=== PATIENT | female | born 1965 | race Caucasian/White ===

== ENCOUNTER 2017-10-15 22:07 | Inpatient (IN) | payer BC, OTHER ==
[~2017-10-15] VITALS: Ht 170.2 cm; Wt 89.4 kg
[~2017-10-15 22:07] MED LIST: ACET-1256 PO; ALBU1AER9 INH; CYAN500T13 PO; EFFSR150 PO; FEXO1TAB49 PO; MULT-506 PO; MULT-842 PO; NYSCR30 EXT; OMEP20CA9 PO; ONDA-63 PO; PSYL55.43 PO; RANI150T3 PO
[2017-10-15] MEDS ORDERED: ONDANSETRON INJ 2 MG/ML 2 ML VIAL IV STA (22:59)
[2017-10-15] MEDS ORDERED: SODIUM CHLORIDE 0.9% 1000ML 1,000 ML IV STA (22:59)
[2017-10-15] MEDS ORDERED: MoRPHine SULFATE 10 MG/ML CARP/VIAL IV STA (22:59)
[2017-10-15] MEDS ORDERED: TRAM-10 PO (23:04)
[2017-10-15] MEDS ORDERED: PSYL0.524 (23:04)
[2017-10-15] MEDS ORDERED: QUET1TAB30 PO (23:04)
[2017-10-15 23:15] LABS: BASO % 0.3 %; BASO ABS # 0.03 K/uL (0-0.2); EOS % 0.7 %; EOS ABS # 0.08 K/uL (0-0.5); HEMATOCRIT 28.3 % (37-47); HEMOGLOBIN 8.3 g/dL (12.0-16.0); IG# 0.02 K/uL (0.00-0.02); LYMPH % 9.4 %; LYMPH ABS # 1.06 K/uL (1.2-3.4); MEAN CELL VOLUME 68.7 fL (80-100); MEAN CORPUSCULAR HEMOGLOBIN 20.1 pg (25-34); MEAN CORPUSCULAR HGB CONC 29.3 g/dl (32-36); MEAN PLATELET VOLUME 10.2 fL (7.4-10.4); MONO ABS # 0.34 K/uL (0.11-0.59); NEUT % 86.4 %; NEUT ABS # 9.79 K/uL (1.4-6.5); PLATELET COUNT 404 K/uL (130-400); RED CELL DISTRIBUTION WIDTH SD 45.8 fL (36.4-46.3); WHITE BLOOD COUNT 11.32 K/uL (4.8-10.8)
[2017-10-15] MEDS ORDERED: OPTIRAY 320 IV PRN (23:15)
[2017-10-15 23:24] LABS: ISTAT CREATININE 0.7 mg/dl (0.6-1.3); ISTAT IONIZED CALCIUM 1.18 mmol/l (1.12-1.32); ISTAT POTASSIUM 3.9 mEq/L (3.3-5.0)
[2017-10-15 23:33] LABS: ALBUMIN 3.4 gm/dl (3.4-5.0); ALT/SGPT 21 U/L (12-78); BLOOD UREA NITROGEN 12 mg/dl (7-18); CALCIUM 8.9 mg/dl (8.5-10.1); CARBON DIOXIDE 29 mmol/L (21-32); CREATININE 0.66 mg/dl (0.60-1.20); GLUCOSE 117 mg/dl (70-99); LIPASE 103 U/L (73-393); POTASSIUM 3.9 mmol/L (3.5-5.1); SODIUM 138 mmol/L (136-145)
[2017-10-15 23:38] LABS: ALKALINE PHOSPHATASE 74 U/L (45-117); AST/SGOT 11 U/L (15-37); TOTAL PROTEIN 6.9 gm/dl (6.4-8.2)
[2017-10-16] VITALS (13 sets, daily range): BP systolic 112–136; BP diastolic 62–82; PULSE 71–83; TEMP 36.5–36.9; O2SAT 92–96; Ht 170.2 cm; Wt 89.4 kg
[2017-10-16] MEDS ORDERED: CEFTRIAXONE SOD INJ 1 GM ADDVIAL IV STA (00:48)
[2017-10-16] MEDS ORDERED: MoRPHine SULFATE 4 MG/ML 1 ML CARP\\VIAL IV STA (01:01)
--- NOTE | 2017-10-16 01:42 | EMERGENCY ROOM VISIT NOTE ---
History Report prepared by Vince: Hazel Banuelos Under the Supervision of: Dr. Drake Allan M.D. First contact with patient: 22:24 Chief Complaint: GI ASSESSMENT Stated Complaint: SEVERE ABD PAIN,VOMITING,POSSIBLE BOWEL OBSTRUCTIO History of Present Illness The patient is a 52 year old white female with a past medical history of partial SBO, hysterectomy, laparoscopy for endometriosis, hypertension, depression, GERD, asthma who presents to the ED with a cc of persistent severe abdominal pain beginning 3.5 hours ago. She describes the pain as an ache. Positive nausea, vomiting, constipation, burning in chest from vomiting. Negative cough, fever, chills, urinary symptoms. Last bowel movement was earlier today and consisted of small stools. Last SBO was in 2016 and resolved with bowel rest. She denies any recent travel, antibiotic use, falls, or sick contacts. She denies any alcohol or tobacco use. She has her appendix. Source of History: patient Onset: 3.5 hours ago Position: abdomen Symptom Intensity: severe Quality: ache Timing: other (persistent) Associated Symptoms: + chest pain, + nausea, + vomiting, No fevers, No chills, No cough, No urinary symptoms Note: Pt reports constipation. Review of Systems See HPI for pertinent positives and negatives. A total of ten systems were reviewed and were otherwise negative. Past Medical & Surgical Medical Problems: (1) Arthritis of right knee (2) Asthma, Unspecified (3) Asthma, Unspecified (4) Depression (5) Depression (6) Depressive Disorder Nec (7) diverticulosis (8) Diverticulosis Colon (W/O Ment Of Hemorrhage) (9) Esophageal Reflux (10) GERD (gastroesophageal reflux disease) (11) GERD (gastroesophageal reflux disease) (12) H/O small bowel obstruction (13) HTN (hypertension) (14) HTN (hypertension) (15) Hypertension (16) SBO (small bowel obstruction) (17) Small bowel obstruction (18) Small bowel obstruction Surgical Problems: (1) H/O colonoscopy (2) H/O knee surgery (3) H/O: hysterectomy (4) History of esophagogastroduodenoscopy (EGD) (5) S/P surgery on nasal septum (6) S/P DELMY (total abdominal hysterectomy) (7) S/P DELMY-BSO (8) Total knee replacement status Family History Cancer Essential hypertension Heart disease Kidney disease Lung disease Social History Smoking Status: Former Smoker Alcohol Use: occasionally Drug Use: none Marital Status: in relationship Housing Status: lives with significant other Occupation Status: employed Current/Historical Medications Scheduled Cyanocobalamin (Vitamin B12 500MCG), 500 MCG PO DAILY Multiple Minerals W/ Vitamins (Rashaun Mag Zinc +D3), 1 TAB PO DAILY Multivitamin (Multivitamin), 1 TAB PO QAM Omeprazole (Prilosec), 20 MG PO QAM Quetiapine Fumarate (Seroquel), 1 TAB PO HS Ranitidine Hcl (Zantac), 300 MG PO HS Venlafaxine Hcl (Effexor Extended Rel), 150 MG PO DAILY Scheduled PRN Acetaminophen (Tylenol), 1,000 MG PO Q8 PRN for Pain Albuterol Sulfate (Proair Hfa), 2 PUFFS INH QID PRN for Asthma Symptoms Fexofenadine Hcl (Ayde Allergy), 1 TAB PO QAM PRN for Seasonal Allergies Ondansetron (Ondansetron HCl), 8 MG PO UD PRN for Nausea Psyllium (Metamucil), 1 DOSE QAM PRN for Tramadol (Ultram), 50 MG PO PRN UD PRN for Pain Allergies Coded Allergies: Naproxen (Verified Allergy, Severe, ANAPHYLAXIS- THROAT SWELLING, motrin OK, 10/15/17) 03/03/16: Spoke with Edu Daniel PA-C: ok to use celebrex/toradol Diflunisal (Unverified Allergy, Unknown, per PCP records, 10/15/17) Fexofenadine (Unverified Adverse Reaction, Mild, HYPERTENSION, 10/15/17) Pseudoephedrine (Unverified Adverse Reaction, Mild, HYPERTENSION, 10/15/17) Meperidine (Unverified Adverse Reaction, Unknown, HYPOTENSION, 10/15/17) Physical Exam Vital Signs Date Time Temp Pulse Resp B/P (MAP) Pulse Ox O2 Delivery O2 Flow Rate FiO2 10/16/17 01:01 84 13 128/78 95 Room Air 10/16/17 00:00 82 15 139/74 96 Room Air 10/15/17 23:19 79 10/15/17 22:14 36.9 87 22 127/80 97 Room Air Physical Exam GENERAL: Awake, alert, well-appearing, NAD. Pt holding bag of vomit. HENT: Normocephalic, atraumatic. EYES: Normal conjunctiva. Sclera non-icteric. NECK: Supple. No nuchal rigidity. FROM. RESPIRATORY: CTAB, no rhonchi, wheezing, crackles CARDIAC: RRR, no MRG ABDOMEN: Soft, ND, BS+. Epigastric and LUQ TTP. Suprapubic and RLQ TTP. MSK: No chest wall TTP, no LE edema. No CVA TTP. NEURO: GCS 15, CN 2-12 intact, moves all 4s on command SKIN: No rash or jaundice noted. Medical Decision & Procedures ER Provider Diagnostic Interpretation: X-ray: Per my interpretation, radiologist review. Radiology results as stated below per my review and [facility] radiologist interpretation: Chest X-ray: Trachea midline. Questionable mild cardiomegaly. Costophrenic angles well demarcated. No obvious pneumothorax, consolidation, or pleural effusion. Gaseous bubble below the left hemidiaphragm. KUB: Stool evident. Bony elements intact. No obvious obstruction. CT Abdomen & Pelvis With Contrast: Comparison 08/26/2016 There is again dilated small bowel leading to a focal transition point at the distal small bowel with adjacent fecalized intraluminal material and small amount of interloop and mesenteric fluid, edema consistent with developing small bowel obstruction No free air Normal caliber appendix without secondary signs Small amount of pelvic free fluid Abdominal solid organs and gallbladder appear within limits Status post hysterectomy again noted Laboratory Results 10/15/17 23:00 Red Blood Count 4.12, Mean Corpuscular Volume 68.7, Mean Corpuscular Hemoglobin 20.1, Mean Corpuscular Hemoglobin Concent 29.3, Mean Platelet Volume 10.2, Neutrophils (%) (Auto) 86.4, Lymphocytes (%) (Auto) 9.4, Monocytes (%) (Auto) 3.0, Eosinophils (%) (Auto) 0.7, Basophils (%) (Auto) 0.3, Neutrophils # (Auto) 9.79, Lymphocytes # (Auto) 1.06, Monocytes # (Auto) 0.34, Eosinophils # (Auto) 0.08, Basophils # (Auto) 0.03 10/15/17 23:00 Test 10/15/17 23:00 10/15/17 23:12 10/15/17 23:20 White Blood Count 11.32 K/uL (4.8-10.8) Red Blood Count 4.12 M/uL (4.2-5.4) Hemoglobin 8.3 g/dL (12.0-16.0) Hematocrit 28.3 % (37-47) Mean Corpuscular Volume 68.7 fL (80-100) Mean Corpuscular Hemoglobin 20.1 pg (25-34) Mean Corpuscular Hemoglobin Concent 29.3 g/dl (32-36) Platelet Count 404 K/uL (130-400) Mean Platelet Volume 10.2 fL (7.4-10.4) Neutrophils (%) (Auto) 86.4 % Lymphocytes (%) (Auto) 9.4 % Monocytes (%) (Auto) 3.0 % Eosinophils (%) (Auto) 0.7 % Basophils (%) (Auto) 0.3 % Neutrophils # (Auto) 9.79 K/uL (1.4-6.5) Lymphocytes # (Auto) 1.06 K/uL (1.2-3.4) Monocytes # (Auto) 0.34 K/uL (0.11-0.59) Eosinophils # (Auto) 0.08 K/uL (0-0.5) Basophils # (Auto) 0.03 K/uL (0-0.2) RDW Standard Deviation 45.8 fL (36.4-46.3) RDW Coefficient of Variation 18.0 % (11.5-14.5) Immature Granulocyte % (Auto) 0.2 % Immature Granulocyte # (Auto) 0.02 K/uL (0.00-0.02) Large Platelets 1+ Hypochromasia PRESENT Microcytosis PRESENT Est Creatinine Clear Calc Drug Dose 117.1 ml/min Estimated GFR () 119.4 Estimated GFR (Non- 103.0 BUN/Creatinine Ratio 17.5 (10-20) Calcium Level 8.9 mg/dl (8.5-10.1) Magnesium Level 2.2 mg/dl (1.8-2.4) Total Bilirubin 0.3 mg/dl (0.2-1) Direct Bilirubin < 0.1 mg/dl (0-0.2) Aspartate Amino Transf (AST/SGOT) 11 U/L (15-37) Alanine Aminotransferase (ALT/SGPT) 21 U/L (12-78) Alkaline Phosphatase 74 U/L (45-117) Troponin I < 0.015 ng/ml (0-0.045) Total Protein 6.9 gm/dl (6.4-8.2) Albumin 3.4 gm/dl (3.4-5.0) Lipase 103 U/L (73-393) Bedside Hemoglobin 9.5 g/dl (12.0-16.0) Bedside Hematocrit 28 % (37-47) Bedside Sodium 139 mEq/L (135-144) Bedside Potassium 3.9 mEq/L (3.3-5.0) Bedside Chloride 99 mEq/L (101-112) Bedside Total CO2 30 mEq/l (24-31) Anion Gap 15.0 mmol/L (16-25) Bedside Blood Urea Nitrogen 11 mg/dl (7-18) Bedside Creatinine 0.7 mg/dl (0.6-1.3) Bedside Glucose (other) 121 mg/dl (70-99) Bedside Ionized Calcium (Vielka) 1.18 mmol/l (1.12-1.32) Urine Color YELLOW Urine Appearance CLOUDY (CLEAR) Urine pH 8.5 (4.5-7.5) Urine Specific [place] 1.023 (1.000-1.030) Urine Protein NEG (NEG) Urine Glucose (UA) NEG (NEG) Urine Ketones TRACE (NEG) Urine Occult Blood NEG (NEG) Urine Nitrite NEG (NEG) Urine Bilirubin NEG (NEG) Urine Urobilinogen NEG (NEG) Urine Leukocyte Esterase SMALL (NEG) Urine WBC (Auto) 10-30 /hpf (0-5) Urine RBC (Auto) 0-4 /hpf (0-4) Urine Hyaline Casts (Auto) 1-5 /lpf (0-5) Urine Epithelial Cells (Auto) >30 /lpf (0-5) Urine Bacteria (Auto) 1+ (NEG) Laboratory results reviewed by me Medications Administered Medications (Trade) Dose Ordered Sig/Cora Route Start Time Stop Time Status Last Admin Dose Admin Sodium Chloride 1,000 ml @ 999 mls/hr Q1H1M STAT IV 10/15/17 22:59 10/15/17 23:59 DC 10/15/17 00:12 999 MLS/HR Ondansetron HCl (Zofran Inj) 4 mg NOW STAT IV 10/15/17 22:59 10/15/17 23:02 DC 10/15/17 23:37 4 MG Morphine Sulfate (MoRPHine SULFATE INJ) 8 mg NOW STAT IV 10/15/17 22:59 10/15/17 23:02 DC 10/15/17 23:37 8 MG Ceftriaxone Sodium (Rocephin Inj) 1 gm NOW STAT IV 10/16/17 00:48 10/16/17 00:49 DC 10/16/17 01:05 1 GM Morphine Sulfate (MoRPHine SULFATE INJ) 4 mg NOW STAT IV 10/16/17 01:01 10/16/17 01:02 DC 10/16/17 01:08 4 MG ECG Indication: chest pain Rate (beats per minute): 74 Rhythm: normal sinus Findings: other (normal intervals, normal axis, no STS changes or TWI) Change: Patient's electrocardiogram interpreted by me. ED Course 2247: The patient was evaluated in room C4. A complete history and physical exam was performed. 0059: Upon reexamination, the patient was still having some pain. I discussed the test results and treatment plan with her. The patient will be evaluated for further management. 0140: I discussed the patient's case [facility] The patient will be evaluated for further treatment and disposition. Medical Decision The patient is a 52 year old white female with a past medical history of partial SBO, hysterectomy, laparoscopy for endometriosis, hypertension, depression, GERD, asthma who presents to the ED with a cc of persistent severe abdominal pain beginning 3.5 hours ago. Differential diagnosis: Etiologies such as appendicitis, diverticulitis, PUD, biliary pathology, UTI, pancreatitis, obstruction, mesenteric ischemia, aortic pathology, infections, inflammatory bowel disease, renal colic, as well as others were entertained. Patient was seen and evaluated the bedside. Patient does have a prior history of partial SBO and the patient states that she has had some severe abdominal pain. Patient did have a bowel movement earlier today. Patient did have blood work completed along with a CT of the abdomen pelvis. Patient's blood work was fairly unremarkable. Of note the patient does have some anemia which is microcytic. This is compared to a hemoglobin obtained approximately [address] of the abdomen pelvis did show a developing SBO with transition point at the distal small bowel. Patient did have an NG tube that was ordered. I did speak with the medicine service who agreed to further evaluate and treat the patient. Medication Reconcilliation Current Medication List: was personally reviewed by me Blood Pressure Screening Patient's blood pressure: Normal blood pressure Blood pressure disposition: Did not require urgent referral Consults Time Called: 013 Consulting Physician: Dr. Marquez [facility] hospitalist Returned Call: 0140 Discussed the patient's case. The patient will be evaluated for further treatment and disposition. Impression Primary Impression: SBO (small bowel obstruction) Additional Impression: Anemia Scribe Attestation The scribe's documentation has been prepared under my direction and personally reviewed by me in its entirety. I confirm that the note above accurately reflects all work, treatment, procedures, and medical decision making performed by me. Departure Information Dispostion Being Evaluated By Hospitalist Referrals Tomy Carlos M.D. (PCP) Patient Instructions My [facility] Problem Qualifiers Additional Impression: Anemia Anemia type: unspecified type Qualified Codes: D64.9 - Anemia, unspecified
[2017-10-16] MEDS ORDERED: BISACODYL 10 MG SUPP PR STA (02:24)
[2017-10-16] MEDS ORDERED: MoRPHine SULFATE 4 MG/ML 1 ML CARP\\VIAL IV PRN (02:30)
[2017-10-16] MEDS ORDERED: TRAMADOL HCL 50 MG TAB PO PRN (02:30)
[2017-10-16] MEDS ORDERED: LORAZEPAM 2 MG/ML 1 ML VIAL IV PRN (02:30)
[2017-10-16] MEDS ORDERED: PROCHLORPERAZINE INJ 5 MG in SYRINGE 4 ML IV PRN (02:30)
[2017-10-16] MEDS ORDERED: ACETAMINOPHEN 325 MG TAB PO PRN (02:30)
[2017-10-16] MEDS ORDERED: POLYETHYLENE (MIRALAX) 17 GM PACK PO PRN (02:30)
[2017-10-16 02:56] LABS: RETIC COUNT % 1.4 % (0.5-2.0)
--- NOTE | 2017-10-16 03:22 | HISTORY & PHYSICAL EXAMINATION ---
DATE OF ADMISSION: 10/15/2017 CHIEF COMPLAINT: Abdominal pain. HISTORY OF PRESENT ILLNESS: History obtained from patient and records. Medical history significant for HTN, recurrent bowel obstruction, mood disorder, chronic anemia baseline hemoglobin 10, GERD, intermittent tobacco abuse Recent confinement last August 2016 for partial bowel obstruction resolved with conservative management. One day history of generalized abdominal discomfort, nausea, vomiting, constipated more than usual. Patient brought by friend to Emergency Room. NG tube placed in the ER. Patient's reflux worsening, increased abdominal distention. Denies black/bloody emesis/melena/hematochezia. Denies dysuria. Patient received IV ceftriaxone at the ER for possible UTI. MEDICAL HISTORY: As above. In 2016, EGD and colonoscopy were normal. Small bowel study recommended for complete workup. SURGERIES: She has had total abdominal hysterectomy, bilateral salpingo-oophorectomy, knee replacement, cataract surgery. HOME MEDICATIONS: Include Prilosec, Zofran, psyllium, Seroquel, Zantac, Ultram, Effexor, ProAir, Tylenol, vitamin B12, Ayde, multivitamins. ALLERGIES: MEPERIDINE, NAPROXEN, FEXOFENADINE. FAMILY HISTORY: Heart disease, hypertension. PERSONAL AND SOCIAL HISTORY: Intermittent tobacco abuse. No chronic intake of alcoholic beverages. [employer] employee. REVIEW OF SYSTEMS: As per HPI. All 10 systems reviewed. All other ROS negative. PHYSICAL EXAMINATION: VITAL SIGNS: Blood pressure was noted to be 130/80, pulse rate 87, RR 15, temperature 36.9, sats 96 on room air. GENERAL: Noted to be comfortable, obese, no respiratory distress. SKIN: Pallor. Warm. HEENT: Pale palpebral conjunctiva. No ptosis. Dry buccal mucosa. NECK: Supple, short. CHEST: Clear to auscultation. No chest wall tenderness. ABDOMEN: Some distention. No exquisite tenderness. Healed incisional scars. RECTAL: Intact sphincter, yellow stool, heme negative. EXTREMITIES: Minimal LE edema. No gross deformities. No tenderness. NEUROLOGIC: Coherent. No gross focality. LABORATORY DATA: Hemoglobin was 8.3, hematocrit 28.3, white cell count 11.32, platelets 404. Sodium 138, potassium 3.9, chloride 102, CO2 29, BUN 12, creatinine 0.66, glucose 117. CT abdomen and pelvis initial read showed recurrent moderate grade small bowel obstruction with transition point within the right mid abdomen, mesenteric fluid normal caliber appendix, status post hysterectomy, small amount of pelvic free fluid. Gallbladder within normal limits. UA WBC est , epithelial cells, trace ketones, hyaline casts ASSESSMENT: 1. Recurrent small bowel obstruction. 2. Acute on chronic anemia Hemoglobin drop from baseline history of iron deficiency anemia on outpatient workup. No evidence of occult gastrointestinal bleed on exam Patient not symptomatic. 3. Hypertension, stable. 4. Intermittent tobacco abuse. 5. Mood disorder, stable. 6. Asymptomatic pyuria, contaminated specimen Patient not septic. PLAN: GMF analgesia, antiemetics, bowel rest, NGT decompression, laxatives Surgery consult RE recurrent bowel obstruction. Complete anemia workup. Iron supplement on discharge. Follow urine cultures, hold off on additional antibiotics for now. Patient counseled on stopping smoking. DVT prophylaxis, Lovenox subQ. Full code. MTDD
[2017-10-16 03:23] LABS: CALCIUM 8.3 mg/dl (8.5-10.1); CREATININE 0.62 mg/dl (0.60-1.20); POTASSIUM 4.1 mmol/L (3.5-5.1)
[2017-10-16] MEDS ORDERED: PANTOprazole INJ 40 MG in SYRINGE 0 ML IV ONE (03:30)
[2017-10-16] MEDS: NSS + 20MEQ KCL 1000ML 1,000 ML IV SCH ×2 (03:54→20:46)
[2017-10-16] MEDS ORDERED: LORAZEPAM INJ 0.5 MG in SYRINGE 0.75 ML IV PRN (04:00)
--- NOTE | 2017-10-16 05:15 | Medical Consult ---
Consultation Date of Consultation: Oct 16, 2017. Attending Physician: Elder Thomas MD Reason for Consultation: bowel obstruction History of Present Illness pt adm with N/V, abd pain- CT shows dilated small bowel c/w sbo. Recurrent problem- last here Aug 26- w/ same- worse on scan. resolved quickly. H/o Hysterectomy and BSO. Has NG in place- slightly improved Past Medical/Surgical History Medical Problems: (1) Asthma, Unspecified Status: Chronic (2) Depression Status: Chronic (3) Depressive Disorder Nec Status: Chronic (4) diverticulosis Status: Chronic (5) Diverticulosis Colon (W/O Ment Of Hemorrhage) Status: Chronic (6) Esophageal Reflux Status: Chronic (7) GERD (gastroesophageal reflux disease) Status: Chronic (8) H/O small bowel obstruction Status: Chronic (9) HTN (hypertension) Status: Chronic (10) Hypertension Status: Chronic Family History Cancer Essential hypertension Heart disease Kidney disease Lung disease Social History Smoking Status: Former Smoker Drug Use: none Marital Status: in relationship Housing Status: lives with significant other Occupation Status: employed Allergies Coded Allergies: Naproxen (Verified Allergy, Severe, ANAPHYLAXIS- THROAT SWELLING, motrin OK, 10/15/17) 03/03/16: Spoke with Edu Daniel PA-C: ok to use celebrex/toradol Diflunisal (Unverified Allergy, Unknown, per PCP records, 10/15/17) Fexofenadine (Unverified Adverse Reaction, Mild, HYPERTENSION, 10/15/17) Pseudoephedrine (Unverified Adverse Reaction, Mild, HYPERTENSION, 10/15/17) Meperidine (Unverified Adverse Reaction, Unknown, HYPOTENSION, 10/15/17) Current Inpatient Medications Current Inpatient Medications Medications (Trade) Dose Ordered Sig/Cora Route Start Time Stop Time Status Last Admin Dose Admin Ioversol (Optiray 320) 100 ml UD PRN IV 10/15/17 23:15 10/19/17 23:14 Enoxaparin Sodium (Lovenox Inj) 40 mg Q24H SQ 10/16/17 02:30 11/15/17 02:29 UNV Acetaminophen (Tylenol Tab) 650 mg Q4H PRN PO 10/16/17 02:30 11/15/17 02:29 Tramadol HCl (Ultram Tab) not relieved ... Q6H PRN PO 10/16/17 02:30 11/15/17 02:29 Prochlorperazine Edisylate 5 mg/ Syringe 5 ml @ 5 mls/min Q6H PRN IV 10/16/17 02:30 11/15/17 02:29 Lorazepam (Ativan Inj) 0.5 mg Q4H PRN IV 10/16/17 02:30 11/15/17 02:29 Morphine Sulfate (MoRPHine SULFATE INJ) 4 mg Q4H PRN IV 10/16/17 02:30 10/30/17 02:29 Cyanocobalamin (Vitamin B-12 Tab) 500 mcg DAILY PO 10/16/17 09:00 11/15/17 08:59 Multivitamins (Multivitamin Tab) 1 tab QAM PO 10/16/17 09:00 11/15/17 08:59 Ranitidine HCl (zANTac TAB) 300 mg HS PO 10/16/17 21:00 11/15/17 20:59 Venlafaxine HCl (effeXOR EXTENDED REL CAP) 150 mg DAILY PO 10/16/17 09:00 11/15/17 08:59 Quetiapine Fumarate (seroQUEL TAB) 25 mg HS PO 10/16/17 21:00 11/15/17 20:59 Pantoprazole Sodium (Protonix Tab) 40 mg QAM PO 10/17/17 09:00 11/16/17 08:59 Senna/Docusate Sodium (Senokot S Tab) 1 tab BID PO 10/16/17 09:00 11/15/17 08:59 Polyethylene (Miralax Powder Packet) 17 gm DAILY PRN PO 10/16/17 02:30 11/15/17 02:29 Potassium Chloride/Sodium Chloride 1,000 ml @ 75 mls/hr [id number] IV 10/16/17 03:30 11/15/17 03:29 10/16/17 03:54 75 MLS/HR Lorazepam 0.5 mg/ Syringe 1 ml @ 1 mls/min Q4H PRN IV 10/16/17 04:00 11/15/17 03:59 Review of Systems Constitutional: No fever, No chills Respiratory: No cough, No sputum, No shortness of breath Cardiovascular: No chest pain Abdomen: + pain, + nausea, + vomiting Genitourinary - Female: No dysuria Integumentary: No rash Physical Exam Date Time Temp Pulse Resp B/P (MAP) Pulse Ox O2 Delivery O2 Flow Rate FiO2 10/16/17 03:12 36.7 82 16 115/72 (86) 95 Room Air 10/16/17 03:00 95 Room Air 10/16/17 02:42 78 16 111/73 94 10/16/17 01:01 84 13 128/78 95 Room Air 10/16/17 00:00 82 15 139/74 96 Room Air 10/15/17 23:19 79 10/15/17 22:14 36.9 87 22 127/80 97 Room Air General Appearance: no apparent distress Head: atraumatic Neck: supple Respiratory/Chest: no respiratory distress Cardiovascular: regular rate, rhythm Abdomen/GI: + distended (mild distention, some decreased bowel sounds, mild tenderness) Extremities/Musculoskelatal: no pedal edema Neurologic/Psych: alert Skin: no rash Laboratory Results Last 24 Hours Test 10/15/17 23:00 10/15/17 23:12 10/15/17 23:20 10/16/17 02:39 White Blood Count 11.32 K/uL Red Blood Count 4.12 M/uL Hemoglobin 8.3 g/dL Hematocrit 28.3 % Mean Corpuscular Volume 68.7 fL Mean Corpuscular Hemoglobin 20.1 pg Mean Corpuscular Hemoglobin Concent 29.3 g/dl Platelet Count 404 K/uL Mean Platelet Volume 10.2 fL Neutrophils (%) (Auto) 86.4 % Lymphocytes (%) (Auto) 9.4 % Monocytes (%) (Auto) 3.0 % Eosinophils (%) (Auto) 0.7 % Basophils (%) (Auto) 0.3 % Neutrophils # (Auto) 9.79 K/uL Lymphocytes # (Auto) 1.06 K/uL Monocytes # (Auto) 0.34 K/uL Eosinophils # (Auto) 0.08 K/uL Basophils # (Auto) 0.03 K/uL RDW Standard Deviation 45.8 fL RDW Coefficient of Variation 18.0 % Immature Granulocyte % (Auto) 0.2 % Immature Granulocyte # (Auto) 0.02 K/uL Large Platelets 1+ Hypochromasia PRESENT Microcytosis PRESENT Sodium Level 138 mmol/L 140 mmol/L Potassium Level 3.9 mmol/L 4.1 mmol/L Chloride Level 102 mmol/L 105 mmol/L Carbon Dioxide Level 29 mmol/L 31 mmol/L Anion Gap 7.0 mmol/L 15.0 mmol/L 4.0 mmol/L Blood Urea Nitrogen 12 mg/dl 10 mg/dl Creatinine 0.66 mg/dl 0.62 mg/dl Est Creatinine Clear Calc Drug Dose 117.1 ml/min 124.6 ml/min Estimated GFR () 119.4 121.9 Estimated GFR (Non- 103.0 105.1 BUN/Creatinine Ratio 17.5 15.6 Random Glucose 117 mg/dl 111 mg/dl Calcium Level 8.9 mg/dl 8.3 mg/dl Magnesium Level 2.2 mg/dl Total Bilirubin 0.3 mg/dl Direct Bilirubin < 0.1 mg/dl Aspartate Amino Transf (AST/SGOT) 11 U/L Alanine Aminotransferase (ALT/SGPT) 21 U/L Alkaline Phosphatase 74 U/L Troponin I < 0.015 ng/ml Total Protein 6.9 gm/dl Albumin 3.4 gm/dl Lipase 103 U/L Bedside Hemoglobin 9.5 g/dl Bedside Hematocrit 28 % Bedside Sodium 139 mEq/L Bedside Potassium 3.9 mEq/L Bedside Chloride 99 mEq/L Bedside Total CO2 30 mEq/l Bedside Blood Urea Nitrogen 11 mg/dl Bedside Creatinine 0.7 mg/dl Bedside Glucose (other) 121 mg/dl Bedside Ionized Calcium (Vielka) 1.18 mmol/l Urine Color YELLOW Urine Appearance CLOUDY Urine pH 8.5 Urine Specific [place] 1.023 Urine Protein NEG Urine Glucose (UA) NEG Urine Ketones TRACE Urine Occult Blood NEG Urine Nitrite NEG Urine Bilirubin NEG Urine Urobilinogen NEG Urine Leukocyte Esterase SMALL Urine WBC (Auto) 10-30 /hpf Urine RBC (Auto) 0-4 /hpf Urine Hyaline Casts (Auto) 1-5 /lpf Urine Epithelial Cells (Auto) >30 /lpf Urine Bacteria (Auto) 1+ Absolute Reticulocyte Count 0.05 10^6/uL Percent Reticulocyte Count 1.4 % Iron Level 11 mcg/dl Total Iron Binding Capacity 400 mcg/dl Transferrin 308 mg/dl Transferrin % Saturation 3 % Ferritin 2.3 ng/ml Vitamin B12 Level 829 pg/mL Folate 20.85 ng/mL Test 10/16/17 04:44 Assessment & Plan 10/16/17- Pt with recurrent partial SBO - likely adhesions in pelvis from prior surgery- DELMY/BSO. Nonoperative care for now- I briefly discussed possible recurrence and potential need for exploration, lysis of adhesions. Ice only and NG for now.
[2017-10-16 07:17] LABS: BASO % 0.3 %; BASO ABS # 0.03 K/uL (0-0.2); EOS % 0.9 %; EOS ABS # 0.08 K/uL (0-0.5); HEMATOCRIT 25.2 % (37-47); HEMOGLOBIN 7.4 g/dL (12.0-16.0); IG# 0.01 K/uL (0.00-0.02); LYMPH % 13.7 %; LYMPH ABS # 1.25 K/uL (1.2-3.4); MEAN CELL VOLUME 69.2 fL (80-100); MEAN CORPUSCULAR HEMOGLOBIN 20.3 pg (25-34); MEAN CORPUSCULAR HGB CONC 29.4 g/dl (32-36); MEAN PLATELET VOLUME 10.1 fL (7.4-10.4); MONO % 5.7 %; MONO ABS # 0.52 K/uL (0.11-0.59); NEUT % 79.3 %; NEUT ABS # 7.22 K/uL (1.4-6.5); PLATELET COUNT 339 K/uL (130-400); RED CELL DISTRIBUTION WIDTH CV 18.3 % (11.5-14.5); RED CELL DISTRIBUTION WIDTH SD 46.5 fL (36.4-46.3); WHITE BLOOD COUNT 9.11 K/uL (4.8-10.8)
[2017-10-16] MEDS: CYANOCOBALAMIN 500 MCG TAB (VIT B-12) PO SCH (07:37)
[2017-10-16] MEDS: VENLAFAXINE HCL XR 150 MG CAPXR PO SCH (07:37)
[2017-10-16] MEDS: MULTIVITAMIN TAB PO SCH (07:37)
--- NOTE | 2017-10-16 08:30 | DIAGNOSTIC IMAGING REPORT ---
PA CHEST RADIOGRAPH AND UPRIGHT AND SUPINE AP RADIOGRAPHS OF THE ABDOMEN CLINICAL HISTORY: Abdominal pain and vomiting. COMPARISON STUDY: CT of the abdomen and pelvis August 26, 2016 and KUB August 27, 2016. FINDINGS: Lung volumes are normal. No pneumothorax or pleural effusion is noted. Cardiomediastinal silhouette is stable. There is no evidence for pulmonary edema. There is no free air. Mild small bowel dilatation is noted with multiple air-fluid levels within the small bowel on upright projections. IMPRESSION: 1. No free air. 2. Mild small bowel dilatation with several small bowel air-fluid levels which raises the possibility of a small bowel obstruction. Electronically signed by: Leonidas Leon M.D. 10/16/2017 8:28 AM Dictated Date/Time: 10/16/2017 8:25 AM
--- NOTE | 2017-10-16 08:35 | DIAGNOSTIC IMAGING REPORT ---
CT OF THE ABDOMEN AND PELVIS WITH CONTRAST CLINICAL HISTORY: Abdominal pain, nausea and vomiting. History of small bowel obstruction. COMPARISON STUDY: CT of the abdomen and pelvis August 26, 2016 and abdominal series October 15, 2017. TECHNIQUE: Following IV administration of 93 mL of Optiray-320, axial images of the abdomen and pelvis were obtained from the lung bases to the proximal femurs. Images were reviewed in the axial, sagittal, and coronal planes. IV contrast was administered without complication. A dose lowering technique was utilized adhering to the principles of ALARA. CT DOSE: 623.47 mGy.cm FINDINGS: The liver, spleen, adrenal glands, kidneys and pancreas are unremarkable. There is no hydronephrosis. There is no biliary or pancreatic ductal dilatation. No pneumatosis, free air or portal venous gas is present. The appendix is normal. The mid small bowel is moderately dilated and fluid-filled, measuring up to 3.6 cm in caliber. Small bowel feces sign is noted within the right lower quadrant. Caliber change within the right mid abdomen is noted. Distal small bowel is decompressed. This represents a small bowel obstruction. A small amount of fluid within the pelvis is noted. There is mild mesenteric infiltration and mild interlobular fluid related to the obstruction. No abdominal or pelvic lymphadenopathy is present. No suspicious osseous lesions are present. IMPRESSION: Findings consistent with a recurrent moderate grade small bowel obstruction with transition point within the right mid abdomen, as described above. Small amount of associated fluid. No pneumatosis, free air or portal venous gas. Electronically signed by: Leonidas Leon M.D. 10/16/2017 8:34 AM Dictated Date/Time: 10/16/2017 8:29 AM
[2017-10-16] MEDS ORDERED: DOCUSATE SODIUM/SENNA 50/8.6MG TAB PO SCH (09:00)
[2017-10-16] MEDS ORDERED: NURSING VERBAL MED ORDER ONE ×2 (10:00→17:00)
[2017-10-16] MEDS ORDERED: ENOXAPARIN 40 MG/0.4 ML SYR SQ SCH (10:00)
[2017-10-16] MEDS ORDERED: FUROSEMIDE INJ 20 MG in SYRINGE 0 ML IV ONE (12:00)
[2017-10-16] MEDS ORDERED: MoRPHine SULFATE 2 MG/ML CARP IV PRN (15:45)
--- NOTE | 2017-10-16 18:57 | Progress Note ---
Internal Med Progress Note Date of Service: Oct 16, 2017. Provider Documentation: SUBJECTIVE: resting comfortably afebrile denies abdominal pain or nausea not moving bowels denies any recent blood in stool or black stools OBJECTIVE: Vital Signs-as noted below Exam: General-alert and oriented. Not in distress ENT-Normal hearing Neck-no neck masses Lungs-cta b/l no wheezing or crackles Heart-S1 and S2 heard regular rate and rhythm, no murmurs Abdomen-soft bowel sounds absent mild tenderness no distension Extremities-no edema no erythema Neuro-alert and awake moves extremities Lab data as noted below. ASSESSMENT & PLAN: 1. Recurrent small bowel obstruction. bob ng tube npo, iv fluids, iv pain meds and antiemetics prn surgery on board will monitor. 2. Acute on chronic anemia Hemoglobin drop from baseline history of iron deficiency anemia on outpatient workup. No evidence of occult gastrointestinal bleed on exam hb 7.4 today will transfuse two units of prbc iron low will check stool Hemoccult close monitor 3. Hypertension, stable. 4. Intermittent tobacco abuse. 5. Mood disorder, stable.home meds 6. Asymptomatic pyuria, contaminated specimen Patient not septic. DVT PROPHYLAXIS Lovenox DISPOSITION to be determined Vital Signs: Date Time Temp Pulse Resp B/P (MAP) Pulse Ox O2 Delivery O2 Flow Rate FiO2 10/16/17 17:07 36.8 71 17 126/82 94 10/16/17 17:07 36.8 71 17 126/82 (97) 94 Room Air 10/16/17 16:10 36.7 76 18 131/63 92 10/16/17 15:15 36.5 72 16 130/81 93 10/16/17 15:15 36.5 72 16 130/81 (97) 93 Room Air 10/16/17 15:15 Room Air 10/16/17 14:39 36.7 76 18 121/76 94 10/16/17 14:00 36.8 77 18 116/74 94 10/16/17 13:29 36.8 79 18 112/70 96 10/16/17 13:00 36.7 71 16 117/72 95 10/16/17 12:44 36.5 75 17 117/62 95 10/16/17 12:29 36.9 80 18 116/73 93 10/16/17 07:45 Room Air 10/16/17 07:30 36.8 83 16 116/75 (89) 92 Room Air 10/16/17 03:12 36.7 82 16 115/72 (86) 95 Room Air 10/16/17 03:00 95 Room Air 10/16/17 02:42 78 16 111/73 94 10/16/17 01:01 84 13 128/78 95 Room Air 10/16/17 00:00 82 15 139/74 96 Room Air 10/15/17 23:19 79 10/15/17 22:14 36.9 87 22 127/80 97 Room Air Lab Results: Results Past 24 Hours Test 10/15/17 23:00 10/15/17 23:12 10/15/17 23:20 10/16/17 02:39 Range/Units White Blood Count 11.32 4.8-10.8 K/uL Red Blood Count 4.12 4.2-5.4 M/uL Hemoglobin 8.3 12.0-16.0 g/dL Hematocrit 28.3 37-47 % Mean Corpuscular Volume 68.7 80-100 fL Mean Corpuscular Hemoglobin 20.1 25-34 pg Mean Corpuscular Hemoglobin Concent 29.3 32-36 g/dl Platelet Count 404 130-400 K/uL Mean Platelet Volume 10.2 7.4-10.4 fL Neutrophils (%) (Auto) 86.4 % Lymphocytes (%) (Auto) 9.4 % Monocytes (%) (Auto) 3.0 % Eosinophils (%) (Auto) 0.7 % Basophils (%) (Auto) 0.3 % Neutrophils # (Auto) 9.79 1.4-6.5 K/uL Lymphocytes # (Auto) 1.06 1.2-3.4 K/uL Monocytes # (Auto) 0.34 0.11-0.59 K/uL Eosinophils # (Auto) 0.08 0-0.5 K/uL Basophils # (Auto) 0.03 0-0.2 K/uL RDW Standard Deviation 45.8 36.4-46.3 fL RDW Coefficient of Variation 18.0 11.5-14.5 % Immature Granulocyte % (Auto) 0.2 % Immature Granulocyte # (Auto) 0.02 0.00-0.02 K/uL Large Platelets 1+ Hypochromasia PRESENT Microcytosis PRESENT Sodium Level 138 140 136-145 mmol/L Potassium Level 3.9 4.1 3.5-5.1 mmol/L Chloride Level 102 105 98-107 mmol/L Carbon Dioxide Level 29 31 21-32 mmol/L Anion Gap 7.0 15.0 4.0 3-11 mmol/L Blood Urea Nitrogen 12 10 7-18 mg/dl Creatinine 0.66 0.62 0.60-1.20 mg/dl Est Creatinine Clear Calc Drug Dose 117.1 124.6 ml/min Estimated GFR () 119.4 121.9 Estimated GFR (Non- 103.0 105.1 BUN/Creatinine Ratio 17.5 15.6 10-20 Random Glucose 117 111 70-99 mg/dl Calcium Level 8.9 8.3 8.5-10.1 mg/dl Magnesium Level 2.2 1.8-2.4 mg/dl Total Bilirubin 0.3 0.2-1 mg/dl Direct Bilirubin < 0.1 0-0.2 mg/dl Aspartate Amino Transf (AST/SGOT) 11 15-37 U/L Alanine Aminotransferase (ALT/SGPT) 21 12-78 U/L Alkaline Phosphatase 74 45-117 U/L Troponin I < 0.015 0-0.045 ng/ml Total Protein 6.9 6.4-8.2 gm/dl Albumin 3.4 3.4-5.0 gm/dl Lipase 103 73-393 U/L Bedside Hemoglobin 9.5 12.0-16.0 g/dl Bedside Hematocrit 28 37-47 % Bedside Sodium 139 135-144 mEq/L Bedside Potassium 3.9 3.3-5.0 mEq/L Bedside Chloride 99 101-112 mEq/L Bedside Total CO2 30 24-31 mEq/l Bedside Blood Urea Nitrogen 11 7-18 mg/dl Bedside Creatinine 0.7 0.6-1.3 mg/dl Bedside Glucose (other) 121 70-99 mg/dl Bedside Ionized Calcium ([place]) 1.18 1.12-1.32 mmol/l Urine Color YELLOW Urine Appearance CLOUDY CLEAR Urine pH 8.5 4.5-7.5 Urine Specific [place] 1.023 1.000-1.030 Urine Protein NEG NEG Urine Glucose (UA) NEG NEG Urine Ketones TRACE NEG Urine Occult Blood NEG NEG Urine Nitrite NEG NEG Urine Bilirubin NEG NEG Urine Urobilinogen NEG NEG Urine Leukocyte Esterase SMALL NEG Urine WBC (Auto) 10-30 0-5 /hpf Urine RBC (Auto) 0-4 0-4 /hpf Urine Hyaline Casts (Auto) 1-5 0-5 /lpf Urine Epithelial Cells (Auto) >30 0-5 /lpf Urine Bacteria (Auto) 1+ NEG Absolute Reticulocyte Count 0.05 0.02-0.10 10^6/uL Percent Reticulocyte Count 1.4 0.5-2.0 % Iron Level 11 35-150 mcg/dl Total Iron Binding Capacity 400 250-450 mcg/dl Transferrin 308 200-360 mg/dl Transferrin % Saturation 3 15-50 % Ferritin 2.3 8.0-388.0 ng/ml Vitamin B12 Level 829 211-911 pg/mL Folate 20.85 >5.38 ng/mL Test 10/16/17 06:36 Range/Units White Blood Count 9.11 4.8-10.8 K/uL Red Blood Count 3.64 4.2-5.4 M/uL Hemoglobin 7.4 12.0-16.0 g/dL Hematocrit 25.2 37-47 % Mean Corpuscular Volume 69.2 80-100 fL Mean Corpuscular Hemoglobin 20.3 25-34 pg Mean Corpuscular Hemoglobin Concent 29.4 32-36 g/dl Platelet Count 339 130-400 K/uL Mean Platelet Volume 10.1 7.4-10.4 fL Neutrophils (%) (Auto) 79.3 % Lymphocytes (%) (Auto) 13.7 % Monocytes (%) (Auto) 5.7 % Eosinophils (%) (Auto) 0.9 % Basophils (%) (Auto) 0.3 % Neutrophils # (Auto) 7.22 1.4-6.5 K/uL Lymphocytes # (Auto) 1.25 1.2-3.4 K/uL Monocytes # (Auto) 0.52 0.11-0.59 K/uL Eosinophils # (Auto) 0.08 0-0.5 K/uL Basophils # (Auto) 0.03 0-0.2 K/uL RDW Standard Deviation 46.5 36.4-46.3 fL RDW Coefficient of Variation 18.3 11.5-14.5 % Immature Granulocyte % (Auto) 0.1 % Immature Granulocyte # (Auto) 0.01 0.00-0.02 K/uL Hypochromasia PRESENT Microcytosis PRESENT Prothrombin Time 10.0 9.0-12.0 SECONDS Prothromb Time International Ratio 1.0 0.9-1.1 Phosphorus Level 4.0 2.5-4.9 mg/dl Magnesium Level 2.0 1.8-2.4 mg/dl Microbiology Results 10/15/17 Urine Culture, Received Pending
[2017-10-16] MEDS: ENOXAPARIN 40 MG/0.4 ML SYR SQ SCH (19:00)
[2017-10-16] MEDS: QUETIAPINE FUMARATE 25 MG TAB PO SCH (20:45)
[2017-10-16] MEDS: RANITIDINE HCL 150 MG TAB PO SCH (20:46)
[2017-10-16] MEDS: SENNA 8.8 MG/5 ML UDP PO SCH (20:52)
--- NOTE | 2017-10-17 06:21 | Surgery Progress Note ---
Surgery Progress Note Date of Service Oct 17, 2017. Subjective no acute chgs- no bm, minimal flatus NG - less output- 5cc overnight Objective Vital Signs: Date Time Temp Pulse Resp B/P (MAP) Pulse Ox O2 Delivery O2 Flow Rate FiO2 10/16/17 23:39 Room Air 10/16/17 22:54 36.6 75 16 136/77 (96) 93 Room Air 10/16/17 17:07 36.8 71 17 126/82 94 10/16/17 17:07 36.8 71 17 126/82 (97) 94 Room Air 10/16/17 16:10 36.7 76 18 131/63 92 10/16/17 15:15 36.5 72 16 130/81 93 10/16/17 15:15 36.5 72 16 130/81 (97) 93 Room Air 10/16/17 15:15 Room Air 10/16/17 14:39 36.7 76 18 121/76 94 10/16/17 14:00 36.8 77 18 116/74 94 10/16/17 13:29 36.8 79 18 112/70 96 10/16/17 13:00 36.7 71 16 117/72 95 10/16/17 12:44 36.5 75 17 117/62 95 10/16/17 12:29 36.9 80 18 116/73 93 10/16/17 07:45 Room Air 10/16/17 07:30 36.8 83 16 116/75 (89) 92 Room Air General Appearance: no apparent distress Respiratory/Chest: no respiratory distress Abdomen: soft (rené distended, decreased bowel sounds) Laboratory Results: Results Past 24 Hours Test 10/16/17 06:36 10/17/17 04:44 10/17/17 05:11 Range/Units White Blood Count 9.11 4.8-10.8 K/uL Red Blood Count 3.64 4.2-5.4 M/uL Hemoglobin 7.4 12.0-16.0 g/dL Hematocrit 25.2 37-47 % Mean Corpuscular Volume 69.2 80-100 fL Mean Corpuscular Hemoglobin 20.3 25-34 pg Mean Corpuscular Hemoglobin Concent 29.4 32-36 g/dl Platelet Count 339 130-400 K/uL Mean Platelet Volume 10.1 7.4-10.4 fL Neutrophils (%) (Auto) 79.3 % Lymphocytes (%) (Auto) 13.7 % Monocytes (%) (Auto) 5.7 % Eosinophils (%) (Auto) 0.9 % Basophils (%) (Auto) 0.3 % Neutrophils # (Auto) 7.22 1.4-6.5 K/uL Lymphocytes # (Auto) 1.25 1.2-3.4 K/uL Monocytes # (Auto) 0.52 0.11-0.59 K/uL Eosinophils # (Auto) 0.08 0-0.5 K/uL Basophils # (Auto) 0.03 0-0.2 K/uL RDW Standard Deviation 46.5 36.4-46.3 fL RDW Coefficient of Variation 18.3 11.5-14.5 % Immature Granulocyte % (Auto) 0.1 % Immature Granulocyte # (Auto) 0.01 0.00-0.02 K/uL Hypochromasia PRESENT Microcytosis PRESENT Prothrombin Time 10.0 9.0-12.0 SECONDS Prothromb Time International Ratio 1.0 0.9-1.1 Phosphorus Level 4.0 2.5-4.9 mg/dl Magnesium Level 2.0 1.8-2.4 mg/dl Assessment & Plan 10/17/17- Still some concern for adhesions causing recurrent obstruction. will order CT w/ contrast via NG and assess transit through bowel. May need lysis of adhesions 24-48 hrs depending on progress
[2017-10-17] MEDS ORDERED: OPTIRAY 320 IV PRN (06:30)
[2017-10-17 06:51] LABS: BASO % 0.5 %; BASO ABS # 0.03 K/uL (0-0.2); EOS % 3.4 %; EOS ABS # 0.19 K/uL (0-0.5); HEMATOCRIT 30.8 % (37-47); HEMOGLOBIN 9.5 g/dL (12.0-16.0); IG# 0.01 K/uL (0.00-0.02); LYMPH % 25.3 %; LYMPH ABS # 1.42 K/uL (1.2-3.4); MEAN CELL VOLUME 72.5 fL (80-100); MEAN CORPUSCULAR HEMOGLOBIN 22.4 pg (25-34); MEAN CORPUSCULAR HGB CONC 30.8 g/dl (32-36); MEAN PLATELET VOLUME 10.2 fL (7.4-10.4); MONO % 7.7 %; MONO ABS # 0.43 K/uL (0.11-0.59); NEUT % 62.9 %; NEUT ABS # 3.54 K/uL (1.4-6.5); PLATELET COUNT 309 K/uL (130-400); RED CELL DISTRIBUTION WIDTH CV 19.6 % (11.5-14.5); RED CELL DISTRIBUTION WIDTH SD 51.6 fL (36.4-46.3); WHITE BLOOD COUNT 5.62 K/uL (4.8-10.8)
[2017-10-17 07:05] VITALS: BP 133/81; PULSE 78; TEMP 36.9; O2SAT 93
[2017-10-17 07:24] LABS: CALCIUM 8.1 mg/dl (8.5-10.1); CREATININE 0.6 mg/dl (0.60-1.20); POTASSIUM 3.7 mmol/L (3.5-5.1)
[2017-10-17 07:26] LABS: PHOSPHORUS 3.4 mg/dl (2.5-4.9)
[2017-10-17] MEDS: CYANOCOBALAMIN 500 MCG TAB (VIT B-12) PO SCH (10:04)
[2017-10-17] MEDS: MULTIVITAMIN TAB PO SCH (10:04)
[2017-10-17] MEDS: PANTOprazole SOD 40 MG TAB PO SCH (10:05)
[2017-10-17] MEDS: VENLAFAXINE HCL XR 150 MG CAPXR PO SCH (10:05)
[2017-10-17] MEDS: SENNA 8.8 MG/5 ML UDP PO SCH ×2 (10:05→20:51)
--- NOTE | 2017-10-17 10:13 | DIAGNOSTIC IMAGING REPORT ---
ABD/PELVIS IV AND ORAL CONT CLINICAL HISTORY: 52 years-old Female presenting with sbo- assess transit of contrast, contrast via NG, abdominal pain, vomiting, mild constipation. TECHNIQUE: Multidetector CT of the abdomen and pelvis was performed after the administration of oral and intravenous contrast. IV contrast: 93 mL of Optiray 320. A dose lowering technique was used consistent with the principles of ALARA (as low as reasonably achievable). COMPARISON: 10/16/2017. CT DOSE (mGy.cm): The estimated cumulative dose is 689.29 mGy.cm. FINDINGS: [employer] topogram: Unremarkable. Lung bases: Minimal basilar opacities, likely atelectasis. Multichamber enlargement of the heart. No pericardial or pleural effusion. Liver: Normal morphology. Subcentimeter hypodensity in the left hepatic lobe indeterminate but likely hepatic cyst or hamartoma. Patent hepatic vasculature. Biliary: No intrahepatic or extrahepatic biliary ductal dilatation. Normal gallbladder. Pancreas: Normal. Spleen: Normal. Adrenal glands: Normal. Kidneys and ureters: Normal. No hydronephrosis. Bladder: Incompletely evaluated secondary to underdistention. Pelvic organs: Uterus surgically absent. Normal ovaries. Bowel: Oral contrast has transited to the rectum. No complete bowel obstruction. The appendix is normal. Small bowel is nondistended on the current exam. The persistent site of transition suspected on prior exam is again noted in the right mid abdomen (series 3 image 255). At this site, there is persistent small bowel wall thickening measures 6 mm. No perienteric fat stranding. A nasogastric tube terminates in the body of the stomach. Peritoneal cavity: Trace free fluid in the pelvis. Lymph nodes: Multiple prominent lymph nodes in the small bowel mesentery, which are chronic. These do not meet CT size criteria for pathologic enlargement. Vasculature: Aorta and IVC patent and normal in caliber. Abdominal wall: Normal. Musculoskeletal: Normal. IMPRESSION: 1. No current CT evidence of a partial or complete small bowel obstruction. The site of prior transition point evident on most recent CT performed the previous day is again noted with small bowel wall thickening. This is chronic and without evidence of surrounding inflammatory change. Differential considerations for this site of stenosis include fibrous stenotic stricture in the setting of inflammatory bowel disease or post radiation change. Correlate with the patient's history. 2. Chronic prominent small bowel mesenteric lymph nodes, which may be reactive. 3. Appropriately positioned nasogastric tube. Electronically signed by: Koby Dover M.D. 10/17/2017 10:12 AM Dictated Date/Time: 10/17/2017 10:03 AM
[2017-10-17] MEDS: NSS + 20MEQ KCL 1000ML 1,000 ML IV SCH ×2 (10:55→20:55)
[2017-10-17] MEDS ORDERED: MINERAL OIL 30 ML UDC PO ONE (11:15)
[2017-10-17 15:13] VITALS: BP 137/82; PULSE 78; TEMP 36.7; O2SAT 93
--- NOTE | 2017-10-17 16:12 | Progress Note ---
Internal Med Progress Note Date of Service: Oct 17, 2017. Provider Documentation: SUBJECTIVE: ambulating in [address] moved bowels off of ng tube tolerated diet afebrile no pain or nausea OBJECTIVE: Vital Signs-as noted below Exam: General-alert and oriented. Not in distress ENT-Normal hearing Neck-no neck masses Lungs-cta b/l no wheezing or crackles Heart-S1 and S2 heard regular rate and rhythm, no murmurs Abdomen-soft bowel sounds sluggish no tenderness no distension Extremities-no edema no erythema Neuro-alert and awake moves extremities Lab data as noted below. ASSESSMENT & PLAN: 1. Recurrent small bowel obstruction. bob ng tube npo, iv fluids, iv pain meds and antiemetics prn surgery on board moved bowels repeat ct scan o sbo but showed stenosis in small bowel-needs f/u tolerating full liquid diet -to advance as tolerated 2. Acute on chronic anemia Hemoglobin drop from baseline history of iron deficiency anemia on outpatient workup. No evidence of occult gastrointestinal bleed on exam hb 7.4 10/16/17 will transfuse two units of prbc iron low stool Hemoccult negative hb 9.5 today will give iv venofer needs close f/u with pcp 3. Hypertension, stable. 4. Intermittent tobacco abuse. 5. Mood disorder, stable.home meds 6. Asymptomatic pyuria, contaminated specimen Patient not septic. DVT PROPHYLAXIS Lovenox DISPOSITION possible d/c in am Vital Signs: Date Time Temp Pulse Resp B/P (MAP) Pulse Ox O2 Delivery O2 Flow Rate FiO2 10/17/17 15:13 36.7 78 16 137/82 (100) 93 Room Air 10/17/17 07:30 Room Air 10/17/17 07:05 36.9 78 16 133/81 (98) 93 Room Air 10/16/17 23:39 Room Air 10/16/17 22:54 36.6 75 16 136/77 (96) 93 Room Air 10/16/17 17:07 36.8 71 17 126/82 94 10/16/17 17:07 36.8 71 17 126/82 (97) 94 Room Air 10/16/17 16:10 36.7 76 18 131/63 92 Lab Results: Results Past 24 Hours Test 10/17/17 06:36 10/17/17 09:15 Range/Units White Blood Count 5.62 4.8-10.8 K/uL Red Blood Count 4.25 4.2-5.4 M/uL Hemoglobin 9.5 12.0-16.0 g/dL Hematocrit 30.8 37-47 % Mean Corpuscular Volume 72.5 80-100 fL Mean Corpuscular Hemoglobin 22.4 25-34 pg Mean Corpuscular Hemoglobin Concent 30.8 32-36 g/dl Platelet Count 309 130-400 K/uL Mean Platelet Volume 10.2 7.4-10.4 fL Neutrophils (%) (Auto) 62.9 % Lymphocytes (%) (Auto) 25.3 % Monocytes (%) (Auto) 7.7 % Eosinophils (%) (Auto) 3.4 % Basophils (%) (Auto) 0.5 % Neutrophils # (Auto) 3.54 1.4-6.5 K/uL Lymphocytes # (Auto) 1.42 1.2-3.4 K/uL Monocytes # (Auto) 0.43 0.11-0.59 K/uL Eosinophils # (Auto) 0.19 0-0.5 K/uL Basophils # (Auto) 0.03 0-0.2 K/uL RDW Standard Deviation 51.6 36.4-46.3 fL RDW Coefficient of Variation 19.6 11.5-14.5 % Immature Granulocyte % (Auto) 0.2 % Immature Granulocyte # (Auto) 0.01 0.00-0.02 K/uL Large Platelets 1+ Anisocytosis PRESENT Tear Drop Cells 1+ Sodium Level 141 136-145 mmol/L Potassium Level 3.7 3.5-5.1 mmol/L Chloride Level 106 98-107 mmol/L Carbon Dioxide Level 29 21-32 mmol/L Anion Gap 6.0 3-11 mmol/L Blood Urea Nitrogen 9 7-18 mg/dl Creatinine 0.60 0.60-1.20 mg/dl Est Creatinine Clear Calc Drug Dose 128.8 ml/min Estimated GFR () 123.2 Estimated GFR (Non- 106.3 BUN/Creatinine Ratio 14.3 10-20 Random Glucose 79 70-99 mg/dl Calcium Level 8.1 8.5-10.1 mg/dl Phosphorus Level 3.4 2.5-4.9 mg/dl Magnesium Level 2.0 1.8-2.4 mg/dl Stool Occult Blood NEGATIVE NEGATIVE
[2017-10-17] MEDS: ENOXAPARIN 40 MG/0.4 ML SYR SQ SCH (17:27)
[2017-10-17] MEDS ORDERED: IRON SUCROSE INJ 100 MG in SODIUM CHLORIDE 0.9% 100ML 100 ML IV ONE (17:30)
[2017-10-17] MEDS: RANITIDINE HCL 150 MG TAB PO SCH (20:52)
[2017-10-17] MEDS: QUETIAPINE FUMARATE 25 MG TAB PO SCH (20:52)
[2017-10-17 23:01] VITALS: BP 151/82; PULSE 62; TEMP 36.7; O2SAT 93
[2017-10-18 06:10] LABS: BASO % 0.5 %; BASO ABS # 0.03 K/uL (0-0.2); EOS % 4.2 %; EOS ABS # 0.26 K/uL (0-0.5); HEMOGLOBIN 9.9 g/dL (12.0-16.0); IG# 0.01 K/uL (0.00-0.02); LYMPH % 23.9 %; LYMPH ABS # 1.47 K/uL (1.2-3.4); MEAN CELL VOLUME 71.7 fL (80-100); MEAN CORPUSCULAR HEMOGLOBIN 22.2 pg (25-34); MEAN CORPUSCULAR HGB CONC 30.9 g/dl (32-36); MEAN PLATELET VOLUME 10.4 fL (7.4-10.4); MONO ABS # 0.49 K/uL (0.11-0.59); NEUT % 63.2 %; PLATELET COUNT 351 K/uL (130-400); RED CELL DISTRIBUTION WIDTH CV 20.1 % (11.5-14.5); WHITE BLOOD COUNT 6.16 K/uL (4.8-10.8)
--- NOTE | 2017-10-18 06:24 | Surgery Progress Note ---
Surgery Progress Note Date of Service Oct 18, 2017. Subjective she feels ok and wants to go home Objective Vital Signs: Date Time Temp Pulse Resp B/P (MAP) Pulse Ox O2 Delivery O2 Flow Rate FiO2 10/17/17 23:51 Room Air 10/17/17 23:01 36.7 62 16 151/82 (105) 93 Room Air 10/17/17 15:39 Room Air 10/17/17 15:13 36.7 78 16 137/82 (100) 93 Room Air 10/17/17 07:30 Room Air 10/17/17 07:05 36.9 78 16 133/81 (98) 93 Room Air General Appearance: no apparent distress Respiratory/Chest: no respiratory distress Abdomen: normal bowel sounds, soft Laboratory Results: Results Past 24 Hours Test 10/17/17 06:36 10/17/17 09:15 10/18/17 05:48 Range/Units White Blood Count 5.62 6.16 4.8-10.8 K/uL Red Blood Count 4.25 4.46 4.2-5.4 M/uL Hemoglobin 9.5 9.9 12.0-16.0 g/dL Hematocrit 30.8 32.0 37-47 % Mean Corpuscular Volume 72.5 71.7 80-100 fL Mean Corpuscular Hemoglobin 22.4 22.2 25-34 pg Mean Corpuscular Hemoglobin Concent 30.8 30.9 32-36 g/dl Platelet Count 309 351 130-400 K/uL Mean Platelet Volume 10.2 10.4 7.4-10.4 fL Neutrophils (%) (Auto) 62.9 63.2 % Lymphocytes (%) (Auto) 25.3 23.9 % Monocytes (%) (Auto) 7.7 8.0 % Eosinophils (%) (Auto) 3.4 4.2 % Basophils (%) (Auto) 0.5 0.5 % Neutrophils # (Auto) 3.54 3.90 1.4-6.5 K/uL Lymphocytes # (Auto) 1.42 1.47 1.2-3.4 K/uL Monocytes # (Auto) 0.43 0.49 0.11-0.59 K/uL Eosinophils # (Auto) 0.19 0.26 0-0.5 K/uL Basophils # (Auto) 0.03 0.03 0-0.2 K/uL RDW Standard Deviation 51.6 52.0 36.4-46.3 fL RDW Coefficient of Variation 19.6 20.1 11.5-14.5 % Immature Granulocyte % (Auto) 0.2 0.2 % Immature Granulocyte # (Auto) 0.01 0.01 0.00-0.02 K/uL Large Platelets 1+ Anisocytosis PRESENT Tear Drop Cells 1+ Sodium Level 141 136-145 mmol/L Potassium Level 3.7 3.5-5.1 mmol/L Chloride Level 106 98-107 mmol/L Carbon Dioxide Level 29 21-32 mmol/L Anion Gap 6.0 3-11 mmol/L Blood Urea Nitrogen 9 7-18 mg/dl Creatinine 0.60 0.60-1.20 mg/dl Est Creatinine Clear Calc Drug Dose 128.8 ml/min Estimated GFR () 123.2 Estimated GFR (Non- 106.3 BUN/Creatinine Ratio 14.3 10-20 Random Glucose 79 70-99 mg/dl Calcium Level 8.1 8.5-10.1 mg/dl Phosphorus Level 3.4 2.5-4.9 mg/dl Magnesium Level 2.0 1.8-2.4 mg/dl Stool Occult Blood NEGATIVE NEGATIVE Assessment & Plan 10/18/17- Contrast progressed quickly to colon on CT- tolerating full liquids will advance to low fiber- can d/c home from surgical stdpt , unless pain/nausea recur- discussed possible need for surgery in future she understands 10/17/17- Still some concern for adhesions causing recurrent obstruction. will order CT w/ contrast via NG and assess transit through bowel. May need lysis of adhesions 24-48 hrs depending on progress 10/17/17- Still some concern for adhesions causing recurrent obstruction. will order CT w/ contrast via NG and assess transit through bowel. May need lysis of adhesions 24-48 hrs depending on progress
[2017-10-18 08:20] VITALS: BP 132/86; PULSE 73; TEMP 36.5; O2SAT 94
[2017-10-18 08:32] VITALS: O2SAT 94
[2017-10-18] MEDS: SENNA 8.8 MG/5 ML UDP PO SCH (08:47)
[2017-10-18] MEDS: CYANOCOBALAMIN 500 MCG TAB (VIT B-12) PO SCH (08:48)
[2017-10-18] MEDS: PANTOprazole SOD 40 MG TAB PO SCH (08:48)
[2017-10-18] MEDS: MULTIVITAMIN TAB PO SCH (08:48)
[2017-10-18] MEDS: VENLAFAXINE HCL XR 150 MG CAPXR PO SCH (08:48)
[2017-10-18] MEDS ORDERED: SENNA 8.8 MG/5 ML UDP PO SCH (09:00)
[2017-10-18 15:13] VITALS: BP 150/88; PULSE 70; TEMP 36.3; O2SAT 92
[2017-10-18 16:12] VITALS: BP 150/88; PULSE 70; TEMP 36.3; O2SAT 92
[2017-10-18] MEDS ORDERED: FRRS300 PO (17:46)
--- NOTE | 2017-10-18 17:48 | Discharge Instructions ---
Discharge Instructions Date of Service Oct 18, 2017. Admission Reason for Admission: SBO Discharge Discharge Diagnosis / Problem: SBO, ANEMIA Discharge Goals Goal(s): Decrease discomfort, Improve function Activity Recommendations Activity Limitations: resume your previous activity . Instructions / Follow-Up Instructions / Follow-Up FOLLOWUP WITH FAMILY DOCTOR ON Oct AT 11AM. ANEMIA WORKUP PER FAMILY DOCTOR. FOLLOWUP WITH GI SCHEDULED.( STRICTURE OF BOWEL SEEN ON CT SCAN) Current Hospital Diet Patient's current hospital diet: Low Fiber Diet Discharge Diet Recommended Diet: Regular Diet (TO BE GENTLE WITH DIET FOR FEW DAYS) Pending Studies Studies pending at discharge: no Medical Emergencies . Who to Call and When: Medical Emergencies: If at any time you feel your situation is an emergency, please call 911 immediately. . Non-Emergent Contact Non-Emergency issues call your: Primary Care Provider . . "Provider Documentation" section prepared by Christophe Ken. . VTE Core Measure Inpt VTE Proph given/why not?: Enoxaparin (Lovenox)SQ
--- NOTE | 2017-10-18 19:12 | Progress Note ---
Internal Med Progress Note Date of Service: Oct 18, 2017. Provider Documentation: SUBJECTIVE: moved bowels today tolerating soft diet' afebrile' no nausea or abdominal pain ok for discharge OBJECTIVE: Vital Signs-as noted below Exam: General-alert and oriented. Not in distress ENT-Normal hearing Neck-no neck masses Lungs-cta b/l no wheezing or crackles Heart-S1 and S2 heard regular rate and rhythm, no murmurs Abdomen-soft bowel sounds present no tenderness no distension Extremities-no edema no erythema Neuro-alert and awake moves extremities Lab data as noted below. ASSESSMENT & PLAN: 1. Recurrent small bowel obstruction. bob ng tube npo, iv fluids, iv pain meds and antiemetics prn surgery on board moved bowels repeat ct scan o sbo but showed stenosis in small bowel-needs f/u tolerating full soft diet discharged home 2. Acute on chronic anemia Hemoglobin drop from baseline history of iron deficiency anemia on outpatient workup. No evidence of occult gastrointestinal bleed on exam hb 7.4 10/16/17 will transfuse two units of prbc iron low stool Hemoccult negative hb 9.9 today s/p one dose of iv venofer/ d/con iron pills needs close f/u with pcp 3. Hypertension, stable. 4. Intermittent tobacco abuse. 5. Mood disorder, stable.home meds 6. Asymptomatic pyuria, contaminated specimen Patient not septic. discharged home Vital Signs: Date Time Temp Pulse Resp B/P (MAP) Pulse Ox O2 Delivery O2 Flow Rate FiO2 10/18/17 16:12 36.3 70 19 92 Room Air 10/18/17 16:00 Room Air 10/18/17 15:13 36.3 70 19 150/88 (108) 92 Room Air 10/18/17 08:32 94 Room Air 10/18/17 08:20 36.5 73 18 132/86 (101) 94 Room Air 10/18/17 07:06 Room Air 10/17/17 23:51 Room Air 10/17/17 23:01 36.7 62 16 151/82 (105) 93 Room Air Lab Results: Results Past 24 Hours Test 10/18/17 05:48 Range/Units White Blood Count 6.16 4.8-10.8 K/uL Red Blood Count 4.46 4.2-5.4 M/uL Hemoglobin 9.9 12.0-16.0 g/dL Hematocrit 32.0 37-47 % Mean Corpuscular Volume 71.7 80-100 fL Mean Corpuscular Hemoglobin 22.2 25-34 pg Mean Corpuscular Hemoglobin Concent 30.9 32-36 g/dl Platelet Count 351 130-400 K/uL Mean Platelet Volume 10.4 7.4-10.4 fL Neutrophils (%) (Auto) 63.2 % Lymphocytes (%) (Auto) 23.9 % Monocytes (%) (Auto) 8.0 % Eosinophils (%) (Auto) 4.2 % Basophils (%) (Auto) 0.5 % Neutrophils # (Auto) 3.90 1.4-6.5 K/uL Lymphocytes # (Auto) 1.47 1.2-3.4 K/uL Monocytes # (Auto) 0.49 0.11-0.59 K/uL Eosinophils # (Auto) 0.26 0-0.5 K/uL Basophils # (Auto) 0.03 0-0.2 K/uL RDW Standard Deviation 52.0 36.4-46.3 fL RDW Coefficient of Variation 20.1 11.5-14.5 % Immature Granulocyte % (Auto) 0.2 % Immature Granulocyte # (Auto) 0.01 0.00-0.02 K/uL Large Platelets 1+ Hypochromasia PRESENT Anisocytosis PRESENT Microcytosis PRESENT
--- NOTE | 2017-10-18 19:47 | Discharge Summary ---
Discharge Summary Date of Service Oct 18, 2017. Discharge Summary Admission Date: Oct 16, 2017 at 02:18 Discharge Date: Oct 18, 2017 Discharge Disposition: Home Principal Diagnosis: SBO ANEMIA Secondary Diagnoses/Problems: for HTN, recurrent bowel obstruction, mood disorder, chronic anemia baseline hemoglobin 10, GERD, intermittent tobacco abuse Procedures: CT ABD/PELVIS OCT 15 2017: Findings consistent with a recurrent moderate grade small bowel obstruction with transition point within the right mid abdomen, as described above. Small amount of associated fluid. No pneumatosis, free air or portal venous gas. CT ABD/PELVIS 10/17/17: 1. No current CT evidence of a partial or complete small bowel obstruction. The site of prior transition point evident on most recent CT performed the previous day is again noted with small bowel wall thickening. This is chronic and without evidence of surrounding inflammatory change. Differential considerations for this site of stenosis include fibrous stenotic stricture in the setting of inflammatory bowel disease or post radiation change. Correlate with the patient's history. 2. Chronic prominent small bowel mesenteric lymph nodes, which may be reactive. 3. Appropriately positioned nasogastric tube. Consultations: SURGERY Medication Reconciliation New Medications: Ferrous Sulfate (Ferrous Sulfate) 325 Mg Tab 325 MG PO BID, #60 2 Refills Continued Medications: Acetaminophen (Tylenol) 500 Mg Tab 1000 MG PO Q8 PRN for Pain, TAB Albuterol Sulfate (Proair Hfa) 108 Mcg/ Aer 2 PUFFS INH QID PRN for Asthma Symptoms Cyanocobalamin (Vitamin B12 500MCG) 500 Mcg Tab 500 MCG PO DAILY, TAB Fexofenadine Hcl (Ayde Allergy) 180 Mg Tab 1 TAB PO QAM PRN for Seasonal Allergies, TAB Multiple Minerals W/ Vitamins (Rashaun Mag Zinc +D3) 1 Tab Tab 1 TAB PO DAILY Multivitamin (Multivitamin) Tab 1 TAB PO QAM Omeprazole (Prilosec) 20 Mg Cap 20 MG PO QAM Ondansetron (Ondansetron HCl) 8 Mg Tab 8 MG PO UD PRN for Nausea Psyllium (Metamucil) 0.52 Gm Cap 1 DOSE QAM PRN for Quetiapine Fumarate (Seroquel) Unknown Strength Tab 1 TAB PO HS, TAB Ranitidine Hcl (Zantac) 150 Mg Tab 300 MG PO HS, TAB Tramadol (Ultram) 50 Mg Tab 50 MG PO PRN UD PRN for Pain, TAB Venlafaxine Hcl (Effexor Extended Rel) 150 Mg Capcr 150 MG PO DAILY Admission Information HPI (per Admitting provider): History obtained from patient and records. Medical history significant for HTN, recurrent bowel obstruction, mood disorder, chronic anemia baseline hemoglobin 10, GERD, intermittent tobacco abuse Recent confinement last August 2016 for partial bowel obstruction resolved with conservative management. One day history of generalized abdominal discomfort, nausea, vomiting, constipated more than usual. Patient brought by friend to Emergency Room. NG tube placed in the ER. Patient's reflux worsening, increased abdominal distention. Denies black/bloody emesis/melena/hematochezia. Denies dysuria. Patient received IV ceftriaxone at the ER for possible UTI. Physical Exam (per Admitting): VITAL SIGNS: Blood pressure was noted to be 130/80, pulse rate 87, RR 15, temperature 36.9, sats 96 on room air. GENERAL: Noted to be comfortable, obese, no respiratory distress. SKIN: Pallor. Warm. HEENT: Pale palpebral conjunctiva. No ptosis. Dry buccal mucosa. NECK: Supple, short. CHEST: Clear to auscultation. No chest wall tenderness. ABDOMEN: Some distention. No exquisite tenderness. Healed incisional scars. RECTAL: Intact sphincter, yellow stool, heme negative. EXTREMITIES: Minimal LE edema. No gross deformities. No tenderness. NEUROLOGIC: Coherent. No gross focality. Hospital Course 1. Recurrent small bowel obstruction. bob ng tube npo, iv fluids, iv pain meds and antiemetics prn surgery on board moved bowels repeat ct scan o sbo but showed stenosis in small bowel-needs f/u tolerating full soft diet discharged home 2. Acute on chronic anemia Hemoglobin drop from baseline history of iron deficiency anemia on outpatient workup. No evidence of occult gastrointestinal bleed on exam hb 7.4 10/16/17 will transfuse two units of prbc iron low stool Hemoccult negative hb 9.9 today s/p one dose of iv venofer/ d/con iron pills needs close f/u with pcp 3. Hypertension, stable. 4. Intermittent tobacco abuse. 5. Mood disorder, stable.home meds 6. Asymptomatic pyuria, contaminated specimen Patient not septic. discharged home Total time spent on discharge = 35MINUTES This includes examination of the patient, discharge planning, medication reconciliation, and communication with other providers. Discharge Instructions Please take this sheet to every appointment for the next month Discharge Instructions Date of Service Oct 18, 2017. Admission Reason for Admission: SBO Discharge Discharge Diagnosis / Problem: SBO, ANEMIA Discharge Goals Goal(s): Decrease discomfort, Improve function Activity Recommendations Activity Limitations: resume your previous activity . Instructions / Follow-Up Instructions / Follow-Up FOLLOWUP WITH FAMILY DOCTOR ON Oct AT 11AM. ANEMIA WORKUP PER FAMILY DOCTOR. FOLLOWUP WITH GI SCHEDULED.( STRICTURE OF BOWEL SEEN ON CT SCAN) Current Hospital Diet Patient's current hospital diet: Low Fiber Diet Discharge Diet Recommended Diet: Regular Diet (TO BE GENTLE WITH DIET FOR FEW DAYS) Pending Studies Studies pending at discharge: no Medical Emergencies . Who to Call and When: Medical Emergencies: If at any time you feel your situation is an emergency, please call 911 immediately. . Non-Emergent Contact Non-Emergency issues call your: Primary Care Provider . . "Provider Documentation" section prepared by Christophe Ken. . VTE Core Measure Inpt VTE Proph given/why not?: Enoxaparin (Lovenox)SQ
== END 2017-10-18 18:36 | disposition home or self-care (01) | DRG 390 ==
LOC: C.EDB 22:10 → C.MSN 10-16 02:18 → ENRESERV 10-16 02:30
PROVIDERS: ADMIT Internal Medicine; ATTEND Internal Medicine
DX: K56.51 Intestinal adhesions [bands], with partial obstruction (principal); D50.9 Iron deficiency anemia, unspecified; R82.8 Abnormal findings on cytological and histological examination of urine; I10 Essential (primary) hypertension; J45.909 Unspecified asthma, uncomplicated; K21.9 Gastro-esophageal reflux disease without esophagitis; F32.9 Major depressive disorder, single episode, unspecified; F17.200 Nicotine dependence, unspecified, uncomplicated; Z51.81 Encounter for therapeutic drug level monitoring; Z79.899 Other long term (current) drug therapy; Z98.890 Other specified postprocedural states; Z87.19 Personal history of other diseases of the digestive system; Z90.710 Acquired absence of both cervix and uterus; Z87.42 Personal history of other diseases of the female genital tract; Z82.49 Family history of ischemic heart disease and other diseases of the circulatory system

== ENCOUNTER → 2017-10-25 | Outpatient (CLI) | payer OTHER ==
[~2017-10-25] MED LIST changes: +FRRS300 PO; -NYSCR30 EXT; +PSYL0.524; -PSYL55.43 PO; +QUET1TAB30 PO; +TRAM-10 PO
--- NOTE | 2017-10-25 13:06 | DIAGNOSTIC IMAGING REPORT ---
L-SPINE MIN 4 VIEWS ROUTINE CLINICAL HISTORY: 52 years-old Female presenting with SI PAIN/SD FALL. TECHNIQUE: Frontal, bilateral oblique, lateral, and coned in lateral views lumbar spine were obtained. COMPARISON: CT of abdomen pelvis from 10/17/2017. FINDINGS: Sacroiliac joints congruent. Trace levocurvature of the lumbar spine. Sacralization of the L5 transverse processes. No pars defect. No radiographic evidence of compression deformity or subluxation. Mild osseous neural foraminal narrowing at L4-5 and L5-S1 may be present secondary to facet arthropathy. Minimal osteophytosis noted at several of the lumbar levels. Vertebral bodies maintain normal height and alignment. Intervertebral disc spaces preserved. Moderate stool burden throughout the colon. IMPRESSION: 1. No radiographic evidence of acute osseous injury of the lumbar spine. 2. Grossly normal sacroiliac joints. 3. Mild degenerative changes in the lower lumbar spine. 4. Transitional lumbosacral anatomy of L5, which can be variably be a source of back pain. 5. Constipation. Electronically signed by: Koby Dover M.D. 10/25/2017 1:04 PM Dictated Date/Time: 10/25/2017 1:02 PM
--- NOTE | 2017-10-25 13:13 | DIAGNOSTIC IMAGING REPORT ---
RIGHT KNEE 3 VIEWS HISTORY: R KNEE PAIN AFTER FALL COMPARISON: None. FINDINGS: There is no fracture or dislocation. Soft tissues are unremarkable. There is a right total knee arthroplasty. The hardware appears intact. No knee effusion. IMPRESSION: No fractures. Electronically signed by: Ezra Urbina M.D. 10/25/2017 1:11 PM Dictated Date/Time: 10/25/2017 1:09 PM
== END | disposition home or self-care (01) ==
LOC: C.RAD1850 12:39
PROVIDERS: ATTEND Nurse Practitioner Adult Health
DX: M53.3 Sacrococcygeal disorders, not elsewhere classified (principal); M25.561 Pain in right knee; W19.XXXA Unspecified fall, initial encounter; R93.7 Abnormal findings on diagnostic imaging of other parts of musculoskeletal system; K59.00 Constipation, unspecified

== ENCOUNTER 2018-11-13 20:46 | Inpatient (IN) ==
[2018-11-13] MEDS ORDERED: DEXAMETHASONE SOD PHOSPHATE 10 MG in SYRINGE 0 ML IV STA (21:09)
[2018-11-13] MEDS ORDERED: guaiFENesin 600 MG TABCR PO STA (21:09)
[2018-11-13] MEDS ORDERED: ALBUT/IPRATROP 3MG/0.5MG NEB 3 ML VIAL NEB ONE (21:09)
[2018-11-13] MEDS ORDERED: KETOROLAC TROMETHAMINE 15 MG/ML VIAL IV STA (21:09)
[2018-11-13] MEDS ORDERED: SODIUM CHLORIDE 0.65% NA SOLN 45 ML (OCEAN) ONE (21:09)
[2018-11-13] MEDS ORDERED: ACETAMINOPHEN 500 MG TAB PO STA (21:09)
[2018-11-13] MEDS ORDERED: SODIUM CHLORIDE 0.9% 1000ML 2,000 ML IV SCH (21:15)
[2018-11-13] MEDS ORDERED: DEXAMETHASONE SOD INJ 4 MG/ML VIAL ONE (21:29)
[2018-11-13 21:38] LABS: Basophils # (auto) 0.02 K/uL (0-0.2); Basophils % (auto) 0.3 %; Eosinophils # (auto) 0.11 K/uL (0-0.5); Eosinophils % (auto) 1.6 %; Hematocrit (blood only) 31.6 % (37-47); Immature Granulocytes # (auto) 0.01 K/uL (0.00-0.02); Immature Granulocytes % (auto) 0.1 %; Lymphocytes # (auto) 0.91 K/uL (1.2-3.4); Lymphocytes % (auto) 13.4 %; Mean Corpuscular Hgb Conc 31.6 g/dL (32-36); Mean Corpuscular Volume 75.2 fL (80-100); Mean Platelet Volume 10.7 fL (7.4-10.4); Monocytes # (auto) 0.41 K/uL (0.11-0.59); Neutrophils # (auto) 5.32 K/uL (1.4-6.5); Neutrophils % (auto) 78.6 %; Platelet Count 268 K/uL (130-400); RDW Coefficient of Variation 17.5 % (11.5-14.5); RDW Standard Deviation 48.2 fL (36.4-46.3); White Blood Count 6.78 K/uL (4.8-10.8)
--- NOTE | 2018-11-13 21:47 | XRay Report ---
XR chest 1V portable HISTORY: 53 years-old Female Chest Pain acute atypical chest pain COMPARISON: Acute abdominal series radiographs 10/15/2017 TECHNIQUE: Portable AP view of the chest FINDINGS: Cardiomediastinal and hilar silhouettes are unchanged. No pneumothorax, pleural effusion or overt pul monary edema. Bones of the chest appear grossly intact. IMPRESSION: No acute process. The above report was generated using voice recognition software. It may contain grammatical, syntax o r spelling errors. Electronically signed by: Mo Walden M.D. 11/13/2018 9:46 PM
[2018-11-13 21:55] LABS: Alanine Aminotransferase 18 U/L (12-78); Aspartate Aminotransferase 11 U/L (15-37); BUN Creatinine Ratio 11.2 (10-20); Blood Urea Nitrogen 7 mg/dl (7-18); Calcium 8.1 mg/dl (8.5-10.1); Carbon Dioxide 26 mmol/L (21-32); Chloride 104 mmol/L (98-107); Creatinine Clr Calc Pharmacy 127.2 ml/min; Est GFR (Non-African American) 106.1; Glucose 101 mg/dl (70-99); Potassium 3.7 mmol/L (3.5-5.1); Sodium 138 mmol/L (136-145)
[2018-11-13 22:00] LABS: Alkaline Phosphatase 84 U/L (45-117); Bilirubin,Total 0.2 mg/dl (0.2-1); Globulin 3.1 gm/dl (2.5-4.0); Total Protein 6.1 gm/dl (6.4-8.2); Troponin I < 0.015 ng/ml (0-0.045)
[2018-11-13 23:11] LABS: Influenza A virus by PCR Neg for Influ A (Neg); Influenza B virus by PCR Neg for Influ B (Neg)
--- NOTE | 2018-11-14 01:39 | Emergency Department Note ---
Entered by Janessa Brown acting as a scribe for Case Perez MD History of Present Illness General Chief complaint: Cough Stated complaint: HEAD HURTS FROM COUGHING,WHEEZY Time Seen by Provider: 11/13/18 21:01 Source: patient Mode of arrival: ambulatory History of Present Illness Onset (ago): week(s) 1 Location: chest Pain Consistency: + intermittent Maximum Pain Intensity: 8 Quality: + other (cough) Associated symptoms: + denies other symptoms (diarrhea, urinary symptoms), + fever/chills, + headaches and + other (congestion); no nausea/vomiting and no shortness of breath The patient is a 53 year old female who presents to the Emergency Room with complaints of intermittent cough for 1 week. The patient rates her discomfort an 8/10 in severity. She also complains of headache, congestion, fevers, and wheezing. She states she received the flu shot this year. The patient notes she went to a walk-in clinic 2 days ago and suggested it may be viral. She denies any shortness of breath, nausea, vomiting, diarrhea, or urinary symptoms. She reports she has a history of asthma and uses inhalers. She notes she has been taking mucinex, christina seltzer cough and cold, flonase, and ibuprofen 800mg. Home Medications Home Medications Medication Instructions Recorded Confirmed Type albuterol sulfate [ProAir HFA] 2 puff INHALATION QID 11/13/18 11/13/18 History aspirin-sod bicarb-citric acid 1 tab PO UD 11/13/18 11/13/18 History [Christina-Magnolia Original] cyanocobalamin (vitamin B-12) 1,000 mcg PO QAM 11/13/18 11/13/18 History [Vitamin B-12] ferrous sulfate 325 mg PO QAM 11/13/18 11/13/18 History fexofenadine [Ayde Allergy] 180 mg PO QAM PRN 11/13/18 11/13/18 History fluticasone [Flonase Allergy 2 spray INTRANASAL DAILY 11/13/18 11/13/18 History Relief] guaifenesin [Mucinex] 600 mg PO UD 11/13/18 11/13/18 History ibuprofen 800 mg PO QID PRN 11/13/18 11/13/18 History multivitamin with minerals 1 tab PO QAM 11/13/18 11/13/18 History [Multiple Vitamin-Minerals] omeprazole 20 mg PO QAM 11/13/18 11/13/18 History ondansetron 8 mg PO UD PRN 11/13/18 11/13/18 History psyllium husk [Metamucil] 1 dose PO DAILY PRN 11/13/18 11/13/18 History quetiapine 25 mg PO HS 11/13/18 11/13/18 History ranitidine HCl 300 mg PO HS PRN 11/13/18 11/13/18 History tramadol 50 mg PO Q6H PRN 11/13/18 11/13/18 History venlafaxine 150 mg PO QAM 11/13/18 11/13/18 History losartan 25 mg PO DAILY 11/14/18 11/14/18 History Allergies Allergy/AdvReac Type Severity Reaction Status Date / Time naproxen Allergy Severe ANAPHYLAXIS- Verified 11/13/18 21:15 THROAT SWELLING, motrin OK diflunisal Allergy Unknown per PCP Unverified 11/13/18 21:15 records fexofenadine AdvReac Mild HYPERTENSIO Unverified 11/13/18 21:15 N pseudoephedrine AdvReac Mild HYPERTENSIO Unverified 11/13/18 21:15 N meperidine AdvReac Unknown HYPOTENSION Unverified 11/13/18 21:15 Past Med/Surg History Medical History Asthma (Chronic) GERD (gastroesophageal reflux disease) (Chronic) Anxiety (Chronic) Depression (Chronic) Hypertension (Chronic) Diverticulosis of colon, acquired (Chronic) History of small bowel obstruction (Chronic) admissions 2012, 2016, 2018; attributed to adhesions Uterine leiomyoma (Chronic) Surgical History History of total knee arthroplasty (Chronic) right knee Family History Mother Breast cancer Coronary artery disease Crohn's disease Hypertension Father Diabetes mellitus Bladder cancer Aunt Breast cancer Social History Preferred Language: Irish Communication Ability: Effective Panel Gluer Required: No Beliefs That Will Affect Care: None Current Living Situation: Alone Feels Safe at Home: Yes Safety Concerns: Feels Safe At This Time Smoking Status: Never smoker Hx Alcohol Use: Yes Hx Substance Use: No Review of Systems See HPI for pertinent positives & negatives. and A total of 10 systems reviewed and were otherwise negative Physical Exam Vital Signs Vital Signs - 24 hr 11/14/18 03:57 11/14/18 06:57 11/14/18 07:00 Temperature 36.9 C 37 C Temperature Source Oral Oral Pulse Rate Pulse Rate [Finger] 94 H 84 92 H Pulse Rhythm [Finger] Regular Pulse Strength [Finger] Normal Respiratory Rate 16 16 18 Respiratory Effort / Characteristics Non-Labored Non-Labored Spontaneous Respiratory Depth Normal Respiratory Pattern Regular Blood Pressure [Right Arm] 134/74 124/78 Blood Pressure Mean [Right Arm] 94 93 Blood Pressure Position [Right Arm] Lying Lying Pulse Oximetry 94 92 88 L Oxygen Delivery Method Nasal Cannula Room Air Oxygen Flow Rate 2 11/14/18 08:00 11/14/18 09:17 11/14/18 10:31 Temperature Temperature Source Pulse Rate Pulse Rate [Finger] 97 H Pulse Rhythm [Finger] Pulse Strength [Finger] Respiratory Rate Respiratory Effort / Characteristics Non-Labored Spontaneous Respiratory Depth Normal Respiratory Pattern Blood Pressure [Right Arm] 150/83 H Blood Pressure Mean [Right Arm] 105 Blood Pressure Position [Right Arm] Pulse Oximetry 93 91 Oxygen Delivery Method Room Air Room Air Room Air Oxygen Flow Rate 11/14/18 11:25 11/14/18 11:27 11/14/18 14:57 Temperature 37.3 C Temperature Source Oral Pulse Rate Pulse Rate [Finger] 101 H 96 H 99 H Pulse Rhythm [Finger] Pulse Strength [Finger] Respiratory Rate 18 18 18 Respiratory Effort / Characteristics Non-Labored Spontaneous Non-Labored Spontaneous Respiratory Depth Respiratory Pattern Blood Pressure [Right Arm] 158/96 H Blood Pressure Mean [Right Arm] 116 Blood Pressure Position [Right Arm] Lying Pulse Oximetry 96 95 90 Oxygen Delivery Method Room Air Room Air Oxygen Flow Rate 11/14/18 19:33 11/14/18 20:12 11/14/18 20:20 Temperature 37.1 C Temperature Source Oral Pulse Rate Pulse Rate [Finger] 99 H 96 H Pulse Rhythm [Finger] Pulse Strength [Finger] Respiratory Rate 18 18 Respiratory Effort / Characteristics Non-Labored Spontaneous Non-Labored Spontaneous Respiratory Depth Normal Respiratory Pattern Regular Blood Pressure [Right Arm] 152/91 H Blood Pressure Mean [Right Arm] 111 Blood Pressure Position [Right Arm] Lying Pulse Oximetry 95 96 Oxygen Delivery Method Room Air Room Air Room Air Oxygen Flow Rate 11/14/18 22:51 11/15/18 00:58 Temperature 37.2 C Temperature Source Oral Pulse Rate 97 H Pulse Rate [Finger] 96 H Pulse Rhythm [Finger] Pulse Strength [Finger] Respiratory Rate 20 Respiratory Effort / Characteristics Respiratory Depth Respiratory Pattern Blood Pressure [Right Arm] 148/83 H Blood Pressure Mean [Right Arm] 104 Blood Pressure Position [Right Arm] Lying Pulse Oximetry 95 Oxygen Delivery Method Room Air Oxygen Flow Rate GENERAL: Awake, alert, uncomfortable, in no distress HENT: Normocephalic, atraumatic. Oropharynx with dry mucous membranes and other dorsey unremarkable. EYES: Normal conjunctiva. Sclera non-icteric. NECK: Supple. No nuchal rigidity. FROM. No JVD. RESPIRATORY: Scattered wheeze and rhonchi. CARDIAC: Tachycardic, regular rhythm. Extremities warm and well perfused. Pulses equal. ABDOMEN: Soft, non-distended. No tenderness to palpation. No rebound or guarding. No masses. RECTAL: Deferred. MUSCULOSKELETAL: Chest examination reveals no tenderness. The back is symmetrical on inspection without obvious abnormality. There is no CVA ten derness to palpation. No joint edema. LOWER EXTREMITIES: Calves are equal size bilaterally and non-tender. No edema. No discoloration. NEURO: Normal sensorium. No sensory or motor deficits noted. SKIN: No rash or jaundice noted. Course 2102: Past medical records reviewed. The patient was evaluated in room A2, and a complete history and physical examination were performed. 0150: I reviewed the patient's case with Dr. Soto, [facility] Hospitalist. He will evaluate the patient for further management and care. Administered Medications Enoxaparin Sodium (Lovenox) 40 mg SQ HS BORIS Stop: 12/14/18 20:59 Last Admin: 11/14/18 21:33 Dose: 40 mg Documented by: [id number] Fluticasone Propionate (Flonase) 2 sprays NA DAILY BORIS Stop: 12/14/18 08:59 Last Admin: 11/14/18 07:59 Dose: 2 sprays Documented by: [id number] Levofloxacin/Dextrose (Levaquin/D5w) 750 mg in 150 mls @ 100 mls/hr IV Q24H BORIS Stop: 11/21/18 02:14 Last Admin: 11/15/18 02:02 Dose: 100 mls/hr Documented by: [id number] Infusion: 11/14/18 04:05 Dose: 0 mls/hr Documented by: [id number] Admin: 11/14/18 02:27 Dose: 100 mls/hr Documented by: [id number] Methylprednisolone 20 mg/ (Syringe) 0.32 mls @ 1.5 mls/min IV Q8H BORIS Stop: 12/14/18 05:59 Last Admin: 11/14/18 21:33 Dose: 1.5 mls/min Documented by: [id number] Admin: 11/14/18 13:49 Dose: 1.5 mls/min Documented by: [id number] Admin: 11/14/18 06:36 Dose: 1.5 mls/min Documented by: [id number] Losartan Potassium (Cozaar) 25 mg PO DAILY BORIS Stop: 12/14/18 09:59 Last Admin: 11/14/18 10:31 Dose: 25 mg Documented by: [id number] Pantoprazole Sodium (Protonix) 40 mg PO QAM BORIS Stop: 12/14/18 08:59 Last Admin: 11/14/18 07:58 Dose: 40 mg Documented by: [id number] Quetiapine Fumarate (Seroquel) 25 mg PO HS [facility] Stop: 12/14/18 20:59 Last Admin: 11/14/18 21:33 Dose: 25 mg Documented by: [id number] Tramadol HCl (Ultram) 50 mg PO Q6H PRN PRN Reason: Pain Stop: 12/14/18 04:07 Last Admin: 11/14/18 09:36 Dose: 50 mg Documented by: [id number] Venlafaxine HCl (Effexor Extended Release) 150 mg PO QAM BORIS Stop: 12/14/18 08:59 Last Admin: 11/14/18 07:58 Dose: 150 mg Documented by: [id number] Discontinued Medications Acetaminophen (Tylenol) 1,000 mg PO NOW STA Stop: 11/13/18 21:10 Last Admin: 11/13/18 21:33 Dose: 1,000 mg Documented by: [id number] Albuterol (Duoneb) 12 ml NEB ONE ONE Stop: 11/13/18 21:10 Last Admin: 11/13/18 21:48 Dose: 12 ml Documented by: [id number] Albuterol (Duoneb) 3 ml NEB QIDR BORIS Stop: 12/14/18 07:59 Last Admin: 11/14/18 20:11 Dose: 3 ml Documented by: [id number] Admin: 11/14/18 14:57 Dose: 3 ml Documented by: [id number] Admin: 11/14/18 11:22 Dose: 3 ml Documented by: [id number] Admin: 11/14/18 06:58 Dose: 3 ml Documented by: [id number] Dexamethasone (Decadron) Confirm Administered Dose 4 mg .ROUTE .STK-MED ONE Stop: 11/13/18 21:30 Last Admin: 11/13/18 21:40 Dose: Not Given Documented by: [id number] Guaifenesin (Mucinex) 600 mg PO NOW STA Stop: 11/13/18 21:10 Last Admin: 11/13/18 21:33 Dose: 600 mg Documented by: [id number] Dexamethasone Sodium Phosphate (10 mg/ Syringe) 2.5 mls @ 1 mls/min IV NOW STA Stop: 11/13/18 21:11 Last Admin: 11/13/18 21:40 Dose: 1 mls/min Documented by: [id number] Sodium Chloride (Nss 1000ml) 2,000 mls @ 999 mls/hr IV .Q2H1M [facility] Stop: 11/13/18 23:15 Last Infusion: 11/13/18 23:37 Dose: 0 mls/hr Documented by: [id number] Admin: 11/13/18 21:34 Dose: 999 mls/hr Documented by: [id number] Ketorolac Tromethamine (Toradol) 15 mg IV NOW STA Stop: 11/13/18 21:10 Last Admin: 11/13/18 21:33 Dose: 15 mg Documented by: [id number] Sodium Chloride ([place] Nasal) 2 sprays NA NOW ONE Stop: 11/13/18 21:10 Last Admin: 11/13/18 21:33 Dose: 2 sprays Documented by: [id number] Medical Decision Making Differential Diagnosis Etiologies such as viral syndrome, otitis, pharyngitis, pneumonia, influenza, meningitis, urinary tract infection, sepsis, bacteremia, as well as others were entertained. Medical Records Attestation: I reviewed the patient's medical records. Home Medications Current Medication List: was personally reviewed by me Laboratory Data Attestation: I reviewed the patient's lab results. Result diagrams: 11/13/18 21:25 11/14/18 21:36 Lab Results 11/13/18 11/13/18 11/13/18 Range/Units 21:25 21:25 21:37 WBC 6.78 (4.8-10.8) K/uL RBC 4.20 (4.2-5.4) M/uL Hgb 10.0 L (12.0-16.0) g/dL Hct 31.6 L (37-47) % MCV 75.2 L (80-100) fL MCH 23.8 L (25-34) pg MCHC 31.6 L (32-36) g/dL RDW Std Deviation 48.2 H (36.4-46.3) fL RDW Coeff of Willy 17.5 H (11.5-14.5) % Plt Count 268 (130-400) K/uL MPV 10.7 H (7.4-10.4) fL Immature Gran % (Auto) 0.1 % Neut % (Auto) 78.6 % Lymph % (Auto) 13.4 % [place] % (Auto) 6.0 % Eos % (Auto) 1.6 % Baso % (Auto) 0.3 % Immature Gran # (Auto) 0.01 (0.00-0.02) K/uL Neut # (Auto) 5.32 (1.4-6.5) K/uL Lymph # (Auto) 0.91 L (1.2-3.4) K/uL [place] # (Auto) 0.41 (0.11-0.59) K/uL Eos # (Auto) 0.11 (0-0.5) K/uL Baso # (Auto) 0.02 (0-0.2) K/uL PT (9.0-12.0) Seconds INR (0.9-1.1) Sodium 138 (136-145) mmol/L Potassium 3.7 (3.5-5.1) mmol/L Chloride 104 (98-107) mmol/L Carbon Dioxide 26 (21-32) mmol/L Anion Gap 9.0 (3-11) BUN 7 (7-18) mg/dl Creatinine 0.59 L (0.6-1.2) mg/dl Est Cr Clr Drug Dosing 127.2 ml/min Est GFR ( Amer) 123.0 Est GFR (Non-Af Amer) 106.1 BUN/Creatinine Ratio 11.2 (10-20) Glucose 101 H (70-99) mg/dl Calcium 8.1 L (8.5-10.1) mg/dl Magnesium (1.8-2.4) mg/dl Total Bilirubin 0.2 (0.2-1) mg/dl AST 11 L (15-37) U/L ALT 18 (12-78) U/L Alkaline Phosphatase 84 (45-117) U/L Troponin I < 0.015 (0-0.045) ng/ml Total Protein 6.1 L (6.4-8.2) gm/dl Albumin 3.0 L (3.4-5.0) gm/dl Globulin 3.1 (2.5-4.0) gm/dl Albumin/Globulin Ratio 1.0 (0.9-2) Lipase 107 (73-393) U/L Influenza Type A (PCR) Neg for Influ A (Neg) Influenza Type B (PCR) Neg for Influ B (Neg) 11/14/18 11/14/18 11/14/18 Range/Units 07:02 10:09 21:36 WBC (4.8-10.8) K/uL RBC (4.2-5.4) M/uL Hgb (12.0-16.0) g/dL Hct (37-47) % MCV (80-100) fL MCH (25-34) pg MCHC (32-36) g/dL RDW Std Deviation (36.4-46.3) fL RDW Coeff of Willy (11.5-14.5) % Plt Count (130-400) K/uL MPV (7.4-10.4) fL Immature Gran % (Auto) % Neut % (Auto) % Lymph % (Auto) % [place] % (Auto) % Eos % (Auto) % Baso % (Auto) % Immature Gran # (Auto) (0.00-0.02) K/uL Neut # (Auto) (1.4-6.5) K/uL Lymph # (Auto) (1.2-3.4) K/uL [place] # (Auto) (0.11-0.59) K/uL Eos # (Auto) (0-0.5) K/uL Baso # (Auto) (0-0.2) K/uL PT 10.2 (9.0-12.0) Seconds INR 1.0 (0.9-1.1) Sodium 140 (136-145) mmol/L Potassium 4.1 3.7 (3.5-5.1) mmol/L Chloride 108 H (98-107) mmol/L Carbon Dioxide 24 (21-32) mmol/L Anion Gap 8.0 (3-11) BUN 8 (7-18) mg/dl Creatinine 0.53 L (0.6-1.2) mg/dl Est Cr Clr Drug Dosing 141.9 ml/min Est GFR ( Amer) 127.4 Est GFR (Non-Af Amer) 109.9 BUN/Creatinine Ratio 14.2 (10-20) Glucose 133 H (70-99) mg/dl Calcium 8.1 L (8.5-10.1) mg/dl Magnesium 2.0 (1.8-2.4) mg/dl Total Bilirubin (0.2-1) mg/dl AST (15-37) U/L ALT (12-78) U/L Alkaline Phosphatase (45-117) U/L Troponin I (0-0.045) ng/ml Total Protein (6.4-8.2) gm/dl Albumin (3.4-5.0) gm/dl Globulin (2.5-4.0) gm/dl Albumin/Globulin Ratio (0.9-2) Lipase (73-393) U/L Influenza Type A (PCR) (Neg) Influenza Type B (PCR) (Neg) Imaging Data Radiologist's Impression: Radiology results as stated below per my review and the radiologist's interpretation: XR chest 1V portable HISTORY: 53 years-old Female Chest Pain acute atypical chest pain COMPARISON: Acute abdominal series radiographs 10/15/2017 TECHNIQUE: Portable AP view of the chest FINDINGS: Cardiomediastinal and hilar silhouettes are unchanged. No pneumothorax, pleural effusion or overt pulmonary edema. Bones of the chest appear grossly intact. IMPRESSION: No acute process. The above report was generated using voice recognition software. It may contain grammatical, syntax or spelling errors. Electronically signed by: Mo Walden M.D. 11/13/2018 9:46 PM ECG Data Attestation: I personally reviewed and interpreted this ECG as follows: Indication: chest pain Rate (beats per minute): 78 Rhythm: normal sinus Findings: + other (normal axis, nonspecific T wave abnormality); no acute ischemic change Blood Pressure Blood Pressure Findings: Elevated blood pressure Blood Pressure Disposition: further management by hospitalist IZAIAH Miller The patient is a pleasant 53-year-old woman with a past medical history of asthma, hypertension who presents emergency department with cough and congestion over the past week per hpi. On arrival the patient is uncomfortable but no acute distress, afebrile with stable vital signs. The patient appears clinicall y dry. She has diffuse wheezes and rhonchi on exam. EKG with nonspecific T wave abnormalities but otherwise no acute ischemia. Portable chest x-ray negative for pneumonia. WBC within normal limits. H/H 10/31.6 similar to prior values. Chemistry without acidosis. Troponin negative. Influenza A negative. Patient was treated with continuous DuoNeb, dexamethasone, IV fluid hydration with subsequent clinical improvement. However, the patient did develop an oxygen requirement in would desaturate to 86% on room air when ambulating. Thus, given the patient's hypoxia in the setting of asthma/bronchitis reasonable to admit the patient for further management. Lateral chest x-ray possible b asilar retrocardiac infiltrate. Blood cultures ordered and will initiate treatement with Levaquin. Case d/w Dr. Soto, [facility] hospitalist, who will evaluate the patient for admission. Impression & Plan Hypoxia, Pneumonia Discharge Plan Visit Data *Final* Discharge Date/Time: 11/14/18 03:18 Chief Complaint: Cough Stated Complaint: HEAD HURTS FROM COUGHING,WHEEZY ED Provider: Case Perez Discharge Problem: Hypoxia, Pneumonia Patient Disposition: Admitted As Inpatient Discharge Instructions Interventions: ED Discharge Assessment Last Done: 11/14/18 03:18 Discharge Problem: Pneumonia Qualifiers: Pneumonia type: due to unspecified organism Laterality: left Lung location: lower lobe of lung Qualified Code(s): J18.1 - Lobar pneumonia, unspecified organism The scribe's documentation has been prepared under my direction and personally reviewed by me in its entirety. I confirm that the note above accurately reflects all work, treatment, procedures, and medical decision making performed by me.
[2018-11-14] MEDS: LEVOFLOXACIN/D5W 750 MG/150 ML BAG IV SCH (02:27)
--- NOTE | 2018-11-14 03:05 | History & Physical Report ---
Date of Service November 14, 2018 Assessment & Plan (1) Exacerbation of asthma: Exacerbation of asthma, due to pneumonia, associated with mild hypoxia. 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 Manage with levofloxacin, methylprednisolone, nebs. Follow peak flow rates. (2) Pneumonia: 2-view chest films demonstrate LLL infiltrate. Rx with levofloxacin. Check follow-up EKG to check for QT prolongation due to combination of levofloxacin + quetiapine. Should have follow-up chest x-ray in 4-6 weeks to ensure clearing of infiltrate. (3) Hypertension: Was prescribed losartan which she apparently is not taking at this time. Follow BP's. (4) GERD (gastroesophageal reflux disease): Continue PPI. (5) DVT prophylaxis: Low risk for VTE per IMPROVE risk assessment model, but at somewhat increased risk due to pneumonia. SQ enoxaparin. Ambulate. (6) Discharge planning issues: Anticipated discharge to home. Family Medicine follow-up with Dr. Carlos. History of Present Illness Chief Complaint: cough and SOB Primary Care Provider: KAREN PCP 53 YO female followed by Dr. Carlos. History of asthma, hypertension, and other problems. Noted irritation of her throat about 5 days prior to admission. A couple days later she developed a cough and some mild wheezing. Seen in clinic 2 days prior to admission and was felt to have a viral illness. Over the weekend she experienced worsening cough, productive of yellow-green sputum, worsening wheezing and SOB, fever, and chills. She tried Mucinex, AlkaSeltzer, Flonase, and ibuprofen without benefit. Came to ED for evaluation. Noted to be hypoxic. Received continuous neb, O2, IV steroids, but still bronchospastic and dyspneic. Allergies Allergy/AdvReac Type Severity Reaction Status Date / Time naproxen Allergy Severe ANAPHYLAXIS- Verified 11/13/18 21:15 THROAT SWELLING, motrin OK diflunisal Allergy Unknown per PCP Unverified 11/13/18 21:15 records fexofenadine AdvReac Mild HYPERTENSIO Unverified 11/13/18 21:15 N pseudoephedrine AdvReac Mild HYPERTENSIO Unverified 11/13/18 21:15 N meperidine AdvReac Unknown HYPOTENSION Unverified 11/13/18 21:15 Home Medications Home Medications Medication Instructions Recorded Confirmed Type albuterol sulfate [ProAir HFA] 2 puff INHALATION QID 11/13/18 11/13/18 History aspirin-sod bicarb-citric acid 1 tab PO UD 11/13/18 11/13/18 History [Ernestine-Sonia Original] cyanocobalamin (vitamin B-12) 1,000 mcg PO QAM 11/13/18 11/13/18 History [Vitamin B-12] ferrous sulfate 325 mg PO QAM 11/13/18 11/13/18 History fexofenadine [Ayde Allergy] 180 mg PO QAM PRN 11/13/18 11/13/18 History fluticasone [Flonase Allergy 2 spray INTRANASAL DAILY 11/13/18 11/13/18 History Relief] guaifenesin [Mucinex] 600 mg PO UD 11/13/18 11/13/18 History ibuprofen 800 mg PO QID PRN 11/13/18 11/13/18 History multivitamin with minerals 1 tab PO QAM 11/13/18 11/13/18 History [Multiple Vitamin-Minerals] omeprazole 20 mg PO QAM 11/13/18 11/13/18 History ondansetron 8 mg PO UD PRN 11/13/18 11/13/18 History psyllium husk [Metamucil] 1 dose PO DAILY PRN 11/13/18 11/13/18 History quetiapine 25 mg PO HS 11/13/18 11/13/18 History ranitidine HCl 300 mg PO HS PRN 11/13/18 11/13/18 History tramadol 50 mg PO Q6H PRN 11/13/18 11/13/18 History venlafaxine 150 mg PO QAM 11/13/18 11/13/18 History Past Med/Surg History Medical History Asthma (Chronic) GERD (gastroesophageal reflux disease) (Chronic) Anxiety (Chronic) Depression (Chronic) Hypertension (Chronic) Diverticulosis of colon, acquired (Chronic) History of small bowel obstruction (Chronic) admissions 2012, 2016, 2018; attributed to adhesions Uterine leiomyoma (Chronic) Surgical History History of total knee arthroplasty (Chronic) right knee Social History Preferred Language: Fijian Communication Ability: Effective Business Architect Required: No Beliefs That Will Affect Care: None Current Living Situation: Alone Feels Safe at Home: Yes Safety Concerns: Feels Safe At This Time Smoking Status: Never smoker Hx Alcohol Use: Yes Hx Substance Use: No Review of Systems Constitutional: + weight gain (few pounds); no fever and no weight loss Eyes: no diplopia and no worsening vision Ear, Nose, Mouth, Throat: as per Subjective / HPI Respiratory: as per Subjective / HPI Cardiovascular: no chest pain, no palpitations and no edema Gastrointestinal: no nausea, no vomiting, no constipation, no diarrhea/loose stools, no blood in stools and no melena Genitourinary (Female): no dysuria and no hematuria Musculoskeletal: + joint pain and + myalgia Integumentary: no rash and no new lesions Neurologic: + headache(s) (with coughing) Endocrine: no polydipsia and no polyuria Hematologic / Lymphatic: + lymphadenopathy (? cervical); no easy bleeding and no easy bruising Physical Exam Vital Signs (Past 24 Hours): Last Vital Signs Temp 37.7 C H 11/13/18 20:52 Pulse 84 11/14/18 02:27 Resp 18 11/14/18 02:27 BP 137/81 11/14/18 02:27 Pulse Ox 93 11/14/18 02:27 Constitutional: WD/WN, vitals as above no acute distress Eyes: PERRL, conjunctivae normal, anicteric sclerae ENMT: external ear and nose normal, oropharynx normal Neck: trachea midline, no thyromegaly Respiratory: able to speak in complete sentences; no respiratory distress Auscultation: + wheezes (moderate, diffuse) Cardiovascular: Rate/Rhythm: regular rate Heart Sounds: no gallop, no murmur and no cardiac rub Vessels: no JVD Extremities: normal capillary refill; no calf tenderness and no edema Gastrointestinal (Abdomen): normal bowel sounds, soft, nontender, no hepatosplenomegaly Musculoskeletal: Head/Neck/Chest: neck supple Extremities: strength 5/5 throughout; no cyanosis and no clubbing Skin: no rashes, warm and dry Neurologic: PERRL, EOMI no facial palsy no dysarthria or aphasia patellar DTR's 2/2 bilat Psychiatric: Orientation: alert and oriented x 3 Affect: euthymic affect Lymphatic: no cervical lymphadenopathy Results & Data Laboratory Results Laboratory Results - last 24 hr 11/13/18 11/13/18 11/13/18 21:25 21:25 21:37 WBC 6.78 RBC 4.20 Hgb 10.0 L Hct 31.6 L MCV 75.2 L MCH 23.8 L MCHC 31.6 L RDW Std Deviation 48.2 H RDW Coeff of Willy 17.5 H Plt Count 268 MPV 10.7 H Immature Gran % (Auto) 0.1 Neut % (Auto) 78.6 Lymph % (Auto) 13.4 Brown % (Auto) 6.0 Eos % (Auto) 1.6 Baso % (Auto) 0.3 Immature Gran # (Auto) 0.01 Neut # (Auto) 5.32 Lymph # (Auto) 0.91 L Brown # (Auto) 0.41 Eos # (Auto) 0.11 Baso # (Auto) 0.02 Sodium 138 Potassium 3.7 Chloride 104 Carbon Dioxide 26 Anion Gap 9.0 BUN 7 Creatinine 0.59 L Est Cr Clr Drug Dosing 127.2 Est GFR ( Amer) 123.0 Est GFR (Non-Af Amer) 106.1 BUN/Creatinine Ratio 11.2 Glucose 101 H Calcium 8.1 L Total Bilirubin 0.2 AST 11 L ALT 18 Alkaline Phosphatase 84 Troponin I < 0.015 Total Protein 6.1 L Albumin 3.0 L Globulin 3.1 Albumin/Globulin Ratio 1.0 Lipase 107 Influenza Type A (PCR) Neg for Influ A Influenza Type B (PCR) Neg for Influ B 11/14/18 07:02 WBC RBC Hgb Hct MCV MCH MCHC RDW Std Deviation RDW Coeff of Willy Plt Count MPV Immature Gran % (Auto) Neut % (Auto) Lymph % (Auto) Brown % (Auto) Eos % (Auto) Baso % (Auto) Immature Gran # (Auto) Neut # (Auto) Lymph # (Auto) Brown # (Auto) Eos # (Auto) Baso # (Auto) Sodium 140 Potassium 4.1 Chloride 108 H Carbon Dioxide 24 Anion Gap 8.0 BUN 8 Creatinine 0.53 L Est Cr Clr Drug Dosing 141.9 Est GFR ( Amer) 127.4 Est GFR (Non-Af Amer) 109.9 BUN/Creatinine Ratio 14.2 Glucose 133 H Calcium 8.1 L Total Bilirubin AST ALT Alkaline Phosphatase Troponin I Total Protein Albumin Globulin Albumin/Globulin Ratio Lipase Influenza Type A (PCR) Influenza Type B (PCR) Diagnostic Findings PORTABLE CHEST X-RAY No apparent infiltrates. CHEST X-RAY PA & LATL Infiltrate left base. ECG Additional Comments: EKG performed at 21:24 on 11/13/18 reviewed and demonstrated NSR 80 / min, T-wave flattening and biphasic T-waves in lateral leads. Code Status & VTE Plan Code Status full code VTE Prophylaxis Plan VTE Prophylaxis will be ordered: Yes (1) Pneumonia Laterality: left Lung location: lower lobe of lung Pneumonia type: due to unspecified organism Qualified Code(s): J18.1 - Lobar pneumonia, unspecified organism
[2018-11-14] MEDS ORDERED: TRAMADOL HCL 50 MG TABLET PO PRN (04:08)
[2018-11-14] MEDS: methylPREDNISolone 20 MG in SYRINGE 0 ML IV SCH ×3 (06:36→21:33)
[2018-11-14] MEDS: ALBUT/IPRATROP 3MG/0.5MG NEB 3 ML VIAL NEB SCH ×4 (06:58→20:11)
--- NOTE | 2018-11-14 07:05 | XRay Report ---
TWO VIEW CHEST CLINICAL HISTORY: Hypoxia. FINDINGS: PA and lateral chest radiographs are compared to study dated 11/13/2018. The cardiomediastina l silhouette is unremarkable. There is patchy airspace consolidation at the left lung base. No pleura l effusion or pneumothorax is seen. The bony thorax appears intact. IMPRESSION: There is patchy airspace consolidation at the left lung base. Correlate clinically for ev idence of pneumonia. Radiographic follow-up to resolution is recommended. Electronically signed by: Aashish Owen M.D. 11/14/2018 7:03 AM
[2018-11-14 07:57] LABS: BUN Creatinine Ratio 14.2 (10-20); Calcium 8.1 mg/dl (8.5-10.1); Creatinine Clr Calc Pharmacy 141.9 ml/min; Est GFR (African American) 127.4; Est GFR (Non-African American) 109.9; Potassium 4.1 mmol/L (3.5-5.1)
[2018-11-14] MEDS: VENLAFAXINE HCL XR 150 MG CAPXR PO SCH (07:58)
[2018-11-14] MEDS: PANTOprazole 40 MG TAB PO SCH (07:58)
[2018-11-14] MEDS: FLUTICASONE PROPIONATE NA SPR 16 GM BTL SCH (07:59)
[2018-11-14] MEDS: LOSARTAN POTASSIUM 25 MG TAB PO SCH (10:31)
[2018-11-14 10:38] LABS: Prothrombin Time 10.2 Seconds (9.0-12.0)
--- NOTE | 2018-11-14 17:18 | Hospitalist Progress Note ---
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 CXR showed Left lower lung infiltrate Continue solumedrol and neb treatment Continue guiafensin prn Clinically improves (2) Pneumonia: CXR showed left lower Lung infiltrate. Continue levofloxacin. Will monitor EKG while on Levaquin due to QT prolongation since pt is on quetiapine. Will need repeat chest x-ray in 4-6 weeks to ensure clearing of infiltrate. Follow up blood cx (3) Hypertension: BP elevated Recently starting on Losartan, but has not been taking it. Will restart on losartan 25mg continue monitor BP (4) GERD (gastroesophageal reflux disease): Continue PPI. (5) DVT prophylaxis: SQ enoxaparin. Ambulate. (6) Discharge planning issues: Family Medicine follow-up with Dr. Carlos. Possible discharge on tomorrow Subjective Pt was seen examined Sitting at the edge on the bed with no distress Pt said that she feels much better She has been walking in the hallway Denies any chest pain, palpitation, dizziness and SOB Physical Exam Vital Signs (Past 24 Hours): Last Vital Signs Temp 37.3 C 11/14/18 11:27 Pulse 99 H 11/14/18 14:57 Resp 18 11/14/18 14:57 BP 158/96 H 11/14/18 11:27 Pulse Ox 90 11/14/18 14:57 Physical Exam: General- No acute distress Head- atraumatic Eyes- PERRL, EOMI, ENT- oropharynx clear Neck- supple, no JVD Lungs- +wheezing Heart- regular rhythm; no murmur Abdomen- normal bowel sounds, soft, nontender Extremities- no calf tenderness Neuro- alert, oriented x 3; PERRL, EOMI; no facial palsy; no dysarthria Skin- warm & dry (1) Pneumonia Laterality: left Lung location: lower lobe of lung Pneumonia type: due to unspecified organism Qualified Code(s): J18.1 - Lobar pneumonia, unspecified organism
[2018-11-14] MEDS ORDERED: guaiFENesin 200 MG TAB PO PRN (17:29)
[2018-11-14] MEDS ORDERED: guaiFENesin 200 MG TAB PO SCH (17:30)
[2018-11-14] MEDS ORDERED: QUETIAPINE FUMARATE 25 MG TABLET PO SCH (21:00)
[2018-11-14] MEDS ORDERED: ENOXAPARIN INJ 40 MG/0.4 ML SYR SQ SCH (21:00)
[2018-11-14] MEDS ORDERED: LEVALBUTEROL HCL 0.63 MG/3 ML NEB NEB PRN (21:19)
[2018-11-14 22:22] LABS: Potassium 3.7 mmol/L (3.5-5.1)
[2018-11-15] MEDS: LEVOFLOXACIN/D5W 750 MG/150 ML BAG IV SCH (02:02)
[2018-11-15] MEDS: methylPREDNISolone 20 MG in SYRINGE 0 ML IV SCH ×2 (05:51→14:00)
[2018-11-15] MEDS: VENLAFAXINE HCL XR 150 MG CAPXR PO SCH (07:45)
[2018-11-15] MEDS: LOSARTAN POTASSIUM 25 MG TAB PO SCH (07:45)
[2018-11-15] MEDS: PANTOprazole 40 MG TAB PO SCH (07:46)
[2018-11-15] MEDS: FLUTICASONE PROPIONATE NA SPR 16 GM BTL SCH (07:46)
--- NOTE | 2018-11-15 10:45 | Hospitalist Progress Note ---
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 CXR showed Left lower lung infiltrate On solumedrol and neb treatment Will discharge on prednisone short taper course Continue guaifenesin prn Continue levaquin Clinically improves (2) Pneumonia: CXR showed left lower Lung infiltrate. Continue levofloxacin to complete course No arrhythmia on tele monitor EKG showed no QTC prolongation while on Levaquin and quetiapine. Will need repeat chest x-ray in 4-6 weeks to ensure clearing of infiltrate. Blood cx no growth so far (3) Hypertension: BP stable Continue losartan 25mg continue monitor BP (4) GERD (gastroesophageal reflux disease): Continue PPI. (5) DVT prophylaxis: SQ enoxaparin. Ambulate. (6) Discharge planning issues: Family Medicine follow-up with Dr. Carlos. Discharge home today Follow up with Dr. Carlos on 11/21@ 3PM Subjective Pt was seen and examined Lying in bed with no distress Pt said that she feels fine She has been walking in the hallway with no distress Reviewed tele monitor showed no arrhythmia Denies any chest pain, palpitation, dizziness and SOB Physical Exam Vital Signs (Past 24 Hours): Last Vital Signs Temp 37 C 11/15/18 07:29 Pulse 77 11/15/18 08:00 Resp 16 11/15/18 07:29 BP 139/79 11/15/18 07:29 Pulse Ox 94 11/15/18 07:29 Physical Exam: General- No acute distress Head- atraumatic Eyes- PERRL, EOMI, ENT- oropharynx clear Neck- supple, no JVD Lungs- no wheezing Heart- regular rhythm; no murmur Abdomen- normal bowel sounds, soft, nontender Extremities- no calf tenderness Neuro- alert, oriented x 3; PERRL, EOMI; no facial palsy; no dysarthria Skin- warm & dry (1) Pneumonia Laterality: left Lung location: lower lobe of lung Pneumonia type: due to unspecified organism Qualified Code(s): J18.1 - Lobar pneumonia, unspecified organism
[2018-11-15 15:26] VITALS: PULSE 79; TEMP 98.2; O2SAT 94
[2018-11-15 17:35] VITALS: BP 135/83
--- NOTE | 2018-11-16 09:27 | Discharge Summary ---
Date of Service November 22, 2018 Admission HPI Per Admitting Provider 53 YO female followed by Dr. Carlos. History of asthma, hypertension, and other problems. Noted irritation of her throat about 5 days prior to admission. A couple days later she developed a cough and some mild wheezing. Seen in clinic 2 days prior to admission and was felt to have a viral illness. Over the weekend she experienced worsening cough, productive of yellow-green sputum, worsening wheezing and SOB, fever, and chills. She tried Mucinex, AlkaSeltzer, Flonase, and ibuprofen without benefit. Came to ED for evaluation. Noted to be hypoxic. Received continuous neb, O2, IV steroids, but still bronchospastic and dyspneic. Discharge Data Consultations 11/14/18 01:33 ED Decision to Admit Stat
--- NOTE | 2018-11-17 01:32 | Discharge Summary ---
Date of Service November 15, 2018 Admission HPI Per Admitting Provider 53 YO female followed by Dr. Carlos. History of asthma, hypertension, and other problems. Noted irritation of her throat about 5 days prior to admission. A couple days later she developed a cough and some mild wheezing. Seen in clinic 2 days prior to admission and was felt to have a viral illness. Over the weekend she experienced worsening cough, productive of yellow-green sputum, worsening wheezing and SOB, fever, and chills. She tried Mucinex, AlkaSeltzer, Flonase, and ibuprofen without benefit. Came to ED for evaluation. Noted to be hypoxic. Received continuous neb, O2, IV steroids, but still bronchospastic and dyspneic. Admission Exam Per Admitting Provider Constitutional: WD/WN, vitals as above no acute distress Eyes: PERRL, conjunctivae normal, anicteric sclerae ENMT: external ear and nose normal, oropharynx normal Neck: trachea midline, no thyromegaly Respiratory: able to speak in complete sentences; no respiratory distress Auscultation: + wheezes (moderate, diffuse) Cardiovascular: Rate/Rhythm: regular rate Heart Sounds: no gallop, no murmur and no cardiac rub Vessels: no JVD Extremities: normal capillary refill; no calf tenderness and no edema Gastrointestinal normal bowel sounds, soft, nontender, no hepatosplenomegaly Musculoskeletal: Head/Neck/Chest: neck supple Extremities: strength 5/5 throughout; no cyanosis and no clubbing Skin: no rashes, warm and dry Neurologic: PERRL, EOMI no facial palsy no dysarthria or aphasia patellar DTR's 2/2 bilat Psychiatric: Orientation: alert and oriented x 3 Affect: euthymic affect Lymphatic: no cervical lymphadenopathy Principal Diagnosis Exacerbation of asthma Pneumonia Hypertension Discharge Exam General- No acute distress Head- atraumatic Eyes- PERRL, EOMI, ENT- oropharynx clear Neck- supple, no JVD Lungs- no wheezing Heart- regular rhythm; no murmur Abdomen- normal bowel sounds, soft, nontender Extremities- no calf tenderness Neuro- alert, oriented x 3; PERRL, EOMI; no facial palsy; no dysarthria Skin- warm & dry Discharge Data Allergies Allergy/AdvReac Type Severity Reaction Status Date / Time naproxen Allergy Severe ANAPHYLAXIS- Verified 11/13/18 21:15 THROAT SWELLING, motrin OK diflunisal Allergy Unknown per PCP Unverified 11/13/18 21:15 records fexofenadine AdvReac Mild HYPERTENSIO Unverified 11/13/18 21:15 N pseudoephedrine AdvReac Mild HYPERTENSIO Unverified 11/13/18 21:15 N meperidine AdvReac Unknown HYPOTENSION Unverified 11/13/18 21:15 Consultations 11/14/18 01:33 ED Decision to Admit Stat Ordered Studies TWO VIEW CHEST CLINICAL HISTORY: Hypoxia. FINDINGS: PA and lateral chest radiographs are compared to study dated 11/13/2018. The cardiomediastinal silhouette is unremarkable. There is patchy airspace con solidation at the left lung base. No pleural effusion or pneumothorax is seen. The bony thorax appears intact. IMPRESSION: There is patchy airspace consolidation at the left lung base. Correlate clinically for evidence of pneumonia. Radiographic follow-up to resolution is recommended. Electronically signed by: Aashish Owen M.D. 11/14/2018 7:03 AM Dictated: 11/14/18702 Transcribed: 11/14/18702 XR chest 1V portable HISTORY: 53 years-old Female Chest Pain acute atypical chest pain COMPARISON: Acute abdominal series radiographs 10/15/2017 TECHNIQUE: Portable AP view of the chest FINDINGS: Cardiomediastinal and hilar silhouettes are unchanged. No pneumothorax, pleural effusion or overt pulmonary edema. Bones of the chest appear grossly intact. IMPRESSION: No acute process. The above report was generated using voice recognition software. It may contain grammatical, syntax or spelling errors. Electronically signed by: Mo Walden M.D. 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 CXR showed Left lower lung infiltrate On solumedrol and neb treatment Will discharge on prednisone short taper course Continue guaifenesin prn Continue levaquin Clinically improves (2) Pneumonia: CXR showed left lower Lung infiltrate. Continue levofloxacin to complete course No arrhythmia on tele monitor EKG showed no QTC prolongation while on Levaquin and quetiapine. Will need repeat chest x-ray in 4-6 weeks to ensure clearing of infiltrate. Blood cx no growth so far (3) Hypertension: BP stable Continue losartan 25mg continue monitor BP (4) GERD (gastroesophageal reflux disease): Continue PPI. (5) DVT prophylaxis: SQ enoxaparin. Ambulate. (6) Discharge planning issues: Family Medicine follow-up with Dr. Carlos. Discharge home today Follow up with Dr. Carlos on 11/21@ 3PM Total Time Total Time Spent Total Time Spent (In Minutes): 35 minutes Total Time Includes: Examination of the Patient, Discharge Planning, Medication Reconciliation, Communication With Other Providers and Other Discharge Plan Discharge Items Patient Disposition: Home - Self-Care Reason For Visit: EXACERBATION ASTHMA,PNEUMONIA Discharge Diagnosis: Exacerbation of asthma Pneumonia Hypertension Discharge Goals: Decrease discomfort, Improve disease control, Improve function and Improve nutritional status Activity: Resume your previous activity Activity Comment: as tolerated Non-emergency contact: Primary Care Provider Call non-emergency contact if: your temperature is above 101 Follow-up/Referrals: Tomy Carlos MD [Primary Care Provider] - Diet: Low Sodium (2gm) Addtl Provider Instructions: Follow up with Dr. Carlos on 11/21@ 3PM Complete the course of antibiotic with Levaquin Complete the slow taper course of prednisone Prescriptions: New levofloxacin [Levaquin] 750 mg tablet 750 mg PO DAILY 5 Days Qty: 5 RF: 0 prednisone 20 mg tablet 20 mg PO UD Qty: 10 RF: 0 Continued cyanocobalamin (vitamin B-12) [Vitamin B-12] 1,000 mcg Tablet Extended Release 1,000 mcg PO QAM RF: 0 ibuprofen 200 mg Tablet 800 mg PO QID PRN (Reason: Pain) RF: 0 albuterol sulfate [ProAir HFA] 90 mcg/actuation Hfa Aerosol Inhaler 2 puff INHALATION QID RF: 0 ferrous sulfate 325 mg (65 mg iron) Tablet,Delayed Release (Dr/Ec) 325 mg PO QAM RF: 0 quetiapine 25 mg Tablet 25 mg PO HS RF: 0 fexofenadine [Ayde Allergy] 180 mg Tablet 180 mg PO QAM PRN (Reason: Allergy Symptoms) RF: 0 ondansetron 8 mg Tablet,Disintegrating 8 mg PO UD PRN (Reason: Nausea And Vomiting) RF: 0 multivitamin with minerals [Multiple Vitamin-Minerals] Tablet 1 tab PO QAM RF: 0 omeprazole 20 mg Tablet,Delayed Release (Dr/Ec) 20 mg PO QAM RF: 0 Metamucil 3.4 gram/5.4 gram Powder 1 dose PO DAILY PRN (Reason: Constipation) RF: 0 ranitidine HCl 300 mg Tablet 300 mg PO HS PRN (Reason: Acid Reflux) RF: 0 tramadol 50 mg Tablet 50 mg PO Q6H PRN (Reason: Pain) RF: 0 fluticasone [Flonase Allergy Relief] 50 mcg/actuation Sandwich,Suspension 2 spray INTRANASAL DAILY RF: 0 Ernestine-Hayti Original 325-1,916-1,000 mg Tablet, Effervescent 1 tab PO UD RF: 0 venlafaxine 150 mg Tablet Extended Release 24hr 150 mg PO QAM RF: 0 guaifenesin [Mucinex] 600 mg Tablet Extended Release 12hr 600 mg PO UD RF: 0 losartan 25 mg tablet 25 mg PO DAILY RF: 0 Stand-Alone Forms: [facility] Discharge Orders: Discharge Order (Routine); Ordered 11/15/18 Ordered By: Odessa Avina Admission Data Admit Date/Time: 11/14/18 03:03 Attending Provider: Odessa Avina Admit Provider: Hema Soto Primary Care Provider: Tomy Carlos Other Providers: Hema Soto Service: Telemetry Medical Other Interventions: Discharge Summary Assessment (RN) Last Done: 11/15/18 17:33 DC Date/Time DO NOT enter until pt leaves facility: 11/15/18 18:02
== END 2018-11-15 18:02 | disposition home or self-care (01) | DRG 202 ==
LOC: ED 20:46 → 2W 11-14 03:03
DX: Z82.49 Family history of ischemic heart disease and other diseases of the circulatory system; J18.9 Pneumonia, unspecified organism; I10 Essential (primary) hypertension; Z88.8 Allergy status to other drugs, medicaments and biological substances; Z80.3 Family history of malignant neoplasm of breast; J45.901 Unspecified asthma with (acute) exacerbation; R09.02 Hypoxemia; Z79.82 Long term (current) use of aspirin; Z83.3 Family history of diabetes mellitus; K21.9 Gastro-esophageal reflux disease without esophagitis; Z88.6 Allergy status to analgesic agent; D50.9 Iron deficiency anemia, unspecified

== ENCOUNTER 2018-11-28 04:00 | Inpatient (IN) ==
[2018-11-28] MEDS ORDERED: HYDROmorphone INJ 1 MG/ML SYRINGE IV STA (04:17)
[2018-11-28 05:00] LABS: Basophils # (auto) 0.03 K/uL (0-0.2); Basophils % (auto) 0.2 %; Eosinophils # (auto) 0.11 K/uL (0-0.5); Eosinophils % (auto) 0.6 %; Hematocrit (blood only) 33.9 % (37-47); Hemoglobin 10.9 g/dL (12.0-16.0); Immature Granulocytes # (auto) 0.04 K/uL (0.00-0.02); Immature Granulocytes % (auto) 0.2 %; Lymphocytes # (auto) 1.39 K/uL (1.2-3.4); Lymphocytes % (auto) 7.6 %; Mean Corpuscular Hgb Conc 32.2 g/dL (32-36); Mean Corpuscular Volume 74.2 fL (80-100); Mean Platelet Volume 10.6 fL (7.4-10.4); Monocytes # (auto) 0.73 K/uL (0.11-0.59); Neutrophils # (auto) 16.05 K/uL (1.4-6.5); Neutrophils % (auto) 87.4 %; Platelet Count 515 K/uL (130-400); RDW Coefficient of Variation 17.9 % (11.5-14.5); Red Blood Count 4.57 M/uL (4.2-5.4); White Blood Count 18.35 K/uL (4.8-10.8)
[2018-11-28 05:17] LABS: Albumin Level 3.2 gm/dl (3.4-5.0); BUN Creatinine Ratio 17.2 (10-20); Creatinine Clr Calc Pharmacy 101.4 ml/min; Est GFR (African American) 108.7; Est GFR (Non-African American) 93.8; Potassium 4.1 mmol/L (3.5-5.1)
[2018-11-28 05:19] LABS: Bilirubin,Total 0.3 mg/dl (0.2-1); Globulin 3.3 gm/dl (2.5-4.0); Total Protein 6.5 gm/dl (6.4-8.2)
[2018-11-28] MEDS ORDERED: SODIUM CHLORIDE 0.9% 1000ML 1,000 ML IV SCH (05:45)
[2018-11-28] MEDS ORDERED: HYDROmorphone INJ 0.5 MG/0.5 ML SYR IV PRN (06:56)
[2018-11-28] MEDS ORDERED: ACETAMINOPHEN 325 MG TAB PO PRN (06:56)
[2018-11-28] MEDS ORDERED: ALBUTEROL HFA 8 GM INHALER INH PRN (06:56)
[2018-11-28] MEDS ORDERED: ONDANSETRON INJ 2 MG/ML 2 ML VIAL IV PRN (06:56)
[2018-11-28] MEDS ORDERED: FEXOFENADINE HCL 180 MG TAB PO PRN (06:56)
--- NOTE | 2018-11-28 07:12 | XRay Report ---
PA CHEST RADIOGRAPH AND UPRIGHT AND SUPINE AP RADIOGRAPHS OF THE ABDOMEN CLINICAL HISTORY: Nausea and vomiting. Evaluate for small bowel obstruction. COMPARISON STUDY: Chest radiograph November 14, 2018. CT of the abdomen and pelvis October 17, 2017. FINDINGS: Lung volumes are normal. Lungs are clear. There is no pneumothorax or pleural effusion. Mi ld cardiomegaly is unchanged. There is no evidence for pulmonary edema. There is no free air. Multipl e small bowel air-fluid levels are noted on upright projection. A loop of mildly dilated small bowel within left lower quadrant is noted. This measures 2.2 cm in caliber. IMPRESSION: 1. No free air. Loop of mildly dilated small bowel within the left lower quadrant. A partial small sheldon wel obstruction cannot be excluded. 2. No acute cardiopulmonary findings. Electronically signed by: Leonidas Leon M.D. 11/28/2018 7:10 AM
--- NOTE | 2018-11-28 07:28 | Emergency Department Note ---
Entered by Reji Lynch acting as a scribe for History of Present Illness General Chief complaint: Abdominal Pain Time Seen by Provider: 11/28/18 04:02 Source: patient History of Present Illness Provider complaint: Abdominal pain Onset (ago): day(s) (1929 yesterday) Location: abdomen Pain Consistency: + other (worsening) Quality: + other ("labor pains") Relieved By: + none Associated symptoms: + denies other symptoms (leg cramping, leg swelling), + nausea/vomiting and + other (feeling like she was going to pass out); no rash Treatments prior to arrival: NSAID (Ibuprofen), heat therapy and other (Zofran) The patient is a 53 year old female who presents to the Emergency Room with complaints of abdominal pain that has been gradually worsening since yesterday around 1929. The patient states that she ate dinner around 1500 yesterday and developed a slight pain around 1929. The patient notes that around 0 last night, she developed severe pains similar to labor pains. She reports that around 2329 she began throwing up and states that the last time she threw up was about a half hour before the ambulance showed up and reports that it was very dark in color. She states she then felt like she was going to pass out. The patient notes that she took Zofran as well as Ibuprofen for her symptoms, but st ates that neither provided her with any relief. She also states she used a heating pad which did not help either. She admits to a history of bowel obstructions and notes that her most recent one was in October of 2016. She states that her last bowel movement was around 2030 yesterday. She denies any leg cramping, leg swelling, or rashes. The patient reports a past abdominal surgical history of a laparoscopy and a hysterectomy. Home Medications Home Medications Medication Instructions Recorded Confirmed Type Metamucil 1 dose PO DAILY PRN 11/13/18 11/28/18 History albuterol sulfate [ProAir HFA] 2 puff INHALATION QID PRN 11/13/18 11/28/18 History cyanocobalamin (vitamin B-12) 1,000 mcg PO QAM 11/13/18 11/28/18 History [Vitamin B-12] ferrous sulfate 325 mg PO QAM 11/13/18 11/28/18 History fexofenadine [Ayde Allergy] 180 mg PO QAM PRN 11/13/18 11/28/18 History fluticasone [Flonase Allergy 2 spray INTRANASAL DAILY 11/13/18 11/28/18 History Relief] ibuprofen 800 mg PO QID PRN 11/13/18 11/28/18 History multivitamin with minerals 1 tab PO QAM 11/13/18 11/28/18 History [Multiple Vitamin-Minerals] omeprazole 20 mg PO QAM 11/13/18 11/28/18 History ondansetron 8 mg PO UD PRN 11/13/18 11/28/18 History quetiapine 25 mg PO HS 11/13/18 11/28/18 History tramadol 50 mg PO Q6H PRN 11/13/18 11/28/18 History venlafaxine 150 mg PO QAM 11/13/18 11/28/18 History losartan 25 mg PO DAILY 11/14/18 11/28/18 History ranitidine HCl 300 mg PO HS PRN 11/28/18 11/28/18 History Allergies Allergy/AdvReac Type Severity Reaction Status Date / Time naproxen Allergy Severe ANAPHYLAXIS- Verified 11/28/18 04:50 THROAT SWELLING, motrin OK diflunisal Allergy Unknown per PCP Unverified 11/28/18 04:50 records fexofenadine AdvReac Mild HYPERTENSIO Unverified 11/28/18 04:50 N pseudoephedrine AdvReac Mild HYPERTENSIO Unverified 11/28/18 04:50 N meperidine AdvReac Unknown HYPOTENSION Unverified 11/28/18 04:50 Past Med/Surg History Medical History Asthma (Chronic) GERD (gastroesophageal reflux disease) (Chronic) Anxiety (Chronic) Depression (Chronic) Hypertension (Chronic) Diverticulosis of colon, acquired (Chronic) History of small bowel obstruction (Chronic) admissions 2012, 2016, 2018; attributed to adhesions Uterine leiomyoma (Chronic) Surgical History H/O laparoscopy History of total knee arthroplasty (Chronic) right knee Family History Mother Breast cancer Coronary heart disease Crohn's disease Hypertension Father Diabetes Bladder cancer Aunt Breast cancer Social History Preferred Language: Chilean Beliefs That Will Affect Care: None Current Living Situation: Alone Feels Safe at Home: Yes Smoking Status: Never smoker Hx Alcohol Use: Yes Hx Substance Use: No Review of Systems See HPI for pertinent positives & negatives. and A total of 10 systems reviewed and were otherwise negative Physical Exam Vital Signs Vital Signs - 24 hr 11/28/18 03:45 11/28/18 04:18 11/28/18 05:14 Temperature 37 C Temperature Source Oral Sepsis Recent Fever Within 48 Hours No Sepsis Action Taken by Nursing No Action Required Pulse Rate 92 H 80 Pulse Rate [Left Apical] Pulse Rate from SpO2 Sensor 80 Respiratory Rate 20 7 L Respiratory Depth Respiratory Pattern Blood Pressure 129/71 134/65 Blood Pressure [Right Arm] Blood Pressure Mean 90 88 Blood Pressure Mean [Right Arm] Blood Pressure Position Sitting Blood Pressure Position [Right Arm] Pulse Oximetry 94 97 90 Oxygen Delivery Method Room Air Room Air Oxygen Flow Rate 11/28/18 05:17 11/28/18 05:19 11/28/18 05:20 Temperature Temperature Source Sepsis Recent Fever Within 48 Hours Sepsis Action Taken by Nursing Pulse Rate 82 Pulse Rate [Left Apical] Pulse Rate from SpO2 Sensor 82 Respiratory Rate 12 Respiratory Depth Respiratory Pattern Blood Pressure Blood Pressure [Right Arm] Blood Pressure Mean Blood Pressure Mean [Right Arm] Blood Pressure Position Blood Pressure Position [Right Arm] Pulse Oximetry 89 L 85 L 96 Oxygen Delivery Method Room Air Nasal Cannula Oxygen Flow Rate 2 11/28/18 05:21 11/28/18 05:30 11/28/18 06:00 Temperature Temperature Source Sepsis Recent Fever Within 48 Hours Sepsis Action Taken by Nursing Pulse Rate 82 88 Pulse Rate [Left Apical] 83 Pulse Rate from SpO2 Sensor 83 87 Respiratory Rate 20 15 21 Respiratory Depth Normal Respiratory Pattern Regular Blood Pressure Blood Pressure [Right Arm] 134/65 Blood Pressure Mean Blood Pressure Mean [Right Arm] 88 Blood Pressure Position Blood Pressure Position [Right Arm] Lying Pulse Oximetry 97 96 96 Oxygen Delivery Method Nasal Cannula Oxygen Flow Rate 2 11/28/18 06:30 Temperature Temperature Source Sepsis Recent Fever Within 48 Hours Sepsis Action Taken by Nursing Pulse Rate 78 Pulse Rate [Left Apical] Pulse Rate from SpO2 Sensor 77 Respiratory Rate 15 Respiratory Depth Respiratory Pattern Blood Pressure 134/87 Blood Pressure [Right Arm] Blood Pressure Mean 102 Blood Pressure Mean [Right Arm] Blood Pressure Position Blood Pressure Position [Right Arm] Pulse Oximetry 95 Oxygen Delivery Method Oxygen Flow Rate HEENT: Head - normocephalic and atraumatic Pupils are equal, round, and reactive to light. Extraocular eye muscles are intact, and sclera are anicteric. Nose - moist nasal mucosa without discharge. Mouth - moist buccal mucosa. Oropharynx is nonerythematous and there is no tonsillar exudate or edema noted. Neck: Supple; no JVD, nuchal rigidity, cervical lymphadenopathy, or auscultated bruits. Heart: Regular rate and rhythm. There is a normal S1 and S2 with no murmurs, clicks, or gallops appreciated. Lungs: Clear to auscultation bilaterally with no wheezes, rales, or rhonchi. Abdomen: Abdomen distended with tenderness to palpation of left umbilicus and lower left quadrant. Absent bowel sounds. There are no palpable pulsatile masses or hepatosplenomegaly. There is no guarding, rigidity, or rebound noted. Extremities: No evidence of cyanosis, clubbing, or edema. There are easily palpable peripheral pulses. Skin: warm and dry with good turgor and no rashes. Course 0409: Past medical records reviewed. The patient was evaluated in room C7, and a complete history and physical examination were performed. An IV lock was initiated and labs were drawn as above. The patient was given 1 mg of IV Dilaudid for pain. The patient will go for an obstruction series. 0539: I discussed the test results with the patient. She will have an NG tube placed. The patient was given 1000 mL of IV fluids at 125 mL/hr. I reviewed the patient's [facility] will evaluate the patient for further management. Consultations Consultation [facility] Time: 05:39 Administered Medications Discontinued Medications Hydromorphone HCl (Dilaudid) 1 mg IV NOW STA Stop: 11/28/18 04:18 Last Admin: 11/28/18 04:44 Dose: 1 mg Documented by: [id number] Sodium Chloride (Nss 1000ml) 1,000 mls @ 125 mls/hr IV .Q8H BORIS Stop: 12/28/18 05:44 Last Admin: 11/28/18 06:42 Dose: 125 mls/hr Documented by: [id number] Medical Decision Making Differential Diagnosis The patient is a 53 year old female who presents to the Emergency Room with complaints of abdominal pain that has been gradually worsening since yesterday around 1930. Differential diagnosis includes small bowel obstruction, diverticulitis, colitis, and food borne illness. Medical Records Attestation: I reviewed the patient's medical records. Home Medications Current Medication List: was personally reviewed by me Laboratory Data Attestation: I reviewed the patient's lab results. Result diagrams: 11/28/18 04:45 11/28/18 04:45 Lab Results 11/28/18 11/28/18 Range/Units 04:45 04:45 WBC 18.35 H (4.8-10.8) K/uL RBC 4.57 (4.2-5.4) M/uL Hgb 10.9 L (12.0-16.0) g/dL Hct 33.9 L (37-47) % MCV 74.2 L (80-100) fL MCH 23.9 L (25-34) pg MCHC 32.2 (32-36) g/dL RDW Std Deviation 48.0 H (36.4-46.3) fL RDW Coeff of Willy 17.9 H (11.5-14.5) % Plt Count 515 H (130-400) K/uL MPV 10.6 H (7.4-10.4) fL Immature Gran % (Auto) 0.2 % Neut % (Auto) 87.4 % Lymph % (Auto) 7.6 % Rush % (Auto) 4.0 % Eos % (Auto) 0.6 % Baso % (Auto) 0.2 % Immature Gran # (Auto) 0.04 H (0.00-0.02) K/uL Neut # (Auto) 16.05 H (1.4-6.5) K/uL Lymph # (Auto) 1.39 (1.2-3.4) K/uL Rush # (Auto) 0.73 H (0.11-0.59) K/uL Eos # (Auto) 0.11 (0-0.5) K/uL Baso # (Auto) 0.03 (0-0.2) K/uL Sodium 141 (136-145) mmol/L Potassium 4.1 (3.5-5.1) mmol/L Chloride 106 (98-107) mmol/L Carbon Dioxide 26 (21-32) mmol/L Anion Gap 9.0 (3-11) BUN 13 (7-18) mg/dl Creatinine 0.74 (0.6-1.2) mg/dl Est Cr Clr Drug Dosing 101.4 ml/min Est GFR ( Amer) 108.7 Est GFR (Non-Af Amer) 93.8 BUN/Creatinine Ratio 17.2 (10-20) Glucose 115 H (70-99) mg/dl Calcium 9.0 (8.5-10.1) mg/dl Total Bilirubin 0.3 (0.2-1) mg/dl AST 18 (15-37) U/L ALT 22 (12-78) U/L Alkaline Phosphatase 76 (45-117) U/L Total Protein 6.5 (6.4-8.2) gm/dl Albumin 3.2 L (3.4-5.0) gm/dl Globulin 3.3 (2.5-4.0) gm/dl Albumin/Globulin Ratio 1.0 (0.9-2) Lipase 91 (73-393) U/L Imaging Data Attestation: I personally reviewed and interpreted this imaging study as follows: My Impression: Chest/Abdomen X-ray: Obstruction series: Multiple air filled levels that are concerning for small bowel obstruction. Blood Pressure Blood Pressure Findings: Normal blood pressure Blood Pressure Disposition: did not require urgent referral MDM Narrative The patient is a 53 year old female who presents to the Emergency Room with complaints of abdominal pain that has been gradually worsening since yesterday around 1930. The patient has since developed vomiting. The patient has a history of previous small bowel obstructions secondary to adhesions. In the past, these small bowel obstructions have resolved with bowel rest and IV fluids. Today, radiographics studies prove the patient does have another small bowel obstruction. IV fluids were started and the patient was kept n.p.o. An NG tube was placed. I discussed the case with the [facility] Hospitalist and they will evaluate for further management. Impression & Plan SBO (small bowel obstruction) Discharge Plan Visit Data Chief Complaint: Abdominal Pain ED Provider: Jie Joyce Discharge Problem: SBO (small bowel obstruction) Patient Disposition: Admitted As Inpatient Discharge Instructions Interventions: ED Discharge Assessment Last Done: 11/28/18 06:35 The scribe's documentation has been prepared under my direction and personally reviewed by me in its entirety. I confirm that the note above accurately reflects all work, treatment, procedures, and medical decision making performed by me.
--- NOTE | 2018-11-28 08:12 | Surgery Consultation ---
Date of Consultation November 28, 2018 Assessment & Plan (1) Partial small bowel obstruction: Patient has mildly dilated small bowel with a history of nausea and vomiting with crampy abdominal pain. She could have a partial obstruction from adhesions but is more likely this is a mild ileus and possible Gastroenteritis. We will leave the NG tube for now encourage ambulation continue her IV hydration. We may consider CT, scan contrast via the NG tube in 24-48 hours pending on progress. We will check her electrolytes and correct as needed. History of Present Illness Reason for Consultation: Partial small bowel obstruction Attending Physician: Shama Salcedo DO History of Present Illness Patient is a 53-year-old female presenting the emergency room with lower sharonda pain Crampy in nature intermittent similar to labor pains. She then had nausea and vomiting Zofran did not help. She underwent evaluation in the emergency room with a CAT scan Showing mildly dilated small bowel with possible partial small bowel obstruction. She was recently in the hospital with what appeared to be left lower lobe pneumonia And was treated with steroids and antibiotics. Her chest x-ray has improved. He has a history of hysterectomy and laparoscopic procedures. Allergies Allergy/AdvReac Type Severity Reaction Status Date / Time naproxen Allergy Severe ANAPHYLAXIS- Verified 11/28/18 04:50 THROAT SWELLING, motrin OK diflunisal Allergy Unknown per PCP Unverified 11/28/18 04:50 records fexofenadine AdvReac Mild HYPERTENSIO Unverified 11/28/18 04:50 N pseudoephedrine AdvReac Mild HYPERTENSIO Unverified 11/28/18 04:50 N meperidine AdvReac Unknown HYPOTENSION Unverified 11/28/18 04:50 Home Medications Home Medications Medication Instructions Recorded Confirmed Type Metamucil 1 dose PO DAILY PRN 11/13/18 11/28/18 History albuterol sulfate [ProAir HFA] 2 puff INHALATION QID PRN 11/13/18 11/28/18 History cyanocobalamin (vitamin B-12) 1,000 mcg PO QAM 11/13/18 11/28/18 History [Vitamin B-12] ferrous sulfate 325 mg PO QAM 11/13/18 11/28/18 History fexofenadine [Ayde Allergy] 180 mg PO QAM PRN 11/13/18 11/28/18 History fluticasone propionate [Flonase 2 spray INTRANASAL DAILY 11/13/18 11/28/18 History Allergy Relief] ibuprofen 800 mg PO QID PRN 11/13/18 11/28/18 History multivitamin with minerals 1 tab PO QAM 11/13/18 11/28/18 History [Multiple Vitamin-Minerals] omeprazole 20 mg PO QAM 11/13/18 11/28/18 History ondansetron 8 mg PO UD PRN 11/13/18 11/28/18 History quetiapine 25 mg PO HS 11/13/18 11/28/18 History tramadol 50 mg PO Q6H PRN 11/13/18 11/28/18 History venlafaxine 150 mg PO QAM 11/13/18 11/28/18 History losartan 25 mg PO DAILY 11/14/18 11/28/18 History ranitidine HCl 300 mg PO HS PRN 11/28/18 11/28/18 History Patient History Medical History Asthma (Chronic) GERD (gastroesophageal reflux disease) (Chronic) Anxiety (Chronic) Depression (Chronic) Hypertension (Chronic) Diverticulosis of colon, acquired (Chronic) History of small bowel obstruction (Chronic) admissions 2012, 2016, 2018; attributed to adhesions Uterine leiomyoma (Chronic) Surgical History H/O laparoscopy History of total knee arthroplasty (Chronic) right knee Family History Mother Breast cancer Coronary heart disease Crohn's disease Hypertension Father Diabetes Bladder cancer Aunt Breast cancer Social History Preferred Language: Pashto Beliefs That Will Affect Care: None Current Living Situation: Alone Feels Safe at Home: Yes Smoking Status: Never smoker Hx Alcohol Use: Yes Hx Substance Use: No Review of Systems Please see HPI for positive review of systems He has no fever Physical Exam Vital Signs (Past 24 Hours): Last Vital Signs Temp 37 C 11/28/18 03:45 Pulse 78 11/28/18 06:30 Resp 15 11/28/18 06:30 BP 134/87 11/28/18 06:30 Pulse Ox 95 11/28/18 06:30 Currently patient is awake and alert sclera are anicteric her head is atraumatic Neck is supple skin shows no rashes she is breathing comfortably with no respiratory distress Heart shows regular rate and rhythm her abdomen is soft with minimal tenderness She has some decreased bowel sounds. Her extremities are warm and well perfused
--- NOTE | 2018-11-28 08:38 | History and Physical Report ---
DATE OF ADMISSION: 11/28/2018 CHIEF COMPLAINT: Abdominal pain. HISTORY OF PRESENT ILLNESS: This is a 53-year-old female with past medical history significant for hypertension, GERD, depression, history of HSV-1 infection, presents with abdominal pain. The patient was recently in the hospital for pneumonia. She finished the antibiotic course. She still has some cough with yellowish phlegm. Last night, after dinner around 8:30, she has started to have abdominal pain in the lower abdomen, initially started mild, then it progressively got worse associated with several episodes of nausea and vomiting. She has tried to put her heating pad and took ibuprofen, but it did not help,continued to have pain and nausea and vomiting which prompted her to come to the ER. In the ER, imaging studies showed small-bowel obstructions. The patient states she had small bowel obstruction in the past, last time was 1 year ago. Currently, with the pain medications and antiemetics, symptoms are under control, did move her bowel last night around 8:30, since then she is not moving any gas. She had some short of breath and headaches when she had this abdominal pain that is improved now. Denies any blurred vision. No earache, no runny nose, no sore throat, no difficulty swallowing. Otherwise, her appetite was okay. Currently, no chest pain or shortness of breath. Normal bladder movements. No hematuria. No increased frequency or burning micturition. She has no blood in the stools or black stools. No swelling lower extremity, no rash. Currently, resting comfortable and hemodynamically stable. ALLERGIES: ALEVE, DOLOBID, MEPERIDINE, PSEUDOEPHEDRINE. PAST MEDICAL HISTORY: As mentioned above. PAST SURGICAL HISTORY: Right total knee arthroplasty, colonoscopy, EGDs, left knee arthrotomy, partial hysterectomy, repair of nasal septum. MEDICATIONS: The patient is on Effexor XR 150 mg p.o. daily, albuterol 2 puffs 4 times daily, Ayde 180 mg p.o. daily, losartan 25 mg p.o. daily, omeprazole 20 mg p.o. daily, Seroquel 25 mg p.o. at bedtime, Zantac 150 mg p.o. b.i.d., Zofran 8 mg p.r.n., tramadol 50 mg p.o. q. 6 hours p.r.n., vitamin B12 1000 mcg p.o. daily, multivitamins 1 tablet p.o. daily. FAMILY HISTORY: Significant for mother who has hypertension, heart disease, Crohn's disorder, breast cancer. Aunt has breast cancer. SOCIAL HISTORY: . No smoking, alcohol socially. No drug use. REVIEW OF SYMPTOMS: As per HPI. Rest of review of systems is negative. PHYSICAL EXAMINATION: GENERAL: The patient is of moderate build, not in acute distress. VITAL SIGNS: Temperature 37, pulse 83, respiratory rate 20, blood pressure 134/65, oxygen 97% on 2 liters. HEENT: No pallor, no icterus. Pupils equal, round, and reactive. NECK: No JVD, no neck masses, no carotid bruits. CARDIOVASCULAR: S1, S2 heard. Regular rate and rhythm, no murmur, no gallop. RESPIRATORY SYSTEM: Normal AP diameter. No accessory muscle use. No wheezing, no crackles. ABDOMEN: Soft, bowel sounds very sluggish, tender in the hypogastric region, mild guarding, no rigidity, no distention. CENTRAL NERVOUS SYSTEM: Cranial nerves II-XII grossly intact. Nonfocal. EXTREMITIES: No edema, no erythema. LABORATORY DATA: WBC 8.35, hemoglobin 10.9, hematocrit 33.9, platelets 515. Sodium 141, potassium 4.1, chloride 106, bicarbonate 26, BUN 13, creatinine 0.7, serum glucose 105, calcium 9, total bilirubin 0.3, AST 18, ALT 22, alkaline phosphatase 76, lipase 91. Chest and abdominal x-ray, small bowel obstruction. Await for the official report. ASSESSMENT AND PLAN: This is a 53-year-old female who presents with abdominal pain and found to have small-bowel obstruction. 1. Small-bowel obstruction. Abdominal pain.Nausea and vomiting., We will follow on official report of imaging studies. History of small-bowel obstruction in the past. Currently symptoms under control with the pain medication and antiemetic. We will keep her n.p.o., IV fluids, IV antiemetics, IV pain medication p.r.n. If the symptoms get worse, we will place her on NG tube. Consult surgery and monitor on the medical floor. 2. History of gastroesophageal reflux disease. We will place on IV Protonix. 3. History of depression. Continue her Effexor and Seroquel. 4. History of hypertension. Continue Cozaar. 5. Anemia.Hb 10.9. At baseline.EGD and colonoscopy in 2016 unremarkable.will follow stool hemeoccult and iron studies. followup with pcp. 6. Deep vein thrombosis prophylaxis, SCDs for now. 7. Disposition: Admit to medical floor. Expect discharge home and follow with her family doctor. Level 1 full code. MTDD
[2018-11-28] MEDS: D5W AND NSS 1,000 ML IV SCH ×2 (08:54→15:43)
[2018-11-28] MEDS: FLUTICASONE PROPIONATE NA SPR 16 GM BTL SCH (08:55)
[2018-11-28] MEDS ORDERED: FERROUS SULFATE 325 MG TAB PO SCH (09:00)
[2018-11-28] MEDS: LOSARTAN POTASSIUM 25 MG TAB PO SCH (09:29)
[2018-11-28] MEDS: VENLAFAXINE HCL XR 150 MG CAPXR PO SCH (09:30)
[2018-11-28] MEDS: PANTOprazole 40 MG in SYRINGE 0 ML IV SCH (10:34)
--- NOTE | 2018-11-28 18:06 | Hospitalist Progress Note ---
Date of Service November 28, 2018 Assessment & Plan (1) Partial small bowel obstruction: NG tube was placed overnight with greenish fluid in suction canister. Denies abdominal pain. Continue supportive care with NG tube to suction and IV fluids while n.p.o. Appreciate surgery Luke. (2) Depression: Current p.o. meds are held. Will await NG tube removal or clamping before reordering. (3) DVT prophylaxis: SCD/ambulation Full code Dispo-DC to home in 1-2 days. Will need to advance diet and ensure patient is feeling well prior to discharging [facility] Patient required NG tube overnight to suction. Suction is revealing greenish biliary fluid. Bowel sounds are present and she denies any abdominal pain. Physical Exam Vital Signs (Past 24 Hours): Last Vital Signs Temp 36.9 C 11/28/18 08:02 Pulse 77 11/28/18 08:02 Resp 18 11/28/18 08:02 BP 132/86 11/28/18 08:02 Pulse Ox 97 11/28/18 08:02 CONSTITUTIONAL: WNWD, vitals as above, generally well-appearing, NGT in place EYES: normal conjuctivae, no scleral icterus ENT: MMM RESPIRATORY: clear to auscultation bilaterally, no crackles, rales or wheezes, normal respiratory effort CARDIOVASCULAR: regular rate and rhythm, S1 and 2 heard without murmurs, gallops or rubs, no JVD, no peripheral edema GASTROINTESTINAL: ++bowel sounds, soft, nontender, nondistended MUSCULOSKELETAL: strength 5/5 throughout, head is normocephalic and atraumatic SKIN: warm and dry NEUROLOGIC: CN 2-12 grossly intact, no sensory deficit, normal cognition,no gross focal deficits. PSYCHIATRIC: alert cooperative and oriented to person, place and time. LYMPHATIC: no LAD Results & Data Laboratory Results Short CBC 11/28/18 Range/Units 04:45 WBC 18.35 H (4.8-10.8) K/uL Hgb 10.9 L (12.0-16.0) g/dL Hct 33.9 L (37-47) % Plt Count 515 H (130-400) K/uL BMP 11/28/18 04:45 Sodium 141 Potassium 4.1 Chloride 106 Carbon Dioxide 26 BUN 13 Creatinine 0.74 Glucose 115 H Calcium 9.0 Liver Function 11/28/18 Range/Units 04:45 Total Bilirubin 0.3 (0.2-1) mg/dl AST 18 (15-37) U/L ALT 22 (12-78) U/L Alkaline Phosphatase 76 (45-117) U/L Albumin 3.2 L (3.4-5.0) gm/dl Medications Administered Current Inpatient Medications Albuterol (Ventolin Hfa) 2 puffs INH QID PRN PRN Reason: Shortness Of Breath Or Wheezin Stop: 12/28/18 06:55 Ferrous Sulfate (Feosol) 325 mg PO QAM BORIS Stop: 12/28/18 08:59 Fexofenadine HCl (Ayde) 180 mg PO QAM PRN PRN Reason: ALLERGIES Stop: 12/28/18 06:55 Fluticasone Propionate (Flonase) 2 sprays NA DAILY BORIS Stop: 12/28/18 08:59 Last Admin: 11/28/18 08:55 Dose: Not Given Documented by: Hydromorphone HCl (Dilaudid) 0.5 mg IV Q4H PRN PRN Reason: Pain Stop: 12/12/18 06:55 Last Admin: 11/28/18 14:33 Dose: 0.5 mg Documented by: Dextrose/Sodium Chloride (D5w And Nss) 1,000 mls @ 125 mls/hr IV .Q8H BORIS Stop: 12/28/18 06:55 Last Admin: 11/28/18 15:43 Dose: 125 mls/hr Documented by: Pantoprazole Sodium 40 mg/ (Syringe) 10 mls @ 5 mls/min IV DAILY@1100 BORIS Stop: 12/28/18 10:59 Last Admin: 11/28/18 10:34 Dose: 5 mls/min Documented by: Acetaminophen (Ofirmev) 65 mls @ 200 mls/hr IV Q8H PRN PRN Reason: pain or fever Stop: 12/28/18 17:14 Lorazepam (Ativan) 0.5 mg in 1 mls @ 0.5 mls/min IV TID PRN PRN Reason: severe anxiety Stop: 12/28/18 17:13 Losartan Potassium (Cozaar) 25 mg PO DAILY BORIS Stop: 12/28/18 08:59 Last Admin: 11/28/18 09:29 Dose: 25 mg Documented by: Ondansetron HCl (Zofran) 4 mg IV Q6H PRN PRN Reason: Nausea Stop: 12/28/18 06:55 Quetiapine Fumarate (Seroquel) 25 mg PO [facility] Stop: 12/28/18 20:59 Venlafaxine HCl (Effexor Extended Release) [facility] Stop: 12/28/18 08:59 Last Admin: 11/28/18 09:30 Dose: 150 mg Documented by:
[2018-11-28] MEDS: ACETAMINOPHEN 65 ML IV PRN (20:58)
[2018-11-28] MEDS: LORazepam 0.5 MG/1 ML VIAL IV PRN (22:37)
[2018-11-29 05:57] LABS: Basophils # (auto) 0.02 K/uL (0-0.2); Basophils % (auto) 0.4 %; Eosinophils # (auto) 0.13 K/uL (0-0.5); Eosinophils % (auto) 2.5 %; Hematocrit (blood only) 30.3 % (37-47); Hemoglobin 9.3 g/dL (12.0-16.0); Immature Granulocytes # (auto) 0.01 K/uL (0.00-0.02); Immature Granulocytes % (auto) 0.2 %; Lymphocytes # (auto) 1.49 K/uL (1.2-3.4); Mean Corpuscular Hgb Conc 30.7 g/dL (32-36); Mean Corpuscular Volume 75.8 fL (80-100); Monocytes # (auto) 0.29 K/uL (0.11-0.59); Monocytes % (auto) 5.6 %; Neutrophils % (auto) 62.3 %; Platelet Count 395 K/uL (130-400); RDW Coefficient of Variation 18.3 % (11.5-14.5); RDW Standard Deviation 50.1 fL (36.4-46.3); White Blood Count 5.14 K/uL (4.8-10.8)
--- NOTE | 2018-11-29 06:13 | Progress Note ---
Date of Service November 29, 2018 Assessment & Plan (1) Partial small bowel obstruction: will check CT w/ contrast via NG- assess transit through sm bowel If no signif obstruction- will d/c NG and adv diet Subjective feels better- had 650 from NG last shift Physical Exam Vital Signs (Past 24 Hours): Last Vital Signs Temp 36.9 C 11/29/18 00:00 Pulse 85 11/29/18 00:00 Resp 16 11/29/18 00:00 BP 130/76 11/29/18 00:00 Pulse Ox 91 11/29/18 00:00 abd- min distention , some decreased bowel sounds
[2018-11-29 06:28] LABS: BUN Creatinine Ratio 10.1 (10-20); Calcium 7.7 mg/dl (8.5-10.1); Creatinine Clr Calc Pharmacy 122.1 ml/min; Est GFR (African American) 121.7; Phosphorus 3.2 mg/dl (2.5-4.9); Potassium 3.7 mmol/L (3.5-5.1)
[2018-11-29] MEDS: D5W AND NSS 1,000 ML IV SCH ×4 (06:34→22:36)
[2018-11-29] MEDS: FLUTICASONE PROPIONATE NA SPR 16 GM BTL SCH (06:59)
[2018-11-29] MEDS ORDERED: IOVERSOL 100ml IV PRN (08:21)
--- NOTE | 2018-11-29 09:46 | CT Scan Report ---
ABDOMEN AND PELVIS CT WITH IV AND ORAL CONTRAST CT DOSE: 707.08 mGy.cm HISTORY: Follow-up study in a patient with history of prior small bowel obstruction assess small bow el transit TECHNIQUE: Multiaxial CT images of the abdomen and pelvis were performed following the use of intrave nous and oral contrast. A dose lowering technique was utilized adhering to the principles of ALARA. COMPARISON STUDY: CT abdomen and pelvis 10/17/2017. FINDINGS: Linear subsegmental pleural-based and groundglass consolidative opacities of the lung bases suggest b ibasilar atelectasis/scarring. No pneumatosis or pneumoperitoneum. Imaged inferior cardiac chambers a ppear unremarkable. The gallbladder, spleen, pancreas and adrenal glands appear unremarkable. There is a 6 mm hypodense l esion about the lateral left hepatic lobe, indeterminate however suggestive of a probable cyst. The l iver is otherwise unremarkable. No intrahepatic biliary ductal dilation. Kidneys and ureters appear u nremarkable. The urinary bladder is mostly decompressed with mild wall thickening. Prior hysterectomy . No adnexal mass lesions. Nonspecific trace free pelvic fluid. Aorta and IVC are unremarkable. Mild calcified plaque about the origin of the proximal major branches of the aorta. IVC is unremarkable. T here is no adenopathy. Enteric tube is noted, distal tip terminating within the distal gastric lumen. There is mild circumfe rential wall thickening about the distal esophagus with small sliding-type hiatal hernia. Enteric con trast progresses through the small and large bowel into the rectum. Mild colonic diverticulosis witho ut acute diverticulitis. The appendix appears normal within the abdominal right lower quadrant. Multi ple loops of small bowel demonstrate circumferential wall thickening measuring up to approximate 7 mm . Additionally, mild perienteric inflammatory stranding is also noted with scattered mildly prominent mesenteric lymph nodes. Additionally, several loops of small bowel are mildly dilated measuring up t o 3.2 cm. Scattered focal areas of luminal narrowing are noted throughout the ileum suggestive of per istalsing bowel versus small bowel strictures, notably image 359 series 3. No sinus tracts or fistula s identified. Tiny fat filled periumbilical hernia. Bones appear to be intact. Multilevel facet arthr osis with spondylitic spurring. IMPRESSION: 1. No small bowel obstruction. 2. Distal tip of enteric tube terminates about the distal gastric lumen. Small sliding-type hiatal he rnia is noted in addition to mild nonspecific wall thickening about the distal esophagus. 3. Multiple loops of mildly dilated small bowel are noted about the lower abdomen and pelvis along wi th moderate multifocal small bowel thickening with mild perienteric inflammation and adjacent likely reactive prominent mesenteric lymph nodes. Findings have mildly progressed from 10/17/2017 suggestive o f a nonspecific enteritis. Correlate clinically to exclude inflammatory bowel disease. 4. Trace free pelvic fluid, likely reactive. Electronically signed by: Mo Walden M.D. 11/29/2018 9:45 AM
--- NOTE | 2018-11-29 10:45 | Hospitalist Progress Note ---
Date of Service November 29, 2018 Assessment & Plan (1) Partial small bowel obstruction: She is doing well after gastric output via suction in the amount of 1300 cc yesterday and overnight. Minimal output this morning after 7 AM. General surgery is on board and ordered a CT scan of the abdomen pelvis which is pending. Will defer to surgery for further management of the tube, and advancement of diet. I would expect she would have the NG tube out no later than today. (2) Depression: Current p.o. meds are held. Will await NG tube removal or clamping before reordering. (3) DVT prophylaxis: SCD/ambulation Full code Dispo-DC to home in 1-2 days. Will need to advance diet and ensure patient is feeling well prior to discharging Shama Salcedo DO [facility] Hospitalist Subjective Patient is doing well today Reports improvement, states she is hungry this morning, had bowel movement overnight that was loose Denies any abdominal pain. Denies nausea. Physical Exam Vital Signs (Past 24 Hours): Last Vital Signs Temp 36.9 C 11/29/18 07:24 Pulse 81 11/29/18 07:24 Resp 20 11/29/18 07:24 BP 136/84 11/29/18 07:24 Pulse Ox 93 11/29/18 07:24 CONSTITUTIONAL: WNWD, vitals as above, generally well-appearing, NGT in place EYES: normal conjuctivae, no scleral icterus ENT: MMM RESPIRATORY: clear to auscultation bilaterally, no crackles, rales or wheezes, normal respiratory effort CARDIOVASCULAR: regular rate and rhythm, S1 and 2 heard without murmurs, gallops or rubs, no JVD, no peripheral edema GASTROINTESTINAL: hypoactive bowel sounds, soft, nontender, nondistended MUSCULOSKELETAL: strength 5/5 throughout, head is normocephalic and atraumatic SKIN: warm and dry NEUROLOGIC: CN 2-12 grossly intact, no sensory deficit, normal cognition,no gross focal deficits. PSYCHIATRIC: alert cooperative and oriented to person, place and time. LYMPHATIC: no LAD Results & Data Laboratory Results Short CBC 11/29/18 Range/Units 05:35 WBC 5.14 (4.8-10.8) K/uL Hgb 9.3 L (12.0-16.0) g/dL Hct 30.3 L (37-47) % Plt Count 395 (130-400) K/uL BMP 11/29/18 05:35 Sodium 143 Potassium 3.7 Chloride 109 H Carbon Dioxide 30 BUN 6 L D Creatinine 0.61 Glucose 116 H Calcium 7.7 L Medications Administered Current Inpatient Medications Albuterol (Ventolin Hfa) 2 puffs INH QID PRN PRN Reason: Shortness Of Breath Or Wheezin Stop: 12/28/18 06:55 Ferrous Sulfate (Feosol) 325 mg PO QAM BORIS Stop: 12/28/18 08:59 Fexofenadine HCl (Ayde) 180 mg PO QAM PRN PRN Reason: ALLERGIES Stop: 12/28/18 06:55 Fluticasone Propionate (Flonase) 2 sprays NA DAILY BORIS Stop: 12/28/18 08:59 Last Admin: 11/29/18 06:59 Dose: Not Given Documented by: Hydromorphone HCl (Dilaudid) 0.5 mg IV Q4H PRN PRN Reason: Pain Stop: 12/12/18 06:55 Last Admin: 11/28/18 14:33 Dose: 0.5 mg Documented by: Dextrose/Sodium Chloride (D5w And Nss) 1,000 mls @ 125 mls/hr IV .Q8H BORIS Stop: 12/28/18 06:55 Last Admin: 11/29/18 06:34 Dose: 125 mls/hr Documented by: Pantoprazole Sodium 40 mg/ (Syringe) 10 mls @ 5 mls/min IV DAILY@1100 BORIS Stop: 12/28/18 10:59 Last Admin: 11/28/18 10:34 Dose: 5 mls/min Documented by: Acetaminophen (Ofirmev) 65 mls @ 200 mls/hr IV Q8H PRN PRN Reason: pain or fever Stop: 12/28/18 17:14 Last Infusion: 11/28/18 21:58 Dose: Infused Documented by: Lorazepam (Ativan) 0.5 mg in 1 mls @ 0.5 mls/min IV TID PRN PRN Reason: severe anxiety Stop: 12/28/18 17:13 Last Admin: 11/28/18 22:37 Dose: 0.5 mls/min Documented by: Ioversol (Optiray 320 100ml) 93 ml IV ONCE PRN PRN Reason: Interaction Checking Stop: 12/03/18 08:20 Last Admin: 11/29/18 08:22 Dose: 93 ml Documented by: Losartan Potassium (Cozaar) 25 mg PO DAILY [facility] Stop: 12/28/18 08:59 Last Admin: 11/28/18 09:29 Dose: 25 mg Documented by: Ondansetron HCl (Zofran) 4 mg IV Q6H PRN PRN Reason: Nausea Stop: 12/28/18 06:55 Quetiapine Fumarate (Seroquel) 25 mg PO HS [facility] Stop: 12/28/18 20:59 Venlafaxine HCl (Effexor Extended Release) 150 mg PO QAM [facility] Stop: 12/28/18 08:59 Last Admin: 11/28/18 09:30 Dose: 150 mg Documented by:
[2018-11-29] MEDS: ACETAMINOPHEN 65 ML IV PRN (10:49)
[2018-11-29] MEDS: PANTOprazole 40 MG in SYRINGE 0 ML IV SCH (10:53)
--- NOTE | 2018-11-29 11:00 | Gastrointestinal Consultation ---
Date of Consultation November 29, 2018 Assessment & Plan (1) Partial small bowel obstruction: 53 year old female with recent admission for pneumonia clinically improving who presented through the ED for abd pain, nausea and vomiting - CT imaging w/ multiple loops of mildly dilated small bowel are noted about the lower abdomen and pelvis along with moderate multifocal small bowel thickening with mild perienteric inflammation. 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 No overt change in baseline bowel function and denies black/bloody stools/emesis. Has chronic OTTO w/ negative GI workup in 2016, maternal history of crohn's disease - Anti emetics PRN - Would avoid narcotic analgesia - Can have Bentyl 10 mg TID PRN pain - Ok for trial of clear liquids - Would recommend MR enterography prior to discharge to better evaluate the small bowel if able to tolerate contrast material - Will need OP EGD/Colonoscopy w/ biopsies - Would defer evaluation w/ VCE until enteropgrahy and EGD/Colon are completed - If VCE would be arrange, she will need patency capsule prior Thank you for allowing us to participate in the care of this patient. Please call with any acute changes, questions or concerns. Please see addendum below with additional recommendation from my supervising physician. Present on Admission?: Yes Supervising Physician Co-Signing Physician Notes Attending attestation I have seen, examined this patient, and agree with the findings and above by our mid-level provider ERLINDA Hernandez. -Chronic recurrent SBO's without diagnosis of a gi etiology. -Followed and had multiple endoscopies ruling out Crohn's -hx supports relatively acute onset in nature, making chronic inflammatory process a bit less likely -MRE when safe (maybe tomorrow) -Outpt EGD/Colonoscopy with Dr. Reyes History of Present Illness Reason for Consultation: enteritis Requesting Physician: Matias Attending Physician: Shama Salcedo DO History of Present Illness 53 year old female w/ HTN, GERD, depression, recurrent SBO, chronic OTTO and recent admission for pneumonia on ABX who presented to the ED w/ change in bowel habits, severe abd pain nausea/vomiting. Pt was seen and evaluated, chart reviwed. Imaging on admission consistent w/ partial SBO and general surgery was consulted. NG was placed to intermittent suction w/ moderate amount of green/brown output. She notes today she has been moving her bowels without abd pain and NG was removed. Presently tolerating trial of clear liquids. Denies any change in baseline bowel function. No chronic diarrhea. No chronic abd pain. No black or bloody stools. she has had numerous admission for partial SBO thought secondary to adhesive disease. No fever, chills, CP, SOB. Colonoscopy 2008: diverticulosis, torturous colon, no evidence of endometriosis or partial obstruction. Colonoscopy 2012: diverticulosis, normal TI EGD 2016: Normal esophagus. Normal stomach. Normal examined duodenum and proximal jejunum. Biopsied. Colonoscopy 2016: The examined portion of the ileum was normal.The entire examined colon is normal on direct and retroflexion views.No specimens collected. CT 2019: No small bowel obstruction. Distal tip of enteric tube terminates about the distal gastric lumen. Small sliding-type hiatal hernia is noted in addition to mild nonspecific wall thickening about the distal esophagus. Multiple loops of mildly dilated small bowel are noted about the lower abdomen and pelvis along with moderate multifocal small bowel thickening with mild perienteric inflammation and adjacent likely reactive prominent mesenteric lymph nodes. Findings have mildly progressed from 10/17/2017 suggestive of a nonspecific enteritis. Correlate clinically to exclude inflammatory bowel disease. Trace free pelvic fluid, likely reactive. MRE 2013: No evidence of bowel obstruction. No suspicious masses identified. Normal peristalsis noted. No abnormal mucosal thickening or enhancement. Family history of IBD: mother w/ crohns Allergies Allergy/AdvReac Type Severity Reaction Status Date / Time naproxen Allergy Severe ANAPHYLAXIS- Verified 11/28/18 04:50 THROAT SWELLING, motrin [place] diflunisal Allergy Unknown per PCP Unverified 11/28/18 04:50 records fexofenadine AdvReac Mild HYPERTENSIO Unverified 11/28/18 04:50 N pseudoephedrine AdvReac Mild HYPERTENSIO Unverified 11/28/18 04:50 N meperidine AdvReac Unknown HYPOTENSION Unverified 11/28/18 04:50 Home Medications Home Medications Medication Instructions Recorded Confirmed Type Metamucil 1 dose PO DAILY PRN 11/13/18 11/28/18 History albuterol sulfate [ProAir HFA] 2 puff INHALATION QID PRN 11/13/18 11/28/18 History cyanocobalamin (vitamin B-12) 1,000 mcg PO QAM 11/13/18 11/28/18 History [Vitamin B-12] ferrous sulfate 325 mg PO QAM 11/13/18 11/28/18 History fexofenadine [Ayde Allergy] 180 mg PO QAM PRN 11/13/18 11/28/18 History fluticasone propionate [Flonase 2 spray INTRANASAL DAILY 11/13/18 11/28/18 History Allergy Relief] ibuprofen 800 mg PO QID PRN 11/13/18 11/28/18 History multivitamin with minerals 1 tab PO QAM 11/13/18 11/28/18 History [Multiple Vitamin-Minerals] omeprazole 20 mg PO QAM 11/13/18 11/28/18 History ondansetron 8 mg PO UD PRN 11/13/18 11/28/18 History quetiapine 25 mg PO HS 11/13/18 11/28/18 History tramadol 50 mg PO Q6H PRN 11/13/18 11/28/18 History venlafaxine 150 mg PO QAM 11/13/18 11/28/18 History losartan 25 mg PO DAILY 11/14/18 11/28/18 History ranitidine HCl 300 mg PO HS PRN 11/28/18 11/28/18 History Patient History Medical History Asthma (Chronic) GERD (gastroesophageal reflux disease) (Chronic) Anxiety (Chronic) Depression (Chronic) Hypertension (Chronic) Diverticulosis of colon, acquired (Chronic) History of small bowel obstruction (Chronic) admissions 2012, 2016, 2018; attributed to adhesions Uterine leiomyoma (Chronic) Surgical History H/O laparoscopy History of total knee arthroplasty (Chronic) right knee Family History Mother Breast cancer Coronary heart disease Crohn's disease Hypertension Father Diabetes Bladder cancer Aunt Breast cancer Social History Communication Ability: Effective Beliefs That Will Affect Care: None marital status: Single Current Living Situation: Alone Other Information That Helps Us Care for You: No Feels Safe at Home: Yes Smoking Status: Never smoker Hx Alcohol Use: No Hx Substance Use: No Review of Systems Constitutional: no fever, no body aches, no weakness and no weight gain Respiratory: no cough, no dyspnea, no dyspnea on exertion and no wheezing Cardiovascular: no chest pain, no palpitations, no syncope and no edema Gastrointestinal: no abdominal pain, no early satiety, no nausea, no vomiting, no coffee ground emesis, no hematemesis, no pain with swallowing, no excessive flatulence, no change in bowel habits, no constipation, no diarrhea/loose stools, no blood in stools and no melena Physical Exam Vital Signs (Past 24 Hours): Last Vital Signs Temp 36.9 C 11/29/18 07:24 Pulse 81 11/29/18 07:24 Resp 20 11/29/18 07:24 BP 136/84 11/29/18 07:24 Pulse Ox 93 11/29/18 07:24 Constitutional: well developed, well nourished, cooperative and comfortable; no acute distress Respiratory: normal respiratory effort, lungs clear to auscultation Cardiovascular: Rate/Rhythm: regular rate and regular rhythm Heart Sounds: no click and no cardiac rub Gastrointestinal (Abdomen): Inspection/Auscultation: normal bowel sounds; abdomen not distended Percussion/Palpation: abdomen soft; no guarding, abdo men not rigid, no hernia, no abdominal mass and no ascites Skin: no rashes, warm and dry Results & Data Laboratory Results 11/29/18 11/29/18 Range/Units 05:35 05:35 WBC 5.14 (4.8-10.8) K/uL RBC 4.00 L (4.2-5.4) M/uL Hgb 9.3 L (12.0-16.0) g/dL Hct 30.3 L (37-47) % MCV 75.8 L (80-100) fL MCH 23.3 L (25-34) pg MCHC 30.7 L (32-36) g/dL RDW Std Deviation 50.1 H (36.4-46.3) fL RDW Coeff of Willy 18.3 H (11.5-14.5) % Plt Count 395 (130-400) K/uL MPV 10.0 (7.4-10.4) fL Immature Gran % (Auto) 0.2 % Neut % (Auto) 62.3 % Lymph % (Auto) 29.0 % [place] % (Auto) 5.6 % Eos % (Auto) 2.5 % Baso % (Auto) 0.4 % Immature Gran # (Auto) 0.01 (0.00-0.02) K/uL Neut # (Auto) 3.20 (1.4-6.5) K/uL Lymph # (Auto) 1.49 (1.2-3.4) K/uL [place] # (Auto) 0.29 (0.11-0.59) K/uL Eos # (Auto) 0.13 (0-0.5) K/uL Baso # (Auto) 0.02 (0-0.2) K/uL Sodium 143 (136-145) mmol/L Potassium 3.7 (3.5-5.1) mmol/L Chloride 109 H (98-107) mmol/L Carbon Dioxide 30 (21-32) mmol/L Anion Gap 4.0 (3-11) BUN 6 L D (7-18) mg/dl Creatinine 0.61 (0.6-1.2) mg/dl Est Cr Clr Drug Dosing 122.1 ml/min Est GFR ( Amer) 121.7 Est GFR (Non-Af Amer) 105.0 BUN/Creatinine Ratio 10.1 (10-20) Glucose 116 H (70-99) mg/dl Calcium 7.7 L (8.5-10.1) mg/dl Phosphorus 3.2 (2.5-4.9) mg/dl Magnesium 2.0 (1.8-2.4) mg/dl
[2018-11-29] MEDS: LOSARTAN POTASSIUM 25 MG TAB PO SCH (12:29)
[2018-11-29] MEDS: VENLAFAXINE HCL XR 150 MG CAPXR PO SCH (12:29)
[2018-11-29] MEDS ORDERED: HydrALAZINE HCL 20 MG/ML VIAL IV STA (16:33)
[2018-11-29] MEDS ORDERED: BUTALBITAL/ACETAMIN/CAFFEINE TAB PO STA (16:33)
[2018-11-29] MEDS: QUETIAPINE FUMARATE 25 MG TABLET PO SCH (20:57)
[2018-11-29] MEDS: LORazepam 0.5 MG/1 ML VIAL IV PRN ×2 (22:24→22:30)
[2018-11-30] MEDS: D5W AND NSS 1,000 ML IV SCH ×2 (06:05→13:51)
[2018-11-30] MEDS: VENLAFAXINE HCL XR 150 MG CAPXR PO SCH (08:28)
[2018-11-30] MEDS: LOSARTAN POTASSIUM 25 MG TAB PO SCH (08:28)
[2018-11-30] MEDS: FLUTICASONE PROPIONATE NA SPR 16 GM BTL SCH (08:29)
[2018-11-30 08:41] LABS: Appearance Urine Clear (Clear); Bacteria Urine Automated Negative (Negative); Bilirubin Urine Negative (Negative); Blood Urine Negative (Negative); Cast Urine Automated 0 /lpf (0-5); Color Urine Yellow; Epithelial Cell Urine Auto >30 /lpf (0-5); Glucose Urine UA Negative (Negative); Ketones Urine 1+ (Negative); Leukocyte Esterase Urine Negative (Negative); Nitrite Urine Negative (Negative); RBC Urine Automated 0-4 /hpf (0-4); Specific Gravity Urine 1.024 (1.000-1.030); Urobilinogen Urine Negative (Negative); pH Urine >= 9.0 (4.5-7.5)
[2018-11-30 09:35] LABS: Protein Urine Negative (Negative)
--- NOTE | 2018-11-30 09:41 | Gastroenterology Progress Note ---
Date of Service November 30, 2018 Assessment & Plan (1) Partial small bowel obstruction: 53 year old female with recent admission for pneumonia clinically improving who presented through the ED for abd pain, nausea and vomiting - CT imaging w/ multiple loops of mildly dilated small bowel are noted about the lower abdomen and pelvis along with moderate multifocal small bowel thickening with mild perienteric inflammation. 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 No overt change in baseline bowel function and denies black/bloody stools/emesis. Has chronic OTTO w/ negative GI workup in 2016, maternal history of crohn's disease. This AM she is feeling well w/ resolution of symptoms - she now does report that she had three BMs 11/29/18 that were mixed with BRB. - Stool culture - Stool for c.diff - MRE - Anti emetics PRN - Would avoid narcotic analgesia - Can have Bentyl 10 mg TID PRN pain - Will need OP endoscopic evaluation - Would defer evaluation w/ VCE until MRE and endoscopy are completed - If VCE would be arrange, she will need patency capsule prior Thank you for allowing us to participate in the care of this patient. Please call with any acute changes, questions or concerns. Please see addendum below with additional recommendation from my supervising physician. Supervising Physician Co-Signing Physician Notes Attending attestation I have seen, examined this patient, and agree with the findings and above by our mid-level provider ERLINDA Hernandez. -Patient doing very well, reviewed all images very carefully from a number of years, appears that has multifocal changes in in small bowel and concern for occult IBD. -Will likely warrant endoscopies, however concerned that may need enteroscopy with balloon assisted device not available here, will see results of MRI. However, will await enterography results. -Tolerating diet -Doing well Subjective Pt was seen and evlauated, chart reviewed. No complaints this AM. Notes yesterday she did continue to move her bowels. She did now report three episodes of BRB mixed with stool yesterday. Last BM was yesterday. No black stools. Abd pain resolved. No nausea, vomiting. No fever, chills, CP, SOB Colonoscopy 2008: diverticulosis, torturous colon, no evidence of endometriosis or partial obstruction. Colonoscopy 2013: diverticulosis, normal TI EGD 2016: Normal esophagus. Normal stomach. Normal examined duodenum and proximal jejunum. Biopsied. Colonoscopy 2016: The examined portion of the ileum was normal.The entire examined colon is normal on direct and retroflexion views.No specimens collected. CT 2019: No small bowel obstruction. Distal tip of enteric tube terminates about the distal gastric lumen. Small sliding-type hiatal hernia is noted in addition to mild nonspecific wall thickening about the distal esophagus. Multiple loops of mildly dilated small bowel are noted about the lower abdomen and pelvis along with moderate multifocal small bowel thickening with mild perienteric inflammation and adjacent likely reactive prominent mesenteric lymph nodes. Findings have mildly progressed from 10/17/2017 suggestive of a nonspecific enteritis. Correlate clinically to exclude inflammatory bowel disease. Trace free pelvic fluid, likely reactive. MRE 2013: No evidence of bowel obstruction. No suspicious masses identified. Normal peristalsis noted. No abnormal mucosal thickening or enhancement. Family history of IBD: mother w/ crohns Constitutional: no fever, no chills, no fatigue and no anorexia Respiratory: no cough, no dyspnea, no snoring and no wheezing Cardiovascular: no chest pain, no radiating jaw, neck or arm pain, no dyspnea on exertion and no palpitations Gastrointestinal: + blood in stools (had BRB x 3 yesterday); no abdominal pain, no bloating, no early satiety, no heartburn, no nausea, no vomiting, no coffee ground emesis, no hematemesis, no cramping, no change in bowel habits, no change in stools, no diarrhea/loose stools, no fecal incontinence and no melena Physical Exam Vital Signs (Past 24 Hours): Last Vital Signs Temp 36.5 C 11/30/18 07:55 Pulse 60 11/30/18 07:55 Resp 12 11/30/18 07:55 BP 132/82 11/30/18 07:55 Pulse Ox 94 11/30/18 07:55 Constitutional: well developed, well nourished, cooperative and comfortable; no acute distress Respiratory: normal respiratory effort, lungs clear to auscultation Cardiovascular: Rate/Rhythm: regular rate and regular rhythm Heart Sounds: no click and no cardiac rub Gastrointestinal (Abdomen): Inspection/Auscultation: normal bowel sounds; abdomen not distended Percussion/Palpation: abdomen soft; no guarding, abdomen not rigid, no hernia, no abdominal mass and no ascites Skin: no rashes, warm and dry Results & Data Laboratory Results 11/30/18 11/29/18 Range/Units 08:00 13:50 Urine Color Yellow Urine Appearance Clear (Clear) Urine pH >= 9.0 H (4.5-7.5) Ur Specific [place] 1.024 (1.000-1.030) Urine Protein Negative (Negative) Urine Glucose (UA) Negative (Negative) Urine Ketones 1+ H (Negative) Urine Blood Negative (Negative) Urine Nitrite Negative (Negative) Urine Bilirubin Negative (Negative) Urine Urobilinogen Negative (Negative) Ur Leukocyte Esterase Negative (Negative) Urine WBC (Auto) 1-5 (0-5) /hpf Urine RBC (Auto) 0-4 (0-4) /hpf U Hyaline Cast (Auto) 0 (0-5) /lpf U Epithel Cells (Auto) >30 H (0-5) /lpf Urine Bacteria (Auto) Negative (Negative) Stool Occult Bld Scrn Positive H (Negative)
[2018-11-30] MEDS: PANTOprazole 40 MG TAB PO SCH (10:26)
--- NOTE | 2018-11-30 11:58 | Progress Note ---
Date of Service November 30, 2018 Assessment & Plan (1) Partial small bowel obstruction: does not appear to need surgical intervention at this point Norberto Kwan and Alma are covering if pt here past today Subjective tolerating diet and wants to go home later GI team ordered MRE and to follow as outpt Physical Exam Vital Signs (Past 24 Hours): Last Vital Signs Temp 36.5 C 11/30/18 07:55 Pulse 60 11/30/18 07:55 Resp 12 11/30/18 07:55 BP 132/82 11/30/18 07:55 Pulse Ox 94 11/30/18 07:55 no acute changes- normal affect
[2018-11-30] MEDS ORDERED: GLUCAGON FOR INJ 1 MG VIAL SQ SCH (12:15)
[2018-11-30] MEDS ORDERED: GADOBUTROL 65ML VIAL IV PRN (15:46)
--- NOTE | 2018-11-30 16:27 | Magnetic Resonance Report ---
Study: MRI abdomen/MRI enterography HISTORY: Small bowel obstruction. FINDINGS: Signal characteristics of liver spleen and pancreas are unremarkable. There is a 5 mm cyst of the left hepatic lobe. The biliary ductal system shows no evidence for distention. There is a small hiatal hernia. The appearance of the stomach is unremarkable. The duodenal sweep is unremarkable. Small bowel is remarkable for moderate distention of the mid to distal small bowel. The terminal ileu m is within normal limits. There are several short segments of the mid small bowel demonstrating comp onents of annular narrowing. This may also simply be related to wall thickening. There are scattered traces of mild infiltrative change surrounding the loops of small bowel. A well-d efined mass is not appreciated. Colonic pattern is nonobstructive. Bladder is midline. There is no significant abdominal or pelvic ad enopathy. IMPRESSION: 1. Mild/moderate distention of components of the mid to distal small bowel with associated somewhat a nnular segmental regions of wall edematous change or thickening. 2. Possibility of segmental scarring on a postoperative basis and/or a small bowel inflammatory proce ss must be considered. 3. Study is otherwise negative. Electronically signed by: Almas Go M.D. 11/30/2018 4:25 PM
--- NOTE | 2018-11-30 18:38 | Hospitalist Progress Note ---
Date of Service November 30, 2018 Assessment & Plan (1) Partial small bowel obstruction: resolved NG D/ronna Diet advanced tolerating well appreciate input from surgery no surgical intervention needed, no prior history of surgery, GI evaluation appreciated, MRI of abdomen Entergraphy done, shows mild thickening of small bowel, plan for discharge home with outpatient capsule endoscopy (2) Depression: cont Out pt meds (3) DVT prophylaxis: SCD/ambulation Full code DISPOSITION : possible discharge home in AM 12/01/18 Subjective Does not have any nausea vomiting, abdominal pain has resolved, able to ambulate, wants to see if she is going to be able to discharge home soon Physical Exam Vital Signs (Past 24 Hours): Last Vital Signs Temp 36.9 C 11/30/18 15:39 Pulse 80 11/30/18 18:27 Resp 16 11/30/18 15:39 BP 159/98 H 11/30/18 18:27 Pulse Ox 96 11/30/18 15:39 Physical Exam: GENERAL: No sign of distress, HEENT: Sclera nonicteric, pink-purple bilateral equal reactive to light extraocular muscle intact Normal oral mucosa, neck: No JVD, no thyromegaly, trachea midline Lungs: Clear to auscultate, no wheeze or rales Cardiovascular: Regular S1 and S2, no murmur or gallop, no JVD, no lower extremity edema Abdomen: Soft, nontender, bowel sounds active, no hepatosplenomegaly Extremities: No rash or deformity, normal joint, Neuro: No focal neurological deficit, no dysarthria, no facial droop Psych: Alert awake oriented x3: Euthymic Skin: No rash LYMPH NODES: No cervical lymphadenopathy
[2018-11-30] MEDS: QUETIAPINE FUMARATE 25 MG TABLET PO SCH (20:26)
[2018-11-30] MEDS: LORazepam 0.5 MG/1 ML VIAL IV PRN (21:57)
[2018-12-01] MEDS: VENLAFAXINE HCL XR 150 MG CAPXR PO SCH (08:27)
[2018-12-01] MEDS: LOSARTAN POTASSIUM 25 MG TAB PO SCH (08:27)
[2018-12-01] MEDS: PANTOprazole 40 MG TAB PO SCH (08:27)
[2018-12-01] MEDS: FLUTICASONE PROPIONATE NA SPR 16 GM BTL SCH (08:27)
--- NOTE | 2018-12-01 09:14 | Surgery Progress Note ---
Date of Service December 01, 2018 Assessment & Plan (1) Partial small bowel obstruction: Pt seen and examined with Dr. Marquez. Pt doing well, moving her bowels, passing flatus, tolerating diet. Pt states that she does have a history of postprandial RUQ pain- will order gb ultrasound. Pending results of ultrasound pt may be ok for discharge later today per primary team. Patient to follow-up as outpatient with GI. Subjective Patient resting comfortably in bed- no new concerns overnight. Physical Exam Vital Signs (Past 24 Hours): Last Vital Signs Temp 36.9 C 12/01/18 07:28 Pulse 78 12/01/18 07:28 Resp 12 12/01/18 07:28 BP 132/82 12/01/18 07:28 Pulse Ox 93 12/01/18 07:28 Gastrointestinal (Abdomen): Percussion/Palpation: abdomen soft; abdomen nontender
--- NOTE | 2018-12-01 09:57 | Gastroenterology Progress Note ---
Date of Service December 01, 2018 Assessment & Plan (1) Partial small bowel obstruction: 53 year old female with recent admission for pneumonia clinically improving who presented through the ED for abd pain, nausea and vomiting - CT imaging w/ multiple loops of mildly dilated small bowel are noted about the lower abdomen and pelvis along with moderate multifocal small bowel thickening with mild perienteric inflammation. 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 No overt change in baseline bowel function and denies black/bloody stools/emesis. Has chronic OTTO w/ negative GI workup in 2016, maternal history of crohn's disease. MRE w/ mild/moderate distention of components of the mid to distal small bowel with associated somewhat annular segmental regions of wall edematous change or thickening. Possibility of segmental scarring on a postoperative basis and/or a small bowel inflammatory process must be considered. - Low fiber diet - Stool culture pending - Stool for c.diff negative - Anti emetics PRN - Would avoid narcotic analgesia - Can have Bentyl 10 mg TID PRN pain - Will need OP endoscopic evaluation - Will discuss with attending, ?balloon or push endo Thank you for allowing us to participate in the care of this patient. Please call with any acute changes, questions or concerns. Please see addendum below with additional recommendation from my supervising physician. Supervising Physician Co-Signing Physician Notes Attending attestation I have seen, examined this patient, and agree with the findings and above by our mid-level provider ERLINDA Hernandez. -Doing well eating tolerating diet going home today. Arranging for outpatient enteroscopy with the device for further delineation and clarification of possible IBD. Subjective Pt was seen and evaluated, chart reviewed. No complaints this AM. No longer has rectal bleeding. Is moving bowels. Brown. No black stools. No abd pain. No nausea, vomiting. tolerated low fiber diet. No fever, chills, CP, SOB Colonoscopy 2008: diverticulosis, torturous colon, no evidence of endometriosis or partial obstruction. Colonoscopy 2012: diverticulosis, normal TI EGD 2016: Normal esophagus. Normal stomach. Normal examined duodenum and proximal jejunum. Biopsied. Colonoscopy 2015: The examined portion of the ileum was normal.The entire examined colon is normal on direct and retroflexion views.No specimens collected. MRE 2019: Mild/moderate distention of components of the mid to distal small bowel with associated somewhat annular segmental regions of wall edematous change or thickening. Possibility of segmental scarring on a postoperative basis and/or a small bowel inflammatory process must be considered. Study is otherwise negative. CT 2019: No small bowel obstruction. Distal tip of enteric tube terminates about the distal gastric lumen. Small sliding-type hiatal hernia is noted in addition to mild nonspecific wall thickening about the distal esophagus. Multiple loops of mildly dilated small bowel are noted about the lower abdomen and pelvis along with moderate multifocal small bowel thickening with mild perienteric inflammation and adjacent likely reactive prominent mesenteric lymph nodes. Findings have mildly progressed from 10/17/2017 suggestive of a nonspecific enteritis. Correlate clinically to exclude inflammatory bowel disease. Trace free pelvic fluid, likely reactive. MRE 2012: No evidence of bowel obstruction. No suspicious masses identified. Normal peristalsis noted. No abnormal mucosal thickening or enhancement. Family history of IBD: mother w/ crohns Gastrointestinal: + blood in stools (had BRB x 3 yesterday); no abdominal pain, no bloating, no early satiety, no heartburn, no nausea, no vomiting, no coffee ground emesis, no hematemesis, no cramping, no change in bowel habits, no change in stools, no diarrhea/loose stools, no fecal incontinence and no melena Physical Exam Vital Signs (Past 24 Hours): Last Vital Signs Temp 36.9 C 12/01/18 07:28 Pulse 78 12/01/18 07:28 Resp 12 12/01/18 07:28 BP 132/82 12/01/18 07:28 Pulse Ox 93 12/01/18 07:28 Constitutional: well developed, well nourished, cooperative and comfortable; no acute distress Respiratory: normal respiratory effort, lungs clear to auscultation Cardiovascular: Rate/Rhythm: regular rate and regular rhythm Heart Sounds: no click and no cardiac rub Gastrointestinal (Abdomen): Inspection/Auscultation: normal bowel sounds; abdomen not distended Percussion/Palpation: abdomen soft; no guarding, abdomen not rigid, no hernia, no abdominal mass and no ascites Skin: no rashes, warm and dry
--- NOTE | 2018-12-01 12:35 | Ultrasound Report ---
US gallbladder HISTORY: 53 years-old Female postprandial pain acute right upper quadrant abdominal pain COMPARISON: CT abdomen and pelvis 11/29/2018 TECHNIQUE: Multiple real-time sonographic images of the abdominal right upper quadrant were obtained assessing grayscale appearance and color flow FINDINGS: Visualized pancreas appears unremarkable. Liver is unremarkable without evidence of cirrhosis or intr ahepatic biliary ductal dilation. Gallbladder is unremarkable without wall thickening, cholelithiasis or pericholecystic fluid. Common bile duct is normal, 4 mm. Imaged right kidney is unremarkable without hydronephrosis. IMPRESSION: Unremarkable right upper quadrant abdominal ultrasound. The above report was generated using voice recognition software. It may contain grammatical, syntax o r spelling errors. Electronically signed by: Mo Walden M.D. 12/01/2018 12:33 PM
[2018-12-01 14:58] VITALS: TEMP 98.6; O2SAT 94
[2018-12-01 16:03] VITALS: BP 132/82; PULSE 60
--- NOTE | 2018-12-01 16:19 | Discharge Summary ---
Date of Service December 01, 2018 Admission HPI Per Admitting Provider cc: Christophe Ken MD~ DICTATED BY: Christophe Ken MD DATE OF ADMISSION: 11/28/2018 CHIEF COMPLAINT: Abdominal pain. HISTORY OF PRESENT ILLNESS: This is a 53-year-old female with past medical history significant for hypertension, GERD, depression, history of HSV-1 infection, presents with abdominal pain. The patient was recently in the hospital for pneumonia. She finished the antibiotic course. She still has some cough with yellowish phlegm. Last night, after dinner around 8:30, she has started to have abdominal pain in the lower abdomen, initially started mild, then it progressively got worse associated with several episodes of nausea and vomiting. She has tried to put her heating pad and took ibuprofen, but it did not help,continued to have pain and nausea and vomiting which prompted her to come to the ER. In the ER, imaging studies showed small-bowel obstructions. The patient states she had small bowel obstruction in the past, last time was 1 year ago. Currently, with the pain medications and antiemetics, symptoms are under control, did move her bowel last night around 8:30, since then she is not moving any gas. She had some short of breath and headaches when she had this abdominal pain that is improved now. Denies any blurred vision. No earache, no runny nose, no sore throat, no difficulty swallowing. Otherwise, her appetite was okay. Currently, no chest pain or shortness of breath. Normal bladder movements. No hematuria. No increased frequency or burning micturition. She has no blood in the stools or black stools. No swelling lower extremity, no rash. Currently, resting comfortable and hemodynamically stable. Principal Diagnosis SMALL BOWEL OBSTRUCTION -RESOLVED Discharge Exam GENERAL: No sign of distress, HEENT: Sclera nonicteric, pink-purple bilateral equal reactive to light extraocular muscle intact Normal oral mucosa, neck: No JVD, no thyromegaly, trachea midline Lungs: Clear to auscultate, no wheeze or rales Cardiovascular: Regular S1 and S2, no murmur or gallop, no JVD, no lower extremity edema Abdomen: Soft, nontender, bowel sounds active, no hepatosplenomegaly Extremities: No rash or deformity, normal joint, Neuro: No focal neurological deficit, no dysarthria, no facial droop Psych: Alert awake oriented x3: Euthymic Skin: No rash LYMPH NODES: No cervical lymphadenopathy Discharge Data Allergies Allergy/AdvReac Type Severity Reaction Status Date / Time naproxen Allergy Severe ANAPHYLAXIS- Verified 11/28/18 04:50 THROAT SWELLING, motrin [place] diflunisal Allergy Unknown per PCP Unverified 11/28/18 04:50 records fexofenadine AdvReac Mild HYPERTENSIO Unverified 11/28/18 04:50 N pseudoephedrine AdvReac Mild HYPERTENSIO Unverified 11/28/18 04:50 N meperidine AdvReac Unknown HYPOTENSION Unverified 11/28/18 04:50 Consultations 11/28/18 07:09 ED Decision to Admit Stat 11/28/18 08:00 Consult General Surgery Routine 11/29/18 10:27 Consult Gastroenterology Routine Ordered Studies 11/29/18 06:09 CT abd pelvis oral and IV con Urgent 11/30/18 09:41 MR enterography wo/w con Routine 12/01/18 08:31 US gallbladder Routine Hospital Course (1) Partial small bowel obstruction: resolved NG D/ronna Diet advanced tolerating well appreciate input from surgery no surgical intervention needed, no prior history of surgery, GI evaluation appreciated, MRI of abdomen Entergraphy done, shows mild thickening of small bowel, plan for discharge home with outpatient capsule endoscopy liver USG no gall bladder pathology stable to be discharged home today (2) Depression: cont Out pt meds (3) DVT prophylaxis: SCD/ambulation Full code DISPOSITION : discharge home today Total Time Total Time Spent Total Time Spent (In Minutes): 40 m ins Total Time Includes: Examination of the Patient, Discharge Planning and Medication Reconciliation Discharge Plan Discharge Items Patient Disposition: Home - Self-Care Reason For Visit: ABDOMINAL PAIN Discharge Diagnosis: SMALL BOWEL OBSTRUCTION -RESOLVED Discharge Goals: Decrease discomfort Activity: Resume your previous activity Non-emergency contact: Primary Care Provider Call non-emergency contact if: you have any medication questions Follow-up/Referrals: Vijay Holcomb [Physician] - (in 2-3 weeks , office will call with appointment ) Tomy Carlos MD [Primary Care Provider] - 12/05/18 10:30 am Diet: Low Fiber Addtl Provider Instructions: follow up with gastroenterology in clinic Prescriptions: New dicyclomine 10 mg capsule 10 mg PO TID PRN (Reason: muscle spasm) Qty: 60 RF: 0 Continued cyanocobalamin (vitamin B-12) [Vitamin B-12] 1,000 mcg Tablet Extended Release 1,000 mcg PO QAM RF: 0 ibuprofen 200 mg Tablet 800 mg PO QID PRN (Reason: Pain) RF: 0 albuterol sulfate [ProAir HFA] 90 mcg/actuation Hfa Aerosol Inhaler 2 puff INHALATION QID PRN (Reason: Shortness Of Breath Or Wheezing) RF: 0 ferrous sulfate 325 mg (65 mg iron) Tablet,Delayed Release (Dr/Ec) 325 mg PO QAM RF: 0 quetiapine 25 mg Tablet 25 mg PO HS RF: 0 fexofenadine [Ayde Allergy] 180 mg Tablet 180 mg PO QAM PRN (Reason: Allergy Symptoms) RF: 0 ondansetron 8 mg Tablet,Disintegrating 8 mg PO UD PRN (Reason: Nausea And Vomiting) RF: 0 multivitamin with minerals [Multiple Vitamin-Minerals] Tablet 1 tab PO QAM RF: 0 omeprazole 20 mg Tablet,Delayed Release (Dr/Ec) 20 mg PO QAM RF: 0 Metamucil 3.4 gram/5.4 gram Powder 1 dose PO DAILY PRN (Reason: Constipation) RF: 0 tramadol 50 mg Tablet 50 mg PO Q6H PRN (Reason: Pain) RF: 0 fluticasone propionate [Flonase Allergy Relief] 50 mcg/actuation [place],Suspension 2 spray INTRANASAL DAILY RF: 0 venlafaxine 150 mg Tablet Extended Release 24hr 150 mg PO QAM RF: 0 losartan 25 mg tablet 25 mg PO DAILY RF: 0 ranitidine HCl 150 mg tablet 300 mg PO HS PRN (Reason: Heartburn) RF: 0 Stand-Alone Forms: Work/School Release (Inpt) Discharge Orders: Discharge Order (Routine); Ordered 12/01/18 Ordered By: Cinthia Pop Admission Data Admit Date/Time: 11/28/18 06:07 Attending Provider: Cinthia Pop Admit Provider: Christophe Ken Primary Care Provider: Tomy Carlos Other Providers: Christophe Ken ; Almas Farr ; Rosa Henriquez ; Jazmín Carney ; Chuck Broderick ; Mario Hurtado ; Sisi Chamberlain ; Phill Cornejo ; Malcolm Thomas ; Ivette Flower ; Cesar Lamar ; Ani Lee ; Jordy Bishop Jr ; Gaby Wan ; Candice Steven ; Raheel Woods ; Jerry Michael ; Yessenia Harrington ; Vijay Holcomb ; Saleem Chamberlain ; Angy Hart ; Amy Bazan ; Adithya Reyes ; Jovi Soliman ; Anette Asencio ; Keila Molina ; Lucero Brewer ; Candice Bridges ; Dimas Gonzalez ; Shama Salcedo Service: Surgical Services Other Interventions: Discharge Summary Assessment (RN) Last Done: 12/01/18 16:00 DC Date/Time DO NOT enter until pt leaves facility: 12/01/18 16:51
== END 2018-12-01 16:51 | disposition home or self-care (01) | DRG 390 ==
LOC: ED 04:00 → 3N 06:07 → SUATTDRO 06:07 → 3N 06:35

== ENCOUNTER 2019-02-15 00:52 | Inpatient (IN) ==
--- OUTSIDE RECORDS SUMMARY | 2019-02-15 00:57 | External Medical Summary | Continuity of Care Document ---
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 , M.D. 30 Tablet Bottle Refills: 0 Multi-Vitamin TABS; TAKE 1 TABLET DAILY. , M.D. Refills: 0 Vitamin B 12 100 MCG Oral Lozenge; TAKE 1,000 MCG BY MOUTH Frankie MURPHY M.D. Refills: 0 traMADol HCl - 50 MG Oral Tablet; TAKE 1 TABLET EVERY 6 HOURS NEEDED FOR PAIN. , M.D. Refills: 0 Ondansetron 8 MG Oral Tablet Disintegrating; TAKE 8MG BY GELA NT NEEDED , M.D. Refills: 0 Ybf-Fjh-Roby 333-133-5 MG TABS; TAKE 1 TABLET DAILY. , M.D. Refills: 0 Fexofenadine HCl - 180 MG Oral Tablet; TAKE 1 TABLET DAILY. , M.D. Refills: 0 Albuterol AERS; INHALE 2 PUFFS 4 TIMES DAILY. M.DLenin Refills: 0 QUEtiapine Fumarate 25 MG Oral Tablet; TAKE 1 TABLET AT BEDT CLOTILDE. ChristinaDLenin Refills: 0 Venlafaxine HCl ER 150 MG Oral Tablet Ex tended Release 24 Hour; TAKE 1 CAP BY MOUTH DAILY. DO NOT CUT, CRUSH, OR CHEW , M.DLenin Refills: 0 Amoxicillin 500 MG Oral Capsule; TAKE 4 CAPSULES 1 ELÍAS R PRIOR TO APPOINTMENT. M.DLenin Refills: 0 raNITIdine HCl - 150 MG Oral Tablet; TAKE 1 TABLET TWICE JASKARAN LY. , M.D. Refills: 0 Omeprazole 20 MG Oral Capsule Delayed Re lease; TAKE 1 CAPSULE DAILY EVERY MORNING BEFORE BREAKFAST. , M.DLenin Refills: 0 Procedures History of Total Knee Arthroplasty Statu s: Completed History of Colonoscopy (Fiberoptic) Stat us: Completed History of esophagogastroduodenoscopy St atus: Completed History of knee arthrotomy Status: Compl eted History of history of prior surgery Stat us: Completed History of nasal septoplasty Status: Com pleted Immunizations Immunizations not documented Family History aunt Family history of malignant neoplasm of breast (V16.3) (Z80. 3) Status: Active Mother Family history of Crohn's disease (V18.59) (Z83.79) Status: Active Family history of cardiac disorder (V17.49) (Z82.49) Status: Active Family history of hypertension (V17.49) (Z82.49) Status: Act dave Social History - Smoking Status Former smoker Plan of Treatment Planned Observations Planned Goals not documented Results No Known Results Results not documented Encounters Appointment; Jordy Yeung M.D. 01-Feb-2018 14:10 Encounter Diagnosis: Problem not documented
[2019-02-15] MEDS ORDERED: SODIUM CHLORIDE 0.9% 1000ML 1,000 ML IV ONE (01:22)
[2019-02-15] MEDS ORDERED: ONDANSETRON INJ 2 MG/ML 2 ML VIAL IV STA (01:22)
[2019-02-15] MEDS ORDERED: HYDROmorphone INJ 1 MG/ML SYRINGE IV STA (01:26)
[2019-02-15 01:57] LABS: Basophils # (auto) 0.03 K/uL (0-0.2); Basophils % (auto) 0.3 %; Eosinophils # (auto) 0.02 K/uL (0-0.5); Eosinophils % (auto) 0.2 %; Hematocrit (blood only) 36.9 % (37-47); Hemoglobin 12.1 g/dL (12.0-16.0); Immature Granulocytes # (auto) 0.01 K/uL (0.00-0.02); Immature Granulocytes % (auto) 0.1 %; Lymphocytes # (auto) 0.82 K/uL (1.2-3.4); Lymphocytes % (auto) 7.3 %; Mean Corpuscular Hgb Conc 32.8 g/dL (32-36); Mean Corpuscular Volume 76.9 fL (80-100); Mean Platelet Volume 10.5 fL (7.4-10.4); Monocytes % (auto) 3.6 %; Neutrophils # (auto) 9.88 K/uL (1.4-6.5); Neutrophils % (auto) 88.5 %; Platelet Count 381 K/uL (130-400); RDW Coefficient of Variation 19.7 % (11.5-14.5); RDW Standard Deviation 56.1 fL (36.4-46.3); White Blood Count 11.16 K/uL (4.8-10.8)
[2019-02-15 02:14] LABS: Albumin Level 3.7 gm/dl (3.4-5.0); BUN Creatinine Ratio 18.5 (10-20); Creatinine Clr Calc Pharmacy 120.1 ml/min; Est GFR (African American) 122.3; Est GFR (Non-African American) 105.5; Potassium 3.9 mmol/L (3.5-5.1)
[2019-02-15 02:16] LABS: Albumin Globulin Ratio 1.2 (0.9-2); Bilirubin,Total 0.3 mg/dl (0.2-1); Globulin 3.2 gm/dl (2.5-4.0); Total Protein 6.9 gm/dl (6.4-8.2)
[2019-02-15 02:20] LABS: Appearance Urine Clear (Clear); Bacteria Urine Automated Negative (Negative); Bilirubin Urine Negative (Negative); Blood Urine Negative (Negative); Color Urine Yellow; Epithelial Cell Urine Auto >30 /lpf (0-5); Glucose Urine UA Negative (Negative); Leukocyte Esterase Urine Trace (Negative); Nitrite Urine Negative (Negative); Protein Urine Negative (Negative); RBC Urine Automated 0-4 /hpf (0-4); Specific Gravity Urine 1.023 (1.000-1.030); Urobilinogen Urine Negative (Negative); pH Urine 8.5 (4.5-7.5)
[2019-02-15 02:25] LABS: Ketones Urine 3+ (Negative)
[2019-02-15] MEDS ORDERED: IOVERSOL 100ml IV PRN (02:59)
--- NOTE | 2019-02-15 04:05 | Emergency Department Note ---
History of Present Illness General Chief complaint: Abdominal Pain Stated complaint: SEVERE ABDOMINAL PAIN, PILL CAMEIRA Source: patient Mode of arrival: ambulatory Limitations: no limitations History of Present Illness Maximum Pain Intensity: 8 This patient is a 53-year-old female who presents to the emergency department complaining of abdominal pain and vomiting. The patient states that her symptoms began suddenly approximately 4 hours prior to arrival. She states that she developed multiple episodes of vomiting and severe abdominal pain throughout her abdomen. She reports she has a history of bowel obstructions and this feels similar. She states that she was seen at GI 2 days ago for a pill endoscopy. She states this was to evaluate for a source of her anemia and bowel obstructions. She denies any changes in bowel movements. She denies any fevers. Patient states that in the past, her bowel obstructions have resolved with the NG tube and she has never required surgery for an obstruction. She rates her discomfort a 9/10. She has had prior hysterectomy and laparoscopic surgeries for endometriosis. Home Medications Home Medications Medication Instructions Recorded Confirmed Type Metamucil 1 dose PO DAILY PRN 11/13/18 02/15/19 History albuterol sulfate [ProAir HFA] 2 puff INHALATION QID PRN 11/13/18 02/15/19 Hist ory cyanocobalamin (vitamin B-12) 1,000 mcg PO QAM 11/13/18 02/15/19 History [Vitamin B-12] ferrous sulfate 325 mg PO QAM 11/13/18 02/15/19 History fexofenadine [Ayde Allergy] 180 mg PO QAM PRN 11/13/18 02/15/19 History fluticasone propionate [Flonase 2 spray INTRANASAL DAILY 11/13/18 02/15/19 History Allergy Relief] ibuprofen 800 mg PO QID PRN 11/13/18 02/15/19 History multivitamin with minerals 1 tab PO QAM 11/13/18 02/15/19 History [Multiple Vitamin-Minerals] omeprazole 20 mg PO QAM 11/13/18 02/15/19 History ondansetron 8 mg PO UD PRN 11/13/18 02/15/19 History quetiapine 25 mg PO HS 11/13/18 02/15/19 History tramadol 50 mg PO Q6H PRN 11/13/18 02/15/19 History venlafaxine 150 mg PO QAM 11/13/18 02/15/19 History losartan 25 mg PO DAILY 11/14/18 02/15/19 History ranitidine HCl 300 mg PO HS PRN 11/28/18 02/15/19 History dicyclomine 10 mg PO TID PRN #60 cap 12/01/18 02/15/19 Rx Allergies Allergy/AdvReac Type Severity Reaction Status Date / Time naproxen Allergy Severe ANAPHYLAXIS- Verified 02/15/19 02:28 THROAT SWELLING, motrin OK diflunisal Allergy Unknown per PCP Unverified 02/15/19 02:28 records fexofenadine AdvReac Mild HYPERTENSIO Unverified 02/15/19 02:28 N pseudoephedrine AdvReac Mild HYPERTENSIO Unverified 02/15/19 02:28 N meperidine AdvReac Unknown HYPOTENSION Unverified 02/15/19 02:28 Past Med/Surg History Medical History Asthma (Chronic) GERD (gastroesophageal reflux disease) (Chronic) Anxiety (Chronic) Depression (Chronic) Hypertension (Chronic) Diverticulosis of colon, acquired (Chronic) History of small bowel obstruction (Chronic) admissions 2012, 2016, 2018; attributed to adhesions Uterine leiomyoma (Chronic) Surgical History History of total knee arthroplasty (Chronic) right knee H/O laparoscopy Family History Mother Breast cancer Coronary heart disease Crohn's disease Hypertension Father Diabetes Bladder cancer Aunt Breast cancer Social History Preferred Language: Montserratian Communication Ability: Effective Beliefs That Will Affect Care: None marital status: Single Current Living Situation: Alone Feels Safe at Home: Yes Smoking Status: Former smoker Hx Alcohol Use: No Hx Substance Use: No Review of Systems A total of 10 systems reviewed and were otherwise negative Physical Exam Vital Signs Vital Signs - 24 hr 02/15/19 00:54 02/15/19 02:10 02/15/19 03:00 Temperature 36.7 C Temperature Source Oral Sepsis Recent Fever Within 48 Hours No Sepsis Action Taken by Nursing No Action Required Pulse Rate 84 Pulse Rate [Right Finger] 75 75 Pulse Rhythm [Right Finger] Regular Regular Pulse Strength [Right Finger] Normal Normal Respiratory Rate 16 16 16 Respiratory Effort / Characteristics Non-Labored Spontaneous Non-Labored Non-Labored Respiratory Depth Normal Normal Normal Respiratory Pattern Regular Blood Pressure 142/91 H Blood Pressure [Right Arm] 159/72 H 134/66 Blood Pressure Mean 108 Blood Pressure Mean [Right Arm] 101 88 Blood Pressure Position [Right Arm] Lying Lying Pulse Oximetry 100 95 96 Oxygen Delivery Method Room Air Room Air Room Air 02/15/19 05:33 Temperature Temperature Source Sepsis Recent Fever Within 48 Hours Sepsis Action Taken by Nursing Pulse Rate Pulse Rate [Right Finger] 80 Pulse Rhythm [Right Finger] Regular Pulse Strength [Right Finger] Normal Respiratory Rate 14 Respiratory Effort / Characteristics Non-Labored Respiratory Depth Normal Respiratory Pattern Regular Blood Pressure Blood Pressure [Right Arm] 139/90 Blood Pressure Mean Blood Pressure Mean [Right Arm] 106 Blood Pressure Position [Right Arm] Lying Pulse Oximetry 95 Oxygen Delivery Method Room Air VITALS: Vitals are noted on the nurse's note and reviewed by myself. Vital signs stable. GENERAL: This is a 53-year-old female, in no acute distress, nondiaphoretic, w ell-developed well-nourished. SKIN: The skin was without rashes. EARS: External auditory canals clear, tympanic membranes pearly carrillo without erythema or effusion bilaterally. EYES: Pupils equal round and reactive to light and accommodation. MOUTH: Mucous membranes moist. NECK: Supple without nuchal rigidity. No lymphadenopathy. HEART: Regular rate and rhythm without murmurs gallops or rubs. LUNGS: Clear to auscultation bilaterally without wheezes, rales or rhonchi. ABDOMEN: Hypoactive bowel sounds throughout. Moderate tenderness to palpation throughout the abdomen. No guarding or rebound tenderness. NEURO: Patient was alert and oriented to person place and time. Course Consultations Consultation #1: Dr. Chamberlain - general surgery Dr. Chamberlain recommended admitting the patient to medicine with surgical consultation. Consultation #2: Dr. Ken - [facility] hospitalist Dr. Ken was consulted for admission. Administered Medications Ioversol (Optiray 320 100ml) 100 ml IV ONCE PRN PRN Reason: Interaction Checking Stop: 02/19/19 02:58 Last Admin: 02/15/19 02:59 Dose: 93 ml Documented by: [id number] Discontinued Medications Hydromorphone HCl (Dilaudid) 1 mg IV NOW STA Stop: 02/15/19 01:27 Last Admin: 02/15/19 02:07 Dose: 1 mg Documented by: [id number] Hydromorphone HCl (Dilaudid) 0.5 mg IV NOW STA Stop: 02/15/19 05:25 Last Admin: 02/15/19 05:32 Dose: 0.5 mg Documented by: [id number] Sodium Chloride (Nss 1000ml) 1,000 mls @ 999 mls/hr IV .Q1H1M ONE Stop: 02/15/19 02:22 Last Infusion: 02/15/19 03:28 Dose: 0 mls/hr Documented by: [id number] Admin: 02/15/19 02:07 Dose: 999 mls/hr Documented by: [id number] Ondansetron HCl (Zofran) 4 mg IV NOW STA Stop: 02/15/19 01:23 Last Admin: 02/15/19 02:07 Dose: 4 mg Documented by: [id number] Medical Decision Making Differential Diagnosis Differential diagnosis includes bowel obstruction, gastroenteritis, cholecystitis, gastritis, appendicitis, mesenteric ischemia, among others. Medical Records Attestation: I reviewed the patient's medical records. Home Medications Current Medication List: was personally reviewed by me Laboratory Data Attestation: I reviewed the patient's lab results. Result diagrams: 02/15/19 01:49 02/15/19 01:49 Lab Results 02/15/19 02/15/19 02/15/19 Range/Units 01:49 01:49 02:11 WBC 11.16 H (4.8-10.8) K/uL RBC 4.80 (4.2-5.4) M/uL Hgb 12.1 (12.0-16.0) g/dL Hct 36.9 L (37-47) % MCV 76.9 L (80-100) fL MCH 25.2 (25-34) pg MCHC 32.8 (32-36) g/dL RDW Std Deviation 56.1 H (36.4-46.3) fL RDW Coeff of Willy 19.7 H (11.5-14.5) % Plt Count 381 (130-400) K/uL MPV 10.5 H (7.4-10.4) fL Immature Gran % (Auto) 0.1 % Neut % (Auto) 88.5 % Lymph % (Auto) 7.3 % [place] % (Auto) 3.6 % Eos % (Auto) 0.2 % Baso % (Auto) 0.3 % Immature Gran # (Auto) 0.01 (0.00-0.02) K/uL Neut # (Auto) 9.88 H (1.4-6.5) K/uL Lymph # (Auto) 0.82 L (1.2-3.4) K/uL [place] # (Auto) 0.40 (0.11-0.59) K/uL Eos # (Auto) 0.02 (0-0.5) K/uL Baso # (Auto) 0.03 (0-0.2) K/uL Sodium 139 (136-145) mmol/L Potassium 3.9 (3.5-5.1) mmol/L Chloride 107 (98-107) mmol/L Carbon Dioxide 28 (21-32) mmol/L Anion Gap 4.0 (3-11) BUN 11 (7-18) mg/dl Creatinine 0.60 (0.6-1.2) mg/dl Est Cr Clr Drug Dosing 120.1 ml/min Est GFR ( Amer) 122.3 Est GFR (Non-Af Amer) 105.5 BUN/Creatinine Ratio 18.5 (10-20) Glucose 123 H (70-99) mg/dl Calcium 9.0 (8.5-10.1) mg/dl Total Bilirubin 0.3 (0.2-1) mg/dl AST 12 L (15-37) U/L ALT 23 (12-78) U/L Alkaline Phosphatase 81 (45-117) U/L Total Protein 6.9 (6.4-8.2) gm/dl Albumin 3.7 (3.4-5.0) gm/dl Globulin 3.2 (2.5-4.0) gm/dl Albumin/Globulin Ratio 1.2 (0.9-2) Lipase 67 L (73-393) U/L Urine Color Urine Appearance (Clear) Urine pH (4.5-7.5) Ur Specific [place] (1.000-1.030) Urine Protein (Negative) Urine Glucose (UA) (Negative) Urine Ketones (Negative) Urine Blood (Negative) Urine Nitrite (Negative) Urine Bilirubin (Negative) Urine Urobilinogen (Negative) Ur Leukocyte Esterase (Negative) Urine WBC (Auto) (0-5) /hpf Urine RBC (Auto) (0-4) /hpf U Hyaline Cast (Auto) (0-5) /lpf U Epithel Cells (Auto) (0-5) /lpf Urine Bacteria (Auto) (Negative) POC Ur Test NEG (NEG) 02/15/19 Range/Units 02:11 WBC (4.8-10.8) K/uL RBC (4.2-5.4) M/uL Hgb (12.0-16.0) g/dL Hct (37-47) % MCV (80-100) fL MCH (25-34) pg MCHC (32-36) g/dL RDW Std Deviation (36.4-46.3) fL RDW Coeff of Willy (11.5-14.5) % Plt Count (130-400) K/uL MPV (7.4-10.4) fL Immature Gran % (Auto) % Neut % (Auto) % Lymph % (Auto) % [place] % (Auto) % Eos % (Auto) % Baso % (Auto) % Immature Gran # (Auto) (0.00-0.02) K/uL Neut # (Auto) (1.4-6.5) K/uL Lymph # (Auto) (1.2-3.4) K/uL [place] # (Auto) (0.11-0.59) K/uL Eos # (Auto) (0-0.5) K/uL Baso # (Auto) (0-0.2) K/uL Sodium (136-145) mmol/L Potassium (3.5-5.1) mmol/L Chloride (98-107) mmol/L Carbon Dioxide (21-32) mmol/L Anion Gap (3-11) BUN (7-18) mg/dl Creatinine (0.6-1.2) mg/dl Est Cr Clr Drug Dosing ml/min Est GFR ( Amer) Est GFR (Non-Af Amer) BUN/Creatinine Ratio (10-20) Glucose (70-99) mg/dl Calcium (8.5-10.1) mg/dl Total Bilirubin (0.2-1) mg/dl AST (15-37) U/L ALT (12-78) U/L Alkaline Phosphatase (45-117) U/L Total Protein (6.4-8.2) gm/dl Albumin (3.4-5.0) gm/dl Globulin (2.5-4.0) gm/dl Albumin/Globulin Ratio (0.9-2) Lipase (73-393) U/L Urine Color Yellow Urine Appearance Clear (Clear) Urine pH 8.5 H (4.5-7.5) Ur Specific [place] 1.023 (1.000-1.030) Urine Protein Negative (Negative) Urine Glucose (UA) Negative (Negative) Urine Ketones 3+ H (Negative) Urine Blood Negative (Negative) Urine Nitrite Negative (Negative) Urine Bilirubin Negative (Negative) Urine Urobilinogen Negative (Negative) Ur Leukocyte Esterase Trace H (Negative) Urine WBC (Auto) 5-10 H (0-5) /hpf Urine RBC (Auto) 0-4 (0-4) /hpf U Hyaline Cast (Auto) 1-5 (0-5) /lpf U Epithel Cells (Auto) >30 H (0-5) /lpf Urine Bacteria (Auto) Negative (Negative) POC Ur Test (NEG) Imaging Data Attestation: I personally reviewed and interpreted this imaging study as follows: Radiologist's Impression: CT ABDOMEN & PELVIS With Contrast: Multiple loops of dilated small bowel in the left abdomen mainly jejunum with surrounding fat stranding and edema and fluid. There is an 11 x 23 mm metallic structure within the lumen of the distal small bowel consistent with a foreign body, possibly from small bowel capsule endoscopy. There is a transition point in the distal jejunum medially after the foreign body. This loop of bowel demonstrates circumferential wall thickening. Overall findings are concerning for acute small bowel obstruction. The cause could be due to inflammation in the distal small bowel. Small amount of free fluid in the pelvis. No abscess. No free air. Small hiatal hernia. Status post hysterectomy. No adnexal masses. Radiologist: Flor Hernandez MD Blood Pressure Blood Pressure Findings: Normal blood pressure Blood Pressure Disposition: did not require urgent referral MDM Narrative The patient is a 53-year-old female who presents today complaining of vomiting and abdominal pain. Labs revealed a mild leukocytosis, no concerning anemia or electrolyte abnormalities. Urinalysis was not suggestive of infection. CT of the abdomen/pelvis was performed and read by radiology and showed findings consistent with a small bowel obstruction. Patient's vital signs remained stable throughout her stay in the emergency department. She has had NG tubes in the past and has tolerated these well. NG tube was placed by nursing staff and patient tolerated this well. The case was discussed with the on-call general surgeon and the patient was admitted to the [facility] service for further evaluation and care. Impression & Plan Small bowel obstruction Discharge Plan Visit Data Chief Complaint: Abdominal Pain Stated Complaint: SEVERE ABDOMINAL PAIN, PILL CAMEIRA ED Provider: Jie Joyce ED Midlevel Provider: Jeanette Weber Discharge Problem: Small bowel obstruction Patient Disposition: Admitted As Inpatient Condition: Fair Forms Stand Alone Forms: Call Back Authorization, [facility] Prescriptions Prescriptions: No Action cyanocobalamin (vitamin B-12) [Vitamin B-12] 1,000 mcg Tablet Extended Release 1,000 mcg PO QAM RF: 0 ibuprofen 200 mg Tablet 800 mg PO QID PRN (Reason: Pain) RF: 0 albuterol sulfate [ProAir HFA] 90 mcg/actuation Hfa Aerosol Inhaler 2 puff INHALATION QID PRN (Reason: Shortness Of Breath Or Wheezing) RF: 0 ferrous sulfate 325 mg (65 mg iron) Tablet,Delayed Release (Dr/Ec) 325 mg PO QAM RF: 0 quetiapine 25 mg Tablet 25 mg PO HS RF: 0 fexofenadine [Ayde Allergy] 180 mg Tablet 180 mg PO QAM PRN (Reason: Allergy Symptoms) RF: 0 ondansetron 8 mg Tablet,Disintegrating 8 mg PO UD PRN (Reason: Nausea And Vomiting) RF: 0 multivitamin with minerals [Multiple Vitamin-Minerals] Tablet 1 tab PO QAM RF: 0 omeprazole 20 mg Tablet,Delayed Release (Dr/Ec) 20 mg PO QAM RF: 0 Metamucil 3.4 gram/5.4 gram Powder 1 dose PO DAILY PRN (Reason: Constipation) RF: 0 tramadol 50 mg Tablet 50 mg PO Q6H PRN (Reason: Pain) RF: 0 fluticasone propionate [Flonase Allergy Relief] 50 mcg/actuation [place],Suspension 2 spray INTRANASAL DAILY RF: 0 venlafaxine 150 mg Tablet Extended Release 24hr 150 mg PO QAM RF: 0 losartan 25 mg tablet 25 mg PO DAILY RF: 0 ranitidine HCl 150 mg tablet 300 mg PO HS PRN (Reason: Heartburn) RF: 0 dicyclomine 10 mg capsule 10 mg PO TID PRN (Reason: muscle spasm) Qty: 60 RF: 0 Referrals Referrals: Tomy Carlos MD [Primary Care Provider] -
[2019-02-15] MEDS ORDERED: HYDROmorphone INJ 0.5 MG/0.5 ML SYR IV STA (05:24)
[2019-02-15] MEDS ORDERED: TRAMADOL HCL 50 MG TABLET PO PRN (06:13)
[2019-02-15] MEDS ORDERED: ONDANSETRON INJ 2 MG/ML 2 ML VIAL IV PRN (06:13)
[2019-02-15] MEDS ORDERED: ACETAMINOPHEN 325 MG TAB PO PRN (06:13)
[2019-02-15] MEDS ORDERED: HYDROmorphone INJ 0.5 MG/0.5 ML SYR IV PRN (06:13)
[2019-02-15] MEDS ORDERED: FEXOFENADINE HCL 180 MG TAB PO PRN (06:13)
[2019-02-15] MEDS ORDERED: ALBUTEROL HFA 8 GM INHALER INH PRN (06:30)
[2019-02-15] MEDS: D5W AND NSS 1,000 ML IV SCH ×2 (06:41→15:03)
--- NOTE | 2019-02-15 08:32 | Surgery Consultation ---
Date of Consultation February 15, 2019 Assessment & Plan (1) Small bowel obstruction: Ms. Case is a 53 yo female who presents with a small bowel obstruction at the site of an endoscopy capsule. She was having this test to assess for the cause of anemia. In review of the CT scan there is bowel wall thickening at the site of obstruction, adjacent to the obstruction, as well as at other sites throughout the small bowel. I reviewed the video endoscopy results with Dr. Chamberlain with GI, who stated that images showed numerous ulcerations within the small intestine, and he felt this is often seen with Crohn's disease (though we do not have an official tissue diagnosis). I spoke with the GI team manager credit collections today and there was a discussion with her primary hand woodworking sander, Dr. Reyes, who also feels this is likely Crohn's. It is unlikely that this obstruction and passage of the capsule will resolve with conservative management. I discussed with GI who also agrees that treatment with steroids would not be effective within a short term period to allow resolution of the obstruction. In the setting of Crohn's it is optimal to avoid surgical intervention, and when necessary to perform as conservative procedure as possible due to the increased likelihood of needing future surgical intervention and repeat resections over time could potentially lead to short bowel syndrome. In addition, with the acute inflammation and multiple ulcerations in Ms. Case she is potentially at increased risk for anastomotic complications, though is not a contraindication to surgery. With this thought the question is raised as to the safety in the setting of an SBO and feasibility do to location of the capsule of this being removed endoscopically, which I would defer to GI. I thus discussed the case with Dr. Colbert, an advanced Endoscopist at [facility], who reviewed the images and the case, and feel that endoscopic retrieval could be attempted. This could not be completed at [facility] because there is not the necessary equipment available. I discussed the above with the patients, including the possibility of Crohn's disease, and options of surgery vs attempted endoscopic retrieval. Discussed that if retrieval is not possible she would likely need surgical intervention. Discussed risks, benefits, and alternatives of starting with endoscopy (though I explained that I would defer to GI for full discussion of risks and intricacies with the patient) vs starting with surgical intervention. Discussed the potential of avoiding a surgery, and the specific reasons this is beneficial in Crohn's patients, as well as a potential delay in surgical intervention if it is needed, and potential for perforation requiring surgery. Also discussed anticipated recovery time, though this is also variable. With an open operation I would anticipate a minimum of 2-4 weeks off work (which was one of the patient's concerns). Also discussed pain management. After thorough discussion she would like to proceed with attempted endoscopic retrieval. - Pt to be transferred to [facility] in [place] for attempted endoscopic retrieval. I have discussed the case with the advanced endoscopist, Dr. Colbert and as well as the colorectal surgeon, Dr. Bernal. Plan was also discussed and agreed upon amongst myself and hospitalist Dr. Peters. - Continue NGT to LIS - NPO - IVF - Recommend VTE chemoprophylaxis - Defer to GI for management of possible Crohn's disease - I will continue to follow and assist with management History of Present Illness Reason for Consultation: SBO Attending Physician: Kristel Peters History of Present Illness Ms. Case is a 53 yo female who presented with a small bowel obstruction. She has a PSHx significant for multiple (3-4) laparoscopic procedures for endometriosis and a hysterectomy in 2004. She has had multiple SBOs, all managed conservatively, since 2005, most recently in November 2018. In review of [facility] records, where she follows with GI: "The first episode was in [place] in 12/2006, followed by an episode at [facility] in 08/2008, followed by an ER visit for SBO in 01/2010 at [place], then followed by two brief hospitalizations at [facility] in 11/2012 and 01/2013." She also states that she has "episodes" at home where she follows a regimen of Miralax, a pill that "relaxes your abdomen" and liquids." These episodes start with abdominal pain then nausea and vomiting. She states these episodes occur infrequently. She is being worked up for anemia. Recently her stool has been very dark, but also takes an iron supplement. History as provided in the GI note states the following: "She had a colonoscopy by Dr. Padilla on 11/16/2008 that demonstrated diverticulosis. 02/03/13: MR enterography and colonoscopy ordered. 03/01/2013: MR enterography normal. 03/10/13: Colonoscopy with ileoscopy showed diverticulosis. 09/20/13: She has been asymptomatic since January 2013 with only occasional feeling of fullness that is controlled with Dulcolax. 10/23/14: She has one episode of transient abdominal pain and nausea that spontaneously resolved within 12 hours. She has intermittent heartburn. 07/2015: Hospitalized at [facility] with SBO for five days, required NG tube. 01/07/16: She has been asymptomatic since hospitalization. 04/09/16: Anemia: EGD with duodenal biopsy negative; Colonoscopy negative 05/2016: Hospitalized at [facility] with SBO 08/2016: Hospitalized at [facility] with SBO 01/05/17: Episodes of SBO had no precipitating events. She is presently asymptomatic. 10/2017: Hospitalized at [facility] with SBO; also found to have iron deficiency anemia (Hgb 7.4) with heme negative stool. She saw Dr. Yeung who is considering surgery. 01/04/18: No further attacks. She is taking iron. She is willing to consider surgery. 11/28/18: Hospitalized at [facility] with SBO; on MRI found to have annular narrowing in mid small intestine with dilated loops above, edema vs stricture. 01/04/19: Small bowel enteroscopy to jejunum negative. 01/05/19: She has mild abdominal discomfort since her enteroscopy." On Wednesday morning at 7:57 am she started her capsule endoscopy, which imaging completed at 3:57 pm. Around 4pm she started to "not feel right" and at 9pm she began experiencing severe pain and vomiting. She is not passing any flatus. She did follow instructions regarding NPO status followed by liquids, etc. CT scan reveals a small bowel obstruction at the capsule. Since her admission an NGT has been inserted and is hooked to suction. She currently has left/left lower abdominal pain. She has not passed any flatus. Family history is significant for a mother with Crohn's disease. Allergies Allergy/AdvReac Type Severity Reaction Status Date / Time naproxen Allergy Severe ANAPHYLAXIS- Verified 02/15/19 02:28 THROAT SWELLING, motrin OK diflunisal Allergy Unknown per PCP Unverified 02/15/19 02:28 records fexofenadine AdvReac Mild HYPERTENSIO Unverified 02/15/19 02:28 N pseudoephedrine AdvReac Mild HYPERTENSIO Unverified 02/15/19 02:28 N meperidine AdvReac Unknown HYPOTENSION Unverified 02/15/19 02:28 Home Medications Home Medications Medication Instructions Recorded Confirmed Type Metamucil 1 dose PO DAILY PRN 11/13/18 02/15/19 History albuterol sulfate [ProAir HFA] 2 puff INHALATION QID PRN 11/13/18 02/15/19 History cyanocobalamin (vitamin B-12) 1,000 mcg PO QAM 11/13/18 02/15/19 History [Vitamin B-12] ferrous sulfate 325 mg PO QAM 11/13/18 02/15/19 History fexofenadine [Ayde Allergy] 180 mg PO QAM PRN 11/13/18 02/15/19 History fluticasone propionate [Flonase 2 spray INTRANASAL DAILY 11/13/18 02/15/19 History Allergy Relief] ibuprofen 800 mg PO QID PRN 11/13/18 02/15/19 History multivitamin with minerals 1 tab PO QAM 11/13/18 02/15/19 History [Multiple Vitamin-Minerals] omeprazole 20 mg PO QAM 11/13/18 02/15/19 History ondansetron 8 mg PO UD PRN 11/13/18 02/15/19 History quetiapine 25 mg PO HS 11/13/18 02/15/19 History tramadol 50 mg PO Q6H PRN 11/13/18 02/15/19 History venlafaxine 150 mg PO QAM 11/13/18 02/15/19 History losartan 25 mg PO DAILY 11/14/18 02/15/19 History ranitidine HCl 300 mg PO HS PRN 11/28/18 02/15/19 History dicyclomine 10 mg PO TID PRN #60 cap 12/01/18 02/15/19 Rx Patient History Medical History Asthma (Chronic) GERD (gastroesophageal reflux disease) (Chronic) Anxiety (Chronic) Depression (Chronic) Hypertension (Chronic) Diverticulosis of colon, acquired (Chronic) History of small bowel obstruction (Chronic) admissions 2012, 2016, 2017; attributed to adhesions Uterine leiomyoma (Chronic) Surgical History History of total knee arthroplasty (Chronic) right knee H/O laparoscopy Family History Mother Breast cancer Coronary heart disease Crohn's disease Hypertension Father Diabetes Bladder cancer Aunt Breast cancer Social History Preferred Language: Lithuanian Communication Ability: Effective Contour Stitcher Required: No Beliefs That Will Affect Care: None marital status: Single Current Living Situation: Alone Other Information That Helps Us Care for You: No Feels Safe at Home: Yes Smoking Status: Former smoker Do You Dip or Chew Tobacco: No Second Hand Exposure: No Tobacco Cessation Education Requested by Patient: No Hx Alcohol Use: Yes (socially) Alcohol type: beer Hx Substance Use: No Review of Systems Constitutional: no fever, no chills and no sweats Respiratory: no cough and no dyspnea Cardiovascular: no chest pain and no dyspnea Gastrointestinal: See HPI Genitourinary: no dysuria and no urinary frequency Physical Exam Constitutional: well developed and well nourished; no acute distress Eyes: PERRL, conjunctivae normal, anicteric sclerae ENMT: external ear and nose normal, oropharynx normal NGT in place with dark bilious output Neck: normal visual inspection Respiratory: normal respiratory effort Cardiovascular: Rate/Rhythm: regular rate and regular rhythm Gastrointestinal (Abdomen): soft, nondistended, left and lower midline tenderness to palpation, no rebound or guarding Musculoskeletal: No edema Results & Data Vital Signs (Past 12 Hours) Vital Signs Temp Pulse Pulse Pulse Resp BP BP 02/15/19 07:51 36.8 C 78 16 140/82 02/15/19 06:25 36.7 C 85 20 143/85 H 02/15/19 05:47 76 16 139/90 02/15/19 05:33 80 14 139/90 02/15/19 03:00 75 16 134/66 02/15/19 02:10 75 16 159/72 H 02/15/19 00:54 36.7 C 84 16 142/91 H Pulse Ox 02/15/19 07:51 95 02/15/19 06:25 91 02/15/19 05:47 92 02/15/19 05:33 95 02/15/19 03:00 96 02/15/19 02:10 95 02/15/19 00:54 100 Laboratory Results 02/15/19 02/15/19 02/15/19 Range/Units 02:11 02:11 01:49 WBC (4.8-10.8) K/uL RBC (4.2-5.4) M/uL Hgb (12.0-16.0) g/dL Hct (37-47) % MCV (80-100) fL MCH (25-34) pg MCHC (32-36) g/dL RDW Std Deviation (36.4-46.3) fL RDW Coeff of Willy (11.5-14.5) % Plt Count (130-400) K/uL MPV (7.4-10.4) fL Immature Gran % (Auto) % Neut % (Auto) % Lymph % (Auto) % Titus % (Auto) % Eos % (Auto) % Baso % (Auto) % Immature Gran # (Auto) (0.00-0.02) K/uL Neut # (Auto) (1.4-6.5) K/uL Lymph # (Auto) (1.2-3.4) K/uL Titus # (Auto) (0.11-0.59) K/uL Eos # (Auto) (0-0.5) K/uL Baso # (Auto) (0-0.2) K/uL Sodium 139 (136-145) mmol/L Potassium 3.9 (3.5-5.1) mmol/L Chloride 107 (98-107) mmol/L Carbon Dioxide 28 (21-32) mmol/L Anion Gap 4.0 (3-11) BUN 11 (7-18) mg/dl Creatinine 0.60 (0.6-1.2) mg/dl Est Cr Clr Drug Dosing 120.1 ml/min Est GFR ( Amer) 122.3 Est GFR (Non-Af Amer) 105.5 BUN/Creatinine Ratio 18.5 (10-20) Glucose 123 H (70-99) mg/dl Calcium 9.0 (8.5-10.1) mg/dl Total Bilirubin 0.3 (0.2-1) mg/dl AST 12 L (15-37) U/L ALT 23 (12-78) U/L Alkaline Phosphatase 81 (45-117) U/L Total Protein 6.9 (6.4-8.2) gm/dl Albumin 3.7 (3.4-5.0) gm/dl Globulin 3.2 (2.5-4.0) gm/dl Albumin/Globulin Ratio 1.2 (0.9-2) Lipase 67 L (73-393) U/L Urine Color Yellow Urine Appearance Clear (Clear) Urine pH 8.5 H (4.5-7.5) Ur Specific [place] 1.023 (1.000-1.030) Urine Protein Negative (Negative) Urine Glucose (UA) Negative (Negative) Urine Ketones 3+ H (Negative) Urine Blood Negative (Negative) Urine Nitrite Negative (Negative) Urine Bilirubin Negative (Negative) Urine Urobilinogen Negative (Negative) Ur Leukocyte Esterase Trace H (Negative) Urine WBC (Auto) 5-10 H (0-5) /hpf Urine RBC (Auto) 0-4 (0-4) /hpf U Hyaline Cast (Auto) 1-5 (0-5) /lpf U Epithel Cells (Auto) >30 H (0-5) /lpf Urine Bacteria (Auto) Negative (Negative) POC Ur Test NEG (NEG) 02/15/19 Range/Units 01:49 WBC 11.16 H (4.8-10.8) K/uL RBC 4.80 (4.2-5.4) M/uL Hgb 12.1 (12.0-16.0) g/dL Hct 36.9 L (37-47) % MCV 76.9 L (80-100) fL MCH 25.2 (25-34) pg MCHC 32.8 (32-36) g/dL RDW Std Deviation 56.1 H (36.4-46.3) fL RDW Coeff of Willy 19.7 H (11.5-14.5) % Plt Count 381 (130-400) K/uL MPV 10.5 H (7.4-10.4) fL Immature Gran % (Auto) 0.1 % Neut % (Auto) 88.5 % Lymph % (Auto) 7.3 % Titus % (Auto) 3.6 % Eos % (Auto) 0.2 % Baso % (Auto) 0.3 % Immature Gran # (Auto) 0.01 (0.00-0.02) K/uL Neut # (Auto) 9.88 H (1.4-6.5) K/uL Lymph # (Auto) 0.82 L (1.2-3.4) K/uL Titus # (Auto) 0.40 (0.11-0.59) K/uL Eos # (Auto) 0.02 (0-0.5) K/uL Baso # (Auto) 0.03 (0-0.2) K/uL Sodium (136-145) mmol/L Potassium (3.5-5.1) mmol/L Chloride (98-107) mmol/L Carbon Dioxide (21-32) mmol/L Anion Gap (3-11) BUN (7-18) mg/dl Creatinine (0.6-1.2) mg/dl Est Cr Clr Drug Dosing ml/min Est GFR ( Amer) Est GFR (Non-Af Amer) BUN/Creatinine Ratio (10-20) Glucose (70-99) mg/dl Calcium (8.5-10.1) mg/dl Total Bilirubin (0.2-1) mg/dl AST (15-37) U/L ALT (12-78) U/L Alkaline Phosphatase (45-117) U/L Total Protein (6.4-8.2) gm/dl Albumin (3.4-5.0) gm/dl Globulin (2.5-4.0) gm/dl Albumin/Globulin Ratio (0.9-2) Lipase (73-393) U/L Urine Color Urine Appearance (Clear) Urine pH (4.5-7.5) Ur Specific [place] (1.000-1.030) Urine Protein (Negative) Urine Glucose (UA) (Negative) Urine Ketones (Negative) Urine Blood (Negative) Urine Nitrite (Negative) Urine Bilirubin (Negative) Urine Urobilinogen (Negative) Ur Leukocyte Esterase (Negative) Urine WBC (Auto) (0-5) /hpf Urine RBC (Auto) (0-4) /hpf U Hyaline Cast (Auto) (0-5) /lpf U Epithel Cells (Auto) (0-5) /lpf Urine Bacteria (Auto) (Negative) POC Ur Test (NEG) Diagnostic Findings (02/15/19) CT Abdomen/Pelvis: FINDINGS: Math Teacher topogram: Metallic foreign body projects over the mid abdomen. Lung bases: Top normal cardiac size. No pericardial or pleural effusion. Scattered dependent changes likely atelectasis. Liver: Normal morphology. A hypodensity along the fissure for the ligamentum teres likely perfusional variation or focal fat. Patent hepatic vasculature. Biliary: No intrahepatic or extrahepatic biliary ductal dilatation. Normal gallbladder. Pancreas: Normal. Spleen: Normal. Splenule noted. Adrenal glands: Normal. Kidneys and ureters: Normal. No hydronephrosis. Bladder: Incompletely evaluated secondary to underdistention. Pelvic organs: Uterus surgically absent. Normal ovaries. Bowel: Normal appendix. Dilated small bowel in the mid ileum. A metallic foreign body resembling a capsule endoscopy device is present within dilated small bowel. There is also feces noted at this site. Immediately downstream transition point with a less dilated caliber of small bowel with a mildly thick wall. The segment of mild wall thickening extends for 10 to 20 cm. The terminal ileum is normal appearing. Smooth transition at the upper stream portion of dilated bowel. Peritoneal cavity: Interloop fluid noted in the midabdomen associated with the dilated bowel. Mild mesenteric infiltration also noted at this site. Trace free fluid in the pelvis. No free intraperitoneal gas. No pneumatosis. Lymph nodes: No enlarged lymph nodes in the abdomen or pelvis. Vasculature: Aorta and IVC patent and normal in caliber. Abdominal wall: Normal. Musculoskeletal: Normal. IMPRESSION: 1. High-grade partial or complete bowel obstruction in the mid ileum, which is resulting in holdup of a capsule endoscopy unit. Extended length of 10 to 20 cm of mildly thick-walled small bowel at the site of the downstream transition point raises concern for an underlying inflammatory stenosis or fibrostenotic stricture. Surgical or gastroenterology consultation required. 2. The presence of interloop fluid and associated mesenteric edema raises concern for vascular congestive change in the dilated small bowel. No eulogio evidence of hypoenhancement or pneumatosis to raise concern for ischemia at this time.
[2019-02-15] MEDS ORDERED: FLUTICASONE PROPIONATE NA SPR 16 GM BTL SCH (09:00)
[2019-02-15] MEDS ORDERED: VENLAFAXINE HCL XR 150 MG CAPXR PO SCH (09:00)
[2019-02-15] MEDS ORDERED: FAMOTIDINE 20 MG in SYRINGE 3 ML IV SCH (09:00)
[2019-02-15] MEDS ORDERED: LOSARTAN POTASSIUM 25 MG TAB PO SCH (09:00)
--- NOTE | 2019-02-15 09:00 | CT Scan Report ---
CT abd pelvis IV con only CLINICAL HISTORY: 53 years-old Female presenting with vomiting, abd pain, hx sbo. TECHNIQUE: Multidetector CT of the abdomen and pelvis was performed after the administration of intra venous contrast. IV contrast: 93 mL of Optiray 320. One or more dose lowering techniques were used co nsistent with the principles of ALARA (as low as reasonably achievable), including automatic exposure control, mA or kV adjustment to individual patient size, and/or use of iterative reconstruction. COMPARISON: 11/29/2018. CT DOSE (mGy.cm): The estimated cumulative dose is 551.26 mGy.cm. 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 Lung bases: Top normal cardiac size. No pericardial or pleural effusion. Scattered dependent changes likely atelectasis. Liver: Normal morphology. A hypodensity along the fissure for the ligamentum teres likely perfusional variation or focal fat. Patent hepatic vasculature. Biliary: No intrahepatic or extrahepatic biliary ductal dilatation. Normal gallbladder. Pancreas: Normal. Spleen: Normal. Splenule noted. Adrenal glands: Normal. Kidneys and ureters: Normal. No hydronephrosis. Bladder: Incompletely evaluated secondary to underdistention. Pelvic organs: Uterus surgically absent. Normal ovaries. Bowel: Normal appendix. Dilated small bowel in the mid ileum. A metallic foreign body resembling a ca psule endoscopy device is present within dilated small bowel. There is also feces noted at this site. Immediately downstream transition point with a less dilated caliber of small bowel with a mildly thi ck wall. The segment of mild wall thickening extends for 10 to 20 cm. The terminal ileum is normal ap pearing. Smooth transition at the upper stream portion of dilated bowel. Peritoneal cavity: Interloop fluid noted in the midabdomen associated with the dilated bowel. Mild me senteric infiltration also noted at this site. Trace free fluid in the pelvis. No free intraperitonea l gas. No pneumatosis. Lymph nodes: No enlarged lymph nodes in the abdomen or pelvis. Vasculature: Aorta and IVC patent and normal in caliber. Abdominal wall: Normal. Musculoskeletal: Normal. IMPRESSION: 1. High-grade partial or complete bowel obstruction in the mid ileum, which is resulting in holdup o f a capsule endoscopy unit. Extended length of 10 to 20 cm of mildly thick-walled small bowel at the site of the downstream transition point raises concern for an underlying inflammatory stenosis or fib rostenotic stricture. Surgical or gastroenterology consultation required. 2. The presence of interloop fluid and associated mesenteric edema raises concern for vascular conge stive change in the dilated small bowel. No eulogio evidence of hypoenhancement or pneumatosis to raise concern for ischemia at this time. The report will be called/faxed according to standard departmental protocol for a critical finding. Electronically signed by: Koby Dover M.D. 02/15/2019 8:58 AM
--- NOTE | 2019-02-15 10:19 | History and Physical Report ---
DATE OF ADMISSION: 02/15/2019 CHIEF COMPLAINT: Abdominal pain. HISTORY OF PRESENT ILLNESS: This is a 53-year-old female with past medical history significant for hypertension, GERD, depression, history of HSV-1 infection, microcytic anemia, depression, presents with abdominal pain. The patient in November of this month was admitted for small-bowel obstruction. The patient has same symptoms, around 9:00 p.m., she started to have nausea and abdominal pain, severe in nature, several episodes of vomitus. She is on liquid diet because she swallowed capsule endoscopy on this Wednesday and the vomitus was all liquid, no blood in the vomitus and she has small bowel movement around 10:00 p.m., but after that, she is not even passing gas now. The pain improved after pain meds in ER, but says it is coming back.She is status post NG tube and draining yellowish-greenish fluid. Denies any headache, no blurred vision, no sore throat, no difficulty swallowing. Appetite is okay, otherwise no chest pain or shortness of breath. No swelling in the legs. No rash. ALLERGIES: NAPROXEN, ALEVE, DIFLUNISAL, MEPERIDINE, PSEUDOEPHEDRINE, FEXOFENADINE, PSEUDOEPHEDRINE. PAST MEDICAL HISTORY: As mentioned above. PAST SURGICAL HISTORY: Right total knee arthroplasty, colonoscopy, EGDs, left knee arthrotomy, partial hysterectomy, repair of nasal septum. MEDICATIONS: The patient is on Seroquel 50 mg p.o. at bedtime, Effexor XR 150 mg p.o. daily, losartan 25 mg p.o. daily, omeprazole 20 mg p.o. b.i.d., Bentyl 10 mg p.o. t.i.d. p.r.n., albuterol 2 puffs q.i.d., fexofenadine 180 mg p.o. daily, Zantac 150 mg p.o. b.i.d., calcium plus magnesium plus zinc 1 tablet daily, Zofran 8 mg p.o. t.i.d. p.r.n., tramadol 50 mg p.o. q. 6 hours p.r.n., vitamin B12 1000 mcg daily, multivitamins 1 tablet daily. FAMILY HISTORY: Significant for mother having gastro Crohn's disease, heart disorder, hypertension and breast cancer. Aunt has breast cancer. Father had bladder lesion. SOCIAL HISTORY: Lives alone. Former smoker. Alcohol social. No drug use. REVIEW OF SYMPTOMS: As per HPI. Rest of review of symptoms is negative. PHYSICAL EXAMINATION: GENERAL: The patient is of moderate build, not in acute distress. VITAL SIGNS: Temperature 36.7, pulse 74, respiratory rate 16, blood pressure 134/66, oxygen 96% on room air. HEENT: No pallor, no icterus. Pupils equal, round, and reactive to light. NECK: No JVD, no neck masses, no carotid bruits. CARDIOVASCULAR: S1, S2, regular rate and rhythm, no murmur, no gallop. RESPIRATORY SYSTEM: Normal AP diameter. No accessory muscle use. No wheezes, no crackles. ABDOMEN: Soft, bowel sounds absent. Diffuse tender. No distention. Guarding seen. CENTRAL NERVOUS SYSTEM: Cranial nerves II-XII grossly intact, nonfocal. EXTREMITIES: No edema, no erythema. LABORATORY DATA: WBC 11.1, hemoglobin 12.1, hematocrit 36.9, platelets 381. Sodium 137, potassium 3.9, chloride 107, bicarbonate 28, BUN 11, creatinine 0.6, serum glucose 123, calcium 9, total bilirubin 0.3, AST 12, ALT 23, alkaline phosphatase 81, lipase 67. Urinalysis, trace leukocyte esterase. Awaiting CT of abdomen and pelvis official report. ASSESSMENT AND PLAN: This is a 53-year-old female who with history of recurrent small-bowel obstruction and who recently swallowed video capsule endoscopy, presents with small bowel with nausea, vomiting and abdominal pain, found to have small-bowel obstruction. 1. Small-bowel obstruction, recurrent, treat conservatively with n.p.o., IV fluids, IV antiemetics. Continue NG tube. Surgical consult. Closely monitor in med/surg tele floor. We will wait for official CAT scan .we will also wait for capsule endoscopy etc. in general for GI tract. Await surgical input regarding this. 2. History of anemia and recurrent bowel obstruction. The patient is having video capsule endoscopy. Follow up with GI. 3. History of hypertension. Continue losartan. We will monitor the blood pressure. 4. History of depression and adjustment disorder. Continue Seroquel, Effexor XR. 5. Hypertension. Continue losartan. 6. Gastroesophageal reflux disease. We will place on IV Pepcid. 7. Deep venous thrombosis prophylaxis, SCDs for now. 8. Disposition: Close monitoring in the medical floor. Level 1 full code. MTDD
--- NOTE | 2019-02-15 11:48 | Gastrointestinal Consultation ---
Date of Consultation February 15, 2019 Assessment & Plan (1) Small bowel obstruction: 53 year old female with history of chronic anemia, recurrent SBO undergoing OP evaluation to rule out IBD w/ negative enteroscopy, ulceration noted on VC admitted w/ CT evidence of obstruction at mid ileum, retained VC at this site w/ about 10-20 cm of inflammatory changes to small bowel w/ downstream transition concerning for stenosis/stricture. She is resting comfortably in bed w/ NG to intermittent suction - general surgery following. Discussed her outpatient video capsule w/ Dr. Chamberlain as he read this study and these imaging are unable to be viewed at [facility]. Study was concerning for small bowel crohn's w/ skip lesions. I am hesitant to recommend to take patient straight to the OR given numerous prior surgeries, adhesive disease and now workup concerning for small bowel IBD, however if obstruction persists she may require surgical intervention. There was question regarding initiation of therapy for IBD - while workup is concerning for small bowel disease, significant benefit from therapy would take weeks/months and would not likely alter current clinical course. Retained video capsule - Will review imaging w/ attending and radiology - If able to obtain capsule w/ double balloon enteroscopy can consider transfer to a tertiary care center - If not will require surgical intervention SBO - Appreciate ongoing management by the primary service, general surgery - Maintenance IVF - Electrolyte management - NPO for bowel rest - NG to low intermittent suction - Analgesia PRN - Antiemetics PRN Thank you for allowing us to participate in the care of this patient. Please call with any acute changes, questions or concerns. Please see addendum below with additional recommendation from my supervising physician. Present on Admission?: Yes Supervising Physician Co-Signing Physician Notes I have seen and examined the patient with ERLINDA Cardona. Interesting case. Patient known to practive. has had recurrent problems with bowel obstructions which have resolve din past with conservative mgt. EGD and colonoscopy 2016 without any evidence of IBD. Had single balloon enteroscopy in the last few months - no evidence of IBD. Admitted after VCE which was ordered following last admission. Patency capsule passed. Now capsule lodged in the mid ileum and patient with clinical and radiographic evidence of high grade bowle obstruction. VCE read by reported as ulcers in the small bowel - ?underlying IBD vs other reason for ulcers. Admitted. Surgery already discussed directly with . Decision being made whether to take patient to the OR vs "transfer to tertiary care center for ?retrieval via double balloon enteroscopy." History of Present Illness Reason for Consultation: SBO, history of VCE Requesting Physician: Fran Attending Physician: Kristel Peters History of Present Illness 53 year old female w/ history of HTN, GERD, depression, recurrent SBO, chronic OTTO undergoing OP evaluation to rule out IBD who presents through the ED for evaluation of abrupt onset abdominal pain, nausea, vomiting constipation 02/14/19 around 8pm. ED work up revealed mild leukocytosis, stable anemia and normal PLT count. No evidence of ALVIN, LFT or lipase elevation. CT w/ evidence of obstruction at mid ileum, retained VC at this site w/ about 10-20 cm of inflammatory changes to small bowel w/ downstream transition concerning for stenosis/stricture. She was made NPO, NG to intermittent suction. This AM she notes mild improvement of her pain but overall unchanged and persistent. No black/bloody output. No BM. No gas. No fever, chills, CP, SOB. Surgery following. Colonoscopy 2008: diverticulosis, torturous colon, no evidence of endometriosis or partial obstruction. Colonoscopy 2012: diverticulosis, normal TI EGD 2016: Normal esophagus. Normal stomach. Normal examined duodenum and proximal jejunum. Biopsied. Colonoscopy 2015: The examined portion of the ileum was normal.The entire examined colon is normal on direct and retroflexion views.No specimens collected. Enteroscopy 2019: Normal esophagus. Normal stomach.Normal examined duodenum. The examined portion of the jejunum/ileum was normal. No specimens collected VCE 2019: numerous ulcerations within the small intestine, the capsule did not pass to the colon during the exam CT 2019: High-grade partial or complete bowel obstruction in the mid ileum, which is resulting in holdup of a capsule endoscopy unit. Extended length of 10 to 20 cm of mildly thick-walled small bowel at the site of the downstream transition point raises concern for an underlying inflammatory stenosis or fibrostenotic stricture. Surgical or gastroenterology consultation required. The presence of interloop fluid and associated mesenteric edema raises concern for vascular congestive change in the dilated small bowel. No eulogio evidence of hypoenhancement or pneumatosis to raise concern for ischemia at this time. MRE 2019: Mild/moderate distention of components of the mid to distal small bowel with associated somewhat annular segmental regions of wall edematous change or thickening. Possibility of segmental scarring on a postoperative basis and/or a small bowel inflammatory process must be considered. Study is otherwise negative. CT 2019: No small bowel obstruction. Distal tip of enteric tube terminates about the distal gastric lumen. Small sliding-type hiatal hernia is noted in addition to mild nonspecific wall thickening about the distal esophagus. Multiple loops of mildly dilated small bowel are noted about the lower abdomen and pelvis along with moderate multifocal small bowel thickening with mild perienteric inflammation and adjacent likely reactive prominent mesenteric lymph nodes. Findings have mildly progressed from 10/17/2017 suggestive of a nonspecific enteritis. Correlate clinically to exclude inflammatory bowel disease. Trace free pelvic fluid, likely reactive. MRE 2013: No evidence of bowel obstruction. No suspicious masses identified. No rmal peristalsis noted. No abnormal mucosal thickening or enhancement. Family history of IBD: mother w/ crohns Allergies Allergy/AdvReac Type Severity Reaction Status Date / Time naproxen Allergy Severe ANAPHYLAXIS- Verified 02/15/19 02:28 THROAT SWELLING, motrin OK diflunisal Allergy Unknown per PCP Unverified 02/15/19 02:28 records fexofenadine AdvReac Mild HYPERTENSIO Unverified 02/15/19 02:28 N pseudoephedrine AdvReac Mild HYPERTENSIO Unverified 02/15/19 02:28 N meperidine AdvReac Unknown HYPOTENSION Unverified 02/15/19 02:28 Home Medications Home Medications Medication Instructions Recorded Confirmed Type Metamucil 1 dose PO DAILY PRN 11/13/18 02/15/19 History albuterol sulfate [ProAir HFA] 2 puff INHALATION QID PRN 11/13/18 02/15/19 History cyanocobalamin (vitamin B-12) 1,000 mcg PO QAM 11/13/18 02/15/19 History [Vitamin B-12] ferrous sulfate 325 mg PO QAM 11/13/18 02/15/19 History fexofenadine [Ayde Allergy] 180 mg PO QAM PRN 11/13/18 02/15/19 History fluticasone propionate [Flonase 2 spray INTRANASAL DAILY 11/13/18 02/15/19 History Allergy Relief] ibuprofen 800 mg PO QID PRN 11/13/18 02/15/19 History multivitamin with minerals 1 tab PO QAM 11/13/18 02/15/19 History [Multiple Vitamin-Minerals] omeprazole 20 mg PO QAM 11/13/18 02/15/19 History ondansetron 8 mg PO UD PRN 11/13/18 02/15/19 History quetiapine 25 mg PO HS 11/13/18 02/15/19 History tramadol 50 mg PO Q6H PRN 11/13/18 02/15/19 History venlafaxine 150 mg PO QAM 11/13/18 02/15/19 History losartan 25 mg PO DAILY 11/14/18 02/15/19 History ranitidine HCl 300 mg PO HS PRN 11/28/18 02/15/19 History dicyclomine 10 mg PO TID PRN #60 cap 12/01/18 02/15/19 Rx Patient History Medical History Asthma (Chronic) GERD (gastroesophageal reflux disease) (Chronic) Anxiety (Chronic) Depression (Chronic) Hypertension (Chronic) Diverticulosis of colon, acquired (Chronic) History of small bowel obstruction (Chronic) admissions 2012, 2015, 2018; attributed to adhesions Uterine leiomyoma (Chronic) Surgical History History of total knee arthroplasty (Chronic) right knee H/O laparoscopy Family History Mother Breast cancer Coronary heart disease Crohn's disease Hypertension Father Diabetes Bladder cancer Aunt Breast cancer Social History Preferred Language: Bengali Communication Ability: Effective Grommet Worker Required: No Beliefs That Will Affect Care: None marital status: Single Current Living Situation: Alone Other Information That Helps Us Care for You: No Feels Safe at Home: Yes Smoking Status: Former smoker Do You Dip or Chew Tobacco: No Second Hand E xposure: No Tobacco Cessation Education Requested by Patient: No Hx Alcohol Use: Yes (socially) Alcohol type: beer Hx Substance Use: No Review of Systems Constitutional: no fever and no chills Respiratory: no cough and no dyspnea Cardiovascular: no chest pain and no dyspnea on exertion Gastrointestinal: + abdominal pain, + bloating, + nausea and + constipation; no belching, no early satiety, no heartburn, no vomiting (non since NG), no coffee ground emesis, no hematemesis, no blood in stools and no melena Physical Exam Constitutional: well developed and + ill appearing (NG in place to suction) Neck: trachea midline Respiratory: normal respiratory effort Auscultation: + diminished lung sounds Cardiovascular: Rate/Rhythm: regular rate and regular rhythm Gastrointestinal (Abdomen): Inspection/Auscultation: + abdomen distended (mild, soft distention) and + hypoactive bowel sounds Percussion/Palpation: + abdomen tender (generalized); no guarding, abdomen not rigid and no abdominal mass Skin: no rashes, warm and dry Results & Data Vital Signs (Past 12 Hours) Vital Signs Temp Pulse Pulse Pulse Resp BP BP 02/15/19 07:51 36.8 C 78 16 140/82 02/15/19 06:25 36.7 C 85 20 143/85 H 02/15/19 05:47 76 16 139/90 02/15/19 05:33 80 14 139/90 02/15/19 03:00 75 16 134/66 02/15/19 02:10 75 16 159/72 H 02/15/19 00:54 36.7 C 84 16 142/91 H Pulse Ox 02/15/19 07:51 95 02/15/19 06:25 91 02/15/19 05:47 92 02/15/19 05:33 95 02/15/19 03:00 96 02/15/19 02:10 95 02/15/19 00:54 100 Laboratory Results 02/15/19 02/15/19 02/15/19 Range/Units 02:11 02:11 01:49 WBC (4.8-10.8) K/uL RBC (4.2-5.4) M/uL Hgb (12.0-16.0) g/dL Hct (37-47) % MCV (80-100) fL MCH (25-34) pg MCHC (32-36) g/dL RDW Std Deviation (36.4-46.3) fL RDW Coeff of Willy (11.5-14.5) % Plt Count (130-400) K/uL MPV (7.4-10.4) fL Immature Gran % (Auto) % Neut % (Auto) % Lymph % (Auto) % Graham % (Auto) % Eos % (Auto) % Baso % (Auto) % Immature Gran # (Auto) (0.00-0.02) K/uL Neut # (Auto) (1.4-6.5) K/uL Lymph # (Auto) (1.2-3.4) K/uL Graham # (Auto) (0.11-0.59) K/uL Eos # (Auto) (0-0.5) K/uL Baso # (Auto) (0-0.2) K/uL Sodium 139 (136-145) mmol/L Potassium 3.9 (3.5-5.1) mmol/L Chloride 107 (98-107) mmol/L Carbon Dioxide 28 (21-32) mmol/L Anion Gap 4.0 (3-11) BUN 11 (7-18) mg/dl Creatinine 0.60 (0.6-1.2) mg/dl Est Cr Clr Drug Dosing 120.1 ml/min Est GFR ( Amer) 122.3 Est GFR (Non-Af Amer) 105.5 BUN/Creatinine Ratio 18.5 (10-20) Glucose 123 H (70-99) mg/dl Calcium 9.0 (8.5-10.1) mg/dl Total Bilirubin 0.3 (0.2-1) mg/dl AST 12 L (15-37) U/L ALT 23 (12-78) U/L Alkaline Phosphatase 81 (45-117) U/L Total Protein 6.9 (6.4-8.2) gm/dl Albumin 3.7 (3.4-5.0) gm/dl Globulin 3.2 (2.5-4.0) gm/dl Albumin/Globulin Ratio 1.2 (0.9-2) Lipase 67 L (73-393) U/L Urine Color Yellow Urine Appearance Clear (Clear) Urine pH 8.5 H (4.5-7.5) Ur Specific [place] 1.023 (1.000-1.030) Urine Protein Negative (Negative) Urine Glucose (UA) Negative (Negative) Urine Ketones 3+ H (Negative) Urine Blood Negative (Negative) Urine Nitrite Negative (Negative) Urine Bilirubin Negative (Negative) Urine Urobilinogen Negative (Negative) Ur Leukocyte Esterase Trace H (Negative) Urine WBC (Auto) 5-10 H (0-5) /hpf Urine RBC (Auto) 0-4 (0-4) /hpf U Hyaline Cast (Auto) 1-5 (0-5) /lpf U Epithel Cells (Auto) >30 H (0-5) /lpf Urine Bacteria (Auto) Negative (Negative) POC Ur Test NEG (NEG) 02/15/19 Range/Units 01:49 WBC 11.16 H (4.8-10.8) K/uL RBC 4.80 (4.2-5.4) M/uL Hgb 12.1 (12.0-16.0) g/dL Hct 36.9 L (37-47) % MCV 76.9 L (80-100) fL MCH 25.2 (25-34) pg MCHC 32.8 (32-36) g/dL RDW Std Deviation 56.1 H (36.4-46.3) fL RDW Coeff of Willy 19.7 H (11.5-14.5) % Plt Count 381 (130-400) K/uL MPV 10.5 H (7.4-10.4) fL Immature Gran % (Auto) 0.1 % Neut % (Auto) 88.5 % Lymph % (Auto) 7.3 % Graham % (Auto) 3.6 % Eos % (Auto) 0.2 % Baso % (Auto) 0.3 % Immature Gran # (Auto) 0.01 (0.00-0.02) K/uL Neut # (Auto) 9.88 H (1.4-6.5) K/uL Lymph # (Auto) 0.82 L (1.2-3.4) K/uL Graham # (Auto) 0.40 (0.11-0.59) K/uL Eos # (Auto) 0.02 (0-0.5) K/uL Baso # (Auto) 0.03 (0-0.2) K/uL Sodium (136-145) mmol/L Potassium (3.5-5.1) mmol/L Chloride (98-107) mmol/L Carbon Dioxide (21-32) mmol/L Anion Gap (3-11) BUN (7-18) mg/dl Creatinine (0.6-1.2) mg/dl Est Cr Clr Drug Dosing ml/min Est GFR ( Amer) Est GFR (Non-Af Amer) BUN/Creatinine Ratio (10-20) Glucose (70-99) mg/dl Calcium (8.5-10.1) mg/dl Total Bilirubin (0.2-1) mg/dl AST (15-37) U/L ALT (12-78) U/L Alkaline Phosphatase (45-117) U/L Total Protein (6.4-8.2) gm/dl Albumin (3.4-5.0) gm/dl Globulin (2.5-4.0) gm/dl Albumin/Globulin Ratio (0.9-2) Lipase (73-393) U/L Urine Color Urine Appearance (Clear) Urine pH (4.5-7.5) Ur Specific [place] (1.000-1.030) Urine Protein (Negative) Urine Glucose (UA) (Negative) Urine Ketones (Negative) Urine Blood (Negative) Urine Nitrite (Negative) Urine Bilirubin (Negative) Urine Urobilinogen (Negative) Ur Leukocyte Esterase (Negative) Urine WBC (Auto) (0-5) /hpf Urine RBC (Auto) (0-4) /hpf U Hyaline Cast (Auto) (0-5) /lpf U Epithel Cells (Auto) (0-5) /lpf Urine Bacteria (Auto) (Negative) POC Ur Test (NEG)
--- NOTE | 2019-02-15 13:15 | Hospitalist Progress Note ---
Date of Service February 15, 2019 Assessment & Plan (1) Small bowel obstruction: 53 year old female with history of chronic anemia, recurrent SBO undergoing OP evaluation to rule out IBD w/ negative enteroscopy, ulceration noted on VCE admitted with high-grade small bowel obstruction SMALL BOWEL OBSTRUCTION CT scan confirming obstruction at mid ileum, retained video capsule about 10 to 20 cm of inflammatory changes to small bowel with downstream transition concerning for stenosis/stricture. Video capsule endoscopy done outpatient (read by Dr Chamberlain) concerning for small bowel Crohn's with skip lesions -Discussed with Gen surgery who discussed with GI---> double-balloon enteroscopy versus surgery. If we go with double-balloon enteroscopy, we will have to transfer her to a tertiary care center. General surgery will discuss case with advanced endoscopists and colorectal surgery at [facility] -Continue with NG tube with intermittent suction -IV Fluids -IV Dilaudid 0.5 mg q 3 hours as needed for severe pain -Appreciate GI and general surgery inputs- awaiting for final plan PROBABLE CROHNS DISEASE Per Dr Chamberlain's reading of the video capsule study done outpatient Ulcers + and small bowel concerning for Crohn's disease with skip lesions. -WIll need follow up with GI outpatient ASTHMA No signs of exacerbation GERD -On ranitidine, omeprazole at home HTN Slightly elevated -Continue with losartan ANXIETY/DEPRESSION Continue with Venlafaxine 150 mg daily DVT PROPHYLAXIS SCDS/TEDS: Re: Anticipating need for surgery/Procedure DISPOSITION Medical mx in progress Subjective Patient has low intermittent suctioning NG tube. Lower abdominal pain has improved. No fever, chills Physical Exam Physical Exam: GENERAL- AAOX3, No acute distress HEENT- NG tube -intermittent suction LUNGS- Air entry bilaterally equal. No rales, rhonchi, crackles, wheezes heard. HEART- Regular rate and rhythm. No murmurs ABDOMEN- Soft, non tender, non distended, Bowel sounds heard. EXTREMITIES- Good peripheral pulses, no edema Results & Data Vital Signs (Past 12 Hours) Vital Signs Temp Pulse Pulse Pulse Resp BP BP 02/15/19 12:30 37.0 C 76 16 156/80 H 02/15/19 07:51 36.8 C 78 16 140/82 02/15/19 06:25 36.7 C 85 20 143/85 H 02/15/19 05:47 76 16 139/90 06/05/19 05:33 80 14 139/90 06/05/19 03:00 75 16 134/66 02/15/19 02:10 75 16 159/72 H Pulse Ox 02/15/19 12:30 93 02/15/19 07:51 95 02/15/19 06:25 91 02/15/19 05:47 92 02/15/19 05:33 95 02/15/19 03:00 96 02/15/19 02:10 95
[2019-02-15] MEDS: ACETAMINOPHEN 65 ML IV PRN ×2 (14:41→19:22)
--- NOTE | 2019-02-15 15:46 | Discharge Summary ---
Date of Service February 15, 2019 Admission HPI Per Admitting Provider HISTORY OF PRESENT ILLNESS: This is a 53-year-old female with past medical history significant for hypertension, GERD, depression, history of HSV-1 infection, microcytic anemia, depression, presents with abdominal pain. The patient in November of this month was admitted for small-bowel obstruction. The patient has same symptoms, around 9:00 p.m., she started to have nausea and abdominal pain, severe in nature, several episodes of vomitus. She is on liquid diet because she swallowed capsule endoscopy on this Wednesday and the vomitus was all liquid, no blood in the vomitus and she has small bowel movement around 10:00 p.m., but after that, she is not even passing gas now. The pain improved after pain meds in ER, but says it is coming back.She is status post NG tube and draining yellowish-greenish fluid. Denies any headache, no blurred vision, no sore throat, no difficulty swallowing. Appetite is okay, otherwise no chest pain or shortness of breath. No swelling in the legs. No rash. Principal Diagnosis 1. Small bowel obstruction at mid ileum 2. Probable Crohn's disease Secondary diagnoses on discharge 1. Asthma with no signs of exacerbation 2. GERD 3. Hypertension 4. Anxiety/depression Discharge Exam GENERAL- AAOX3, No acute distress; Anxious + HEENT- NG tube -intermittent suction + LUNGS- Air entry bilaterally equal. No rales, rhonchi, crackles, wheezes heard. HEART- Regular rate and rhythm. No murmurs ABDOMEN- Soft, non tender, non distended, Bowel sounds heard. EXTREMITIES- Good peripheral pulses, no edema Discharge Data Allergies Allergy/AdvReac Type Severity Reaction Status Date / Time naproxen Allergy Severe ANAPHYLAXIS- Verified 02/15/19 02:28 THROAT SWELLING, motrin OK diflunisal Allergy Unknown per PCP Unverified 02/15/19 02:28 records fexofenadine AdvReac Mild HYPERTENSIO Unverified 02/15/19 02:28 N pseudoephedrine AdvReac Mild HYPERTENSIO Unverified 02/15/19 02:28 N meperidine AdvReac Unknown HYPOTENSION Unverified 02/15/19 02:28 Consultations 02/15/19 03:33 ED Decision to Admit Stat 02/15/19 08:00 Consult General Surgery Routine 02/15/19 11:24 Consult Gastroenterology Routine Ordered Studies 02/15/19 01:23 CT abd pelvis IV con only Urgent Hospital Course (1) Small bowel obstruction: 53 year old female with history of chronic anemia, recurrent SBO undergoing OP evaluation to rule out IBD w/ negative enteroscopy, ulceration noted on VCE admitted with high-grade small bowel obstruction SMALL BOWEL OBSTRUCTION CT scan confirming obstruction at mid ileum, retained video capsule; about 10 to 20 cm of inflammatory changes to small bowel with downstream transition concerning for stenosis/stricture. Video capsule endoscopy done outpatient (read by Dr Chamberlain) concerning for small bowel Crohn's with skip lesions (no prior diagnosis) -Discussed with Gen surgery Dr Steven who discussed with GI/Advanced endoscopists (Dr Colbert)/ Levels rectal Surgery (Dr Bernal) at [facility] ---> Double-balloon enteroscopy versus surgery. We do not have facility for double balloon enteroscopy at [facility]. So will transfer him to [place] today. -NPO, NG tube with intermittent suction -IV Fluids -IV Dilaudid 0.5 mg q 3 hours as needed for severe pain, IV Tylenol PRN for pain -Appreciate GI and general surgery inputs. PROBABLE CROHNS DISEASE Per Dr Chamberlain's reading of the video capsule study done outpatient Ulcers + and small bowel concerning for Crohn's disease with skip lesions. -WIll need follow up with GI outpatient ASTHMA No signs of exacerbation GERD -On ranitidine, omeprazole at home HTN Slightly elevated -Continue with losartan ANXIETY/DEPRESSION Continue with Venlafaxine 150 mg daily DVT PROPHYLAXIS SCDS/TEDS: Re: Anticipating need for surgery/Procedure DISPOSITION Will transfer to [facility] for Double balloon Enteroscopy for retained video capsule causing SBO Dr Steven (Gen surgery) at [facility] has spoken to Dr Colbert (GI) and Levels rectal Surgery (Dr Bernal). Patient accepted by general surgery service- Dr Doroteo Blue to transfer to [facility] today Total Time Total Time Spent Total Time Spent (In Minutes): 50 minutes Discharge Plan Discharge Items Patient Disposition: Transfer Acute Care Hospital Reason For Visit: ABDOMINAL PAIN Discharge Diagnosis: Small bowel obstruction Condition: Fair Discharge Goals: Therapeutic intervention Activity: As commented below Activity Comment: Bedrest Non-emergency contact: Primary Care Provider Call non-emergency contact if: your symptoms worsen Follow-up/Referrals: Tomy Carlos MD [Primary Care Provider] - Diet: Nothing by mouth Addtl Provider Instructions: Transfer to [facility] Prescriptions: Continued cyanocobalamin (vitamin B-12) [Vitamin B-12] 1,000 mcg Tablet Extended Release 1,000 mcg PO QAM RF: 0 ibuprofen 200 mg Tablet 800 mg PO QID PRN (Reason: Pain) RF: 0 albuterol sulfate [ProAir HFA] 90 mcg/actuation Hfa Aerosol Inhaler 2 puff INHALATION QID PRN (Reason: Shortness Of Breath Or Wheezing) RF: 0 ferrous sulfate 325 mg (65 mg iron) Tablet,Delayed Release (Dr/Ec) 325 mg PO QAM RF: 0 quetiapine 25 mg Tablet 25 mg PO HS RF: 0 fexofenadine [Ayde Allergy] 180 mg Tablet 180 mg PO QAM PRN (Reason: Allergy Symptoms) RF: 0 ondansetron 8 mg Tablet,Disintegrating 8 mg PO UD PRN (Reason: Nausea And Vomiting) RF: 0 multivitamin with minerals [Multiple Vitamin-Minerals] Tablet 1 tab PO QAM RF: 0 omeprazole 20 mg Tablet,Delayed Release (Dr/Ec) 20 mg PO QAM RF: 0 Metamucil 3.4 gram/5.4 gram Powder 1 dose PO DAILY PRN (Reason: Constipation) RF: 0 tramadol 50 mg Tablet 50 mg PO Q6H PRN (Reason: Pain) RF: 0 fluticasone propionate [Flonase Allergy Relief] 50 mcg/actuation Arley,Suspension 2 spray INTRANASAL DAILY RF: 0 venlafaxine 150 mg Tablet Extended Release 24hr 150 mg PO QAM RF: 0 losartan 25 mg tablet 25 mg PO DAILY RF: 0 ranitidine HCl 150 mg tablet 300 mg PO HS PRN (Reason: Heartburn) RF: 0 dicyclomine 10 mg capsule 10 mg PO TID PRN (Reason: muscle spasm) Qty: 60 RF: 0 Stand-Alone Forms: Call Back Authorization, [facility] Discharge Orders: Discharge Order (Routine); Ordered 02/15/19 Ordered By: Kristel Peters Admission Data Admit Date/Time: 02/15/19 05:10 Attending Provider: Kristel Peters Admit Provider: Christophe Ken Primary Care Provider: Tomy Carlos Other Providers: Christophe Ken ; Almas Farr ; Rosa Henriquez ; Chuck Broderick ; Mario Hurtado ; Sisi Chamberlain ; Phill Cornejo ; Malcolm Thomas ; Ivette Flower ; Cesar Lamar ; Ani Lee ; Jordy Bishop Jr ; Gaby Wan ; Candice Steven ; Keila Molina Service: Surgical Services
[2019-02-15] MEDS ORDERED: QUETIAPINE FUMARATE 25 MG TABLET PO SCH (21:00)
== END 2019-02-15 19:59 | disposition short-term general hospital (02) | DRG 389 ==
LOC: ED 00:52 → 3W 05:10

== ENCOUNTER 2022-06-26 20:18 | Observation (INO) ==
[2022-06-26] MEDS ORDERED: ONDANSETRON INJ 2 MG/ML 2 ML VIAL IV STA (21:06)
[2022-06-26 21:48] LABS: Basophils # (auto) 0.05 K/uL (0-0.2); Basophils % (auto) 0.6 %; Eosinophils # (auto) 0.09 K/uL (0-0.50); Hematocrit (blood only) 37.5 % (34.1-44.9); Hemoglobin 12.6 g/dl (12.0-16.0); Immature Granulocytes # (auto) 0.03 K/uL (0.00-0.02); Immature Granulocytes % (auto) 0.3 %; Lymphocytes # (auto) 1.29 K/uL (1.2-3.4); Lymphocytes % (auto) 14.4 %; Mean Corpuscular Hemoglobin 29.2 pg (25.0-34.0); Mean Corpuscular Hgb Conc 33.6 g/dL (32.0-36.0); Mean Corpuscular Volume 86.8 fL (80.0-100.0); Mean Platelet Volume 11.5 fL (9.4-12.3); Monocytes # (auto) 0.55 K/uL (0.24-0.82); Monocytes % (auto) 6.1 %; Neutrophils # (auto) 6.95 K/uL (1.4-6.5); Neutrophils % (auto) 77.6 %; Platelet Count 327 K/uL (130-400); RDW Coefficient of Variation 14.3 % (11.5-14.5); RDW Standard Deviation 45.4 fL (36.4-46.3); Red Blood Count 4.32 M/uL (3.93-5.22); White Blood Count 8.96 K/ul (4.8-10.8)
[2022-06-26 21:56] LABS: Albumin Globulin Ratio 1.7 (0.9-2); Albumin Level 4.8 gm/dl (3.4-5.0); BUN Creatinine Ratio 27.9 (10-20); Bilirubin,Total 0.3 mg/dl (0.2-1.0); Creatinine Clr Calc Pharmacy 100.4 ml/min; Est GFR (African American) 114.9 ml/min; Est GFR (Non-African American) 99.2 ml/min; Globulin 2.9 gm/dl (2.5-4.0); Total Protein 7.7 gm/dl (6.0-8.3)
[2022-06-26] MEDS ORDERED: SODIUM CHLORIDE 0.9% 500 ML IV ONE (23:27)
[2022-06-26] MEDS ORDERED: HYDROmorphone INJ 1 MG/ML SYRINGE IV STA (23:27)
[2022-06-27] MEDS ORDERED: OPTIRAY 350 100ml IV ONE (00:05)
--- NOTE | 2022-06-27 00:23 | Emergency Department Note ---
Impression & Plan SBO (small bowel obstruction) Admit to the [facility] ED Provider Note NAME: JAMEY VAIL AGE: 56 SEX: F ARRIVES VIA: Walk-In INFORMANT: Patient and her family ED PROVIDER(S): Jie Joyce DO CHIEF COMPLAINT: Upper abdominal pain and vomiting PLAN: Disposition: Admit to the [facility] Condition: Stable MEDICAL DECISION MAKING: This is a 56-year-old female patient who has a history of Crohn's disease and previous small bowel obstructions who presents to the emergency department with a sudden onset of upper abdominal pain and multiple episodes of vomiting. Patient received IV fluids and was kept NPO. CT scan of the abdomen and pelvis showed evidence of a small bowel obstruction with an obvious transition point. An NG tube was placed. She received IV analgesia and IV antiemetics. [facility] will [facility] for further management. Triage Nursing notes reviewed and agree with them. Additional history obtained from the family is at the bedside Prior medical records reviewed Vital Signs: reviewed and unremarkable Differential diagnosis: Colitis, exacerbation of Crohn's disease, recurrent small bowel obstruction ER treatment provided: IV normal saline IV Zofran IV Dilaudid Diagnostics interpreted by me: Cardiac Monitoring: Normal sinus rhythm at a rate of 79 Laboratory studies: See below Imaging studies: As per stat rad CT abdomen pelvis with contrast: Bowel obstruction with transition point in the low mid abdomen/right lower quadrant near the suture anastomosis. Upstream small bowel fecal material and distention up to 3.5 cm. No pneumatosis, portal venous gas, or free air. Normal appendix. No abscess. Trace free fluid in the pelvis. No acute abnormality in the organs. HPI: 56/F arrives for evaluation of upper abdominal pain. Around 6 PM this evening, the patient was at work and developed some upper abdominal pain and periumbilical abdominal pain. She went home from work and tried to rest but the pain intensified and she developed vomiting. She states that she vomited eric roximately 20 times. She describes having a resection of her bowel for Crohn's disease in 2019 and has had obstructions before then and since then. ROS: See above HPI for pertinent positives & negatives. A total of 10 systems reviewed and were otherwise negative. PAST MEDICAL HISTORY:Crohn's disease; small bowel obstructions PAST SURGICAL HISTORY:See Below FAMILY HISTORY:See Below SOCIAL HISTORY:See Below HOME MEDICATIONS:See list ALLERGIES:See list VITALS:See Below PHYSICAL EXAMINATION: HEENT: Head - normocephalic and atraumatic Pupils are equal, round, and reactive to light. Extraocular eye muscles are intact, and sclera are anicteric. Nose - moist nasal mucosa without discharge. Mouth - moist buccal mucosa. Oropharynx is nonerythematous and there is no tonsillar exudate or edema noted. Neck: Supple; no cervical lymphadenopathy Heart: Regular rate and rhythm. There is a normal S1 and S2 with no murmurs, clicks, or gallops appreciated. Lungs: Clear to auscultation bilaterally with no wheezes, rales, or rhonchi. Abdomen: Soft, moderate tenderness to palpation in the epigastrium and periumbilical region, nondistended, with good bowel sounds. There are no palpable pulsatile masses or hepatosplenomegaly. There is no guarding, ri gidity, or rebound noted. Extremities: No evidence of cyanosis, clubbing, or edema. There are easily palpable peripheral pulses. Skin: warm and dry with good turgor and no rashes. ED COURSE: Times/Reassessments: 2315: The patient was evaluated in room B7. A complete history and physical was performed. Previous electronic medical records were reviewed. Nursing staff had initiated an IV lock and draw labs. They gave the patient IV Zofran. I ordered the patient have IV fluids and IV Dilaudid. She will go for CT scan of the abdomen and pelvis. I reviewed the results of the laboratory studies and CT scan with the patient. An NG tube will be placed. I discussed the case with the [facility] Hospitalist. Jie Joyce DO Past Med/Surg History Medical History (Updated 06/27/22 @ 19:11 by Jie Joyce DO) Anxiety Asthma Crohn disease Depression Diverticulosis of colon, acquired GERD (gastroesophageal reflux disease) History of small bowel obstruction admissions 2012, 2016, 2018; attributed to adhesions Hypertension Uterine leiomyoma Surgical History H/O laparoscopy History of total knee arthroplasty right knee Family History Mother Breast cancer Coronary heart disease Crohn's disease Hypertension Father Diabetes Bladder cancer Aunt Breast cancer Social History Smoking Status: Current some day smoker Second Hand Exposure: No; Do You Dip or Chew Tobacco: No; Tobacco Cessation Education Requested by Patient: No Hx Alcohol Use: Yes Alcohol type: other Hx Substance Use: No Preferred Language: Citizen Of [place] Communication Ability: Effective Observer [employer] Required: No Beliefs That Will Affect Care: None marital status: Single Current Living Situation: Alone Other Information That Helps Us Care for You: No Feels Safe at Home: No Is there a partner from a previous relationship who is making you feel unsafe now?: No Any Concerns about Your Family Situation: No Wo uld You Like to Speak to Someone About Your Situation: No Assistive Devices: None Allergies Allergies Allergy/AdvReac Type Severity Reaction Status Date / Time naproxen Allergy Severe ANAPHYLAXIS- Verified 02/15/19 02:28 THROAT SWELLING, motrin [place] diflunisal Allergy Unknown per PCP Verified 06/27/22 06:22 records fexofenadine AdvReac Mild HYPERTENSIO Verified 06/27/22 06:22 N pseudoephedrine AdvReac Mild HYPERTENSIO Verified 06/27/22 06:22 N meperidine AdvReac Unknown HYPOTENSION Verified 06/27/22 06:22 Home Meds Home Medications Medication Instructions Recorded Confirmed albuterol sulfate 90 mcg/actuation 2 puff inhalation QID PRN 11/13/18 06/27/22 aerosol inhaler (ProAir HFA) Shortness Of Breath Or Wheezing cyanocobalamin (vitamin B-12) 1,000 mcg PO QAM 11/13/18 06/27/22 1,000 mcg tablet,extended release (Vitamin B-12 ER) fexofenadine 180 mg tablet 180 mg PO QAM 11/13/18 06/27/22 (Ayde Allergy) multivitamin with minerals 1 tab PO QAM 11/13/18 06/27/22 (Multiple Vitamin-Minerals tablet) omeprazole 20 mg tablet,delayed 20 mg PO QAM 11/13/18 06/27/22 release quetiapine 25 mg tablet 25 - 50 mg PO HS 11/13/18 06/27/22 tramadol 50 mg tablet 50 mg PO Q6H PRN Pain 11/13/18 06/27/22 venlafaxine 150 mg tablet,extended 150 mg PO QAM 11/13/18 06/27/22 release 24 hr losartan 50 mg tablet 50 mg PO DAILY 06/27/22 06/27/22 Previous Rx's Medication Instructions Recorded dicyclomine 10 mg capsule 10 mg PO TID PRN muscle spasm #60 12/01/18 caps Results & Data (ED) Vital Signs Vital Signs - 24 hr 06/26/22 20:31 06/26/22 22:18 06/26/22 23:00 Temperature 36.8 C Temperature Source Temporal Artery Scan Pulse Rate 95 H Pulse Rate [Apical] 86 79 Pulse Rhythm Regular Pulse Rhythm [Apical] Regular Regular Pulse Strength Normal Pulse Strength [Apical] Respiratory Rate 20 16 16 Respiratory Effort / Characteristics Non-Labored Spontaneous Non-Labored Respiratory Depth Normal Normal Normal Respiratory Pattern Regular Blood Pressure 160/95 H Blood Pressure [Left Arm] 137/84 127/75 Blood Pressure Mean 116 Blood Pressure Mean [Left Arm] 101 92 Blood Pressure Position Sitting Pulse Oximetry 97 96 98 Oxygen Delivery Method Room Air Room Air Room Air Oxygen Flow Rate Sepsis Recent Fever Within 48 Hours No Sepsis New/Unexplained Change in Mental Status N/A Sepsis Action Taken by Nursing No Action Required 06/27/22 00:00 06/27/22 00:02 06/27/22 00:41 Temperature Temperature Source Pulse Rate 87 Pulse Rate [Apical] 86 Pulse Rhythm Pulse Rhythm [Apical] Regular Pulse Strength Pulse Strength [Apical] Normal Respiratory Rate 14 18 Respiratory Effort / Characteristics Non-Labored Respiratory Depth Normal Respiratory Pattern Blood Pressure 160/78 H 160/82 H Blood Pressure [Left Arm] Blood Pressure Mean 105 108 Blood Pressure Mean [Left Arm] Blood Pressure Position Pulse Oximetry 86 L 95 Oxygen Delivery Method Room Air Nasal Cannula Oxygen Flow Rate 1 Sepsis Recent Fever Within 48 Hours Sepsis New/Unexplained Change in Mental Status Sepsis Action Taken by Nursing 06/27/22 02:00 Temperature Temperature Source Pulse Rate Pulse Rate [Apical] 64 Pulse Rhythm Pulse Rhythm [Apical] Regular Pulse Strength Pulse Strength [Apical] Respiratory Rate 16 Respiratory Effort / Characteristics Respiratory Depth Normal Respiratory Pattern Blood Pressure Blood Pressure [Left Arm] 154/90 H Blood Pressure Mean Blood Pressure Mean [Left Arm] 111 Blood Pressure Position Pulse Oximetry 94 Oxygen Delivery Method Nasal Cannula Oxygen Flow Rate 1 Sepsis Recent Fever Within 48 Hours Sepsis New/Unexplained Change in Mental Status Sepsis Action Taken by Nursing Laboratory Data Result diagrams: 06/27/22 08:03 06/27/22 08:03 Lab Results 06/26/22 06/26/22 06/27/22 Range/Units 21:04 21:04 01:24 WBC 8.96 (4.8-10.8) K/ul RBC 4.32 (3.93-5.22) M/uL Hgb 12.6 (12.0-16.0) g/dl Hct 37.5 (34.1-44.9) % MCV 86.8 (80.0-100.0) fL MCH 29.2 (25.0-34.0) pg MCHC 33.6 (32.0-36.0) g/dL RDW Std Deviation 45.4 (36.4-46.3) fL RDW Coeff of Willy 14.3 (11.5-14.5) % Plt Count 327 (130-400) K/uL MPV 11.5 (9.4-12.3) fL Immature Gran % (Auto) 0.3 % Neut % (Auto) 77.6 % Lymph % (Auto) 14.4 % Cowley % (Auto) 6.1 % Eos % (Auto) 1.0 % Baso % (Auto) 0.6 % Neut # (Auto) 6.95 H (1.4-6.5) K/uL Lymph # (Auto) 1.29 (1.2-3.4) K/uL Cowley # (Auto) 0.55 (0.24-0.82) K/uL Eos # (Auto) 0.09 (0-0.50) K/uL Baso # (Auto) 0.05 (0-0.2) K/uL Immature Gran # (Auto) 0.03 H (0.00-0.02) K/uL Sodium 142 (136-145) mmol/L Potassium 4.0 (3.5-5.1) mmol/L Chloride 104 (98-107) mmol/L Carbon Dioxide 29 (21-32) mmol/L Anion Gap 9 (3-11) BUN 19 (6-23) mg/dl Creatinine 0.68 (0.6-1.2) mg/dl Est Cr Clr Drug Dosing 100.4 ml/min Est GFR ( Amer) 114.9 ml/min Est GFR (Non-Af Amer) 99.2 ml/min BUN/Creatinine Ratio 27.9 H (10-20) Glucose 101 H (70-99(Fasting)) mg/dl Calcium 10.0 (8.5-10.1) mg/dl Total Bilirubin 0.3 (0.2-1.0) mg/dl AST 13 (13-39) U/L ALT 12 (7-52) U/L Alkaline Phosphatase 88 (34-104) U/L Total Protein 7.7 (6.0-8.3) gm/dl Albumin 4.8 (3.4-5.0) gm/dl Globulin 2.9 (2.5-4.0) gm/dl Albumin/Globulin Ratio 1.7 (0.9-2) Lipase 11 (11-82) U/L SARS-CoV-2, RNA, NAAT NEGATIVE (NEGATIVE) Administered Medications Enoxaparin Sodium (Enoxaparin Inj 40 Mg/0.4 Ml Syr) 40 mg SQ Q24H BORIS Stop: 07/27/22 08:59 Last Admin: 06/27/22 09:03 Dose: 40 mg Documented By: [id number] Hydromorphone HCl (Hydromorphone Inj 0.5 Mg/0.5 Ml Syr) 0.5 mg IV Q3H PRN PRN Reason: Pain Stop: 07/11/22 06:01 Last Admin: 06/27/22 06:44 Dose: 0.5 mg Documented By: STEVE Dextrose/Sodium Chloride (D5w And 1/2nss) 1,000 mls @ 125 mls/hr IV .Q8H BORIS Stop: 07/27/22 06:01 Last Admin: 06/27/22 14:16 Dose: 125 mls/hr Documented By: Infusion: 06/27/22 14:11 Dose: 125 mls/hr Documented By: Admin: 06/27/22 06:11 Dose: 125 mls/hr Documented By: STEVE Famotidine 20 mg/ Syringe 5 mls @ 2.5 mls/min IV BID BORIS Stop: 07/27/22 08:59 Last Admin: 06/27/22 09:03 Dose: 2.5 mls/min Documented By: [id number] Losartan Potassium (Losartan Potassium 50 Mg Tab) 50 mg PO DAILY BORIS Stop: 07/27/22 08:59 Last Admin: 06/27/22 09:03 Dose: 50 mg Documented By: [id number] Venlafaxine HCl (Venlafaxine Hcl Xr 150 Mg Capxr) 150 mg PO QAM BORIS Stop: 07/27/22 08:59 Last Admin: 06/27/22 09:03 Dose: 150 mg Documented By: [id number] Discontinued Medications Hydromorphone HCl (Hydromorphone Inj 1 Mg/Ml Syringe) 1 mg IV NOW STA Stop: 06/26/22 23:28 Last Admin: 06/26/22 23:38 Dose: 1 mg Documented By: JAZMIN Hydromorphone HCl (Hydromorphone Inj 0.5 Mg/0.5 Ml Syr) 0.5 mg IV NOW STA Stop: 06/27/22 02:06 Last Admin: 06/27/22 02:29 Dose: 0.5 mg Documented By: JAZMIN Sodium Chloride (Nss) 500 mls @ 999 mls/hr IV .Q31M ONE Stop: 06/26/22 23:57 Last Infusion: 06/27/22 06:10 Dose: 0 mls/hr Documented By: Admin: 06/26/22 23:37 Dose: 999 mls/hr Documented By: JAZMIN Influenza Virus Vaccine Quadrival (Fluarix Quadrivalent 0.5 Ml Syr) 0.5 ml IM .ONCE ONE Stop: 06/27/22 06:02 Last Admin: 06/27/22 16:17 Dose: Not Given Documented By: [id number] Ioversol (Optiray 350 100ml) 87 ml IV ONCE ONE Stop: 06/27/22 00:06 Last Admin: 06/27/22 00:01 Dose: 87 ml Documented By: DG Ondansetron HCl (Ondansetron Inj 2 Mg/Ml 2 Ml Vial) 4 mg IV NOW STA Stop: 06/26/22 21:07 Last Admin: 06/26/22 21:09 Dose: 4 mg Documented By: ZELDA Imaging Data Radiologist's Impression: Abdomen/Pelvis CT 06/26/22 23:[address] WITH IV CONTRAST CT DOSE: 493.72 mGy.cm HISTORY: Diffuse abdominal pain. Nausea. eval for bowel obstruction TECHNIQUE: Multiaxial CT images of the abdomen and pelvis were performed following the use of intravenous contrast. A dose lowering technique was utilized adhering to the principles of ALARA. COMPARISON STUDY: Abdomen and pelvis CT 02/15/2019. FINDINGS: There are mild dependent changes seen at the lung bases. The heart remains mildly enlarged. No pneumoperitoneum. No pneumatosis. No fractures within the visualized osseous structures. The liver, gallbladder, spleen, adrena l glands, pancreas, and kidneys are unremarkable. No hydronephrosis. Normal caliber abdominal aorta. No retroperitoneal lymphadenopathy. The main portal vein is patent. The bladder is unremarkable. Small amount of pelvic free fluid. Multiple dilated and fluid-filled loops of proximal to mid small bowel with a local transition point within the right lower quadrant on image 339 consistent with a small bowel obstruction. The ileal loops distal to this transition point are decompressed. This transition point is approximately 7 cm proximal to the site of prior small bowel anastomosis. There is mild interloop fluid noted at the distended loops of small bowel. A few prominent mesenteric lymph nodes which may be reactive. The mesenteric vessels appear patent. Prior hysterectomy. Colonic diverticulosis. No evidence for acute diverticulitis. Normal appendix. IMPRESSION: 1. Small bowel obstruction with the transition point within the right lower quadrant a few centimeters proximal to the prior small bowel anastomosis. 2. Small amount of interloop fluid at the distended loops of small bowel and a small amount of pelvic free fluid which could represent vascular congestion. However, no pneumatosis at this time to suggest ischemia. 3. Colonic diverticulosis. No evidence for acute diverticulitis. 4. Normal appendix. ACT 112: Negative or not required by law. Electronically signed by: Ezra Urbina M.D. 06/27/2022 8:24 AM Discharge Plan Visit Data Chief Complaint: Abdominal Pain Stated Complaint: ABDOMINAL PAIN ED Provider: Jie Joyce Discharge Problem: SBO (small bowel obstruction) Patient Disposition: Admitted As Inpatient Discharge Instructions Interventions: ED Discharge Assessment Last Done: 06/27/22 05:38
[2022-06-27] MEDS ORDERED: HYDROmorphone INJ 0.5 MG/0.5 ML SYR IV STA (02:05)
--- NOTE | 2022-06-27 04:48 | History and Physical Report ---
DATE OF ADMISSION: 06/27/2022. CHIEF COMPLAINT: Abdominal pain. HISTORY OF PRESENT ILLNESS: This is a 56-year-old female with past medical history significant for hypertension, GERD, depression, history of HSV-1 infection, history of microcytic anemia, depression, history of Crohn's colitis, history of bowel obstructions in the past, GERD, who presents with abdominal pain. The patient says that she started to develop abdominal pain around 4:00 p.m. and had several episodes of vomiting. Pain is severe in the middle of the abdomen. No radiation. Feeling chills. Last bowel movement was yesterday. Normal bladder movements. She complains of some chest discomfort and attributes it from her vomiting. No shortness of breath, no headache, no blurred visions, no earache, no runny nose, no sore throat, no cough, no fevers currently. Still has a lot of pain, asking for pain medications and nauseous. Has history of bowel obstruction in the past, but in 2018 she was transferred to [facility] as imaging studies showed multiple ulcers and stricture.. At [facility], she underwent resection of the 50-60 cm ileum, with stenosis and skip areas consistent with Crohn's disease grossly and microscopically. After that, she was asymptomatic and GI discussed about biologics, but she preferred watchful waiting .She also had colonoscopy after that and it was unremarkable. This is the first time since then presenting with bowel obstruction. ALLERGIES: NAPROXEN, DIFLUNISAL, FEXOFENADINE, PSEUDOEPHEDRINE, MEPERIDINE. PAST MEDICAL HISTORY: As mentioned above. PAST SURGICAL HISTORY: Right total knee arthroplasty, colonoscopies, multiple EGD, exploratory laparotomy, arthrotomy of left knee surgery, partial hysterectomy, small bowel resection, nasal septum repair, video capsule endoscopy. MEDICATIONS: As per [facility], the patient is on venlafaxine 150 mg p.o. daily, Seroquel 25 mg p.o. at bedtime, tramadol 50 mg p.o. q. 6 hours p.r.n. pain, omeprazole 20 mg p.o. daily, losartan 50 mg p.o. daily, fexofenadine 180 mg p.o. daily p.r.n., albuterol 2 puffs inhalation p.r.n., Bentyl 10 mg p.o. p.r.n. FAMILY HISTORY: Significant for maternal aunt has breast cancer with bone mets; mother has breast cancer, has Crohn's disease and heart attack at 64, and hypertension; father had cancer. SOCIAL HISTORY: . As per Epic, former smoker. Social drinking of alcohol, no drug use. REVIEW OF SYSTEMS: As per HPI. Rest of the review of systems is negative. PHYSICAL EXAMINATION: GENERAL: The patient is of moderate build, not in acute distress. VITAL SIGNS: Temperature 36.8, pulse 86, respiratory rate 18, blood pressure 160/78, oxygen 95% on 1 liter. HEENT: Pupils equal, round and reactive to light. Oral mucosa dry. NECK: No JVD, no neck masses. CARDIOVASCULAR: S1 and S2 heard. Regular rate and rhythm. No murmur, no gallop. RESPIRATORY SYSTEM: Normal AP diameter. No accessory muscle use. No wheezing, no crackles. ABDOMEN: Soft, diffuse discomfort. Mild guarding, no rigidity, no distention. Bowel sounds sluggish. CENTRAL NERVOUS SYSTEM: Cranial nerves II through XII grossly intact, nonfocal. EXTREMITIES: No edema, no erythema. LABORATORY DATA: WBC 8.9, hemoglobin 12.6, hematocrit 37.5, platelets 327. Sodium 142, potassium 4, chloride 104, bicarbonate 29, BUN 19, creatinine 0.6, serum glucose 101, calcium 10. Total bilirubin 0.3, AST 13, ALT 12, alkaline phosphatase 88, lipase 11. IMAGING DATA: CT abdomen and pelvis preliminary report shows small-bowel obstruction, transition point in the lower mid abdomen, right lower quadrant near the suture anastomosis. ASSESSMENT AND PLAN: This is a 56-year-old female who presents with recurrent small bowel obstruction. 1. Recurrent small bowel obstruction: The patient had video capsule in February of 2019. It showed multiple ulcers and strictures and was transferred to [facility] and underwent resection of the 50-60 cm ileum with stenosis and skip areas consistent with Crohn's disease grossly and microscopically. After that patient was asymptomatic and colonoscopy seemed to be okay, the patient preferred to go with watchful waiting than starting on treatment. Since then in 2019 this is the first time she is having small bowel obstruction. NG tube ordered in the ER, which will be continued. We will place on IV fluids, IV Dilaudid p.r.n., n.p.o., IV antiemetics, and consult both GI and surgery in the a.m. for further recommendations. 2. History of hypertension: Continue losartan. If not able to take p.o., IV hydralazine p.r.n. 3. Gastroesophageal reflux disease: Placed on IV Pepcid. 4. Depression: Continue her home medication of venlafaxine and Seroquel. 5. Deep venous thrombosis prophylaxis: Placed her on Lovenox. 6. The patient also complained of chest pain, attributing it to from vomiting. Will get an EKG and follow troponins DISPOSITION: Closely monitor in the medical floor. PT/OT prior to discharge. Social service to help with discharge planning. Level 1 full code. Job ID: [id number] [facility]
[2022-06-27] MEDS ORDERED: FLUARIX QUADRIVALENT 0.5 ML SYR IM ONE (06:01)
[2022-06-27] MEDS ORDERED: ALBUTEROL HFA 8 GM INHALER INH PRN (06:02)
[2022-06-27] MEDS ORDERED: FEXOFENADINE HCL 180 MG TAB PO PRN (06:02)
[2022-06-27] MEDS ORDERED: ONDANSETRON INJ 2 MG/ML 2 ML VIAL IV PRN (06:02)
[2022-06-27] MEDS ORDERED: HYDROmorphone INJ 0.5 MG/0.5 ML SYR IV PRN (06:02)
[2022-06-27] MEDS ORDERED: ACETAMINOPHEN 10MG/ML Custom 1,000 MG in EMPTY BAG 0 ML IV PRN (06:02)
[2022-06-27] MEDS ORDERED: DICYCLOMINE HCL 10 MG CAP PO PRN (06:02)
[2022-06-27] MEDS: D5W AND 1/2NSS 1,000 ML IV SCH ×3 (06:11→21:31)
[2022-06-27 06:55] LABS: Appearance Urine Clear (Clear); Bilirubin Urine Negative (Negative); Blood Urine Negative (Negative); Color Urine Yellow; Glucose Urine UA Negative (Negative); Ketones Urine Trace (Negative); Leukocyte Esterase Urine Negative (Negative); Nitrite Urine Negative (Negative); Protein Urine Negative (Negative); Specific Gravity Urine > 1.045 (1.000-1.030); Urobilinogen Urine Negative (Negative)
[2022-06-27 08:14] LABS: Basophils # (auto) 0.04 K/uL (0-0.2); Basophils % (auto) 0.4 %; Eosinophils # (auto) 0.04 K/uL (0-0.50); Eosinophils % (auto) 0.4 %; Hematocrit (blood only) 34.5 % (34.1-44.9); Hemoglobin 11.1 g/dl (12.0-16.0); Immature Granulocytes # (auto) 0.03 K/uL (0.00-0.02); Immature Granulocytes % (auto) 0.3 %; Lymphocytes # (auto) 1.13 K/uL (1.2-3.4); Lymphocytes % (auto) 12.4 %; Mean Corpuscular Hemoglobin 28.5 pg (25.0-34.0); Mean Corpuscular Hgb Conc 32.2 g/dL (32.0-36.0); Mean Corpuscular Volume 88.5 fL (80.0-100.0); Mean Platelet Volume 10.8 fL (9.4-12.3); Monocytes # (auto) 0.75 K/uL (0.24-0.82); Monocytes % (auto) 8.2 %; Neutrophils # (auto) 7.14 K/uL (1.4-6.5); Neutrophils % (auto) 78.3 %; Platelet Count 289 K/uL (130-400); RDW Coefficient of Variation 14.4 % (11.5-14.5); RDW Standard Deviation 46.3 fL (36.4-46.3); White Blood Count 9.13 K/ul (4.8-10.8)
--- NOTE | 2022-06-27 08:27 | CT Scan Report ---
ABDOMEN AND PELVIS CT WITH IV CONTRAST CT DOSE: 493.72 mGy.cm HISTORY: Diffuse abdominal pain. Nausea. eval for bowel obstruction TECHNIQUE: Multiaxial CT images of the abdomen and pelvis were performed following the use of intrave nous contrast. A dose lowering technique was utilized adhering to the principles of ALARA. COMPARISON STUDY: Abdomen and pelvis CT 02/15/2019. FINDINGS: There are mild dependent changes seen at the lung bases. The heart remains mildly enlarged. No pneumoperitoneum. No pneumatosis. No fractures within the visualized osseous structures. The live r, gallbladder, spleen, adrenal glands, pancreas, and kidneys are unremarkable. No hydronephrosis. No rmal caliber abdominal aorta. No retroperitoneal lymphadenopathy. The main portal vein is patent. The bladder is unremarkable. Small amount of pelvic free fluid. Multiple dilated and fluid-filled loops of proximal to mid small bowel with a local transition point within the right lower quadrant on image 339 consistent with a small bowel obstruction. The ileal loops distal to this transition point are d ecompressed. This transition point is approximately 7 cm proximal to the site of prior small bowel an astomosis. There is mild interloop fluid noted at the distended loops of small bowel. A few prominent mesenteric lymph nodes which may be reactive. The mesenteric vessels appear patent. Prior hysterecto my. Colonic diverticulosis. No evidence for acute diverticulitis. Normal appendix. IMPRESSION: 1. Small bowel obstruction with the transition point within the right lower quadrant a few centimeter s proximal to the prior small bowel anastomosis. 2. Small amount of interloop fluid at the distended loops of small bowel and a small amount of pelvic free fluid which could represent vascular congestion. However, no pneumatosis at this time to sugges t ischemia. 3. Colonic diverticulosis. No evidence for acute diverticulitis. 4. Normal appendix. ACT 112: Negative or not required by law. Electronically signed by: Ezra Urbina M.D. 06/27/2022 8:24 AM
[2022-06-27 08:41] LABS: Troponin I High Sensitivity 5.8 pg/ml (0-14)
[2022-06-27 08:43] LABS: BUN Creatinine Ratio 25.4 (10-20); Calcium 9.1 mg/dl (8.5-10.1); Creatinine Clr Calc Pharmacy 102.7 ml/min; Est GFR (African American) 115.5 ml/min; Est GFR (Non-African American) 99.7 ml/min; Magnesium 2.1 mg/dl (1.7-2.4); Potassium 4.5 mmol/L (3.5-5.1)
[2022-06-27] MEDS: VENLAFAXINE HCL XR 150 MG CAPXR PO SCH (09:03)
[2022-06-27] MEDS: LOSARTAN POTASSIUM 50 MG TAB PO SCH (09:03)
[2022-06-27] MEDS: ENOXAPARIN INJ 40 MG/0.4 ML SYR SQ SCH (09:03)
[2022-06-27] MEDS: FAMOTIDINE 20 MG in SYRINGE 3 ML IV SCH ×2 (09:03→21:31)
--- NOTE | 2022-06-27 09:07 | Gastrointestinal Consultation ---
Date of Consultation June 27, 2022 Assessment & Plan (1) Small bowel obstruction: She has a small bowel obstruction and has a history of Crohn's disease. The lack of inflammation on CT and normal WBC would suggest this is cicatrical obstruction and not active disease. This will be difficult to discern co nsidering location of problems. If she opens up on her own then she and her primary GI will have to decide about getting on medication for Crohn's because typically people who have resection for active disease have a high incidence of recurrence of disease at site of surgery. I discussed this with her and she is more willing to consider medication at this time. I do think we have time to make that decision depending on clinical course. Present on Admission?: Yes History of Present Illness Reason for Consultation: History of Crohn's disease with small bowel obstruction Attending Physician: Shama Salcedo, DO History of Present Illness 56 year old female who had small bowel resection in 2019. At that time she had had a small bowel capsule study and "the capsule got stuck in between lesions". She ended up having surgery for obstruction and she tells me they removed the involved portion of the small intesting "about a foot or a foot and a half". She has had no trouble since then. She made the decision not to take meds for Crohn's as she feels she takes enough medications as it is. She has done well without pain, vomiting or diarrhea up until the day of admission when she developed pain and vomiting. She has had no fever or weight loss. CT on admission shows obstruction proximal to her anastomosis. There is no evidence of inflammation on CT. Allergies Allergy/AdvReac Type Severity Reaction Status Date / Time naproxen Allergy Severe ANAPHYLAXIS- Verified 02/15/19 02:28 THROAT SWELLING, motrin OK diflunisal Allergy Unknown per PCP Verified 06/27/22 06:22 records fexofenadine AdvReac Mild HYPERTENSIO Verified 06/27/22 06:22 N pseudoephedrine AdvReac Mild HYPERTENSIO Verified 06/27/22 06:22 N meperidine AdvReac Unknown HYPOTENSION Verified 06/27/22 06:22 Home Medications Medication Instructions Recorded Confirmed Type albuterol sulfate 90 mcg/actuation 2 puff inhalation QID PRN 11/13/18 06/27/22 History aerosol inhaler (ProAir HFA) Shortness Of Breath Or Wheezing cyanocobalamin (vitamin B-12) 1,000 mcg PO QAM 11/13/18 06/27/22 History 1,000 mcg tablet,extended release (Vitamin B-12 ER) fexofenadine 180 mg tablet 180 mg PO QAM 11/13/18 06/27/22 History (Ayde Allergy) multivitamin with minerals 1 tab PO QAM 11/13/18 06/27/22 History (Multiple Vitamin-Minerals tablet) omeprazole 20 mg tablet,delayed 20 mg PO QAM 11/13/18 06/27/22 History release quetiapine 25 mg tablet 25 - 50 mg PO HS 11/13/18 06/27/22 History tramadol 50 mg tablet 50 mg PO Q6H PRN Pain 11/13/18 06/27/22 History venlafaxine 150 mg tablet,extended 150 mg PO QAM 11/13/18 06/27/22 History release 24 hr dicyclomine 10 mg capsule 10 mg PO TID PRN muscle spasm #60 12/01/18 06/27/22 Rx caps losartan 50 mg tablet 50 mg PO DAILY 06/27/22 06/27/22 History Patient History Medical History Anxiety Asthma Depression Diverticulosis of colon, acquired GERD (gastroesophageal reflux disease) History of small bowel obstruction admissions 2012, 2015, 2018; attributed to adhesions Hypertension Uterine leiomyoma Surgical History H/O laparoscopy History of total knee arthroplasty right knee Family History Mother Breast cancer Coronary heart disease Crohn's disease Hypertension Father Diabetes Bladder cancer Aunt Breast cancer Social History Smoking Status: Current some day smoker Second Hand Exposure: No; Do You Dip or Chew Tobacco: No; Tobacco Cessation Education Requested by Patient: No Hx Alcohol Use: Yes Alcohol type: other Hx Substance Use: No Preferred Language: German Communication Ability: Effective Sorting Grapple Operator Required: No Beliefs That Will Affect Care: None marital status: Single Current Living Situation: Alone Other Information That Helps Us Care for You: No Feels Safe at Home: Yes Assistive Devices: Denture - Upper and Glasses Review of Systems Review of Systems: All systems reviewed & are unremarkable except as noted in HPI & below Physical Exam Constitutional: WD/WN, vitals as above no acute distress Eyes: PERRL, conjunctivae normal, anicteric sclerae ENMT: external ear and nose normal, oropharynx normal Neck: trachea midline, no thyromegaly Respiratory: normal respiratory effort, lungs clear to auscultation Cardiovascular: RRR, no murmur, no edema Gastrointestinal (Abdomen): Percussion/Palpation: + abdomen tender (periumbilical) Musculoskeletal: Extremities: no cyanosis and no clubbing Skin: no rashes, warm and dry Neurologic: PERRL, EOMI, accommodation nl, no face palsy, no dysarthria Psychiatric: Orientation: alert and oriented x 3 Results & Data ([facility]) Vital Signs (Past 12 Hours) Vital Signs Temp Pulse Pulse Resp BP BP Pulse Ox 06/27/22 08:20 36.9 C 70 18 125/76 91 06/27/22 07:38 36.9 C 75 16 145/81 H 93 06/27/22 05:46 37.0 C 77 16 147/90 H 93 06/27/22 04:01 157/92 H 06/27/22 04:01 80 18 95 06/27/22 03:30 151/84 H 06/27/22 02:00 64 16 154/90 H 94 06/27/22 03:00 154/90 H 06/27/22 02:30 170/111 H 06/27/22 02:23 165/97 H 06/27/22 00:41 160/82 H 06/27/22 00:02 86 18 95 06/27/22 00:00 87 14 160/78 H 86 L 06/26/22 23:00 79 16 127/75 98 06/26/22 22:18 86 16 137/84 96 O2 Del Method O2 Flow Rate 06/27/22 08:20 Room Air 06/27/22 07:38 Room Air 06/27/22 05:46 Room Air 06/27/22 04:01 06/27/22 04:01 06/27/22 03:30 06/27/22 02:00 Nasal Cannula 1 06/27/22 03:00 06/27/22 02:30 06/27/22 02:23 06/27/22 00:41 06/27/22 00:02 Nasal Cannula 1 06/27/22 00:00 Room Air 06/26/22 23:00 Room Air 06/26/22 22:18 Room Air Laboratory Results 06/27/22 06/27/22 06/27/22 Range/Units 08:03 08:03 06:20 WBC 9.13 (4.8-10.8) K/ul RBC 3.90 L (3.93-5.22) M/uL Hgb 11.1 L (12.0-16.0) g/dl Hct 34.5 (34.1-44.9) % MCV 88.5 (80.0-100.0) fL MCH 28.5 (25.0-34.0) pg MCHC 32.2 (32.0-36.0) g/dL RDW Std Deviation 46.3 (36.4-46.3) fL RDW Coeff of Willy 14.4 (11.5-14.5) % Plt Count 289 (130-400) K/uL MPV 10.8 (9.4-12.3) fL Immature Gran % (Auto) 0.3 % Neut % (Auto) 78.3 % Lymph % (Auto) 12.4 % [place] % (Auto) 8.2 % Eos % (Auto) 0.4 % Baso % (Auto) 0.4 % Neut # (Auto) 7.14 H (1.4-6.5) K/uL Lymph # (Auto) 1.13 L (1.2-3.4) K/uL [place] # (Auto) 0.75 (0.24-0.82) K/uL Eos # (Auto) 0.04 (0-0.50) K/uL Baso # (Auto) 0.04 (0-0.2) K/uL Immature Gran # (Auto) 0.03 H (0.00-0.02) K/uL Sodium 141 (136-145) mmol/L Potassium 4.5 (3.5-5.1) mmol/L Chloride 107 (98-107) mmol/L Carbon Dioxide 30 (21-32) mmol/L Anion Gap 4 (3-11) BUN 17 (6-23) mg/dl Creatinine 0.67 (0.6-1.2) mg/dl Est Cr Clr Drug Dosing 102.7 ml/min Est GFR ( Amer) 115.5 ml/min Est GFR (Non-Af Amer) 99.7 ml/min BUN/Creatinine Ratio 25.4 H (10-20) Glucose 141 H (70-99(Fasting)) mg/dl Calcium 9.1 (8.5-10.1) mg/dl Magnesium 2.1 (1.7-2.4) mg/dl Total Bilirubin (0.2-1.0) mg/dl AST (13-39) U/L ALT (7-52) U/L Alkaline Phosphatase (34-104) U/L Troponin I High Sens 5.8 (0-14) pg/ml Total Protein (6.0-8.3) gm/dl Albumin (3.4-5.0) gm/dl Globulin (2.5-4.0) gm/dl Albumin/Globulin Ratio (0.9-2) Lipase (11-82) U/L Urine Color Yellow Urine Appearance Clear (Clear) Urine pH 5.0 (4.5-7.5) Ur Specific Luther > 1.045 H (1.000-1.030) Urine Protein Negative (Negative) Urine Glucose (UA) Negative (Negative) Urine Ketones Trace H (Negative) Urine Blood Negative (Negative) Urine Nitrite Negative (Negative) Urine Bilirubin Negative (Negative) Urine Urobilinogen Negative (Negative) Ur Leukocyte Esterase Negative (Negative) SARS-CoV-2, RNA, NAAT (NEGATIVE) 06/27/22 06/27/22 06/26/22 Range/Units 03:29 01:24 21:04 WBC (4.8-10.8) K/ul RBC (3.93-5.22) M/uL Hgb (12.0-16.0) g/dl Hct (34.1-44.9) % MCV (80.0-100.0) fL MCH (25.0-34.0) pg MCHC (32.0-36.0) g/dL RDW Std Deviation (36.4-46.3) fL RDW Coeff of Willy (11.5-14.5) % Plt Count (130-400) K/uL MPV (9.4-12.3) fL Immature Gran % (Auto) % Neut % (Auto) % Lymph % (Auto) % [place] % (Auto) % Eos % (Auto) % Baso % (Auto) % Neut # (Auto) (1.4-6.5) K/uL Lymph # (Auto) (1.2-3.4) K/uL [place] # (Auto) (0.24-0.82) K/uL Eos # (Auto) (0-0.50) K/uL Baso # (Auto) (0-0.2) K/uL Immature Gran # (Auto) (0.00-0.02) K/uL Sodium 142 (136-145) mmol/L Potassium 4.0 (3.5-5.1) mmol/L Chloride 104 (98-107) mmol/L Carbon Dioxide 29 (21-32) mmol/L Anion Gap 9 (3-11) BUN 19 (6-23) mg/dl Creatinine 0.68 (0.6-1.2) mg/dl Est Cr Clr Drug Dosing 100.4 ml/min Est GFR ( Amer) 114.9 ml/min Est GFR (Non-Af Amer) 99.2 ml/min BUN/Creatinine Ratio 27.9 H (10-20) Glucose 101 H (70-99(Fasting)) mg/dl Calcium 10.0 (8.5-10.1) mg/dl Magnesium (1.7-2.4) mg/dl Total Bilirubin 0.3 (0.2-1.0) mg/dl AST 13 (13-39) U/L ALT 12 (7-52) U/L Alkaline Phosphatase 88 (34-104) U/L Troponin I High Sens 5.8 (0-14) pg/ml Total Protein 7.7 (6.0-8.3) gm/dl Albumin 4.8 (3.4-5.0) gm/dl Globulin 2.9 (2.5-4.0) gm/dl Albumin/Globulin Ratio 1.7 (0.9-2) Lipase 11 (11-82) U/L Urine Color Urine Appearance (Clear) Urine pH (4.5-7.5) Ur Specific Luther (1.000-1.030) Urine Protein (Negative) Urine Glucose (UA) (Negative) Urine Ketones (Negative) Urine Blood (Negative) Urine Nitrite (Negative) Urine Bilirubin (Negative) Urine Urobilinogen (Negative) Ur Leukocyte Esterase (Negative) SARS-CoV-2, RNA, NAAT NEGATIVE (NEGATIVE) 06/26/22 Range/Units 21:04 WBC 8.96 (4.8-10.8) K/ul RBC 4.32 (3.93-5.22) M/uL Hgb 12.6 (12.0-16.0) g/dl Hct 37.5 (34.1-44.9) % MCV 86.8 (80.0-100.0) fL MCH 29.2 (25.0-34.0) pg MCHC 33.6 (32.0-36.0) g/dL RDW Std Deviation 45.4 (36.4-46.3) fL RDW Coeff of Willy 14.3 (11.5-14.5) % Plt Count 327 (130-400) K/uL MPV 11.5 (9.4-12.3) fL Immature Gran % (Auto) 0.3 % Neut % (Auto) 77.6 % Lymph % (Auto) 14.4 % [place] % (Auto) 6.1 % Eos % (Auto) 1.0 % Baso % (Auto) 0.6 % Neut # (Auto) 6.95 H (1.4-6.5) K/uL Lymph # (Auto) 1.29 (1.2-3.4) K/uL [place] # (Auto) 0.55 (0.24-0.82) K/uL Eos # (Auto) 0.09 (0-0.50) K/uL Baso # (Auto) 0.05 (0-0.2) K/uL Immature Gran # (Auto) 0.03 H (0.00-0.02) K/uL Sodium (136-145) mmol/L Potassium (3.5-5.1) mmol/L Chloride (98-107) mmol/L Carbon Dioxide (21-32) mmol/L Anion Gap (3-11) BUN (6-23) mg/dl Creatinine (0.6-1.2) mg/dl Est Cr Clr Drug Dosing ml/min Est GFR ( Amer) ml/min Est GFR (Non-Af Amer) ml/min BUN/Creatinine Ratio (10-20) Glucose (70-99(Fasting)) mg/dl Calcium (8.5-10.1) mg/dl Magnesium (1.7-2.4) mg/dl Total Bilirubin (0.2-1.0) mg/dl AST (13-39) U/L ALT (7-52) U/L Alkaline Phosphatase (34-104) U/L Troponin I High Sens (0-14) pg/ml Total Protein (6.0-8.3) gm/dl Albumin (3.4-5.0) gm/dl Globulin (2.5-4.0) gm/dl Albumin/Globulin Ratio (0.9-2) Lipase (11-82) U/L Urine Color Urine Appearance (Clear) Urine pH (4.5-7.5) Ur Specific Luther (1.000-1.030) Urine Protein (Negative) Urine Glucose (UA) (Negative) Urine Ketones (Negative) Urine Blood (Negative) Urine Nitrite (Negative) Urine Bilirubin (Negative) Urine Urobilinogen (Negative) Ur Leukocyte Esterase (Negative) SARS-CoV-2, RNA, NAAT (NEGATIVE) Diagnostic Findings Abdomen/Pelvis CT 06/26/22 23:[address] WITH IV CONTRAST CT DOSE: 493.72 mGy.cm HISTORY: Diffuse abdominal pain. Nausea. eval for bowel obstruction TECHNIQUE: Multiaxial CT images of the abdomen and pelvis were performed following the use of intravenous contrast. A dose lowering technique was utilized adhering to the principles of ALARA. COMPARISON STUDY: Abdomen and pelvis CT 02/15/2019. FINDINGS: There are mild dependent changes seen at the lung bases. The heart remains mildly enlarged. No pneumoperitoneum. No pneumatosis. No fractures within the visualized osseous structures. The liver, gallbladder, spleen, adrenal glands, pancreas, and kidneys are unremarkable. No hydronephrosis. Normal caliber abdominal aorta. No retroperitoneal lymphadenopathy. The main portal vein is patent. The bladder is unremarkable. Small amount of pelvic free fluid. Multiple dilated and fluid-filled loops of proximal to mid small bowel with a local transition point within the right lower quadrant on image 339 consistent with a small bowel obstruction. The ileal loops distal to this transition point are decompressed. This transition point is approximately 7 cm proximal to the site of prior small bowel anastomosis. There is mild interloop fluid noted at the distended loops of small bowel. A few prominent mesenteric lymph nodes which may be reactive. The mesenteric vessels appear patent. Prior h ysterectomy. Colonic diverticulosis. No evidence for acute diverticulitis. Normal appendix. IMPRESSION: 1. Small bowel obstruction with the transition point within the right lower quadrant a few centimeters proximal to the prior small bowel anastomosis. 2. Small amount of interloop fluid at the distended loops of small bowel and a small amount of pelvic free fluid which could represent vascular congestion. However, no pneumatosis at this time to suggest ischemia. 3. Colonic diverticulosis. No evidence for acute diverticulitis. 4. Normal appendix. ACT 112: Negative or not required by law. Electronically signed by: Ezra Urbina M.D. 06/27/2022 8:24 AM
--- NOTE | 2022-06-27 10:57 | Surgery Consultation ---
Date of Consultation June 27, 2022 Assessment & Plan (1) Small bowel obstruction: pt is a 56 year-old female who was admitted to hospital for SBO with Crohn's disease, partial small bowel resection in 2019, IMP: SBO, Plan, no emergent surgery indication now, I agree with GI consult for recommend that conservative treatment now, try avoid surgery if we can, base on higher recurrent rate after surgery treatment, will F/U, pt agrees with the plan, I answered all questions, History of Present Illness Reason for Consultation: SBO Requesting Physician: Christophe Ken MD Attending Physician: Shama Salcedo, History of Present Illness CHIEF COMPLAINT: Abdominal pain. HISTORY OF PRESENT ILLNESS: This is a 56-year-old female with past medical history significant for hypertension, GERD, depression, history of HSV-1 infection, history of microcytic anemia, depression, history of Crohn's colitis, history of bowel obstructions in the past, GERD, who presents with abdominal pain. The patient says that she started to develop abdominal pain around 4:00 p.m. and had several episodes of vomiting. Pain is severe in the middle of the abdomen. No radiation. Feeling chills. Last bowel movement was yesterday. Normal bladder movements. She complains of some chest discomfort and attributes it from her vomiting. No shortness of breath, no headache, no blurred visions, no earache, no runny nose, no sore throat, no cough, no fevers currently. Still has a lot of pain, asking for pain medications and nauseous. Has history of bowel obstruction in the past, but in 2019 she was transferred to [place] as imaging studies showed multiple ulcers and stricture.. At [place], she underwent resection of the 50-60 cm ileum, with stenosis and skip areas consistent with Crohn's disease grossly and microscopically. After that, she was asymptomatic and GI discussed about biologics, but she preferred watchful waiting .She also had colonoscopy after that and it was unremarkable. This is the first time since then presenting with bowel obstruction. I ( Gaby Wan MD ) got a call for consult SBO, I reviewed pt's H/P, labs CT scan with pt, less abdominal pain compare last night, not pass gas or BM yet, no fever, NG tube 100ml, yellow color, ALLERGIES: NAPROXEN, DIFLUNISAL, FEXOFENADINE, PSEUDOEPHEDRINE, MEPERIDINE. PAST MEDICAL HISTORY: As mentioned above. PAST SURGICAL HISTORY: Right total knee arthroplasty, colonoscopies, multiple EGD, exploratory laparotomy, arthrotomy of left knee surgery, partial hysterectomy, small bowel resection, nasal septum repair, video capsule endoscopy. MEDICATIONS: As per [facility], the patient is on venlafaxine 150 mg p.o. daily, Seroquel 25 mg p.o. at bedtime, tramadol 50 mg p.o. q. 6 hours p.r.n. pain, omeprazole 20 mg p.o. daily, losartan 50 mg p.o. daily, fexofenadine 180 mg p.o. daily p.r.n., albuterol 2 puffs inhalation p.r.n., Bentyl 10 mg p.o. p.r.n. FAMILY HISTORY: Significant for maternal aunt has breast cancer with bone mets; mother has breast cancer, has Crohn's disease and heart attack at 64, and hypertension; father had cancer. SOCIAL HISTORY: . As per Epic, former smoker. Social drinking of alcohol, no drug use. REVIEW OF SYSTEMS: As per HPI. Rest of the review of systems is negative. Allergies Allergy/AdvReac Type Severity Reaction Status Date / Time naproxen Allergy Severe ANAPHYLAXIS- Verified 02/15/19 02:28 THROAT SWELLING, motrin OK diflunisal Allergy Unknown per PCP Verified 06/27/22 06:22 records fexofenadine AdvReac Mild HYPERTENSIO Verified 06/27/22 06:22 N pseudoephedrine AdvReac Mild HYPERTENSIO Verified 06/27/22 06:22 N meperidine AdvReac Unknown HYPOTENSION Verified 06/27/22 06:22 Home Medications Medication Instructions Recorded Confirmed Type albuterol sulfate 90 mcg/actuation 2 puff inhalation QID PRN 11/13/18 06/27/22 History aerosol inhaler (ProAir HFA) Shortness Of Breath Or Wheezing cyanocobalamin (vitamin B-12) 1,000 mcg PO QAM 11/13/18 06/27/22 History 1,000 mcg tablet,extended release (Vitamin B-12 ER) fexofenadine 180 mg tablet 180 mg PO QAM 11/13/18 06/27/22 History (Ayde Allergy) multivitamin with minerals 1 tab PO QAM 11/13/18 06/27/22 History (Multiple Vitamin-Minerals tablet) omeprazole 20 mg tablet,delayed 20 mg PO QAM 11/13/18 06/27/22 History release quetiapine 25 mg tablet 25 - 50 mg PO HS 11/13/18 06/27/22 History tramadol 50 mg tablet 50 mg PO Q6H PRN Pain 11/13/18 06/27/22 History venlafaxine 150 mg tablet,extended 150 mg PO QAM 11/13/18 06/27/22 History release 24 hr dicyclomine 10 mg capsule 10 mg PO TID PRN muscle spasm #60 12/01/18 06/27/22 Rx caps losartan 50 mg tablet 50 mg PO DAILY 06/27/22 06/27/22 History Patient History Medical History Anxiety Asthma Depression Diverticulosis of colon, acquired GERD (gastroesophageal reflux disease) History of small bowel obstruction admissions 2012, 2015, 2017; attributed to adhesions Hypertension Uterine leiomyoma Surgical History H/O laparoscopy History of total knee arthroplasty right knee Family History Mother Breast cancer Coronary heart disease Crohn's disease Hypertension Father Diabetes Bladder cancer Aunt Breast cancer Social History Smoking Status: Current some day smoker Second Hand Exposure: No; Do You Dip or Chew Tobacco: No; Tobacco Cessation Education Requested by Patient: No Hx Alcohol Use: Yes Alcohol type: other Hx Substance Use: No Preferred Language: Welsh Communication Ability: Effective Zoning Assistant Required: No Beliefs That Will Affect Care: None marital status: Single Current Living Situation: Alone Other Information That Helps Us Care for You: No Feels Safe at Home: Yes Assistive Devices: Denture - Upper and Glasses Physical Exam Constitutional: WD/WN, vitals as above no distress Eyes: PERRL, conjunctivae normal, anicteric sclerae Neck: trachea midline, no thyromegaly Respiratory: normal respiratory effort, lungs clear to auscultation Cardiovascular: RRR, no murmur, no edema Gastrointestinal (Abdomen): soft, middle line scar, no significant tenderness at abdomen, no distend, BS -, Musculoskeletal: no cyanosis or clubbing, extremities motor strength 5/5 Neurologic: patellar DTR's 2+ bilat, sensation intact Psychiatric: A+Ox3, euthymic affect Results & Data ([facility]) Vital Signs (Past 12 Hours) Vital Signs Temp Pulse Pulse Resp BP BP Pulse Ox 06/27/22 08:20 36.9 C 70 18 125/76 91 06/27/22 07:38 36.9 C 75 16 145/81 H 93 06/27/22 05:46 37.0 C 77 16 147/90 H 93 06/27/22 04:01 157/92 H 06/27/22 04:01 80 18 95 06/27/22 03:30 151/84 H 06/27/22 02:00 64 16 154/90 H 94 06/27/22 03:00 154/90 H 06/27/22 02:30 170/111 H 06/27/22 02:23 165/97 H 06/27/22 00:41 160/82 H 06/27/22 00:02 86 18 95 06/27/22 00:00 87 14 160/78 H 86 L 06/26/22 23:00 79 16 127/75 98 O2 Del Method O2 Flow Rate 06/27/22 08:20 Room Air 06/27/22 07:38 Room Air 06/27/22 05:46 Room Air 06/27/22 04:01 06/27/22 04:01 06/27/22 03:30 06/27/22 02:00 Nasal Cannula 1 06/27/22 03:00 06/27/22 02:30 06/27/22 02:23 06/27/22 00:41 06/27/22 00:02 Nasal Cannula 1 06/27/22 00:00 Room Air 06/26/22 23:00 Room Air Laboratory Results Abnormal lab results 06/26/22 06/26/22 06/27/22 Range/Units 21:04 21:04 06:20 RBC (3.93-5.22) M/uL Hgb (12.0-16.0) g/dl Neut # (Auto) 6.95 H (1.4-6.5) K/uL Lymph # (Auto) (1.2-3.4) K/uL Immature Gran # (Auto) 0.03 H (0.00-0.02) K/uL BUN/Creatinine Ratio 27.9 H (10-20) Glucose 101 H (70-99(Fasting)) mg/dl Ur Specific Levasy > 1.045 H (1.000-1.030) Urine Ketones Trace H (Negative) 06/27/22 06/27/22 Range/Units 08:03 08:03 RBC 3.90 L (3.93-5.22) M/uL Hgb 11.1 L (12.0-16.0) g/dl Neut # (Auto) 7.14 H (1.4-6.5) K/uL Lymph # (Auto) 1.13 L (1.2-3.4) K/uL Immature Gran # (Auto) 0.03 H (0.00-0.02) K/uL BUN/Creatinine Ratio 25.4 H (10-20) Glucose 141 H (70-99(Fasting)) mg/dl Ur Specific Levasy (1.000-1.030) Urine Ketones (Negative) Diagnostic Findings ABDOMEN AND PELVIS CT WITH IV CONTRAST CT DOSE: 493.72 mGy.cm HISTORY: Diffuse abdominal pain. Nausea. eval for bowel obstruction TECHNIQUE: Multiaxial CT images of the abdomen and pelvis were performed following the use of intravenous contrast. A dose lowering technique was utilized adhering to the principles of ALARA. COMPARISON STUDY: Abdomen and pelvis CT 02/15/2019. FINDINGS: There are mild dependent changes seen at the lung bases. The heart remains mildly enlarged. No pneumoperitoneum. No pneumatosis. No fractures within the visualized osseous structures. The liver, gallbladder, spleen, adrenal glands, pancreas, and kidneys are unremarkable. No hydronephrosis. N ormal caliber abdominal aorta. No retroperitoneal lymphadenopathy. The main portal vein is patent. The bladder is unremarkable. Small amount of pelvic free fluid. Multiple dilated and fluid-filled loops of proximal to mid small bowel with a local transition point within the right lower quadrant on image 339 consistent with a small bowel obstruction. The ileal loops distal to this transition point are decompressed. This transition point is approximately 7 cm proximal to the site of prior small bowel anastomosis. There is mild interloop fluid noted at the distended loops of small bowel. A few prominent mesenteric lymph nodes which may be reactive. The mesenteric vessels appear patent. Prior hysterectomy. Colonic diverticulosis. No evidence for acute diverticulitis. Normal appendix. IMPRESSION: 1. Small bowel obstruction with the transition point within the right lower quadrant a few centimeters proximal to the prior small bowel anastomosis. 2. Small amount of interloop fluid at the distended loops of small bowel and a small amount of pelvic free fluid which could represent vascular congestion. However, no pneumatosis at this time to suggest ischemia. 3. Colonic diverticulosis. No evidence for acute diverticulitis. 4. Normal appendix. ACT 112: Negative or not required by law.
--- NOTE | 2022-06-27 11:07 | Hospitalist Progress Note ---
Date of Service June 27, 2022 Assessment & Plan (1) Small bowel obstruction: Plan: Transition point appears to be at the site of anastomosis from prior surgery. Patient has never been on any medical therapy for Crohn's disease. Per GI this should be discussed with her primary GI physician as there is a high likelihood of active recurrence of Crohn's at the site of prior surgeries. We will emphasize this with her at discharge. For now continue NG tube with supportive care. Appreciate surgery following along in case of need for surgical intervention. For now abdomen is soft and nontender. Minimal output from upper GI overnight. (2) Crohn disease: Plan: Chronic, currently in remission. No evidence of active disease with current clinical picture. Plan as above. (3) Chest pain: Plan: Atypical chest pain this morning likely related to referred discomfort from current GI issues. She denies any severity, EKG reflects no evidence of active ischemia. Patient has no associated symptoms and no history of CAD. She is an active smoker which gives her increased risk for CAD, however doubt ACS in this picture. Will monitor closely. If this persists we will transfer her to telemetry and monitor closely there. (4) Depression: Plan: Chronic, stable, continue venlafaxine and Seroquel. (5) Smoking: Plan: Encouraged smoking cessation which will increase overall health and decrease likelihood of complications especially with Crohn's disease. (6) DVT prophylaxis: Plan: Lovenox Full code Disposition-to home when tolerating solid food. [facility] Hospitalist Admission and Anticipated Discharge Date Admission Date: June 27, 2022 Subjective 56-year-old Crohn's patient status post partial small bowel removal years ago presents with small bowel obstruction. She reports no abdominal pain but is having a dull left-sided anterior chest pain this morning that is new. She reports that this is not severe and there is no associated symptoms of shortness of breath nausea or other issues. EKG reveals normal sinus rhythm with no ST changes indicative of acute ischemia. She has had excessive vomiting overnight prior to having the NG tube placed which is still in place now. Normal bowel movement yesterday reported prior to onset of symptoms She has otherwise been feeling well with no fevers or chills up until this point. Still denies. Review of Systems Review of Systems: All systems were reviewed and negative except as indicated in subjective above. Physical Exam Physical Exam: CONSTITUTIONAL: WNWD, vitals as above, generally well- appearing, NAD EYES: normal conjunctivae, no scleral icterus ENT: external ear and nose normal, MMM, +NG tube NECK: trachea midline RESPIRATORY: clear to auscultation bilaterally, no crackles, rales or wheezes, normal respiratory effort CARDIOVASCULAR: regular rate and rhythm, S1 and 2 heard without murmurs, gallops or rubs, no JVD, no peripheral edema CHEST: inspection of chest was normal GASTROINTESTINAL: soft, nontender, ND, no guarding MUSCULOSKELETAL: strength 5/5 throughout, head is normocephalic and atraumatic, neck supple, normal palpation of chest wall without tenderness SKIN: warm and dry, no rashes NEUROLOGIC: CN 2-12 grossly intact, no sensory deficit, normal cognition, normal speech, no tremor PSYCHIATRIC: alert cooperative and oriented to person, place and time. Euthymic mood, makes good eye contact, language grossly intact, recent and remote memory grossly intact. Results & Data Results & Data ([facility]) Vital Signs (Past 12 Hours) Vital Signs Temp Pulse Pulse Resp BP BP Pulse Ox 06/27/22 08:20 36.9 C 70 18 125/76 91 06/27/22 07:38 36.9 C 75 16 145/81 H 93 06/27/22 05:46 37.0 C 77 16 147/90 H 93 06/27/22 04:01 157/92 H 06/27/22 04:01 80 18 95 06/27/22 03:30 151/84 H 06/27/22 02:00 64 16 154/90 H 94 06/27/22 03:00 154/90 H 06/27/22 02:30 170/111 H 06/27/22 02:23 165/97 H 06/27/22 00:41 160/82 H 06/27/22 00:02 86 18 95 06/27/22 00:00 87 14 160/78 H 86 L O2 Del Method O2 Flow Rate 06/27/22 08:20 Room Air 06/27/22 07:38 Room Air 06/27/22 05:46 Room Air 06/27/22 04:01 06/27/22 04:01 06/27/22 03:30 06/27/22 02:00 Nasal Cannula 1 06/27/22 03:00 06/27/22 02:30 06/27/22 02:23 06/27/22 00:41 06/27/22 00:02 Nasal Cannula 1 06/27/22 00:00 Room Air Laboratory Results Short CBC 06/26/22 06/27/22 Range/Units 21:04 08:03 WBC 8.96 9.13 (4.8-10.8) K/ul Hgb 12.6 11.1 L (12.0-16.0) g/dl Hct 37.5 34.5 (34.1-44.9) % Plt Count 327 289 (130-400) K/uL BMP 06/26/22 06/27/22 21:04 08:03 Sodium 142 141 Potassium 4.0 4.5 Chloride 104 107 Carbon Dioxide 29 30 BUN 19 17 Creatinine 0.68 0.67 Glucose 101 H 141 H Calcium 10.0 9.1 Liver Function 06/26/22 Range/Units 21:04 Total Bilirubin 0.3 (0.2-1.0) mg/dl AST 13 (13-39) U/L ALT 12 (7-52) U/L Alkaline Phosphatase 88 (34-104) U/L Albumin 4.8 (3.4-5.0) gm/dl Urine 06/27/22 Range/Units 06:20 Urine Color Yellow Urine Appearance Clear (Clear) Urine pH 5.0 (4.5-7.5) Ur Specific [place] > 1.045 H (1.000-1.030) Urine Protein Negative (Negative) Urine Glucose (UA) Negative (Negative) Diagnostic Findings Abdomen/Pelvis CT 06/26/22 23:[address] WITH IV CONTRAST CT DOSE: 493.72 mGy.cm HISTORY: Diffuse abdominal pain. Nausea. eval for bowel obstruction TECHNIQUE: Multiaxial CT images of the abdomen and pelvis were performed following the use of intravenous contrast. A dose lowering technique was utilized adhering to the principles of ALARA. COMPARISON STUDY: Abdomen and pelvis CT 02/15/2019. FINDINGS: There are mild dependent changes seen at the lung bases. The heart remains mildly enlarged. No pneumoperitoneum. No pneumatosis. No fractures within the visualized osseous structures. The liver, gallbladder, spleen, adrenal glands, pancreas, and kidneys are unremarkable. No hydronephrosis. Normal caliber abdominal aorta. No retroperitoneal lymphadenopathy. The main portal vein is patent. The bladder is unremarkable. Small amount of pelvic free fluid. Multiple dilated and fluid-filled loops of proximal to mid small bowel with a local transition point within the right lower quadrant on image 339 consistent with a small bowel obstruction. The ileal loops distal to this transition point are decompressed. This transition point is approximately 7 cm proximal to the site of prior small bowel anastomosis. There is mild interloop fluid noted at the distended loops of small bowel. A few prominent mesenteric lymph nodes which may be reactive. The mesenteric vessels appear patent. Prior hysterectomy. Colonic diverticulosis. No evidence for acute diverticulitis. Normal appendix. IMPRESSION: 1. Small bowel obstruction with the transition point within the right lower quadrant a few centimeters proximal to the prior small bowel anastomosis. 2. Small amount of interloop fluid at the distended loops of small bowel and a small amount of pelvic free fluid which could represent vascular congestion. However, no pneumatosis at this time to suggest ischemia. 3. Colonic diverticulosis. No evidence for acute diverticulitis. 4. Normal appendix. ACT 112: Negative or not required by law. Electronically signed by: Ezra Urbina M.D. 06/27/2022 8:24 AM Medications Administered Current Inpatient Medications Acetaminophen (Acetaminophen 1000 Mg/100 Ml Iv) 1,000 mg IV TID PRN PRN Reason: PAIN OR FEVER Stop: 06/30/22 06:10 Albuterol (Albuterol Hfa 8 Gm Inhaler) 2 puffs INH QID PRN PRN Reason: Shortness Of Breath Or Wheezin Stop: 07/27/22 06:01 Dicyclomine HCl (Dicyclomine Hcl 10 Mg Cap) 10 mg PO TID PRN PRN Reason: muscle spasm Stop: 07/27/22 06:01 Enoxaparin Sodium (Enoxaparin Inj 40 Mg/0.4 Ml Syr) 40 mg SQ Q24H BORIS Stop: 07/27/22 08:59 Last Admin: 06/27/22 09:03 Dose: 40 mg Fexofenadine HCl (Fexofenadine Hcl 180 Mg Tab) 180 mg PO QAM PRN PRN Reason: Allergy Symptoms Stop: 07/27/22 06:01 Hydromorphone HCl (Hydromorphone Inj 0.5 Mg/0.5 Ml Syr) 0.5 mg IV Q3H PRN PRN Reason: Pain Stop: 07/11/22 06:01 Last Admin: 06/27/22 06:44 Dose: 0.5 mg Dextrose/Sodium Chloride (D5w And 1/2nss) 1,000 mls @ 125 mls/hr IV .Q8H BORIS Stop: 07/27/22 06:01 Last Admin: 06/27/22 06:11 Dose: 125 mls/hr Famotidine 20 mg/ Syringe 5 mls @ 2.5 mls/min IV BID BORIS Stop: 07/27/22 08:59 Last Admin: 06/27/22 09:03 Dose: 2.5 mls/min Losartan Potassium (Losartan Potassium 50 Mg Tab) 50 mg PO DAILY BORIS Stop: 07/27/22 08:59 Last Admin: 06/27/22 09:03 Dose: 50 mg Ondansetron HCl (Ondansetron Inj 2 Mg/Ml 2 Ml Vial) 4 mg IV Q6H PRN PRN Reason: Nausea Stop: 07/27/22 06:01 Quetiapine Fumarate (Quetiapine Fumarate 25 Mg Tablet) 25 mg PO HS BORIS Stop: 07/27/22 20:59 Venlafaxine HCl (Venlafaxine Hcl Xr 150 Mg Capxr) 150 mg PO QAM BORIS Stop: 07/27/22 08:59 Last Admin: 06/27/22 09:03 Dose: 150 mg
--- NOTE | 2022-06-27 14:46 | Electrocardiogram Report ---
Test Reason : Blood Pressure : / mmHG Vent. Rate : 070 BPM Atrial Rate : 070 BPM P-R Int : 120 ms QRS Dur : 084 ms QT Int : 364 ms P-R-T Axes : 050 010 081 degrees QTc Int : 393 ms Normal sinus rhythm Diffuse Minor Nonspecific T wave abnormality Abnormal ECG When compared with ECG of 15-NOV-2018 06:43, No significant change was found Confirmed by Feliciano Glass ([id number]) on 06/27/2022 2:46:20 PM Referred By: REFERRED SELF Confirmed By:Feliciano Glass
[2022-06-27] MEDS: QUEtiapine FUMARATE 25 MG TABLET PO SCH (21:24)
[2022-06-27] MEDS: ACETAMINOPHEN 1000 MG/100 ML IV IV PRN (21:32)
[2022-06-28] MEDS: D5W AND 1/2NSS 1,000 ML IV SCH ×4 (05:47→23:57)
[2022-06-28 07:22] LABS: Hematocrit (blood only) 33.4 % (34.1-44.9); Hemoglobin 10.8 g/dl (12.0-16.0); Mean Corpuscular Hemoglobin 28.3 pg (25.0-34.0); Mean Corpuscular Hgb Conc 32.3 g/dL (32.0-36.0); Mean Corpuscular Volume 87.7 fL (80.0-100.0); Mean Platelet Volume 11.2 fL (9.4-12.3); Platelet Count 260 K/uL (130-400); RDW Coefficient of Variation 14.2 % (11.5-14.5); RDW Standard Deviation 44.9 fL (36.4-46.3); Red Blood Count 3.81 M/uL (3.93-5.22); White Blood Count 4.16 K/ul (4.8-10.8)
[2022-06-28 07:45] LABS: BUN Creatinine Ratio 13.1 (10-20); Calcium 8.6 mg/dl (8.5-10.1); Creatinine Clr Calc Pharmacy 112.8 ml/min; Est GFR (African American) 119.1 ml/min; Est GFR (Non-African American) 102.8 ml/min; Magnesium 1.9 mg/dl (1.7-2.4)
[2022-06-28] MEDS: LOSARTAN POTASSIUM 50 MG TAB PO SCH (09:23)
[2022-06-28] MEDS: ENOXAPARIN INJ 40 MG/0.4 ML SYR SQ SCH (09:23)
[2022-06-28] MEDS: FAMOTIDINE 20 MG in SYRINGE 3 ML IV SCH ×2 (09:23→20:10)
[2022-06-28] MEDS: VENLAFAXINE HCL XR 150 MG CAPXR PO SCH (09:23)
--- NOTE | 2022-06-28 09:49 | XRay Report ---
KUB HISTORY: Acute generalized abdominal pain eval SBO COMPARISON: CT 06/26/2022 FINDINGS: Distal tip of enteric tube and side-port project over the gastric body. There is persistent mild small bowel distention, better appreciated on the CT study. Small bowel loops measure up to eric roximately 3 cm. Mild to moderate colonic fecal retention. No renal calculi. No ureteral calculi. No pneumoperitoneum or pneumatosis. No fracture. IMPRESSION: 1. Status post placement of an enteric tube distal tip projected over the gastric body. 2. Persistent mild small bowel distention likely secondary to ongoing small bowel obstruction, better appreciated on the comparison CT exam. ACT 112: Negative or not required by law. The above report was generated using voice recognition software. It may contain grammatical, syntax o r spelling errors. Electronically signed by: Darrion Walden M.D. 06/28/2022 9:47 AM
--- NOTE | 2022-06-28 10:43 | Gastroenterology Progress Note ---
Date of Service June 28, 2022 Assessment & Plan (1) SBO (small bowel obstruction): Plan: Obstruction improving with passing of flatus but XRay shows continued distension. Would continue with NG for now Admission and Anticipated Discharge Date Admission Date: June 27, 2022 Subjective Feeling better. NG tube still in place. KUB shows continued small bowel distension. She reports passing a little gas. Physical Exam Constitutional: WD/WN, vitals as above Results & Data ([facility]) Vital Signs (Past 12 Hours) Vital Signs Temp Pulse Resp BP Pulse Ox O2 Del Method 06/28/22 07:34 37.1 C 63 16 146/84 H 96 Room Air Diagnostic Findings Abdomen/Pelvis CT 06/26/22 23:[address] WITH IV CONTRAST CT DOSE: 493.72 mGy.cm HISTORY: Diffuse abdominal pain. Nausea. eval for bowel obstruction TECHNIQUE: Multiaxial CT images of the abdomen and pelvis were performed following the use of intravenous contrast. A dose lowering technique was utilized adhering to the principles of ALARA. COMPARISON STUDY: Abdomen and pelvis CT 02/15/2019. FINDINGS: There are mild dependent changes seen at the lung bases. The heart remains mildly enlarged. No pneumoperitoneum. No pneumatosis. No fractures within the visualized osseous structures. The liver, gallbladder, spleen, adrenal glands, pancreas, and kidneys are unremarkable. No hydronephrosis. Normal caliber abdominal aorta. No retroperitoneal lymphadenopathy. The main portal vein is patent. The bladder is unremarkable. Small amount of pelvic free fluid. Multiple dilated and fluid-filled loops of proximal to mid small bowel with a local transition point within the right lower quadrant on image 339 consistent with a small bowel obstruction. The ileal loops distal to this transition point are decompressed. This transition point is approximately 7 cm proximal to the site of prior small bowel anastomosis. There is mild interloop fluid noted at the distended loops of small bowel. A few prominent mesenteric lymph nodes which may be reactive. The mesenteric vessels appear patent. Prior hysterectomy. Colonic diverticulosis. No evidence for acute diverticulitis. Normal appendix. IMPRESSION: 1. Small bowel obstruction with the transition point within the right lower quadrant a few centimeters proximal to the prior small bowel anastomosis. 2. Small amount of interloop fluid at the distended loops of small bowel and a small amount of pelvic free fluid which could represent vascular congestion. However, no pneumatosis at this time to suggest ischemia. 3. Colonic diverticulosis. No evidence for acute diverticulitis. 4. Normal appendix. ACT 112: Negative or not required by law. Electronically signed by: Ezra Urbina M.D. 06/27/2022 8:24 AM KUB X-Ray 06/28/22 07:58 KUB HISTORY: Acute generalized abdominal pain eval SBO COMPARISON: CT 06/26/2022 FINDINGS: Distal tip of enteric tube and side-port project over the gastric body. There is persistent mild small bowel distention, better appreciated on the CT study. Small bowel loops measure up to approximately 3 cm. Mild to moderate colonic fecal retention. No renal calculi. No ureteral calculi. No pneumoperitoneum or pneumatosis. No fracture. IMPRESSION: 1. Status post placement of an enteric tube distal tip projected over the gastric body. 2. Persistent mild small bowel distention likely secondary to ongoing small bowel obstruction, better appreciated on the comparison CT exam. ACT 112: Negative or not required by law. The above report was generated using voice recognition software. It may contain grammatical, syntax or spelling errors. Electronically signed by: Darrion Walden M.D. 06/28/2022 9:47 AM
--- NOTE | 2022-06-28 11:45 | Hospitalist Progress Note ---
Date of Service June 28, 2022 Assessment & Plan (1) Small bowel obstruction: Plan: Transition point appears to be at the site of anastomosis from prior surgery. Patient has never been on any medical therapy for Crohn's disease. Per GI this should be discussed with her primary GI physician as there is a high likelihood of active recurrence of Crohn's at the site of prior surgeries. Per GI, continue NG tube with supportive care. Appreciate surgery following along in case of need for surgical intervention. For now abdomen is soft and nontender. She is passing gas-hypoactive bowel sounds on exam. (2) Crohn disease: Plan: Chronic, currently in remission. No evidence of active disease with current clinical picture. Plan as above. (3) Chest pain: Plan: resolved yesterday and has not returned. No further workup needed. (4) Depression: Plan: Chronic, stable, continue venlafaxine and Seroquel. (5) Smoking: Plan: Encouraged smoking cessation which will increase overall health and decrease likelihood of complications especially with Crohn's disease. (6) DVT prophylaxis: Plan: Lovenox Full code Disposition-to home when tolerating solid food[facility] Dis[facility] Date Admission Date: June 27, 2022 Subjective Feeling better. NG tube still in place. KUB shows continued small bowel distension. She reports passing a little gas. No throat pain and doing well. Review of Systems Review of Systems: All systems were reviewed and negative except as indicated in subjective above. Physical Exam Physical Exam: CONSTITUTIONAL: WNWD, vitals as above, generally well- appearing, NAD EYES: normal conjunctivae, no scleral icterus ENT: external ear and nose normal, MMM, +NG tube NECK: trachea midline RESPIRATORY: clear to auscultation bilaterally, no crackles, rales or wheezes, normal respiratory effort CARDIOVASCULAR: regular rate and rhythm, S1 and 2 heard without murmurs, gallops or rubs, no JVD, no peripheral edema CHEST: inspection of chest was normal GASTROINTESTINAL: soft, nontender, ND, no guarding. hypoactive BS MUSCULOSKELETAL: strength 5/5 throughout, head is normocephalic and atraumatic, neck supple, normal palpation of chest wall without tenderness SKIN: warm and dry, no rashes NEUROLOGIC: CN 2-12 grossly intact, no sensory deficit, normal cognition, normal speech, no tremor PSYCHIATRIC: alert cooperative and oriented to person, place and time. Euthymic mood, makes good eye contact, language grossly intact, recent and remote memory grossly intact. Results & Data Results & Data ([facility]) Vital Signs (Past 12 Hours) Vital Signs Temp Pulse Resp BP Pulse Ox O2 Del Method 06/28/22 07:34 37.1 C 63 16 146/84 H 96 Room Air Laboratory Results Short CBC 06/28/22 Range/Units 07:08 WBC 4.16 L (4.8-10.8) K/ul Hgb 10.8 L (12.0-16.0) g/dl Hct 33.4 L (34.1-44.9) % Plt Count 260 (130-400) K/uL BMP 06/28/22 07:08 Sodium 140 Potassium 4.0 Chloride 106 Carbon Dioxide 32 BUN 8 Creatinine 0.61 Glucose 109 H Calcium 8.6 Diagnostic Findings KUB X-Ray 06/28/22 07:58 KUB HISTORY: Acute generalized abdominal pain eval SBO COMPARISON: CT 06/26/2022 FINDINGS: Distal tip of enteric tube and side-port project over the gastric body. There is persistent mild small bowel distention, better appreciated on the CT study. Small bowel loops measure up to approximately 3 cm. Mild to moderate colonic fecal retention. No renal calculi. No ureteral calculi. No pneumoperitoneum or pneumatosis. No fracture. IMPRESSION: 1. Status post placement of an enteric tube distal tip projected over the gastric body. 2. Persistent mild small bowel distention likely secondary to ongoing small bowel obstruction, better appreciated on the comparison CT exam. ACT 112: Negative or not required by law. The above report was generated using voice recognition software. It may contain grammatical, syntax or spelling errors. Electronically signed by: Darrion Walden M.D. 06/28/2022 9:47 AM Medications Administered Current Inpatient Medications Acetaminophen (Acetaminophen 1000 Mg/100 Ml Iv) 1,000 mg IV TID PRN PRN Reason: PAIN OR FEVER Stop: 06/30/22 06:10 Last Admin: 06/27/22 21:32 Dose: 1,000 mg Albuterol (Albuterol Hfa 8 Gm Inhaler) 2 puffs INH QID PRN PRN Reason: Shortness Of Breath Or Wheezin Stop: 07/27/22 06:01 Dicyclomine HCl (Dicyclomine Hcl 10 Mg Cap) 10 mg PO TID PRN PRN Reason: muscle spasm Stop: 07/27/22 06:01 Enoxaparin Sodium (Enoxaparin Inj 40 Mg/0.4 Ml Syr) 40 mg SQ Q24H BORIS Stop: 07/27/22 08:59 Last Admin: 06/28/22 09:23 Dose: 40 mg Fexofenadine HCl (Fexofenadine Hcl 180 Mg Tab) 180 mg PO QAM PRN PRN Reason: Allergy Symptoms Stop: 07/27/22 06:01 Hydromorphone HCl (Hydromorphone Inj 0.5 Mg/0.5 Ml Syr) 0.5 mg IV Q3H PRN PRN Reason: Pain Stop: 07/11/22 06:01 Last Admin: 06/27/22 06:44 Dose: 0.5 mg Dextrose/Sodium Chloride (D5w And 1/2nss) 1,000 mls @ 125 mls/hr IV .Q8H BORIS Stop: 07/27/22 06:01 Last Admin: 06/28/22 05:47 Dose: 125 mls/hr Famotidine 20 mg/ Syringe 5 mls @ 2.5 mls/min IV BID BORIS Stop: 07/27/22 08:59 Last Admin: 06/28/22 09:23 Dose: 2.5 mls/min Losartan Potassium (Losartan Potassium 50 Mg Tab) 50 mg PO DAILY BORIS Stop: 07/27/22 08:59 Last Admin: 06/28/22 09:23 Dose: 50 mg Ondansetron HCl (Ondansetron Inj 2 Mg/Ml 2 Ml Vial) 4 mg IV Q6H PRN PRN Reason: Nausea Stop: 07/27/22 06:01 Quetiapine Fumarate (Quetiapine Fumarate 25 Mg Tablet) 25 mg PO HS BORIS Stop: 07/27/22 20:59 Last Admin: 06/27/22 21:24 Dose: 25 mg Venlafaxine HCl (Venlafaxine Hcl Xr 150 Mg Capxr) 150 mg PO QAM BORIS Stop: 07/27/22 08:59 Last Admin: 06/28/22 09:23 Dose: 150 mg
--- NOTE | 2022-06-28 12:24 | Surgery Progress Note ---
Date of Service June 28, 2022 Assessment & Plan (1) Small bowel obstruction: Plan: pt is a 56 year-old female who was admitted to hospital for SBO with Crohn's disease, partial small bowel resection in 2019, IMP: SBO, Plan, no emergent surgery indication now, I agree with GI consult for recommend that conservative treatment now, try avoid surgery if we can, base on higher recurrent rate after surgery treatment, will F/U, pt agrees with the plan, I answered all questions, 06/28/2022 12:26PM doing better, passed gas, keep NG tube today, continue treatment, OOB, will F/U, Admission and Anticipated Discharge Date Admission Date: June 27, 2022 Subjective Feeling better. NG tube still in place. KUB shows continued small bowel distension. She reports passing a little gas. 06/28/2022 12:24PM, feels better, less abdominal pain, passed some gas, no fever, NG tube 775ml, no bloody, Physical Exam Constitutional: WD/WN, vitals as above Eyes: PERRL, conjunctivae normal, anicteric sclerae Neck: trachea midline, no thyromegaly Respiratory: normal respiratory effort, lungs clear to auscultation Cardiovascular: RRR, no murmur, no edema Gastrointestinal (Abdomen): soft, mild tenderness at umbilical area, no rebound pain, no distend, BS +, Musculoskeletal: no cyanosis or clubbing, extremities motor strength 5/5 Neurologic: patellar DTR's 2+ bilat, sensation intact Psychiatric: A+Ox3, euthymic affect Results & Data ([facility]) Vital Signs (Past 12 Hours) Vital Signs Temp Pulse Resp BP Pulse Ox O2 Del Method 06/28/22 07:34 37.1 C 63 16 146/84 H 96 Room Air Laboratory Results Abnormal lab results 06/28/22 06/28/22 Range/Units 07:08 07:08 WBC 4.16 L (4.8-10.8) K/ul RBC 3.81 L (3.93-5.22) M/uL Hgb 10.8 L (12.0-16.0) g/dl Hct 33.4 L (34.1-44.9) % Anion Gap 2 L (3-11) Glucose 109 H (70-99(Fasting)) mg/dl
[2022-06-28] MEDS: ACETAMINOPHEN 1000 MG/100 ML IV IV PRN ×2 (13:21→20:59)
[2022-06-28] MEDS ORDERED: CHLORASEPTIC 1.4% SOLN 180 ML BTL MT PRN (19:23)
[2022-06-28] MEDS: QUEtiapine FUMARATE 25 MG TABLET PO SCH (20:10)
[2022-06-29] MEDS: D5W AND 1/2NSS 1,000 ML IV SCH ×2 (07:57→16:25)
[2022-06-29] MEDS: ACETAMINOPHEN 1000 MG/100 ML IV IV PRN (07:58)
[2022-06-29] MEDS: VENLAFAXINE HCL XR 150 MG CAPXR PO SCH (08:00)
[2022-06-29] MEDS: LOSARTAN POTASSIUM 50 MG TAB PO SCH (08:00)
[2022-06-29] MEDS: ENOXAPARIN INJ 40 MG/0.4 ML SYR SQ SCH (08:00)
[2022-06-29] MEDS: FAMOTIDINE 20 MG in SYRINGE 3 ML IV SCH ×2 (08:14→20:21)
--- NOTE | 2022-06-29 08:44 | Surgery Progress Note ---
Date of Service June 29, 2022 Assessment & Plan (1) Small bowel obstruction: Plan: pt is a 56 year-old female who was admitted to hospital for SBO with Crohn's disease, partial small bowel resection in 2019, IMP: SBO, Plan, no emergent surgery indication now, I agree with GI consult for recommend that conservative treatment now, try avoid surgery if we can, base on higher recurrent rate after surgery treatment, will F/U, pt agrees with the plan, I answered all questions, 06/28/2022 12:26PM doing better, passed gas, keep NG tube today, continue treatment, OOB, will F/U, 06/29/2022 8:43AM doing better, passed stool, base on NG tube output is still high, keep NG tube today, continue treatment, OOB, 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 NG tube still in place. KUB shows continued small bowel disten caio. She reports passing a little gas. No throat pain and doing well. 06/29/2022 8:41AM pt is doing better, passed one time stool, not pass gas, NG 900ml, mild pain at lower abdomen, no fever, Physical Exam Constitutional: WD/WN, vitals as above Eyes: PERRL, conjunctivae normal, anicteric sclerae Neck: trachea midline, no thyromegaly Respiratory: normal respiratory effort, lungs clear to auscultation Cardiovascular: RRR, no murmur, no edema Gastrointestinal (Abdomen): soft, mild tenderness at lower abdomen, no rebound pain, no distend, BS +, Musculoskeletal: no cyanosis or clubbing, extremities motor strength 5/5 Neurologic: patellar DTR's 2+ bilat, sensation intact Psychiatric: A+Ox3, euthymic affect Results & Data ([facility]) Vital Signs (Past 12 Hours) Vital Signs Temp Pulse Resp BP BP Pulse Ox O2 Del Method 06/29/22 07:31 37.3 C 72 16 165/84 H 96 Room Air 06/28/22 21:04 37.0 C 66 16 158/83 H 96 Room Air
--- NOTE | 2022-06-29 09:14 | Gastroenterology Progress Note ---
Date of Service June 29, 2022 Assessment & Plan (1) SBO (small bowel obstruction): Plan: Pt had BM last night, not passing flatus. NGT output 900mL, denies n/v, but having persistent lower abd tenderness. Plan - NPO - NGT trial clamp - IVF support - Avoid narcotics, encourage ambulation, keep K >4 to promote peristalsis - KUB today - MRE to eval small bowel disease (hx of small bowel resection in 2019, Crohn's on path noted). - Currently not on Crohn's meds and last colonoscopy in 2019. Consider trial use of steroids if not clinically improved by tomorrow. And will set up GI f/u visit (sees Dr. Jovi Soliman) and f/u colonoscopy after discharged - Surgery following Admission and Anticipated Discharge Date Admission Date: June 27, 2022 Supervising Physician Co-Signing Physician Notes Saw and evaluated the patient, she has having continued abdominal distention but did have a small bowel movement yesterday evening. She reports that she is having minimal flatus at the present time. Recommendations With IV hydration NG tube to low intermittent suction Appreciate Surgical input if patient fails to improve she may need referral to a tertiary center with colorectal surgery to support Subjective Pt had solid BM last night. Not passing flatus. NGT output 900mL. She denies n/v, but still having abd pain mostly on RLQ area. Review of Systems Review of Systems: All systems reviewed & are unremarkable except as noted in HPI & below Physical Exam Constitutional: WD/WN, vitals as above well groomed, cooperative and comfortable Eyes: PERRL, conjunctivae normal, anicteric sclerae ENMT: external ear and nose normal, oropharynx normal Respiratory: normal respiratory effort, lungs clear to auscultation Cardiovascular: RRR, no murmur, no edema Gastrointestinal (Abdomen): BS present, soft, TTP lower areas Skin: no rashes, warm and dry no jaundice Psychiatric: A+Ox3, euthymic affect Lymphatic: no lymphedema Results & Data ([facility]) Vital Signs (Past 12 Hours) Vital Signs Temp Pulse Resp BP Pulse Ox O2 Del Method 06/29/22 07:31 37.3 C 72 16 165/84 H 96 Room Air
[2022-06-29 10:20] LABS: Hematocrit (blood only) 36.3 % (34.1-44.9); Mean Corpuscular Hemoglobin 28.6 pg (25.0-34.0); Mean Corpuscular Hgb Conc 33.1 g/dL (32.0-36.0); Mean Corpuscular Volume 86.6 fL (80.0-100.0); Mean Platelet Volume 11.2 fL (9.4-12.3); Platelet Count 314 K/uL (130-400); RDW Standard Deviation 44.2 fL (36.4-46.3); Red Blood Count 4.19 M/uL (3.93-5.22); White Blood Count 4.96 K/ul (4.8-10.8)
[2022-06-29 10:45] LABS: BUN Creatinine Ratio 7.9 (10-20); Calcium 9.2 mg/dl (8.5-10.1); Magnesium 1.9 mg/dl (1.7-2.4); Phosphorus 3.3 mg/dl (2.5-4.9); Potassium 3.9 mmol/L (3.5-5.1)
--- NOTE | 2022-06-29 10:53 | XRay Report ---
KUB HISTORY: Acute generalized abdominal pain with small bowel traction re-eval SBO COMPARISON: KUB 06/28/2022, CT 06/26/2022 FINDINGS: Distal tip of enteric tube projects over the mid gastric body. There is mildly decreased sm all bowel distention. No renal calculi. No ureteral calculi. No pneumoperitoneum or pneumatosis. No fracture. IMPRESSION: 1. Distal tip enteric tube projects of the stomach. 2. Mildly decreased small bowel distention may represent resolving obstruction. Continued follow-up r ecommended. ACT 112: Negative or not required by law. The above report was generated using voice recognition software. It may contain grammatical, syntax o r spelling errors. Electronically signed by: Darrion Walden M.D. 06/29/2022 10:52 AM
--- NOTE | 2022-06-29 18:07 | Hospitalist Progress Note ---
Date of Service June 29, 2022 Assessment & Plan (1) Small bowel obstruction: Plan: Transition point appears to be at the site of anastomosis from prior surgery. Patient has never been on any medical therapy for Crohn's disease. Per GI this should be discussed with her primary GI physician as there is a high likelihood of active recurrence of Crohn's at the site of prior surgeries. NG tube removed this afternoon. We will start clears. Case discussed with GI. (2) Crohn disease: Plan: Chronic, currently in remission. No evidence of active disease with current clinical picture. Plan as above. (3) Depression: Plan: Chronic, stable, continue venlafaxine and Seroquel. (4) Smoking: Plan: Encouraged smoking cessation which will increase overall health and decrease likelihood of complications especially with Crohn's disease. (5) DVT prophylaxis: Plan: Lovenox Full code Disposition-to home when tolerating solid food. [facility] Admission and Anticipated Discharge Date Admission Date: June 27, 2022 Subjective 57-year-old female admitted for SBO NG tube clamped since 8:00 and she is doing well without nausea vomiting or other issues. Mild but resolving abdominal pain in the suprapubic region. She is passing flatus this afternoon which was not ongoing this morning. She is having bowel movements. She is eager to get the NG tube removed. Review of Systems Review of Systems: All systems were reviewed and negative except as indicated in subjective above. Physical Exam Physical Exam: CONSTITUTIONAL: WNWD, vitals as above, generally well- appearing, NAD EYES: normal conjunctivae, no scleral icterus ENT: external ear and nose normal, MMM, +NG tube NECK: trachea midline RESPIRATORY: clear to auscultation bilaterally, no crackles, rales or wheezes, normal respiratory effort CARDIOVASCULAR: regular rate and rhythm, S1 and 2 heard without murmurs, gallops or rubs, no JVD, no peripheral edema CHEST: inspection of chest was normal GASTROINTESTINAL: soft, nontender, ND, no guarding. hypoactive BS MUSCULOSKELETAL: strength 5/5 throughout, head is normocephalic and atraumatic, neck supple, normal palpation of chest wall without tenderness SKIN: warm and dry, no rashes NEUROLOGIC: CN 2-12 grossly intact, no sensory deficit, normal cognition, normal speech, no tremor PSYCHIATRIC: alert cooperative and oriented to person, place and time. Euthymic mood, makes good eye contact, language grossly intact, recent and r emote memory grossly intact. Results & Data Results & Data ([facility]) Vital Signs (Past 12 Hours) Vital Signs Temp Pulse Resp BP BP Pulse Ox O2 Del Method 06/29/22 16:29 172/103 H 06/29/22 15:24 36.9 C 73 16 174/109 H 175/110 H 97 Room Air 06/29/22 07:31 37.3 C 72 16 165/84 H 96 Room Air Laboratory Results Short CBC 06/29/22 Range/Units 10:04 WBC 4.96 (4.8-10.8) K/ul Hgb 12.0 (12.0-16.0) g/dl Hct 36.3 (34.1-44.9) % Plt Count 314 (130-400) K/uL BMP 06/29/22 10:04 Sodium 142 Potassium 3.9 Chloride 106 Carbon Dioxide 31 BUN 5 L Creatinine 0.63 Glucose 100 H Calcium 9.2 Diagnostic Findings KUB X-Ray 06/29/22 09:14 KUB HISTORY: Acute generalized abdominal pain with small bowel traction re-eval SBO COMPARISON: KUB 06/28/2022, CT 06/26/2022 FINDINGS: Distal tip of enteric tube projects over the mid gastric body. There is mildly decreased small bowel distention. No renal calculi. No ureteral calculi. No pneumoperitoneum or pneumatosis. No fracture. IMPRESSION: 1. Distal tip enteric tube projects of the stomach. 2. Mildly decreased small bowel distention may represent resolving obstruction. Continued follow-up recommended. ACT 112: Negative or not required by law. The above report was generated using voice recognition software. It may contain grammatical, syntax or spelling errors. Electronically signed by: Darrion Walden M.D. 06/29/2022 10:52 AM Medications Administered Current Inpatient Medications Acetaminophen (Acetaminophen 1000 Mg/100 Ml Iv) 1,000 mg IV TID PRN PRN Reason: PAIN OR FEVER Stop: 06/30/22 06:10 Last Admin: 06/29/22 07:58 Dose: 1,000 mg Albuterol (Albuterol Hfa 8 Gm Inhaler) 2 puffs INH QID PRN PRN Reason: Shortness Of Breath Or Wheezin Stop: 11/14/22 06:01 Dicyclomine HCl (Dicyclomine Hcl 10 Mg Cap) 10 mg PO TID PRN PRN Reason: muscle spasm Stop: 07/27/22 06:01 Enoxaparin Sodium (Enoxaparin Inj 40 Mg/0.4 Ml Syr) 40 mg SQ Q24H BORIS Stop: 07/27/22 08:59 Last Admin: 06/29/22 08:00 Dose: 40 mg Fexofenadine HCl (Fexofenadine Hcl 180 Mg Tab) 180 mg PO QAM PRN PRN Reason: Allergy Symptoms Stop: 07/27/22 06:01 Hydromorphone HCl (Hydromorphone Inj 0.5 Mg/0.5 Ml Syr) 0.5 mg IV Q3H PRN PRN Reason: Pain Stop: 07/11/22 06:01 Last Admin: 06/27/22 06:44 Dose: 0.5 mg Dextrose/Sodium Chloride (D5w And 1/2nss) 1,000 mls @ 125 mls/hr IV .Q8H BORIS Stop: 07/27/22 06:01 Last Admin: 06/29/22 16:25 Dose: 125 mls/hr Famotidine 20 mg/ Syringe 5 mls @ 2.5 mls/min IV BID BORIS Stop: 07/27/22 08:59 Last Admin: 06/29/22 08:14 Dose: 2.5 mls/min Losartan Potassium (Losartan Potassium 50 Mg Tab) 50 mg PO DAILY BORIS Stop: 07/27/22 08:59 Last Admin: 06/29/22 08:00 Dose: 50 mg Ondansetron HCl (Ondansetron Inj 2 Mg/Ml 2 Ml Vial) 4 mg IV Q6H PRN PRN Reason: Nausea Stop: 07/27/22 06:01 Phenol (Chloraseptic 1.4% Soln 180 Ml Btl) 1 sprays MT Q4H PRN PRN Reason: Sore Throat Stop: 07/28/22 19:22 Last Admin: 06/28/22 20:58 Dose: 1 sprays Quetiapine Fumarate (Quetiapine Fumarate 25 Mg Tablet) 25 mg PO HS BORIS Stop: 07/27/22 20:59 Last Admin: 06/28/22 20:10 Dose: 25 mg Venlafaxine HCl (Venlafaxine Hcl Xr 150 Mg Capxr) 150 mg PO QAM [facility] Stop: 07/27/22 08:59 Last Admin: 06/29/22 08:00 Dose: 150 mg
[2022-06-29] MEDS: QUEtiapine FUMARATE 25 MG TABLET PO SCH (20:19)
[2022-06-30] MEDS: ACETAMINOPHEN 1000 MG/100 ML IV IV PRN (00:03)
[2022-06-30] MEDS ORDERED: QUEtiapine FUMARATE 25 MG TABLET PO ONE (00:09)
[2022-06-30] MEDS: D5W AND 1/2NSS 1,000 ML IV SCH ×2 (00:40→08:26)
[2022-06-30] MEDS: ENOXAPARIN INJ 40 MG/0.4 ML SYR SQ SCH (08:10)
[2022-06-30] MEDS: LOSARTAN POTASSIUM 50 MG TAB PO SCH (08:11)
[2022-06-30] MEDS: VENLAFAXINE HCL XR 150 MG CAPXR PO SCH (08:11)
[2022-06-30] MEDS: FAMOTIDINE 20 MG in SYRINGE 3 ML IV SCH ×2 (08:26→20:48)
[2022-06-30 08:30] LABS: Hematocrit (blood only) 31.7 % (34.1-44.9); Hemoglobin 10.4 g/dl (12.0-16.0); Mean Corpuscular Hemoglobin 28.5 pg (25.0-34.0); Mean Corpuscular Hgb Conc 32.8 g/dL (32.0-36.0); Mean Corpuscular Volume 86.8 fL (80.0-100.0); Mean Platelet Volume 11.2 fL (9.4-12.3); Platelet Count 262 K/uL (130-400); RDW Coefficient of Variation 13.7 % (11.5-14.5); RDW Standard Deviation 43.6 fL (36.4-46.3); Red Blood Count 3.65 M/uL (3.93-5.22); White Blood Count 3.27 K/ul (4.8-10.8)
[2022-06-30 08:52] LABS: BUN Creatinine Ratio 5.2 (10-20); Calcium 8.8 mg/dl (8.5-10.1); Creatinine Clr Calc Pharmacy 117.3 ml/min; Est GFR (African American) 120.3 ml/min; Est GFR (Non-African American) 103.8 ml/min; Potassium 3.4 mmol/L (3.5-5.1)
[2022-06-30] MEDS ORDERED: POTASSIUM CHLORIDE CRTAB 20 MEQ TABCR PO STA (09:09)
--- NOTE | 2022-06-30 09:43 | Gastroenterology Progress Note ---
Date of Service June 30, 2022 Assessment & Plan (1) SBO (small bowel obstruction): Plan: Pt is a 57 yo female w hx of bowel obstruction s/p resection in 2019, hx of Crohn's disease, admitted w SBO w transition point on previous small bowel anastomosis area. She is clinically much improved, passing flatus, BM and tolerating diet well. Plan - Advance diet as tolerated, to low residue - Obtain MR enterography to r/o small bowel active Crohns - Avoid narcotics, encourage ambulation, keep K >4 to promote peristalsis - No contraindication for DC home after MRE obtained. Will arrange OP EGD/Colonoscopy and GI clinic follow up. Admission and Anticipated Discharge Date Admission Date: June 27, 2022 Supervising Physician Co-Signing Physician Notes I saw and evaluated the patient this morning. She notes that she feels much improved this morning and is undergoing enterography later today. We will have her discharge home on a short course of prednisone for follow-up with Dr. Soliman we will perform a follow-up upper endoscopy and colonoscopy to look fo r evidence of active disease. Subjective NGT removed, pt passing BMs and flatus. Denies any n/v, tolerating CL diet well. Not having as much abd pain Review of Systems Review of Systems: All systems reviewed & are unremarkable except as noted in HPI & below Physical Exam Constitutional: WD/WN, vitals as above well groomed, cooperative and comfortable Eyes: PERRL, conjunctivae normal, anicteric sclerae ENMT: external ear and nose normal, oropharynx normal Respiratory: normal respiratory effort, lungs clear to auscultation Cardiovascular: RRR, no murmur, no edema Gastrointestinal (Abdomen): normal bowel sounds, soft, nontender, no hepatos plenomegaly Skin: no rashes, warm and dry no jaundice Psychiatric: A+Ox3, euthymic affect Lymphatic: no lymphedema Results & Data ([facility]) Vital Signs (Past 12 Hours) Vital Signs Temp Pulse Resp BP Pulse Ox O2 Del Method 06/30/22 05:37 36.7 C 64 16 145/81 H 95 Room Air
--- NOTE | 2022-06-30 10:33 | Surgery Progress Note ---
Date of Service June 30, 2022 Assessment & Plan (1) Small bowel obstruction: Plan: History of Crohn's disease, history of small bowel resection for SBO in 2019 Resolving + return of bowel function abdominal pain mostly resolved GI planning for MR enterography today to evaluate for any active Crohn's disease Plan: Can advance diet as tolerated, low fiber MR enterography today continue medical management Discussed with DR. bar who agrees with above. Admission and Anticipated Discharge Date Admission Date: June 27, 2022 Subjective feeling much better today NGT removed yesterday and started on clears, tolerating without pain, n,v multiple bowel movements and passing flatus abdominal pain mostly resolved Physical Exam Constitutional: WD/WN, vitals as above no acute distress and not ill appearing Gastrointestinal (Abdomen): Inspection/Auscultation: abdomen normal to inspection, + abdominal surgical scar (midline laparotomy scar) and + hypoactive bowel sounds; abdomen not distended and + abnormal bowel sounds Percussion/Palpation: + abdomen tender (mild in lower abdomen) and abdomen soft; no guarding, abdomen not rigid and abdomen not firm Skin: no rashes, warm and dry Psychiatric: A+Ox3, euthymic affect Results & Data ([facility]) Vital Signs (Past 12 Hours) Vital Signs Temp Pulse Resp BP Pulse Ox O2 Del Method 06/30/22 05:37 36.7 C 64 16 145/81 H 95 Room Air Laboratory Results 06/30/22 06/30/22 06/29/22 Range/Units 08:05 08:05 10:04 WBC 3.27 L (4.8-10.8) K/ul RBC 3.65 L (3.93-5.22) M/uL Hgb 10.4 L (12.0-16.0) g/dl Hct 31.7 L (34.1-44.9) % MCV 86.8 (80.0-100.0) fL MCH 28.5 (25.0-34.0) pg MCHC 32.8 (32.0-36.0) g/dL RDW Std Deviation 43.6 (36.4-46.3) fL RDW Coeff of Willy 13.7 (11.5-14.5) % Plt Count 262 (130-400) K/uL MPV 11.2 (9.4-12.3) fL Sodium 142 142 (136-145) mmol/L Potassium 3.4 L 3.9 (3.5-5.1) mmol/L Chloride 108 H 106 (98-107) mmol/L Carbon Dioxide 31 31 (21-32) mmol/L Anion Gap 3 5 (3-11) BUN 3 L 5 L (6-23) mg/dl Creatinine 0.58 L 0.63 (0.6-1.2) mg/dl Est Cr Clr Drug Dosing 117.3 108.0 ml/min Est GFR ( Amer) 120.3 117.0 ml/min Est GFR (Non-Af Amer) 103.8 101.0 ml/min BUN/Creatinine Ratio 5.2 L 7.9 L (10-20) Glucose 107 H 100 H (70-99(Fasting)) mg/dl Calcium 8.8 9.2 (8.5-10.1) mg/dl Phosphorus 3.3 (2.5-4.9) mg/dl Magnesium 1.9 (1.7-2.4) mg/dl
--- NOTE | 2022-06-30 13:48 | Hospitalist Progress Note ---
Date of Service June 30, 2022 Assessment & Plan (1) Small bowel obstruction: Plan: Transition point appears to be at the site of anastomosis from prior surgery. Patient has never been on any medical therapy for Crohn's disease. Per GI this should be discussed with her primary GI physician as there is a high likelihood of active recurrence of Crohn's at the site of prior surgeries. NG tube removed on 06/29. Advance diet as tolerated. (2) Crohn disease: Plan: Chronic, currently in remission. No evidence of active disease with current clinical picture. Plan as above. MRE for this afternoon. (3) Depression: Plan: Chronic, stable, continue venlafaxine and Seroquel. (4) Smoking: Plan: Encouraged smoking cessation which will increase overall health and decrease likelihood of complications especially with Crohn's disease. (5) DVT prophylaxis: Plan: Lovenox Full code Disposition-to home when tolerating solid food reliably, likely tomorrow. [facility], [facility] Admission and Anticipated Discharge Date Admission Date: June 27, 2022 Subjective feeling much better today NGT removed yesterday and started on clears, tolerating without pain, n,v multiple bowel movements and passing flatus abdominal pain resolved was tolerating clears, but this afternoon must be NPO for 6 hours to get MRE Review of Systems Review of Systems: All systems were reviewed and negative except as indicated in subjective above. Physical Exam Physical Exam: CONSTITUTIONAL: WNWD, vitals as above, generally well- appearing, NAD EYES: normal conjunctivae, no scleral icterus ENT: external ear and nose normal, MMM NECK: trachea midline RESPIRATORY: clear to auscultation bilaterally, no crackles, rales or wheezes, normal respiratory effort CARDIOVASCULAR: regular rate and rhythm, S1 and 2 heard without murmurs, gallops or rubs, no JVD, no peripheral edema CHEST: inspection of chest was normal GASTROINTESTINAL: soft, nontender, ND, no guarding. MUSCULOSKELETAL: strength 5/5 throughout, head is normocephalic and atraumatic, neck supple, normal palpation of chest wall without tenderness SKIN: warm and dry, no rashes NEUROLOGIC: CN 2-12 grossly intact, no sensory deficit, normal cognition, normal speech, no tremor PSYCHIATRIC: alert cooperative and oriented to person, place and time. Euthymic mood, makes good eye contact, language grossly intact, recent and remote memory grossly intact. Results & Data Results & Data ([facility]) Vital Signs (Past 12 Hours) Vital Signs Temp Pulse Resp BP Pulse Ox O2 Del Method 06/30/22 05:37 36.7 C 64 16 145/81 H 95 Room Air Laboratory Results Short CBC 06/30/22 Range/Units 08:05 WBC 3.27 L (4.8-10.8) K/ul Hgb 10.4 L (12.0-16.0) g/dl Hct 31.7 L (34.1-44.9) % Plt Count 262 (130-400) K/uL BMP 06/30/22 08:05 Sodium 142 Potassium 3.4 L Chloride 108 H Carbon Dioxide 31 BUN 3 L Creatinine 0.58 L Glucose 107 H Calcium 8.8 Medications Administered Current Inpatient Medications Albuterol (Albuterol Hfa 8 Gm Inhaler) 2 puffs INH QID PRN PRN Reason: Shortness Of Breath Or Wheezin Stop: 07/27/22 06:01 Dicyclomine HCl (Dicyclomine Hcl 10 Mg Cap) 10 mg PO TID PRN PRN Reason: muscle spasm Stop: 07/27/22 06:01 Enoxaparin Sodium (Enoxaparin Inj 40 Mg/0.4 Ml Syr) 40 mg SQ Q24H BORIS Stop: 07/27/22 08:59 Last Admin: 06/30/22 08:10 Dose: 40 mg Fexofenadine HCl (Fexofenadine Hcl 180 Mg Tab) 180 mg PO QAM PRN PRN Reason: Allergy Symptoms Stop: 07/27/22 06:01 Hydromorphone HCl (Hydromorphone Inj 0.5 Mg/0.5 Ml Syr) 0.5 mg IV Q3H PRN PRN Reason: Pain Stop: 07/11/22 06:01 Last Admin: 06/27/22 06:44 Dose: 0.5 mg Famotidine 20 mg/ Syringe 5 mls @ 2.5 mls/min IV BID BORIS Stop: 07/27/22 08:59 Last Admin: 06/30/22 08:26 Dose: 2.5 mls/min Losartan Potassium (Losartan Potassium 50 Mg Tab) 50 mg PO DAILY BORIS Stop: 07/27/22 08:59 Last Admin: 06/30/22 08:11 Dose: 50 mg Ondansetron HCl (Ondansetron Inj 2 Mg/Ml 2 Ml Vial) 4 mg IV Q6H PRN PRN Reason: Nausea Stop: 07/27/22 06:01 Phenol (Chloraseptic 1.4% Soln 180 Ml Btl) 1 sprays MT Q4H PRN PRN Reason: Sore Throat Stop: 07/28/22 19:22 Last Admin: 06/28/22 20:58 Dose: 1 sprays Quetiapine Fumarate (Quetiapine Fumarate 25 Mg Tablet) 25 mg PO HS BORIS Stop: 07/27/22 20:59 Last Admin: 06/29/22 20:19 Dose: 25 mg Venlafaxine HCl (Venlafaxine Hcl Xr 150 Mg Capxr) 150 mg PO QA BORIS Stop: 07/27/22 08:59 Last Admin: 06/30/22 08:11 Dose: 150 mg
[2022-06-30] MEDS ORDERED: GLUCAGON FOR INJ 1 MG VIAL ONE (14:45)
[2022-06-30] MEDS ORDERED: GLUCAGON FOR INJ 1 MG VIAL IM ONE (17:00)
[2022-06-30] MEDS ORDERED: GADOBUTROL 65ML VIAL IV ONE (17:07)
--- NOTE | 2022-06-30 17:40 | Magnetic Resonance Report ---
MR enterography wo/w con HISTORY: Vomiting. Upper abdominal pain. Bowel distention with possible obstruction. r/o small bowel crohns TECHNIQUE: MR angiography of the abdomen and pelvis was performed both before and after the intraveno us demonstration of 8.3 cc of Gadavist contrast to evaluate the bowel according to the enterography p rotocol. 1 mg of intramuscular glucagon was also administered. COMPARISON STUDY: KUB 06/29/2022. Abdomen and pelvis CT 06/26/2022. FINDINGS: The lung bases are clear. The heart is mildly enlarged. This remains unchanged. The liver, gallbladder, spleen, adrenal glands, and kidneys are unremarkable. No hydronephrosis. The main portal vein is patent. Normal caliber abdominal aorta. No retroperitoneal lymphadenopathy. No pelvic free f luid. Prior hysterectomy. Normal appendix. The visualized osseous structures are unremarkable. Interv al resolution of the small bowel obstruction compared to prior study. There are few mildly thickened loops of small bowel seen within the left side of the abdomen and right lower quadrant with mild hype renhancement within the right lower quadrant loops of bowel. This includes the bowel is approximately the anastomosis. This is also improved compared the prior study. No abscess or fistula identified. IMPRESSION: 1. Interval resolution of the small bowel obstruction compared to the prior study. 2. A few mildly thickened and enhancing loops of small bowel within the abdomen which have also impro julio. This suggests a resolving enteritis and could represent the patient's known Crohn's disease. ACT 112: Negative or not required by law. Electronically signed by: Ezra Urbina M.D. 06/30/2022 5:38 PM
[2022-06-30] MEDS ORDERED: ACETAMINOPHEN 325 MG TAB PO PRN (20:18)
[2022-06-30] MEDS ORDERED: QUEtiapine FUMARATE 25 MG TABLET PO SCH (21:00)
--- NOTE | 2022-07-01 09:16 | Surgery Progress Note ---
Date of Service July 01, 2022 Assessment & Plan (1) Small bowel obstruction: Plan: History of Crohn's disease, history of small bowel resection for SBO in 2019 Resolving + return of bowel function abdominal pain mostly resolved GI planning for MR enterography today to evaluate for any active Crohn's disease Plan: Can advance diet as tolerated, low fiber MR enterography today continue medical management Discussed with DR. bar who agrees with above. 07/01/2022 9:[address] Wan SBO resolved, pt can be discharged home today, F/U GI doctor 2 weeks, F/U me prn, sign off today, please call with questions, Thanks, Admission and Anticipated Discharge Date Admission Date: June 27, 2022 Supervising Physician Co-Signing Physician Notes I saw and evaluated the patient this morning. She notes that she feels much improved this morning and is undergoing enterography later today. We will have her discharge home on a short course of prednisone for follow-up with Dr. Soliman we will perform a follow-up upper endoscopy and colonoscopy to look for evidence of active disease. Subjective feeling much better today NGT removed yesterday and started on clears, tolerating without pain, n,v multiple bowel movements and passing flatus abdominal pain resolved was tolerating clears, but this afternoon must be NPO for 6 hours to get MRE 07/01/2022 9:16AM tolerated diet, no nausea, no vomiting, passed BM, no fever, enterograph MRI- MPRESSION: 1. Interval resolution of the small bowel obstruction compared to the prior study. 2. A few mildly thickened and enhancing loops of small bowel within the abdomen which have also improved. This suggests a resolving enteritis and could represent the patient's known Crohn's disease. Physical Exam Constitutional: WD/WN, vitals as above Eyes: PERRL, conjunctivae normal, anicteric sclerae Neck: trachea midline, no thyromegaly Respiratory: normal respiratory effort, lungs clear to auscultation Cardiovascular: RRR, no murmur, no edema Gastrointestinal (Abdomen): soft, NT, ND, BS +, Musculoskeletal: no cyanosis or clubbing, extremities motor strength 5/5 Neurologic: patellar DTR's 2+ bilat, sensation intact Psychiatric: A+Ox3, euthymic affect Results & Data ([facility]) Vital Signs (Past 12 Hours) Vital Signs Temp Pulse Resp BP BP Pulse Ox O2 Del Method 07/01/22 07:16 37.0 C 69 16 143/77 H 95 Room Air 06/30/22 21:50 36.9 C 67 16 156/90 H 94 Room Air
[2022-07-01] MEDS: VENLAFAXINE HCL XR 150 MG CAPXR PO SCH (09:25)
[2022-07-01] MEDS: LOSARTAN POTASSIUM 50 MG TAB PO SCH (09:25)
[2022-07-01] MEDS: ENOXAPARIN INJ 40 MG/0.4 ML SYR SQ SCH (09:25)
[2022-07-01] MEDS: FAMOTIDINE 20 MG in SYRINGE 3 ML IV SCH (09:35)
--- NOTE | 2022-07-01 10:03 | Communication Note ---
Date of Service: July 01, 2022 Reviewed MR enterography results with patient: 1. Interval resolution of the small bowel obstruction compared to the prior study. 2. A few mildly thickened and enhancing loops of small bowel within the abdomen which have also improved. This suggests a resolving enteritis and could represent the patient's known Crohn's disease. No new plans from GI today. We will arrange follow-up in GI clinic and outpatient colonoscopy to determine if she may have active Crohn's disease. I discussed the patient's care with Ms. Brewer. Patient was not seen, we did review her MR enterography and would recommend endoscopic evaluation as previously discussed.
[2022-07-01] MEDS ORDERED: POTASSIUM CHLORIDE CRTAB 20 MEQ TABCR PO ONE (10:26)
--- NOTE | 2022-07-01 14:44 | Hospitalist Progress Note ---
Date of Service July 01, 2022 Assessment & Plan (1) Small bowel obstruction: Plan: -CT abd:Small bowel obstruction with the transition point within the right lower quadrant a few centimeters proximal to the prior small bowel anastomosis. Small amount of interloop fluid at the distended loops of small bowel and a small amount of pelvic free fluid which could represent vascular congestion. However, no pneumatosis at this time to suggest ischemia. Colonic diverticulosis. No evidence for acute diverticulitis. Normal appendix. -MR enterography:Interval resolution of the small bowel obstruction compared to the prior study A few mildly thickened and enhancing loops of small bowel within the abdomen which have also improved. This suggests a resolving enteritis and could represent the patient's known Crohn's disease. Transition point appears to be at the site of anastomosis from prior surgery. H/O Crohn's disease Appreciate GI, surgery input Tolerated diet Had bowel movement Advised to follow-up with GI as outpatient (2) Crohn disease: Plan: Chronic, currently in remission. MRE as above Appreciate GI input Needs outpatient EGD, colonoscopy (3) Depression: Plan: Chronic, stable, continue venlafaxine and Seroquel. (4) Smoking: Plan: Encouraged smoking cessation which will increase overall health and decrease likelihood of complications especially with Crohn's disease. (5) DVT prophylaxis: Plan: Lovenox SQ Code Status Full code Admission and Anticipated Discharge Date Admission Date: June 27, 2022 Subjective Patient is seen and examined at bedside States feeling well today Had bowel movement Denies any nausea, vomiting, abdominal pain Tolerating diet Denies any chest pain, dyspnea, dizziness No other complaints Eager to get discharged Review of Systems Review of Systems: All systems reviewed & are unremarkable except as noted in Subjective Physical Exam Physical Exam: Physical Exam: Vitals signs as noted above General Appearance:Moderately built and nourished, no apparent distress Head: normocephalic, Atraumatic Eyes: normal inspection, EOMI Neck: supple, Trachea midline Respiratory/Chest: Normal breath sounds, CTA, No accessory muscle use Cardiovascular: S1, S2, No murmur Abdomen/GI:Soft, Non tender, Bowel sounds present Extremities/Musculoskeletal:normal inspection, no edema Neurologic/Psych:AAOX3, grossly no focal neurological deficits Skin: normal color, warm Results & Data Results & Data ([facility]) Vital Signs (Past 12 Hours) Vital Signs Temp Pulse Resp BP Pulse Ox O2 Del Method 10/19/22 07:16 37.0 C 69 16 143/77 H 95 Room Air
--- NOTE | 2022-07-01 20:15 | Discharge Summary ---
Date of Service July 01, 2022 Admission HPI Per Admitting Provider CHIEF COMPLAINT: Abdominal pain. HISTORY OF PRESENT ILLNESS: This is a 56-year-old female with past medical history significant for hypertension, GERD, depression, history of HSV-1 infection, history of microcytic anemia, depression, history of Crohn's colitis, history of bowel obstructions in the past, GERD, who presents with abdominal pain. The patient says that she started to develop abdominal pain around 4:00 p.m. and had several episodes of vomiting. Pain is severe in the middle of the abdomen. No radiation. Feeling chills. Last bowel movement was yesterday. Normal bladder movements. She complains of some chest discomfort and attributes it from her vomiting. No shortness of breath, no headache, no blurred visions, no earache, no runny nose, no sore throat, no cough, no fevers currently. Still has a lot of pain, asking for pain medications and nauseous. Has history of bowel obstruction in the past, but in 2018 she was transferred to [place] as imaging studies showed multiple ulcers and stricture.. At [place], she underwent resection of the 50-60 cm ileum, with stenosis and skip areas consistent with Crohn's disease grossly and microscopically. After that, she was asymptomatic and GI discussed about biologics, but she preferred watchful waiting .She also had colonoscopy after that and it was unremarkable. This is the first time since then presenting with bowel obstruction. Admission Exam Per Admitting Provider PHYSICAL EXAMINATION: GENERAL: The patient is of moderate build, not in acute distress. VITAL SIGNS: Temperature 36.8, pulse 86, respiratory rate 18, blood pressure 160/78, oxygen 95% on 1 liter. HEENT: Pupils equal, round and reactive to light. Oral mucosa dry. NECK: No JVD, no neck masses. CARDIOVASCULAR: S1 and S2 heard. Regular rate and rhythm. No murmur, no gallop. RESPIRATORY SYSTEM: Normal AP diameter. No accessory muscle use. No wheezing, no crackles. ABDOMEN: Soft, diffuse discomfort. Mild guarding, no rigidity, no distention. Bowel sounds sluggish. CENTRAL NERVOUS SYSTEM: Cranial nerves II through XII grossly intact, nonfocal. EXTREMITIES: No edema, no erythema. Principal Diagnosis Small bowel obstruction Crohn's disease Discharge Data Allergies Allergy/AdvReac Type Severity Reaction Status Date / Time naproxen Allergy Severe ANAPHYLAXIS- Verified 02/15/19 02:28 THROAT SWELLING, motrin OK diflunisal Allergy Unknown per PCP Verified 06/27/22 06:22 records fexofenadine AdvReac Mild HYPERTENSIO Verified 06/27/22 06:22 N pseudoephedrine AdvReac Mild HYPERTENSIO Verified 06/27/22 06:22 N meperidine AdvReac Unknown HYPOTENSION Verified 06/27/22 06:22 Consultations 06/27/22 01:55 ED Decision to Admit Stat 06/27/22 08:00 Consult Gastroenterology Routine Consult General Surgery Routine Procedures Performed Laboratory Results WBC 3.27 K/ul (4.8-10.8) L 06/30/22 08:05 RBC 3.65 M/uL (3.93-5.22) L 06/30/22 08:05 Hgb 10.4 g/dl (12.0-16.0) L 06/30/22 08:05 Hct 31.7 % (34.1-44.9) L 06/30/22 08:05 MCV 86.8 fL (80.0-100.0) 06/30/22 08:05 MCH 28.5 pg (25.0-34.0) 06/30/22 08:05 MCHC 32.8 g/dL (32.0-36.0) 06/30/22 08:05 RDW Std Deviation 43.6 fL (36.4-46.3) 06/30/22 08:05 RDW Coeff of Willy 13.7 % (11.5-14.5) 06/30/22 08:05 Plt Count 262 K/uL (130-400) 06/30/22 08:05 MPV 11.2 fL (9.4-12.3) 06/30/22 08:05 Immature Gran % (Auto) 0.3 % 06/27/22 08:03 Neut % (Auto) 78.3 % 06/27/22 08:03 Lymph % (Auto) 12.4 % 06/27/22 08:03 [place] % (Auto) 8.2 % 06/27/22 08:03 Eos % (Auto) 0.4 % 06/27/22 08:03 Baso % (Auto) 0.4 % 06/27/22 08:03 Neut # (Auto) 7.14 K/uL (1.4-6.5) H 06/27/22 08:03 Lymph # (Auto) 1.13 K/uL (1.2-3.4) L 06/27/22 08:03 [place] # (Auto) 0.75 K/uL (0.24-0.82) 06/27/22 08:03 Eos # (Auto) 0.04 K/uL (0-0.50) 06/27/22 08:03 Baso # (Auto) 0.04 K/uL (0-0.2) 06/27/22 08:03 Immature Gran # (Auto) 0.03 K/uL (0.00-0.02) H 06/27/22 08:03 Sodium 142 mmol/L (136-145) 06/30/22 08:05 Potassium 3.4 mmol/L (3.5-5.1) L 06/30/22 08:05 Chloride 108 mmol/L (98-107) H 06/30/22 08:05 Carbon Dioxide 31 mmol/L (21-32) 06/30/22 08:05 Anion Gap 3 (3-11) 06/30/22 08:05 BUN 3 mg/dl (6-23) L 06/30/22 08:05 Creatinine 0.58 mg/dl (0.6-1.2) L 06/30/22 08:05 Est Cr Clr Drug Dosing 117.3 ml/min 06/30/22 08:05 Est GFR ( Amer) 120.3 ml/min 06/30/22 08:05 Est GFR (Non-Af Amer) 103.8 ml/min 06/30/22 08:05 BUN/Creatinine Ratio 5.2 (10-20) L 06/30/22 08:05 Glucose 107 mg/dl (70-99(Fasting)) H 06/30/22 08:05 Calcium 8.8 mg/dl (8.5-10.1) 06/30/22 08:05 Phosphorus 3.3 mg/dl (2.5-4.9) 06/29/22 10:04 Magnesium 1.9 mg/dl (1.7-2.4) 06/29/22 10:04 Total Bilirubin 0.3 mg/dl (0.2-1.0) 06/26/22 21:04 AST 13 U/L (13-39) 06/26/22 21:04 ALT 12 U/L (7-52) 06/26/22 21:04 Alkaline Phosphatase 88 U/L (34-104) 06/26/22 21:04 Troponin I High Sens 8.0 pg/ml (0-14) 06/27/22 12:55 Total Protein 7.7 gm/dl (6.0-8.3) 06/26/22 21:04 Albumin 4.8 gm/dl (3.4-5.0) 06/26/22 21:04 Globulin 2.9 gm/dl (2.5-4.0) 06/26/22 21:04 Albumin/Globulin Ratio 1.7 (0.9-2) 06/26/22 21:04 Lipase 11 U/L (11-82) 06/26/22 21:04 Urine Color Yellow 06/27/22 06:20 Urine Appearance Clear (Clear) 06/27/22 06:20 Urine pH 5.0 (4.5-7.5) 06/27/22 06:20 Ur Specific [place] > 1.045 (1.000-1.030) H 06/27/22 06:20 Urine Protein Negative (Negative) 06/27/22 06:20 Urine Glucose (UA) Negative (Negative) 06/27/22 06:20 Urine Ketones Trace (Negative) H 06/27/22 06:20 Urine Blood Negative (Negative) 06/27/22 06:20 Urine Nitrite Negative (Negative) 06/27/22 06:20 Urine Bilirubin Negative (Negative) 06/27/22 06:20 Urine Urobilinogen Negative (Negative) 06/27/22 06:20 Ur Leukocyte Esterase Negative (Negative) 06/27/22 06:20 SARS-CoV-2, RNA, NAAT NEGATIVE (NEGATIVE) 06/27/22 01:24 Impressions Abdomen/Pelvis CT 06/26/22 23:[address] WITH IV CONTRAST CT DOSE: 493.72 mGy.cm HISTORY: Diffuse abdominal pain. Nausea. eval for bowel obstruction TECHNIQUE: Multiaxial CT images of the abdomen and pelvis were performed following the use of intravenous contrast. A dose lowering technique was utilized adhering to the principles of ALARA. COMPARISON STUDY: Abdomen and pelvis CT 02/15/2019. FINDINGS: There are mild dependent changes seen at the lung bases. The heart remains mildly enlarged. No pneumoperitoneum. No pneumatosis. No fractures wit hin the visualized osseous structures. The liver, gallbladder, spleen, adrenal glands, pancreas, and kidneys are unremarkable. No hydronephrosis. Normal caliber abdominal aorta. No retroperitoneal lymphadenopathy. The main portal vein is patent. The bladder is unremarkable. Small amount of pelvic free fluid. Multiple dilated and fluid-filled loops of proximal to mid small bowel with a local transition point within the right lower quadrant on image 339 consistent with a small bowel obstruction. The ileal loops distal to this transition point are decompressed. This transition point is approximately 7 cm proximal to the site of prior small bowel anastomosis. There is mild interloop fluid noted at the distended loops of small bowel. A few prominent mesenteric lymph nodes which may be reactive. The mesenteric vessels appear patent. Prior hysterectomy. Colonic diverticulosis. No evidence for acute diverticulitis. Normal appendix. IMPRESSION: 1. Small bowel obstruction with the transition point within the right lower quadrant a few centimeters proximal to the prior small bowel anastomosis. 2. Small amount of interloop fluid at the distended loops of small bowel and a small amount of pelvic free fluid which could represent vascular congestion. However, no pneumatosis at this time to suggest ischemia. 3. Colonic diverticulosis. No evidence for acute diverticulitis. 4. Normal appendix. ACT 112: Negative or not required by law. Electronically signed by: Ezra Urbina M.D. 06/27/2022 8:24 AM KUB X-Ray 06/29/22 09:14 KUB HISTORY: Acute generalized abdominal pain with small bowel traction re-eval SBO COMPARISON: KUB 06/28/2022, CT 06/26/2022 FINDINGS: Distal tip of enteric tube projects over the mid gastric body. There is mildly decreased small bowel distention. No renal calculi. No ureteral calculi. No pneumoperitoneum or pneumatosis. No fracture. IMPRESSION: 1. Distal tip enteric tube projects of the stomach. 2. Mildly decreased small bowel distention may represent resolving obstruction. Continued follow-up recommended. ACT 112: Negative or not required by law. The above report was generated using voice recognition software. It may contain grammatical, syntax or spelling errors. Electronically signed by: Darrion Walden M.D. 06/29/2022 10:52 AM Enterography MRI 06/30/22 09:39 MR enterography wo/w con HISTORY: Vomiting. Upper abdominal pain. Bowel distention with possible obstruction. r/o small bowel crohns TECHNIQUE: MR angiography of the abdomen and pelvis was performed both before and after the intravenous demonstration of 8.3 cc of Gadavist contrast to evaluate the bowel according to the enterography protocol. 1 mg of intramuscular glucagon was also administered. COMPARISON STUDY: KUB 06/29/2022. Abdomen and pelvis CT 06/26/2022. FINDINGS: The lung bases are clear. The heart is mildly enlarged. This remains unchanged. The liver, gallbladder, spleen, adrenal glands, and kidneys are unremarkable. No hydronephrosis. The main portal vein is patent. Normal caliber abdominal aorta. No retroperitoneal lymphadenopathy. No pelvic free fluid. Prior hysterectomy. Normal appendix. The visualized osseous structures are unremarkable. Interval resolution of the small bowel obstruction compared to prior study. There are few mildly thickened loops of small bowel seen within the left side of the abdomen and right lower quadrant with mild hyperenhancement within the right lower quadrant loops of bowel. This includes the bowel is approximately the anastomosis. This is also improved compared the prior study. No abscess or fistula identified. IMPRESSION: 1. Interval resolution of the small bowel obstruction compared to the prior study. 2. A few mildly thickened and enhancing loops of small bowel within the abdomen which have also improved. This suggests a resolving enteritis and could represent the patient's known Crohn's disease. ACT 112: Negative or not required by law. Electronically signed by: Ezra Urbina M.D. 06/30/2022 5:38 PM Ordered Studies 06/26/22 23:27 CT Abd and Pelvis [CT abd pelvis IV con only] Urgent 06/30/22 09:39 MR enterography wo/w con Routine Hospital Course (1) Small bowel obstruction: -CT abd:Small bowel obstruction with the transition point within the right lower quadrant a few centimeters proximal to the prior small bowel anastomosis. Small amount of interloop fluid at the distended loops of small bowel and a small amount of pelvic free fluid which could represent vascular congestion. However, no pneumatosis at this time to suggest ischemia. Colonic diverticulosis. No evidence for acute diverticulitis. Normal appendix. -MR enterography:Interval resolution of the small bowel obstruction compared to the prior study A few mildly thickened and enhancing loops of small bowel within the abdomen which have also improved. This suggests a resolving enteritis and could represent the patient's known Crohn's disease. Transition point appears to be at the site of anastomosis from prior surgery. H/O Crohn's disease Appreciate GI, surgery input Tolerated diet Had bowel movement Advised to follow-up with GI as outpatient (2) Crohn disease: Chronic, currently in remission. MRE as above Appreciate GI input Needs outpatient EGD, colonoscopy (3) Depression: Chronic, stable, continue venlafaxine and Seroquel. (4) Smoking: Encouraged smoking cessation which will increase overall health and decrease likelihood of complications especially with Crohn's disease. (5) DVT prophylaxis: Lovenox SQ Code Status Full code Total Time Total Time Spent Total Time Spent (In Minutes): 45 minutes Discharge Plan Discharge Items Patient Disposition: Home - Self-Care Reason For Visit: ABDOMINAL PAIN Discharge Diagnosis: Small bowel obstruction Crohn's disease Activity: Per Instructions section Exercise/Sports: Gradually increase as tolerated Non-emergency contact: Primary Care Provider and [employer] Call non-emergency contact if: you have any medication questions, your symptoms worsen, your pain is concerning for you and you have a fever Follow-up/Referrals: [facility] Gastroenterology [Other] (The GI office will be calling you with an appointment. ) Tomy Carlos MD [Primary Care Provider] - 07/09/22 11:20 am (Date & Time 07/09/2022 11:20 AM Provider Tomy Carlos MD Department Family Medicine [facility] ) Diet: Heart Healthy Diet Texture: Dental soft (bite-sized) Addtl Attending Provider Instructions: Follow-up with your primary care physician on 07/09/2022 11:20 AM as scheduled Follow-up with your transmission rebuilder for upper endoscopy, colonoscopy as o utpatient. Seek immediate medical attention if your symptoms reoccur or worsen Please take all medications as instructed on discharge list below. Please call if you have any questions or problems. You can reach a [facility] hospitalist on duty at [facility] 24 hours a day by calling [phone] Pending Studies at Discharge: No Stand-Alone Forms: My [facility], Work/School Release, Smoking Cessation Medications and DC Order Prescriptions: New famotidine 20 mg Tablet 20 mg PO BID Qty: 60 0RF Continued cyanocobalamin (vitamin B-12) [Vitamin B-12] 1,000 mcg Tablet Extended Release 1,000 mcg PO QAM albuterol sulfate [ProAir HFA] 90 mcg/actuation Hfa Aerosol Inhaler 2 puff INHALATION QID PRN (Reason: Shortness Of Breath Or Wheezing) quetiapine 25 mg Tablet 25 - 50 mg PO HS fexofenadine [Ayde Allergy] 180 mg Tablet 180 mg PO QAM Multiple Vitamin-Minerals Tablet 1 tab PO QAM omeprazole 20 mg Tablet,Delayed Release (Dr/Ec) 20 mg PO QAM Rx Instructions: take 1 hour before breakfast tramadol 50 mg Tablet 50 mg PO Q6H PRN (Reason: Pain) venlafaxine 150 mg Tablet Extended Release 24hr 150 mg PO QAM dicyclomine 10 mg capsule 10 mg PO TID PRN (Reason: muscle spasm) Qty: 60 0RF losartan 50 mg tablet 50 mg PO DAILY Discharge Orders: Discharge Order (Routine); Ordered 07/01/22 Ordered By: Elder Fisher/Other Patient Handouts: Low-Fiber Diet, Obstruction Intestinal Admission Data Admit Date/Time: 06/27/22 02:11 Attending Provider: Elder Thomas Admit Provider: Christophe Ken Primary Care Provider: Tomy Carlos Other Providers: Christophe Ken ; Miguel Flowers ; Almas Farr ; Rosa Fernandez ; Sisi Chamberlain ; Phill Cornejo ; Malcolm Thomas ; Kayode Flower ; Ani Lee ; Jordy Bishop Jr ; Gaby Wan ; Ollie Bennett ; Candice Steven ; Raheel Woods ; Bill Avilez ; Ling Nelson ; Ani Byers ; Gita Harris ; Winter Sotelo ; Christiano Reyes ; Yessenia Harrington ; Vijay Holcomb ; Saleem Chamberlain ; Angy Hart ; Jovi Soliman ; Anette Asencio ; Keila Molina ; Lucero Brewer ; Candice Bridges ; Dimas Gonzalez ; Riley Osuna ; Ron Canela ; Maki Ruelas Other Interventions: Discharge Summary Assessment (RN) Last Done: 07/01/22 15:41
[2022-07-01] MEDS ORDERED: FAMOTIDINE 20 MG TAB PO SCH (21:00)
== END 2022-07-01 15:55 | disposition home or self-care (01) | DRG 387 ==
LOC: ED 20:18 → SUATTDRO 06-27 02:11 → INTOOBSV 06-27 02:11 → 3W 06-27 02:11